=== PATIENT | female | born 1945 | race Caucasian/White ===

== ENCOUNTER 2017-03-02 06:49 | Inpatient (IN) | payer MEDICARE, MEDICAID ==
[2017-03-02 06:49] VITALS: BMI 57.4
[2017-03-02] MEDS ORDERED: Albuterol-Ipratrop 3 mg / 0.5 (3 ml) UD INH STA (07:09)
[2017-03-02 07:26] LABS: BASO # 0.1 K/uL (0.0-0.2); EOS # 1.1 K/uL (0.0-0.7); EOS % 12.2 % (0.0-4.0); HEMATOCRIT 34.6 % (34.0-47.0); LYMPH # 1.3 K/uL (1.0-4.3); LYMPH % 14.2 % (20.0-40.0); MEAN CELL VOLUME 86.7 fl (81.0-99.0); MEAN CORPUSCULAR HEMOGLOBIN 27.7 pg (27.0-31.0); MEAN CORPUSCULAR HGB CONC 31.9 g/dL (33.0-37.0); MEAN PLATELET VOLUME 8.3 fl (7.2-11.7); MONO # 0.6 K/uL (0.0-0.8); MONO % 7.1 % (0.0-10.0); NEUT # 5.9 K/uL (1.8-7.0); NEUT % 65.5 % (50.0-75.0); WHITE BLOOD COUNT 9.1 K/uL (4.8-10.8)
--- NOTE | 2017-03-02 07:36 | ED PDOC ---
HPI: SOB/CHF/COPD Time Seen by Provider: 03/02/17 07:00 Chief Complaint (Nursing): Shortness Of Breath Chief Complaint (Provider): Shortness of breath History Per: Patient History/Exam Limitations: no limitations Onset/Duration Of Symptoms: Days (x1, yesterday) Current Symptoms Are (Timing): Still Present Quality: Tightness Current Respiratory Medications: See Home Med List Pain Scale Rating Of: 0 Associated Symptoms: Ankle/Leg Swelling, Other (cough). denies: Fever Additional History Per: Family (daughter) Additional Complaint(s): Carmela Lr is a 71 year old female, with a past medical history of asthma, COPD, CHF, chronic kidney disease and Hypertension, who was brought to the emergency department accompanied by daughter by EMS for shortness of breath, cough, wheezing and lower extremity swelling onset since yesterday. She reports chest tightness. Patient's daughter states that she has been compliant with medications including diuretics. She denies any fever, vomiting, or diarrhea. Patient has had knee and brain surgery. No further medical complaints. PMD: Jonn Montanez - Risk Factors PE Risk Factors: Pos: CHF Past Medical History Reviewed: Historical Data, Nursing Documentation, Vital Signs Vital Signs: Last Vital Signs Temp 98.1 F 03/07/17 16:28 Pulse 71 03/07/17 16:28 Resp 18 03/07/17 16:28 BP 126/70 03/07/17 16:28 Pulse Ox 94 L 03/07/17 16:28 - Medical History PMH: Anxiety, Asthma, CAD, CHF, COPD, HTN, Hypercholesterolemia, Hyperlipidemia , Hypothyroidism, Chronic Kidney Disease Denies: Emphysema, Kidney Stones - Surgical History Surgical History: Cholecystectomy - Family History Family History: States: Hypertension - Social History Current smoker - smoking cessation education provided: No Alcohol: None Drugs: Denies - Home Medications Home Medications: Ambulatory Orders Medication Instructions Recorded Alprazolam [Xanax] 1 mg PO HS 12/13/13 Ibuprofen [Motrin Tab] 1 tab PO Q8 PRN 10/30/16 traMADol [Ultram] 50 mg PO Q12 PRN 10/30/16 Aspirin [Ecotrin] 81 mg PO DAILY #30 11/01/16 Budesonide/Formoterol Fumarate 2 puff INH BID #1 11/01/16 [Symbicort 160-4.5 Mcg Inhaler] Carvedilol [Coreg] 25 mg PO BID #60 11/01/16 Furosemide [Lasix] 40 mg PO DAILY #60 11/01/16 Levothyroxine [Synthroid] 200 mcg PO DAILY #30 11/01/16 Rosuvastatin Calcium [Crestor] 40 mg PO HS #60 tab 11/01/16 amLODIPine [Norvasc] 1 tab PO DAILY #30 11/01/16 Albuterol/Ipratropium [Duoneb 3 3 ml INH RQ4 neb 03/06/17 mg/0.5 mg (3 ml) UD] Levofloxacin [Levaquin] 500 mg PO DAILY #3 tablet 03/06/17 Methylprednisolone [Medrol Dose 4 mg PO DAILY #21 mg 03/06/17 Pack (21 tabs)] - Allergies Allergies/Adverse Reactions: Allergies Allergy/AdvReac Type Severity Reaction Status Date / Time codeine Allergy Verified 10/30/16 14:40 Review of Systems ROS Statement: Except As Marked, All Systems Reviewed And Found Negative Constitutional: Negative for: Fever Cardiovascular: Positive for: Chest Pain, Edema Respiratory: Positive for: Cough, Shortness of Breath Physical Exam - Reviewed Nursing Documentation Reviewed: Yes Vital Signs Reviewed: Yes - Physical Exam Appears: Positive for: Non-toxic Head Exam: Positive for: ATRAUMATIC, NORMAL INSPECTION, NORMOCEPHALIC Skin: Positive for: Normal Color, Warm, Dry Eye Exam: Positive for: EOMI, Normal appearance, PERRL Neck: Positive for: Normal, Painless ROM, Supple Cardiovascular/Chest: Positive for: Regular Rate, Rhythm. Negative for: Murmur Respiratory: Positive for: Wheezing (bilateral), Respiratory Distress (mild), Other (2+ large pulmonary edema) Gastrointestinal/Abdominal: Positive for: Normal Exam, Bowel Sounds, Soft. Negative for: Tenderness, Guarding, Rebound Back: Positive for: Normal Inspection. Negative for: L CVA Tenderness, R CVA Tenderness Extremity: Positive for: Normal ROM Neurologic/Psych: Positive for: Alert, Oriented. Negative for: Motor/Sensory Deficits - Laboratory Results Result Diagrams: 03/04/17 10:15 03/06/17 05:00 - ECG ECG Rhythm: Positive for: Sinus Rhythm, Nonspecific Changes (ST/T) Rate: 61 O2 Sat by Pulse Oximetry: 98 Medical Decision Making Medical Decision Making: Initial Impression: Asthma exacerbation Initial Plan: --EKG --B-Type natriuretic peptide --Comp Metabolic Panel --Troponin I --CBC w/ differential --PTT --PT --Chest portable [RAD] --Duoneb 3 ml INH --SOLU-medrol --Peak flow pre/post Tx --reevaluation 947 Chest x-ray FINDINGS: LUNGS: There are low lung volumes. There is severe pulmonary venous congestion. There is subsegmental atelectasis in the right lower lobe. PLEURA: Question of left pleural effusion. No large right pleural effusion. CARDIOVASCULAR: The cardiomediastinal silhouette is stable. OSSEOUS STRUCTURES: No significant abnormalities. VISUALIZED UPPER ABDOMEN: Normal. OTHER FINDINGS: None. IMPRESSION: Severe pulmonary venous congestion and suspect small left pleural effusion. Low lung volumes may be related to poor inspiratory effort. Remained w dyspnea, Admit Dr Green Scribe Attestation: Documented by Golden Diaz, acting as a scribe for Howard Alegre MD Provider Scribe Attestation: All medical record entries made by the Scribe were at my direction and personally dictated by me. I have reviewed the chart and agree that the record accurately reflects my personal performance of the history, physical exam, medical decision making, and the department course for this patient. I have also personally directed, reviewed, and agree with the discharge instructions and disposition. Disposition - Clinical Impression Clinical Impression: Dyspnea, COPD (chronic obstructive pulmonary disease), CHF (congestive heart failure) - Patient ED Disposition Is Patient to be Admitted: Yes - Disposition Disposition Time: 09:15 Condition: GUARDED
[2017-03-02 07:38] LABS: ALB/GLOB RATIO 1.2 (1.0-2.1); BILIRUBIN,TOTAL 0.4 mg/dl (0.2-1.3); CALCIUM 9.2 mg/dL (8.4-10.2); TOTAL PROTEIN 7.4 G/DL (6.3-8.2)
[2017-03-02 07:43] LABS: PARTIAL THROMBOPLASTIN TIME 32.4 Seconds (25.6-37.1)
[2017-03-02 07:50] LABS: TROPONIN I 0.016 ng/mL (0.00-0.120)
[2017-03-02 08:05] LABS: VENOUS BLOOD GAS BASE EXCESS 4.8 mmol/L (0.0-2.0); VENOUS BLOOD GAS PCO2 82 mmHg (40-60); VENOUS BLOOD PH 7.24 (7.32-7.43)
--- NOTE | 2017-03-02 09:49 | RAD ---
HISTORY: SOB COMPARISON: No prior. FINDINGS: LUNGS: There are low lung volumes. There is severe pulmonary venous congestion. There is subsegmental atelectasis in the right lower lobe. PLEURA: Question of left pleural effusion. No large right pleural effusion. CARDIOVASCULAR: The cardiomediastinal silhouette is stable. OSSEOUS STRUCTURES: No significant abnormalities. VISUALIZED UPPER ABDOMEN: Normal. OTHER FINDINGS: None. IMPRESSION: Severe pulmonary venous congestion and suspect small left pleural effusion. Low lung volumes may be related to poor inspiratory effort.
[2017-03-02] MEDS ORDERED: levoFLOXacin 500 mg in D5W 500 MG/100 ML BAG IVPB SCH (12:45)
[2017-03-02] MEDS ORDERED: Sodium Chloride 3% for Inhalation 4 ML VIAL.NEB IH PRN (12:45)
[2017-03-02] MEDS ORDERED: methylPREDNISolone 80 MG in Sodium Chloride 0.9% 50 ML IVPB SCH (12:45)
[2017-03-02] MEDS: Albuterol-Ipratrop 3 mg / 0.5 (3 ml) UD INH SCH ×3 (15:21→23:26)
[2017-03-02] MEDS ORDERED: Pneumococcal 23-Valent Vaccine IM ONE (17:00)
[2017-03-02 17:04] LABS: ABG ALLEN TEST YES; ABG MECHANICAL RATE 18; ARTERIAL BLOOD GAS HCO3 25.5 mmol/L (21-28); ARTERIAL BLOOD GAS MODE BiPAP; ARTERIAL BLOOD GAS O2 CAPACITY 15.6 mL/dL (16-24); ARTERIAL BLOOD GAS O2 CONTENT 15.1 ML/dL (15-23); ARTERIAL BLOOD GAS PH 7.32 (7.35-7.45); ARTERIAL BLOOD GAS PO2 67 mm/Hg (80-100); ARTERIAL BLOOD HGB O2 SAT 93.3 % (95.0-98.0); HHB 3.1 % (0.0-5.0); METHEMOGLOBIN 1.6 % (0.0-3.0)
--- NOTE | 2017-03-02 17:40 | CARD ---
APPROVED REPORT EKG Measurement Heart [id number] <Conclusion> Normal sinus rhythm Left ventricular hypertrophy with repolarization abnormality Inferior-posterior infarct, age undetermined Abnormal ECG
[2017-03-02] MEDS ORDERED: Albuterol-Ipratrop 3 mg / 0.5 (3 ml) UD INH SCH (20:00)
--- NOTE | 2017-03-02 23:17 | CP.PCM.HP ---
History of Present Illness - History of Present Illness History of Present Illness: a 71 year old female, with a past medical history of asthma, COPD, CHF, chronic kidney disease and Hypertension, who was brought to the emergency department accompanied by daughter by EMS for shortness of breath, cough, wheezing and lower extremity swelling onset since yesterday. She reports chest tightness. Patient's daughter states that she has been compliant with medications including diuretics. She denies any fever, vomiting, or diarrhea. Patient has had knee and brain surgery. No further medical complaints. PMD: Jonn Montanez Present on Admission - Present on Admission Any Indicators Present on Admission: Yes History of Uncontrolled Diabetes: Yes Urinary Catheter: No Decubitus Ulcer Present: No Review of Systems - Review of Systems All systems: reviewed and no additional remarkable complaints except Past Patient History - Infectious Disease Hx of Infectious Diseases: None - Tetanus Immunizations Tetanus Immunization: Unknown - Past Medical History & Family History Past Medical History?: Yes Past Family History: Reviewed and not pertinent - Past Social History Smoking Status: Never Smoked Alcohol: Social Drugs: Denies - CARDIAC Hx Congestive Heart Failure: Yes Hx Hypercholesterolemia: Yes Hx Hypertension: Yes - PULMONARY Hx Asthma: Yes Hx Chronic Obstructive Pulmonary Disease (COPD): Yes Hx Emphysema: No - NEUROLOGICAL Hx Neurological Disorder: No - HEENT Hx HEENT Problems: No - RENAL Hx Chronic Kidney Disease: Yes Hx Kidney Stones: No - ENDOCRINE/METABOLIC Hx Hypothyroidism: Yes - HEMATOLOGICAL/ONCOLOGICAL Hx Blood Disorders: No - INTEGUMENTARY Hx Dermatological Problems: No - MUSCULOSKELETAL/RHEUMATOLOGICAL Hx Musculoskeletal Disorders: Yes Hx Falls: Yes - GASTROINTESTINAL Hx Gastrointestinal Disorders: No - GENITOURINARY/GYNECOLOGICAL Hx Genitourinary Disorders: No - PSYCHIATRIC Hx Anxiety: Yes Hx Substance Use: No - SURGICAL HISTORY Hx Cholecystectomy: Yes - ANESTHESIA Hx Anesthesia: Yes Hx Anesthesia Reactions: No Meds Home Medications: Home Medication List Medication Instructions Recorded Confirmed Type Albuterol/Ipratropium [Duoneb 3 3 ml INH RQ4 neb 03/06/17 Rx mg/0.5 mg (3 ml) UD] Levofloxacin [Levaquin] 500 mg PO DAILY #3 tablet 03/06/17 Rx Methylprednisolone [Medrol Dose 4 mg PO DAILY #21 mg 03/06/17 Rx Pack (21 tabs)] Allergies/Adverse Reactions: Allergies Allergy/AdvReac Type Severity Reaction Status Date / Time codeine Allergy Verified 10/30/16 14:40 Physical Exam - Constitutional Appears: In Acute Distress - Head Exam Head Exam: ATRAUMATIC, NORMAL INSPECTION, NORMOCEPHALIC - Eye Exam Eye Exam: EOMI, Normal appearance, PERRL Pupil Exam: NORMAL ACCOMODATION, PERRL - ENT Exam ENT Exam: Mucous Membranes Moist, Normal Exam - Neck Exam Neck exam: Positive for: Normal Inspection - Respiratory Exam Respiratory Exam: Accessory Muscle Use, Decreased Breath Sounds, Rales, Wheezes - Cardiovascular Exam Cardiovascular Exam: Tachycardia, +S1, +S2 - GI/Abdominal Exam GI & Abdominal Exam: Normal Bowel Sounds, Soft. absent: Tenderness - Extremities Exam Extremities exam: Positive for: full ROM, normal inspection - Back Exam Back exam: CVA tenderness (L), CVA tenderness (R), NORMAL INSPECTION - Neurological Exam Neurological exam: Alert, CN II-XII Intact, Normal Gait, Oriented x3, Reflexes Normal - Psychiatric Exam Psychiatric exam: Normal Affect, Normal Mood - Skin Skin Exam: Dry, Intact, Normal Color, Warm Results - Vital Signs Recent Vital Signs: Last Vital Signs Temp 98.5 F 03/02/17 20:23 Pulse 80 03/02/17 20:23 Resp 20 03/02/17 20:23 BP 139/69 03/02/17 20:23 Pulse Ox 93 L 03/02/17 20:23 - Labs Result Diagrams: 03/04/17 10:15 03/06/17 05:00 Labs: Laboratory Results - last 24 hr 03/02/17 03/02/17 03/02/17 07:16 07:16 07:16 WBC 9.1 RBC 3.98 Hgb 11.0 L Hct 34.6 MCV 86.7 D MCH 27.7 MCHC 31.9 L RDW 16.0 H Plt Count 314 MPV 8.3 Neut % (Auto) 65.5 Lymph % (Auto) 14.2 L [place] % (Auto) 7.1 Eos % (Auto) 12.2 H Baso % (Auto) 1.0 Neut # 5.9 Lymph # 1.3 Solano # 0.6 Eos # 1.1 H Baso # 0.1 PT 11.4 INR 1.0 APTT 32.4 pCO2 pO2 HCO3 ABG pH ABG Total CO2 ABG O2 Saturation ABG O2 Content ABG Base Excess ABG Hemoglobin ABG Carboxyhemoglobin POC ABG HHb (Measured) ABG Methemoglobin ABG O2 Capacity Alonso Test VBG pH VBG pCO2 VBG HCO3 VBG Total CO2 VBG O2 Sat (Calc) VBG Base Excess VBG Potassium A-a O2 Difference Hgb O2 Saturation Glucose Lactate Vent Mode Mechanical Rate FiO2 Inspiratory BiPAP Expiratory BiPAP Crit Value Called To Crit Value Called By Crit Value Read Back Blood Gas Notified Time Sodium 140 Potassium 5.0 Chloride 101 Carbon Dioxide 30 Anion Gap 14 BUN 33 H Creatinine 1.7 H Est GFR ( Amer) 36 Est GFR (Non-Af Amer) 30 POC Glucose (mg/dL) Random Glucose 109 H Calcium 9.2 Total Bilirubin 0.4 AST 28 ALT 32 Alkaline Phosphatase 108 Troponin I 0.0160 NT-Pro-B Natriuret Pep 1030 H Total Protein 7.4 Albumin 4.0 Globulin 3.4 Albumin/Globulin Ratio 1.2 Venous Blood Potassium Influenza Typ A,B (EIA) 03/02/17 03/02/17 03/02/17 08:01 08:07 09:00 WBC RBC Hgb Hct MCV MCH MCHC RDW Plt Count MPV Neut % (Auto) Lymph % (Auto) Sol[place] % (Auto) Eos % (Auto) Baso % (Auto) Neut # Lymph # Sol[place] # Eos # Baso # PT INR APTT pCO2 pO2 42 HCO3 ABG pH ABG Total CO2 ABG O2 Saturation ABG O2 Content ABG Base Excess ABG Hemoglobin ABG Carboxyhemoglobin POC ABG HHb (Measured) ABG Methemoglobin ABG O2 Capacity Alonso Test VBG pH 7.24 L VBG pCO2 82 H* VBG HCO3 27.9 VBG Total CO2 37.6 H VBG O2 Sat (Calc) 81.4 H VBG Base Excess 4.8 H VBG Potassium 5.1 A-a O2 Difference 5.0 Hgb O2 Saturation Glucose 110 H Lactate 1.1 Vent Mode Mechanical Rate FiO2 21.0 Inspiratory BiPAP Expiratory BiPAP Crit Value Called To Nikki landin rn Crit Value Called By 15 Crit Value Read Back Y Blood Gas Notified Time 805 Sodium 137.0 Potassium Chloride 102.0 Carbon Dioxide Anion Gap BUN Creatinine Est GFR ( Amer) Est GFR (Non-Af Amer) POC Glucose (mg/dL) 127 H Random Glucose Calcium Total Bilirubin AST ALT Alkaline Phosphatase Troponin I NT-Pro-B Natriuret Pep Total Protein Albumin Globulin Albumin/Globulin Ratio Venous Blood Potassium 5.1 Influenza Typ A,B (EIA) Negative for flu a/b 03/02/17 03/02/17 16:00 20:05 WBC RBC Hgb Hct MCV MCH MCHC RDW Plt Count MPV Neut % (Auto) Lymph % (Auto) Sol[place] % (Auto) Eos % (Auto) Baso % (Auto) Neut # Lymph # Sol[place] # Eos # Baso # PT INR APTT pCO2 54 H pO2 67 L HCO3 25.5 ABG pH 7.32 L ABG Total CO2 29.5 H ABG O2 Saturation 96.8 ABG O2 Content 15.1 ABG Base Excess 0.9 ABG Hemoglobin 11.5 L ABG Carboxyhemoglobin 2.0 H POC ABG HHb (Measured) 3.1 ABG Methemoglobin 1.6 ABG O2 Capacity 15.6 L Alonso Test Yes VBG pH VBG pCO2 VBG HCO3 VBG Total CO2 VBG O2 Sat (Calc) VBG Base Excess VBG Potassium A-a O2 Difference 115.0 Hgb O2 Saturation 93.3 L Glucose Lactate Vent Mode Bipap Mechanical Rate 18 FiO2 35.0 Inspiratory BiPAP 12 Expiratory BiPAP 6 Crit Value Called To Crit Value Called By Crit Value Read Back Blood Gas Notified Time Sodium Potassium Chloride Carbon Dioxide Anion Gap BUN Creatinine Est GFR ( Amer) Est GFR (Non-Af Amer) POC Glucose (mg/dL) Random Glucose Calcium Total Bilirubin AST ALT Alkaline Phosphatase Troponin I < 0.0120 NT-Pro-B Natriuret Pep Total Protein Albumin Globulin Albumin/Globulin Ratio Venous Blood Potassium Influenza Typ A,B (EIA)
--- NOTE | 2017-03-02 23:46 | CON ---
DATE: HISTORY OF PRESENT ILLNESS: Ms. Lr is a 71-year-old female referred for pulmonary evaluation by Dr. Green. She was admitted via the Emergency Room, although she was brought in by EMS accompanied by her daughter, indicated that the patient has had shortness of breath, cough, wheezing and swelling of the lower extremity for the past 24 hours. She is easily arousable and is able to answer questions, but then falls back to sleep. She has a past medical history of COPD, congestive heart failure, chronic kidney disease and hypertension and follows up with Dr. Jonn Montanez. No other history is obtained. PHYSICAL EXAMINATION: GENERAL: The patient is easily arousable. VITAL SIGNS: Blood pressure 115/58 with a pulse of 69, respiratory rate is 18 per minute. She is afebrile. O2 sat 95% on nasal cannula oxygen. SKIN: Shows fair turgor. HEENT: Pupils are equal, reactive to light and accommodation. Patient appears obese. Mouth shows fair hygiene. JVP flat. LUNGS: Poor aeration bilaterally with dullness at both bases and bilateral wheezing. HEART: S1 and S2. ABDOMEN: Soft, nontender. No organomegaly. EXTREMITIES: Shows trace pitting pedal edema. CENTRAL NERVOUS SYSTEM EXAM: Patient is easily arousable but then falls back to sleep. LABORATORY DATA: WBC 9.1, hemoglobin 11.0, platelet count 314,000. Sodium 140, potassium 5.0, BUN 33, creatinine 1.7. Venous blood gas: PH 7.24, PCO2 82, PO2 of 42, O2 sat is . EKG: Official report pending, but appears to show normal sinus rhythm. LVH by voltage with repolarization. Inferior-posterior infarct, age undetermined. On chest x-ray, severe pulmonary venous congestion, suspect small left pleural effusion, low lung volumes may be related to poor inspiratory effort. IMPRESSION: Acute respiratory failure, one has to rule out superimposed pulmonary infection. History of chronic obstructive pulmonary disease, history of hypertension, history of kidney disease. PLAN: Place the patient on BiPAP, continue aerosolized bronchodilators, IV steroids, oxygen. Repeat the ABG a few hours after initiation of BiPAP. If patient's condition does not improve, we will request transfer to Intensive Care Unit. Lamonte Webster MD [facility] # [phone]
[2017-03-03] MEDS: Albuterol-Ipratrop 3 mg / 0.5 (3 ml) UD INH SCH ×6 (05:05→23:35)
[2017-03-03 07:21] LABS: TROPONIN I 0.015 ng/mL (0.00-0.120)
[2017-03-03 07:39] LABS: THYROID STIMULATING HORMONE 0.51 mIU/ML (0.46-4.68)
[2017-03-03] MEDS: levoFLOXacin 500 mg in D5W 500 MG/100 ML BAG IVPB SCH (09:30)
--- NOTE | 2017-03-03 10:27 | CP.PCM.PN ---
Subjective - Date & Time of Evaluation Date of Evaluation: 03/03/17 Time of Evaluation: 10:26 - Subjective Subjective: FEELS BETTER MORE ALERT AND ORIENTED TOLERATED BIPAP Objective - Vital Signs/Intake and Output Vital Signs (last 24 hours): Temp Pulse Resp BP Pulse Ox 97.7 F 82 18 123/75 94 L 03/03/17 08:10 03/03/17 08:10 03/03/17 08:10 03/03/17 08:10 03/03/17 08:10 Intake and Output: 03/03/17 03/03/17 06:59 18:59 Intake Total 250 Output Total 400 Balance -150 - Medications Medications: Current Medications Albuterol/Ipratropium (Duoneb 3 Mg/0.5 Mg (3 Ml) Ud) 3 ml INH RQ4 YE Last Admin: 03/03/17 07:27 Dose: 3 ml Heparin Sodium (Porcine) (Heparin) 5,000 units SC Q12 YE PRN Reason: Protocol Last Admin: 03/03/17 09:31 Dose: 5,000 units Levofloxacin/Dextrose (Levaquin 500mg) 500 mg in 100 mls @ 100 mls/hr IVPB DAILY YE Last Admin: 03/03/17 09:30 Dose: 100 mls/hr Methylprednisolone (Solu-Medrol) 80 mg IVP Q8 YE Last Admin: 03/03/17 09:31 Dose: 80 mg - Labs Labs: 03/02/17 07:16 03/02/17 07:16 PT 11.4 Seconds (9.8-13.1) 03/02/17 07:16 INR 1.0 (0.9-1.2) 03/02/17 07:16 APTT 32.4 Seconds (25.6-37.1) 03/02/17 07:16 - Constitutional Appears: No Acute Distress - Head Exam Head Exam: ATRAUMATIC, NORMAL INSPECTION, NORMOCEPHALIC - Eye Exam Eye Exam: EOMI, Normal appearance, PERRL Pupil Exam: NORMAL ACCOMODATION, PERRL - ENT Exam ENT Exam: Mucous Membranes Moist, Normal Exam - Neck Exam Neck Exam: Full ROM, Normal Inspection. absent: Lymphadenopathy - Respiratory Exam Respiratory Exam: Prolonged Expiratory Phase, Wheezes, NORMAL BREATHING PATTERN - Cardiovascular Exam Cardiovascular Exam: REGULAR RHYTHM, +S1, +S2. absent: Murmur - GI/Abdominal Exam GI & Abdominal Exam: Soft, Normal Bowel Sounds. absent: Tenderness - Rectal Exam Rectal Exam: NORMAL INSPECTION - Extremities Exam Extremities Exam: Full ROM, Normal Capillary Refill, Normal Inspection. absent : Joint Swelling, Pedal Edema - Back Exam Back Exam: NORMAL INSPECTION - Neurological Exam Neurological Exam: Alert, Awake, CN II-XII Intact, Normal Gait, Oriented x3 - Psychiatric Exam Psychiatric exam: Normal Affect, Normal Mood - Skin Skin Exam: Dry, Intact, Normal Color, Warm Assessment and Plan - Assessment and Plan (Free Text) Assessment: RESPIRATORY FAILURE IMPROVED Plan: CONTINUE BIPAP AT BEDTIME
--- NOTE | 2017-03-03 18:54 | CP.PCM.CON ---
History of Present Illness - History of Present Illness History of Present Illness: The patient is well known to our service from prior hospitalizations as well as recent office visit. The patient was admitted to the hospital with complaints of shortness of breath likely secondary to asthma exacerbation. In addition, the patient complained of chest discomfort for which cardiac consultation was requested. The patient had recent cardiac work up at [facility] including echo and lexiscan myoview which were within normal limits. Review of Systems - Constitutional Constitutional: Fatigue, Weakness - EENT Eyes: As Per HPI Ears: As Per HPI - Cardiovascular Cardiovascular: Chest Pain, Dyspnea on Exertion, Edema - Respiratory Respiratory: Cough, Wheezing - Gastrointestinal Gastrointestinal: As Per HPI - Genitourinary Genitourinary: As Per HPI - Reproductive: Female Reproductive:Female: As Per HPI - Menstruation Menstruation: As Per HPI - Musculoskeletal Musculoskeletal: Back Pain - Integumentary Integumentary: As Per HPI - Neurological Neurological: As Per HPI - Psychiatric Psychiatric: As Per HPI Past Patient History - Infectious Disease Hx of Infectious Diseases: None - Tetanus Immunizations Tetanus Immunization: Unknown - Past Medical History & Family History Past Medical History?: Yes - Past Social History Smoking Status: Never Smoked - CARDIAC Hx Congestive Heart Failure: Yes Hx Hypercholesterolemia: Yes Hx Hypertension: Yes - PULMONARY Hx Asthma: Yes Hx Chronic Obstructive Pulmonary Disease (COPD): Yes Hx Emphysema: No - NEUROLOGICAL Hx Neurological Disorder: No - HEENT Hx HEENT Problems: No - RENAL Hx Chronic Kidney Disease: Yes Hx Kidney Stones: No - ENDOCRINE/METABOLIC Hx Hypothyroidism: Yes - HEMATOLOGICAL/ONCOLOGICAL Hx Blood Disorders: No - INTEGUMENTARY Hx Dermatological Problems: No - MUSCULOSKELETAL/RHEUMATOLOGICAL Hx Musculoskeletal Disorders: Yes Hx Falls: Yes - GASTROINTESTINAL Hx Gastrointestinal Disorders: No - GENITOURINARY/GYNECOLOGICAL Hx Genitourinary Disorders: No - PSYCHIATRIC Hx Anxiety: Yes Hx Substance Use: No - SURGICAL HISTORY Hx Cholecystectomy: Yes - ANESTHESIA Hx Anesthesia: Yes Hx Anesthesia Reactions: No Meds Allergies/Adverse Reactions: Allergies Allergy/AdvReac Type Severity Reaction Status Date / Time codeine Allergy Verified 10/30/16 14:40 - Medications Medications: Current Medications Albuterol/Ipratropium (Duoneb 3 Mg/0.5 Mg (3 Ml) Ud) 3 ml INH RQ4 YE Last Admin: 03/03/17 15:09 Dose: 3 ml Heparin Sodium (Porcine) (Heparin) 5,000 units SC Q12 [facility] PRN Reason: Protocol Last Admin: 03/03/17 09:31 Dose: 5,000 units Levofloxacin/Dextrose (Levaquin 500mg) 500 mg in 100 mls @ 100 mls/hr IVPB DAILY [facility] Last Admin: 03/03/17 09:30 Dose: 100 mls/hr Methylprednisolone (Solu-Medrol) 80 mg IVP Q8 [facility] Last Admin: 03/03/17 17:14 Dose: 80 mg Physical Exam - Constitutional Appears: No Acute Distress - Head Exam Head Exam: ATRAUMATIC, NORMOCEPHALIC - Eye Exam Eye Exam: EOMI, Normal appearance, PERRL Pupil Exam: PERRL - ENT Exam ENT Exam: Mucous Membranes Moist - Neck Exam Neck exam: Positive for: Normal Inspection - Respiratory Exam Respiratory Exam: Decreased Breath Sounds, Wheezes - Cardiovascular Exam Cardiovascular Exam: REGULAR RHYTHM, +S1, +S2 - GI/Abdominal Exam GI & Abdominal Exam: Normal Bowel Sounds - Rectal Exam Rectal Exam: Deferred - Extremities Exam Extremities exam: Positive for: pedal edema - Neurological Exam Neurological exam: CN II-XII Intact, Oriented x3 - Skin Skin Exam: Normal Color Results - Vital Signs Recent Vital Signs: Last Vital Signs Temp 98.3 F 03/03/17 15:28 Pulse 86 03/03/17 15:28 Resp 20 03/03/17 15:28 BP 115/66 03/03/17 15:28 Pulse Ox 92 L 03/03/17 15:28 - Labs Result Diagrams: 03/02/17 07:16 03/02/17 07:16 Labs: Laboratory Results - last 24 hr 03/02/17 03/03/17 03/03/17 20:05 06:15 10:50 Troponin I < 0.0120 0.0150 < 0.0120 TSH 3rd Generation 0.51 Assessment & Plan - Assessment and Plan (Free Text) Assessment: 1. Asthma exacerbation. 2. Atypical chest pain syndrome. 3. Dyspnea. Plan: 1. Agree with the present treatment plan. 2. Pulmonary toilet. 3. Follow up prn.
--- NOTE | 2017-03-03 23:08 | CP.PCM.PN ---
Subjective - Date & Time of Evaluation Date of Evaluation: 03/03/17 Time of Evaluation: 08:15 Objective - Vital Signs/Intake and Output Vital Signs (last 24 hours): Temp Pulse Resp BP Pulse Ox 98.7 F 91 H 20 121/69 92 L 03/03/17 20:11 03/03/17 20:11 03/03/17 20:11 03/03/17 20:11 03/03/17 20:11 Intake and Output: 03/03/17 03/04/17 18:59 06:59 Output Total 150 Balance -150 - Medications Medications: Current Medications Albuterol/Ipratropium (Duoneb 3 Mg/0.5 Mg (3 Ml) Ud) 3 ml INH RQ4 YE Last Admin: 03/03/17 19:15 Dose: 3 ml Heparin Sodium (Porcine) (Heparin) 5,000 units SC Q12 [facility] PRN Reason: Protocol Last Admin: 03/03/17 21:21 Dose: 5,000 units Levofloxacin/Dextrose (Levaquin 500mg) 500 mg in 100 mls @ 100 mls/hr IVPB DAILY YE Last Admin: 03/03/17 09:30 Dose: 100 mls/hr Methylprednisolone (Solu-Medrol) 80 mg IVP Q8 YE Last Admin: 03/03/17 17:14 Dose: 80 mg - Labs Labs: 03/02/17 07:16 03/02/17 07:16 PT 11.4 Seconds (9.8-13.1) 03/02/17 07:16 INR 1.0 (0.9-1.2) 03/02/17 07:16 APTT 32.4 Seconds (25.6-37.1) 03/02/17 07:16
[2017-03-04] MEDS: Albuterol-Ipratrop 3 mg / 0.5 (3 ml) UD INH SCH ×6 (04:02→23:37)
[2017-03-04] MEDS: levoFLOXacin 500 mg in D5W 500 MG/100 ML BAG IVPB SCH (09:34)
[2017-03-04 10:52] LABS: EOS % 0.1 % (0.0-4.0); HEMATOCRIT 34.7 % (34.0-47.0); LYMPH # 0.7 K/uL (1.0-4.3); LYMPH % 10.5 % (20.0-40.0); MEAN CELL VOLUME 86.7 fl (81.0-99.0); MEAN CORPUSCULAR HEMOGLOBIN 27.5 pg (27.0-31.0); MEAN CORPUSCULAR HGB CONC 31.7 g/dL (33.0-37.0); MEAN PLATELET VOLUME 8.6 fl (7.2-11.7); MONO # 0.1 K/uL (0.0-0.8); MONO % 2.1 % (0.0-10.0); NEUT # 5.5 K/uL (1.8-7.0); NEUT % 87.3 % (50.0-75.0); NRBC % 0.2 % (0.0-0.0); RED CELL DISTRIBUTION WIDTH 16.6 % (11.5-14.5); WHITE BLOOD COUNT 6.3 K/uL (4.8-10.8)
[2017-03-04 10:57] LABS: ALB/GLOB RATIO 1.2 (1.0-2.1); BILIRUBIN,TOTAL 0.3 mg/dl (0.2-1.3); CALCIUM 8.3 mg/dL (8.4-10.2); POTASSIUM 4.3 MMOL/L (3.6-5.0); TOTAL PROTEIN 6.7 G/DL (6.3-8.2)
--- NOTE | 2017-03-04 11:00 | CP.PCM.PN ---
Subjective - Date & Time of Evaluation Date of Evaluation: 03/04/17 Time of Evaluation: 11:00 - Subjective Subjective: CLINICALLY IMPROVING SOB LESS Objective - Vital Signs/Intake and Output Vital Signs (last 24 hours): Temp Pulse Resp BP Pulse Ox 97.5 F L 82 18 112/64 95 03/04/17 08:00 03/04/17 08:26 03/04/17 08:00 03/04/17 08:00 03/04/17 08:00 Intake and Output: 03/04/17 03/04/17 06:59 18:59 Output Total 150 Balance -150 - Medications Medications: Current Medications Albuterol/Ipratropium (Duoneb 3 Mg/0.5 Mg (3 Ml) Ud) 3 ml INH RQ4 [facility] Last Admin: 03/04/17 07:37 Dose: 3 ml Heparin Sodium (Porcine) (Heparin) 5,000 units SC Q12 [facility] PRN Reason: Protocol Last Admin: 03/04/17 09:34 Dose: 5,000 units Levofloxacin/Dextrose (Levaquin 500mg) 500 mg in 100 mls @ 100 mls/hr IVPB DAILY [facility] Last Admin: 03/04/17 09:34 Dose: 100 mls/hr Methylprednisolone (Solu-Medrol) 80 mg IVP Q8 [facility] Last Admin: 03/04/17 09:35 Dose: 80 mg - Labs Labs: 03/02/17 07:16 03/04/17 10:15 PT 11.4 Seconds (9.8-13.1) 03/02/17 07:16 INR 1.0 (0.9-1.2) 03/02/17 07:16 APTT 32.4 Seconds (25.6-37.1) 03/02/17 07:16 - Constitutional Appears: No Acute Distress - Head Exam Head Exam: ATRAUMATIC, NORMAL INSPECTION, NORMOCEPHALIC - Eye Exam Eye Exam: EOMI, Normal appearance, PERRL Pupil Exam: NORMAL ACCOMODATION, PERRL - ENT Exam ENT Exam: Mucous Membranes Moist, Normal Exam - Neck Exam Neck Exam: Full ROM, Normal Inspection. absent: Lymphadenopathy - Respiratory Exam Respiratory Exam: Prolonged Expiratory Phase, NORMAL BREATHING PATTERN - Cardiovascular Exam Cardiovascular Exam: REGULAR RHYTHM, +S1, +S2. absent: Murmur - GI/Abdominal Exam GI & Abdominal Exam: Soft, Normal Bowel Sounds. absent: Tenderness - Rectal Exam Rectal Exam: NORMAL INSPECTION - Extremities Exam Extremities Exam: Full ROM, Normal Capillary Refill, Normal Inspection. absent : Joint Swelling, Pedal Edema - Back Exam Back Exam: NORMAL INSPECTION - Neurological Exam Neurological Exam: Alert, Awake, CN II-XII Intact, Normal Gait, Oriented x3 - Psychiatric Exam Psychiatric exam: Normal Affect, Normal Mood - Skin Skin Exam: Dry, Intact, Normal Color, Warm Assessment and Plan - Assessment and Plan (Free Text) Assessment: RESP FAILURE IMPROVED Plan: CONTINUE PRESENT RX TAPER STEROIDS
--- NOTE | 2017-03-04 23:18 | CP.PCM.PN ---
Subjective - Date & Time of Evaluation Date of Evaluation: 03/04/17 Time of Evaluation: 11:00 Objective - Vital Signs/Intake and Output Vital Signs (last 24 hours): Temp Pulse Resp BP Pulse Ox 97.8 F 82 20 113/72 94 L 03/04/17 19:15 03/04/17 19:15 03/04/17 19:15 03/04/17 19:15 03/04/17 19:15 Intake and Output: 03/04/17 03/05/17 18:59 06:59 Output Total 250 Balance -250 - Medications Medications: Current Medications Acetylcysteine (Mucomyst 10% 4ml) 2 ml IH RQ6 [facility] Albuterol/Ipratropium (Duoneb 3 Mg/0.5 Mg (3 Ml) Ud) 3 ml INH RQ4 [facility] Last Admin: 03/04/17 19:23 Dose: 3 ml Heparin Sodium (Porcine) (Heparin) 5,000 units SC Q12 [facility] PRN Reason: Protocol Last Admin: 03/04/17 21:54 Dose: 5,000 units Levofloxacin/Dextrose (Levaquin 500mg) 500 mg in 100 mls @ 100 mls/hr IVPB DAILY [facility] Last Admin: 03/04/17 09:34 Dose: 100 mls/hr Methylprednisolone (Solu-Medrol) 60 mg IVP Q8 [facility] Last Admin: 03/04/17 17:49 Dose: 60 mg - Labs Labs: 03/04/17 10:15 03/04/17 10:15 PT 11.4 Seconds (9.8-13.1) 03/02/17 07:16 INR 1.0 (0.9-1.2) 03/02/17 07:16 APTT 32.4 Seconds (25.6-37.1) 03/02/17 07:16
[2017-03-05] MEDS: Albuterol-Ipratrop 3 mg / 0.5 (3 ml) UD INH SCH ×6 (05:43→23:48)
[2017-03-05] MEDS: Acetylcysteine 10% 4 ML IH SCH ×4 (05:44→20:00)
--- NOTE | 2017-03-05 08:59 | CP.PCM.PN ---
Subjective - Date & Time of Evaluation Date of Evaluation: 03/05/17 Time of Evaluation: 09:00 - Subjective Subjective: FEELS BETTER EXCEPT FOR COUGH---WANTS TO GO HOME NO CHEST PAINS SOB IMPROVED Objective - Vital Signs/Intake and Output Vital Signs (last 24 hours): Temp Pulse Resp BP Pulse Ox 97.5 F L 78 21 134/77 93 L 03/05/17 08:11 03/05/17 08:11 03/05/17 08:11 03/05/17 08:11 03/05/17 08:11 Intake and Output: 03/05/17 03/05/17 06:59 18:59 Output Total 250 Balance -250 - Medications Medications: Current Medications Acetylcysteine (Mucomyst 10% 4ml) 2 ml IH RQ6 [facility] Last Admin: 03/05/17 08:18 Dose: Not Given Albuterol/Ipratropium (Duoneb 3 Mg/0.5 Mg (3 Ml) Ud) 3 ml INH RQ4 [facility] Last Admin: 03/05/17 07:45 Dose: 3 ml Heparin Sodium (Porcine) (Heparin) 5,000 units SC Q12 [facility] PRN Reason: Protocol Last Admin: 03/04/17 21:54 Dose: 5,000 units Levofloxacin/Dextrose (Levaquin 500mg) 500 mg in 100 mls @ 100 mls/hr IVPB DAILY [facility] Last Admin: 03/04/17 09:34 Dose: 100 mls/hr Methylprednisolone (Solu-Medrol) 60 mg IVP Q8 [facility] Last Admin: 03/05/17 00:22 Dose: 60 mg - Labs Labs: 03/04/17 10:15 03/04/17 10:15 PT 11.4 Seconds (9.8-13.1) 03/02/17 07:16 INR 1.0 (0.9-1.2) 03/02/17 07:16 APTT 32.4 Seconds (25.6-37.1) 03/02/17 07:16 - Constitutional Appears: No Acute Distress - Head Exam Head Exam: ATRAUMATIC, NORMAL INSPECTION, NORMOCEPHALIC - Eye Exam Eye Exam: EOMI, Normal appearance, PERRL Pupil Exam: NORMAL ACCOMODATION, PERRL - ENT Exam ENT Exam: Mucous Membranes Moist, Normal Exam - Neck Exam Neck Exam: Full ROM, Normal Inspection. absent: Lymphadenopathy - Respiratory Exam Respiratory Exam: Prolonged Expiratory Phase, Wheezes, NORMAL BREATHING PATTERN - Cardiovascular Exam Cardiovascular Exam: REGULAR RHYTHM, +S1, +S2. absent: Murmur - GI/Abdominal Exam GI & Abdominal Exam: Soft, Normal Bowel Sounds. absent: Tenderness - Rectal Exam Rectal Exam: NORMAL INSPECTION - Extremities Exam Extremities Exam: Full ROM, Normal Capillary Refill, Normal Inspection. absent : Joint Swelling, Pedal Edema - Back Exam Back Exam: NORMAL INSPECTION - Neurological Exam Neurological Exam: Alert, Awake, CN II-XII Intact, Normal Gait, Oriented x3 - Psychiatric Exam Psychiatric exam: Normal Affect, Normal Mood - Skin Skin Exam: Dry, Intact, Normal Color, Warm Assessment and Plan - Assessment and Plan (Free Text) Assessment: RESPIRATORY FAILURE-RESOLVED COPD-STABLE URI Plan: TAPER STEROIDS INCREASE ACTIVITY
[2017-03-05] MEDS ORDERED: guaiFENesin DM 200 mg-20 mg/10 ml UD PO PRN (09:01)
[2017-03-05] MEDS: levoFLOXacin 500 mg in D5W 500 MG/100 ML BAG IVPB SCH (09:18)
--- NOTE | 2017-03-05 12:13 | CARD ---
APPROVED REPORT EXAM: Two-dimensional and M-mode echocardiogram with Doppler and color Doppler. Other Information Quality : ExcellentRhythm : NSR INDICATION Congestive Heart Failure 2D DIMENSIONS IVSd1.24 (0.7-1.1cm)LVDd4.88 (3.9-5.9cm) LVOT Diameter1.52 (1.8-2.4cm)PWd1.06 (0.7-1.1cm) IVSs1.56 (0.8-1.2cm)LVDs3.10 (2.5-4.0cm) FS (%) 36.5 %PWs1.00 (0.8-1.2cm) M-Mode DIMENSIONS Left Atrium (MM)4.65 (2.5-4.0cm)IVSd1.22 (0.7-1.1cm) Aortic Root3.21 (2.2-3.7cm)LVDd5.48 (4.0-5.6cm) Aortic Cusp Exc.2.06 (1.5-2.0cm)PWd1.15 (0.7-1.1cm) IVSs1.64 cmFS (%) 40 % LVDs3.28 (2.0-3.8cm)PWs1.61 cm Mitral Valve MV E Xaulynmv900.0cm/sMV E Peak Gr.89mmHgMV DECEL [id number] MV A Alzofixy697.0cm/sMV SVG07siW/A ratio0.9 MVA (PHT)3.13cm2 TDI Medial E' Peak V13.93cm/sE/Lateral E'0.0E/Medial E'7.8 Pulmonary Valve PV Peak Pcwemsci018.1cm/s Tricuspid Valve TR Peak Bjvapihs980ks/sRAP [id number] Peak Gr.26mmHg [id number] LEFT VENTRICLE The left ventricle is normal size. There is normal left ventricular wall thickness. The left ventricular function is normal. The left ventricular ejection fraction is 60% There is normal LV segmental wall motion. The left ventricular diastolic function is normal. No left ventricle thrombus noted on this study. There is no ventricular septal defect visualized. There is no left ventricular aneurysm. There is no mass noted in the left ventricle. RIGHT VENTRICLE The right ventricle is normal size. There is normal right ventricular wall thickness. The right ventricular systolic function is normal. ATRIA The left atrium size is normal. The right atrium size is normal. The interatrial septum is intact with no evidence for an atrial septal defect. AORTIC VALVE The aortic valve is normal in structure. No aortic regurgitation is present. There is no aortic valvular stenosis. There is no aortic valvular vegetation. MITRAL VALVE The mitral valve leaflets are calcified. There is no evidence of mitral valve prolapse. There is no mitral valve stenosis. Mitral regurgitation is trace. TRICUSPID VALVE The tricuspid valve is normal in structure. There is no tricuspid valve regurgitation noted. There is no tricuspid valve prolapse or vegetation. There is no tricuspid valve stenosis. PULMONIC VALVE The pulmonary valve is normal in structure. There is no pulmonic valvular regurgitation. There is no pulmonic valvular stenosis. GREAT VESSELS The aortic root is normal in size. The ascending aorta is normal in size. The IVC is normal in size and collapses >50% with inspiration. PERICARDIAL EFFUSION The pericardium appears normal. There is no pleural effusion. <Conclusion> Normal LV Systolic function Trace Mitral Regurgitation
--- NOTE | 2017-03-05 23:54 | CP.PCM.PN ---
Subjective - Date & Time of Evaluation Date of Evaluation: 03/05/17 Time of Evaluation: 08:50 Objective - Vital Signs/Intake and Output Vital Signs (last 24 hours): Temp Pulse Resp BP Pulse Ox 98.0 F 80 20 128/77 94 L 03/05/17 20:13 03/05/17 20:13 03/05/17 20:13 03/05/17 20:13 03/05/17 20:13 - Medications Medications: Current Medications Acetylcysteine (Mucomyst 10% 4ml) 2 ml IH RQ6 [facility] Last Admin: 03/05/17 11:08 Dose: 2 ml Albuterol/Ipratropium (Duoneb 3 Mg/0.5 Mg (3 Ml) Ud) 3 ml INH RQ4 [facility] Last Admin: 03/05/17 23:48 Dose: 3 ml Guaifenesin/Dextromethorphan (Robitussin Dm) 10 ml PO Q6 PRN PRN Reason: Cough Last Admin: 03/05/17 09:29 Dose: 10 ml Heparin Sodium (Porcine) (Heparin) 5,000 units SC Q12 [facility] PRN Reason: Protocol Last Admin: 03/05/17 21:10 Dose: 5,000 units Levofloxacin/Dextrose (Levaquin 500mg) 500 mg in 100 mls @ 100 mls/hr IVPB DAILY [facility] Last Admin: 03/05/17 09:18 Dose: 100 mls/hr Methylprednisolone (Solu-Medrol) 60 mg IVP Q12 [facility] Last Admin: 03/05/17 21:10 Dose: 60 mg - Labs Labs: 03/04/17 10:15 03/04/17 10:15 PT 11.4 Seconds (9.8-13.1) 03/02/17 07:16 INR 1.0 (0.9-1.2) 03/02/17 07:16 APTT 32.4 Seconds (25.6-37.1) 03/02/17 07:16
[2017-03-06] MEDS: Acetylcysteine 10% 4 ML IH SCH ×4 (02:00→19:02)
[2017-03-06] MEDS: Albuterol-Ipratrop 3 mg / 0.5 (3 ml) UD INH SCH ×6 (04:55→23:40)
[2017-03-06 06:37] LABS: CALCIUM 8.7 mg/dL (8.4-10.2); POTASSIUM 4.9 MMOL/L (3.6-5.0)
[2017-03-06] MEDS: levoFLOXacin 500 mg in D5W 500 MG/100 ML BAG IVPB SCH (09:29)
[2017-03-06] MEDS ORDERED: MethylPREDNISolone 40 mg Vial IVP SCH (21:00)
[2017-03-07] MEDS: Acetylcysteine 10% 4 ML IH SCH ×3 (02:00→13:26)
[2017-03-07] MEDS: Albuterol-Ipratrop 3 mg / 0.5 (3 ml) UD INH SCH ×4 (04:14→16:08)
[2017-03-07 08:16] VITALS: RESP 18
[2017-03-07] MEDS ORDERED: Pantoprazole 40 mg EC Tab PO SCH (09:00)
--- NOTE | 2017-03-07 09:08 | CP.PCM.PN ---
Subjective - Date & Time of Evaluation Date of Evaluation: 03/07/17 Time of Evaluation: 09:08 - Subjective Subjective: FEELS BETTER NO CHEST PAINS/SOB COUGH LESS LYING FLAT IN BED Objective - Vital Signs/Intake and Output Vital Signs (last 24 hours): Temp Pulse Resp BP Pulse Ox 98.3 F 72 18 147/82 95 03/07/17 08:00 03/07/17 08:00 03/07/17 08:00 03/07/17 08:00 03/07/17 08:00 Intake and Output: 03/07/17 03/07/17 06:59 18:59 Intake Total 180 Balance 180 - Medications Medications: Current Medications Acetylcysteine (Mucomyst 10% 4ml) 2 ml IH RQ6 [facility] Last Admin: 03/07/17 07:16 Dose: Not Given Albuterol/Ipratropium (Duoneb 3 Mg/0.5 Mg (3 Ml) Ud) 3 ml INH RQ4 [facility] Last Admin: 03/07/17 07:16 Dose: 3 ml Guaifenesin/Dextromethorphan (Robitussin Dm) 10 ml PO Q6 PRN PRN Reason: Cough Last Admin: 03/05/17 09:29 Dose: 10 ml Heparin Sodium (Porcine) (Heparin) 5,000 units SC Q12 [facility] PRN Reason: Protocol Last Admin: 03/06/17 21:55 Dose: 5,000 units Levofloxacin/Dextrose (Levaquin 500mg) 500 mg in 100 mls @ 100 mls/hr IVPB DAILY [facility] Last Admin: 03/06/17 09:29 Dose: 100 mls/hr Pantoprazole Sodium (Protonix Ec Tab) 40 mg PO DAILY [facility] Prednisone (Prednisone Tab) 40 mg PO DAILY [facility] Last Admin: 03/06/17 21:55 Dose: 40 mg - Labs Labs: 03/04/17 10:15 03/06/17 05:00 PT 11.4 Seconds (9.8-13.1) 03/02/17 07:16 INR 1.0 (0.9-1.2) 03/02/17 07:16 APTT 32.4 Seconds (25.6-37.1) 03/02/17 07:16 - Constitutional Appears: No Acute Distress - Head Exam Head Exam: ATRAUMATIC, NORMAL INSPECTION, NORMOCEPHALIC - Eye Exam Eye Exam: EOMI, Normal appearance, PERRL Pupil Exam: NORMAL ACCOMODATION, PERRL - ENT Exam ENT Exam: Mucous Membranes Moist, Normal Exam - Neck Exam Neck Exam: Full ROM, Normal Inspection. absent: Lymphadenopathy - Respiratory Exam Respiratory Exam: Clear to Ausculation Bilateral, NORMAL BREATHING PATTERN - Cardiovascular Exam Cardiovascular Exam: REGULAR RHYTHM, +S1, +S2. absent: Murmur - GI/Abdominal Exam GI & Abdominal Exam: Soft, Normal Bowel Sounds. absent: Tenderness - Rectal Exam Rectal Exam: NORMAL INSPECTION - Extremities Exam Extremities Exam: Full ROM, Normal Capillary Refill, Normal Inspection. absent : Joint Swelling, Pedal Edema - Back Exam Back Exam: NORMAL INSPECTION - Neurological Exam Neurological Exam: Alert, Awake, CN II-XII Intact, Normal Gait, Oriented x3 - Psychiatric Exam Psychiatric exam: Normal Affect, Normal Mood - Skin Skin Exam: Dry, Intact, Normal Color, Warm Assessment and Plan - Assessment and Plan (Free Text) Assessment: RESPIRATORY FAILURE-IMPROVED Plan: D/C BIPAP NO FURTHER PULMONARY INTERVENTION FOR NOW MAY DISCHARGE FROM THE PULMONARY VIEW POINT WILL SIGN OFF CASE AND SEE AGAIN AT YOUR REQUEST
[2017-03-07] MEDS: levoFLOXacin 500 mg in D5W 500 MG/100 ML BAG IVPB SCH (09:31)
[2017-03-07 15:58] VITALS: BP 126/70; TEMP 98.1
--- NOTE | 2017-03-07 22:02 | CP.PCM.DIS ---
Provider - Provider Date of Admission: 03/02/17 09:28 Attending physician: Renée Green MD Time Spent in preparation of Discharge (in minutes): 25 Hospital Course - Lab Results Lab Results: Micro Results 03/02/17 08:00 Blood-Venous Blood Culture - Final NO GROWTH AFTER 5 DAYS 03/02/17 08:00 Blood-Venous Gram Stain - Final TEST NOT PERFORMED Most Recent Lab Values WBC 6.3 K/uL (4.8-10.8) 03/04/17 10:15 RBC 4.00 Mil/uL (3.80-5.20) 03/04/17 10:15 Hgb 11.0 g/dL (12.0-16.0) L 03/04/17 10:15 Hct 34.7 % (34.0-47.0) 03/04/17 10:15 MCV 86.7 fl (81.0-99.0) 03/04/17 10:15 MCH 27.5 pg (27.0-31.0) 03/04/17 10:15 MCHC 31.7 g/dL (33.0-37.0) L 03/04/17 10:15 RDW 16.6 % (11.5-14.5) H 03/04/17 10:15 Plt Count 336 K/uL (130-400) 03/04/17 10:15 MPV 8.6 fl (7.2-11.7) 03/04/17 10:15 Neut % (Auto) 87.3 % (50.0-75.0) H 03/04/17 10:15 Lymph % (Auto) 10.5 % (20.0-40.0) L 03/04/17 10:15 Harrison % (Auto) 2.1 % (0.0-10.0) 03/04/17 10:15 Eos % (Auto) 0.1 % (0.0-4.0) 03/04/17 10:15 Baso % (Auto) 0.0 % (0.0-2.0) 03/04/17 10:15 Neut # 5.5 K/uL (1.8-7.0) 03/04/17 10:15 Lymph # 0.7 K/uL (1.0-4.3) L 03/04/17 10:15 Harrison # 0.1 K/uL (0.0-0.8) 03/04/17 10:15 Eos # 0.0 K/uL (0.0-0.7) 03/04/17 10:15 Baso # 0.0 K/uL (0.0-0.2) 03/04/17 10:15 PT 11.4 Seconds (9.8-13.1) 03/02/17 07:16 INR 1.0 (0.9-1.2) 03/02/17 07:16 APTT 32.4 Seconds (25.6-37.1) 03/02/17 07:16 pCO2 54 mm/Hg (35-45) H 03/02/17 16:00 pO2 67 mm/Hg (80-100) L 03/02/17 16:00 HCO3 25.5 mmol/L (21-28) 03/02/17 16:00 ABG pH 7.32 (7.35-7.45) L 03/02/17 16:00 ABG Total CO2 29.5 mmol/L (22-28) H 03/02/17 16:00 ABG O2 Saturation 96.8 % (95-98) 03/02/17 16:00 ABG O2 Content 15.1 ML/dL (15-23) 03/02/17 16:00 ABG Base Excess 0.9 mmol/L (-2.0-3.0) 03/02/17 16:00 ABG Hemoglobin 11.5 g/dL (11.7-17.4) L 03/02/17 16:00 ABG Carboxyhemoglobin 2.0 % (0.5-1.5) H 03/02/17 16:00 POC ABG HHb (Measured) 3.1 % (0.0-5.0) 03/02/17 16:00 ABG Methemoglobin 1.6 % (0.0-3.0) 03/02/17 16:00 ABG O2 Capacity 15.6 mL/dL (16-24) L 03/02/17 16:00 Alonso Test Yes 03/02/17 16:00 VBG pH 7.24 (7.32-7.43) L 03/02/17 08:01 VBG pCO2 82 mmHg (40-60) H* 03/02/17 08:01 VBG HCO3 27.9 mmol/L 03/02/17 08:01 VBG Total CO2 37.6 mmol/L (22-28) H 03/02/17 08:01 VBG O2 Sat (Calc) 81.4 % (40-65) H 03/02/17 08:01 VBG Base Excess 4.8 mmol/L (0.0-2.0) H 03/02/17 08:01 VBG Potassium 5.1 mmol/L (3.6-5.2) 03/02/17 08:01 A-a O2 Difference 115.0 mm/Hg 03/02/17 16:00 Hgb O2 Saturation 93.3 % (95.0-98.0) L 03/02/17 16:00 Sodium 137.0 mmol/L (132-148) 03/02/17 08:01 Chloride 102.0 mmol/L (98-107) 03/02/17 08:01 Glucose 110 mg/dL (65-105) H 03/02/17 08:01 Lactate 1.1 mmol/L (0.7-2.1) 03/02/17 08:01 Vent Mode Bipap 03/02/17 16:00 Mechanical Rate 18 03/02/17 16:00 FiO2 35.0 % 03/02/17 16:00 Inspiratory BiPAP 12 03/02/17 16:00 Expiratory BiPAP 6 03/02/17 16:00 Crit Value Called To Nikki landin rn 03/02/17 08:01 Crit Value Called By Jannette 03/02/17 08:01 Crit Value Read Back Y 03/02/17 08:01 Blood Gas Notified Time 805 03/02/17 08:01 Sodium 140 mmol/l (132-148) 03/06/17 05:00 Potassium 4.9 MMOL/L (3.6-5.0) 03/06/17 05:00 Chloride 104 mmol/L (98-107) 03/06/17 05:00 Carbon Dioxide 25 mmol/L (22-30) 03/06/17 05:00 Anion Gap 16 (10-20) 03/06/17 05:00 BUN 64 mg/dl (7-17) H 03/06/17 05:00 Creatinine 1.8 mg/dl (0.7-1.2) H 03/06/17 05:00 Est GFR ( Amer) 34 03/06/17 05:00 Est GFR (Non-Af Amer) 28 03/06/17 05:00 POC Glucose (mg/dL) 127 mg/dL (65-110) H 03/02/17 09:00 Random Glucose 186 mg/dL (65-105) H 03/06/17 05:00 Calcium 8.7 mg/dL (8.4-10.2) 03/06/17 05:00 Total Bilirubin 0.3 mg/dl (0.2-1.3) 03/04/17 10:15 AST 42 U/L (14-36) H D 03/04/17 10:15 ALT 34 U/L (9-52) 03/04/17 10:15 Alkaline Phosphatase 91 U/L (38-126) 03/04/17 10:15 Troponin I < 0.0120 ng/mL (0.00-0.120) 03/03/17 10:50 NT-Pro-B Natriuret Pep 1030 pg/ml (0-900) H 03/02/17 07:16 Total Protein 6.7 G/DL (6.3-8.2) 03/04/17 10:15 Albumin 3.6 g/dL (3.5-5.0) 03/04/17 10:15 Globulin 3.1 gm/dL (2.2-3.9) 03/04/17 10:15 Albumin/Globulin Ratio 1.2 (1.0-2.1) 03/04/17 10:15 TSH 3rd Generation 0.51 mIU/ML (0.46-4.68) 03/03/17 06:15 Venous Blood Potassium 5.1 mmol/L (3.6-5.2) 03/02/17 08:01 Influenza Typ A,B (EIA) Negative for flu a/b (NEGATIVE) 03/02/17 08:07 Discharge Exam - Head Exam Head Exam: ATRAUMATIC, NORMAL INSPECTION, NORMOCEPHALIC Discharge Plan - Discharge Medications Prescriptions: Levofloxacin [Levaquin] 500 mg PO DAILY #3 tablet Methylprednisolone [Medrol Dose Pack (21 tabs)] 4 mg PO DAILY #21 mg - Follow Up Plan Condition: GUARDED Disposition: HOME/ ROUTINE Instructions: Heart Failure (DC), Heart Failure (GEN), Pacemaker (DC), Pacemaker (GEN), Pulmonary Edema (DC), Pulmonary Edema (GEN), Ascites (DC), Ascites (GEN), Bronchospasm (DC) Additional Instructions: Activity as tolerated, no strenous activity. Fall Precaution, Heart healthy, low fat, low cholesterol diet. Fliud restriction 1.2 liter per day. Follow-up w / [facility] Doctor and Dr Montanez and to call for appointment Referrals: Jonn Montanez MD [Staff Provider] - Lamonte Webster MD [Staff Provider] -
--- NOTE | 2017-03-07 22:02 | CP.PCM.PN ---
Subjective - Date & Time of Evaluation Date of Evaluation: 03/06/17 Time of Evaluation: 18:05 Objective - Vital Signs/Intake and Output Vital Signs (last 24 hours): Temp Pulse Resp BP Pulse Ox 98.1 F 71 18 126/70 94 L 03/07/17 16:28 03/07/17 16:28 03/07/17 16:28 03/07/17 16:28 03/07/17 16:28 - Labs Labs: 03/04/17 10:15 03/06/17 05:00 PT 11.4 Seconds (9.8-13.1) 03/02/17 07:16 INR 1.0 (0.9-1.2) 03/02/17 07:16 APTT 32.4 Seconds (25.6-37.1) 03/02/17 07:16
[2017-03-08 18:03] VITALS: PULSE 61; O2SAT 98
--- NOTE | 2017-03-09 09:27 | PQF GENQUE ---
This form is a permanent part of the medical record DR. ZENG SEMAN: COULD YOU PLEASE CONFIRM PRINCIPAL DIAGNOSIS. ALL NOTES, AND H&P/D/C SUMMARY ARE IN DRAFT. COULD YOU ALSO CONFIRM THE TYPE OF CHF. Clarification of your documentation is requested to better reflect the severity of illness and intensity of treatment of your patient. Indicators present [] Specify: [] [] Specify: [] [] Specify: [] [] Specify: [] Location in the medical record that reflects the above clinical findings: [] Treatment Provided: [] PHYSICIAN'S RESPONSE Based on your medical judgment of the clinical indicators outlined above please clarify the following: [X] Practitioner response: Acute Respiratory Failure Type II, COPD Exacerbation , PAULA, Acute Respiratory Acidosis [] If unable to determine, please check the box, sign and date. Present On Admission (POA) Indicator: [X] Present at the time of admission [] Not present at the time of admission [] Clinically Undetermined In responding to this query, please exercise your independent professional judgment. The fact that a question is asked does not imply that any particular answer is desired or expected. Thank you for your clarification on this documentation. If you have any questions please call:[ ] * Thank you, * NANETTE VEGA [ [phone] special projects coordinator LOR
--- NOTE | 2017-03-12 08:41 | PQF CHF ---
This form is a permanent part of the medical record DR. ZENG SEMAN: COULD YOU PLEASE CLARIFY THE TYPE OF CHF. Clarification of your documentation is requested to better reflect the severity of illness and intensity of treatment of your patient. Indicators present [] Diagnosis of CHF and/or history of CHF [] BNP > 200 [] Imaging Finding of Pulmonary Edema /Pleural Effusions [] Fluid/Volume Overload [] Pitting edema [] Ejection Fraction < 40% (Indicative of Systolic Heart Failure) [] Ejection Fraction > 40% (Indicative of Diastolic Heart Failure) [] Dyspnea / Orthopenea / Paroxysmal Nocturnal Dyspnea [] Other: Location in the medical record that reflects the above clinical findings: [] Treatment Provided: [] PHYSICIAN'S RESPONSE Based on your medical judgment of the clinical indicators outlined above, are you treating this patient for a known or suspected: [] Acute CHF [] Systolic [] Diastolic [] Combined [] Chronic CHF [] Systolic [] Diastolic [] Combined [] Acute on Chronic CHF []Systolic [] Diastolic [] Combined [] CHF due hypertension [] Acute systolic []Chronic systolic [] Acute/ chronic systolic [] Other, please indicate: [] [] If Unable to Determine, please check the box, sign and date. Present On Admission (POA) Indicator: [] Present at the time of admission [] Not present at the time of admission [] Clinically Undetermined In responding to this query, please exercise your independent professional judgment. The fact that a question is asked does not imply that any particular answer is desired or expected. Thank you for your clarification on this documentation. If you have any questions please call:[ ] * Thank you, * NANETTE VEGA [phone] county engineer L[place]
== END 2017-03-07 17:09 | disposition home health service (06) | DRG 189 ==
LOC: H.ER 06:49 → H.ERHOLD 09:28 → H.TEL 11:02
PROVIDERS: ADMIT Internal Medicine; ATTEND Internal Medicine
PROC: 3E0234Z Introduction of Serum, Toxoid and Vaccine into Muscle, Percutaneous Approach (ICD-10-PCS; principal; 2017-03-02)
DX: J96.00 Acute respiratory failure, unspecified whether with hypoxia or hypercapnia (principal); I50.33 Acute on chronic diastolic (congestive) heart failure; E87.2 Acidosis; J44.1 Chronic obstructive pulmonary disease with (acute) exacerbation; J45.901 Unspecified asthma with (acute) exacerbation; I13.0 Hypertensive heart and chronic kidney disease with heart failure and stage 1 through stage 4 chronic kidney disease, or unspecified chronic kidney disease; I50.9 Heart failure, unspecified; E03.9 Hypothyroidism, unspecified; E78.00 Pure hypercholesterolemia, unspecified; E78.5 Hyperlipidemia, unspecified; I25.10 Atherosclerotic heart disease of native coronary artery without angina pectoris; J06.9 Acute upper respiratory infection, unspecified; N18.9 Chronic kidney disease, unspecified; Z79.51 Long term (current) use of inhaled steroids; Z79.82 Long term (current) use of aspirin; Z79.899 Other long term (current) drug therapy; Z90.49 Acquired absence of other specified parts of digestive tract; F41.9 Anxiety disorder, unspecified; Z23 Encounter for immunization

== ENCOUNTER 2018-01-14 13:11 | Inpatient (IN) | payer MEDICARE, MEDICAID ==
[2018-01-14 13:16] VITALS: BMI 47.6
--- NOTE | 2018-01-14 15:14 | CT ---
Date of service: 01/14/2018 PROCEDURE: CT HEAD WITHOUT CONTRAST. HISTORY: LEFT LOWER LEG NUMBNESS COMPARISON: Head CT without contrast 11/12/2013. TECHNIQUE: Axial computed tomography images were obtained through the head/brain without intravenous contrast. Radiation dose: Total exam DLP = 810.44 mGy-cm. This CT exam was performed using one or more of the following dose reduction techniques: Automated exposure control, adjustment of the mA and/or kV according to patient size, and/or use of iterative reconstruction technique. FINDINGS: HEMORRHAGE: No intracranial hemorrhage. BRAIN: Diffuse cerebral atrophy chronic microangiopathy appears stable with no definite suspicious interval findings appreciable. A small area of medial left frontal cystic encephalomalacia is appreciated, stable in the interval. No mass effect. Posterior fossa contents remain unremarkable. VENTRICLES: Unremarkable. No hydrocephalus. CALVARIUM: Prior left frontotemporal craniotomy reiterated with calvarium and skull base otherwise unremarkable once again. PARANASAL SINUSES: Hyperdensity at the posteromedial left ethmoid air cells may represent a subtle left favored over osteoma related to the left side of the vomer. MASTOID AIR CELLS: Unremarkable as visualized. No inflammatory changes. OTHER FINDINGS: None. IMPRESSION: Questionable lucency in the subcortical right frontal region may reflect interval acute or subacute infarction although there is no mass effect or hemorrhage. Follow-up MRI or CT recommended. Stable age-related neuro degenerative changes as well as prior left frontotemporal craniotomy and limited encephalomalacia at the medial left frontal lobe. Findings discussed with GERARDO Ayon with written down read back verification 01/14/2018 3:10 p.m..
[2018-01-14 15:37] LABS: BASO # 0.1 K/uL (0.0-0.2); BASO % 0.9 % (0.0-2.0); EOS # 0.3 K/uL (0.0-0.7); HEMOGLOBIN 12.3 g/dL (12.0-16.0); LYMPH # 1.5 K/uL (1.0-4.3); LYMPH % 16.8 % (20.0-40.0); MEAN CELL VOLUME 87.3 fl (81.0-99.0); MEAN CORPUSCULAR HEMOGLOBIN 28.7 pg (27.0-31.0); MEAN CORPUSCULAR HGB CONC 32.9 g/dL (33.0-37.0); MEAN PLATELET VOLUME 8.8 fl (7.2-11.7); MONO # 0.7 K/uL (0.0-0.8); MONO % 7.4 % (0.0-10.0); NEUT # 6.4 K/uL (1.8-7.0); NEUT % 71.9 % (50.0-75.0); NRBC % 0.2 % (0.0-0.0); RBC 4.29 Mil/uL (3.80-5.20); RED CELL DISTRIBUTION WIDTH 15.8 % (11.5-14.5); WHITE BLOOD COUNT 8.9 K/uL (4.8-10.8)
--- NOTE | 2018-01-14 15:40 | ED PDOC ---
Addendum entered and electronically signed by Balaji Ayon PA 01/19/18 12:27: Addendum Addendum: 01/19/18 12:23 Patient noted to have complaint of numbness in left leg unclear unsure >24 hours. Patient re-examined after CT of head and states that numbness in left leg resolved but notes right hip pain extremely painful. Xry of hip ordered at this time. With discussion with neurology, as symptoms present unclear onset/ >24hours and symptoms noted resolved upon re-examination, no TPA given. MRI of brain was ordered as recommended by neurology. Creatinine noted elevated; CT head and neck with iv contrast deferred at this time. Original Note: HPI: General Adult Time Seen by Provider: 01/14/18 13:56 Chief Complaint (Nursing): Upper Extremity Problem/Injury Chief Complaint (Provider): left leg numbness/ bilateral hand pain History Per: Patient (72 y/o female here with daughter for evaluation of increased hand pain since yesterday. Patient also notes left leg numbness. Uses walker daily as she has had sx of left lower extremity but denies any weakness. Has ongoing back/neck pain and is being seen by pain management Dr. Wheeler Harrietta. Has recently had MRI but is pending results.) NIHSS Stroke Scale - Date/Time Evaluation Performed Date Performed: 01/14/18 Time Performed: 13:57 When Was NIHSS Performed: Baseline - How Severe is the Stroke Level of Consciousness: 0=Alert LOC to Questions: 0=Both comments correct LOC to commands: 0=Obeys both correctly Best Gaze: 0=Normal Visual: 0=No visual loss Facial: 0=Normal Motor Arm - Left: 0=No drift Motor Arm - Right: 0=No drift Motor Leg - Left: 2=Falls before 5 sec Motor Leg - Right: 3=No effort against gravity (falls immediately) Limb Ataxia: 0=Absent Sensory: 1=Mild to moderate loss Best Language: 0=No aphasia Dysarthia: 0=Normal articulation Extinction & Inattention (Neglect): 0=Normal, no object Score: 6 Past Medical History Reviewed: Historical Data, Nursing Documentation, Vital Signs Vital Signs: Last Vital Signs Temp 97 F L 01/14/18 13:15 Pulse 64 01/14/18 13:15 Resp BP 112/53 L 01/14/18 13:15 Pulse Ox 97 01/14/18 13:15 - Medical History PMH: Anxiety, Asthma, CAD, CHF, COPD, HTN, Hypercholesterolemia, Hyperlipidemia, Hypothyroidism, Chronic Kidney Disease Denies: Emphysema, Kidney Stones - Surgical History Surgical History: Cholecystectomy - Family History Family History: States: Hypertension - Home Medications Home Medications: Ambulatory Orders Medication Instructions Recorded Alprazolam [Xanax] 1 mg PO Q12 12/13/13 Levothyroxine [Synthroid] 200 mcg PO DAILY #30 11/01/16 Albuterol Sulfate [Ventolin Hfa] 2 puff IH Q4 PRN 01/14/18 Albuterol/Ipratropium [Duoneb 3 3 ml IH Q6 PRN 01/14/18 mg/0.5 mg (3 ml) UD] Atorvastatin [Lipitor] 40 mg PO DAILY 01/14/18 Carvedilol [Coreg] 12.5 mg PO Q12 01/14/18 Cetirizine HCl [All Day Allergy 10 mg PO HS PRN 01/14/18 Relief] Dexlansoprazole [Dexilant] 30 mg PO DAILY 01/14/18 Ezetimibe [Zetia] 10 mg PO DAILY 01/14/18 FLUoxetine [Prozac] 10 mg PO DAILY 01/14/18 Fluticasone/Vilanterol [Breo 1 puff IH DAILY 01/14/18 Ellipta 200-25 Mcg INH] Furosemide [Lasix] 40 mg PO BID 01/14/18 Hydrocodone/Acetaminophen 1 tab PO Q12 PRN 01/14/18 [Hydrocodone-Acetamin 10-325 mg] Losartan [Cozaar] 50 mg PO DAILY 01/14/18 amLODIPine [Norvasc] 10 mg PO DAILY 01/14/18 - Allergies Allergies/Adverse Reactions: Allergies Allergy/AdvReac Type Severity Reaction Status Date / Time codeine Allergy RASH Verified 01/14/18 13:20 Review of Systems ROS Statement: Except As Marked, All Systems Reviewed And Found Negative Physical Exam - Reviewed Nursing Documentation Reviewed: Yes Vital Signs Reviewed: Yes - Physical Exam Appears: Positive for: Well, Non-toxic, No Acute Distress Head Exam: Positive for: ATRAUMATIC, NORMAL INSPECTION, NORMOCEPHALIC Skin: Positive for: Normal Color, Warm, DRY Eye Exam: Positive for: EOMI, Normal appearance, PERRL ENT: Positive for: Normal ENT Inspection Neck: Positive for: Normal, Painless ROM Cardiovascular/Chest: Positive for: Regular Rate, Rhythm Respiratory: Positive for: CNT, Normal Breath Sounds Gastrointestinal/Abdominal: Positive for: Normal Exam, Soft Back: Positive for: Normal Inspection Extremity: Positive for: Normal ROM Neurologic/Psych: Positive for: Alert, Oriented, Other (Unable to lift left lower leg off bed but resistance noted against gravity. No resistance noted in right leg. Decreased sensation in left leg.) - Laboratory Results Result Diagrams: 01/14/18 15:31 01/14/18 15:31 - ECG ECG Rhythm: Positive for: Sinus Bradycardia (57 bpm no ectopy no acute changes) O2 Sat by Pulse Oximetry: 97 - Progress ED Course And Treament: morphine 2 mg iv x 1 dose for pain head CT IMPRESSION: Questionable lucency in the subcortical right frontal region may reflect interval acute or subacute infarction although there is no mass effect or hemorrhage. Follow-up MRI or CT recommended. Stable age-related neuro degenerative changes as well as prior left frontotemporal craniotomy and limited encephalomalacia at the medial left frontal lobe. Findings discussed with GERARDO Ayon with written down read back verification 01/14/2018 3:10 p.m.. WRIST XRY BILATERAL: Left Wrist: Normal. No degenerative changes. SOFT TISSUES: Right Wrist: Upper extremity edema appears to be generalized/diffuse. Left Wrist: Symmetrical edema. OTHER FINDINGS: None. IMPRESSION: No acute osseous findings. Osteopenia noted. HAND BILATERAL: IMPRESSION: Diffuse osteopenia. Osteoarthritic changes moderate-severe and symmetrical. No acute findings. Patient re-evaluated. New pain noted right hip after CT of head. Morphine 4 mg iv x 1 dose xry of hip ordered. d/w Dr. Angeles. Will consult neuro for stroke evaluation. duplex bilateral: wnl Disposition - Clinical Impression Clinical Impression: CVA (cerebral vascular accident), Chronic pain - Patient ED Disposition Is Patient to be Admitted: No - Disposition Disposition Time: 16:12 Condition: FAIR - Pt Status Changed To: Hospital Disposition Of: Inpatient - Admit Certification Admit to Inpatient:: After my assessment, the patient will require ho spitalization for at least two midnights. This is because of the severity of symptoms shown, intensity of services needed, and/or the medical risk in this patient being treated as an outpatient.
[2018-01-14 15:42] LABS: INR 1.1; PROTHROMBIN TIME 11.8 Seconds (9.8-13.1)
[2018-01-14 15:44] LABS: CALCIUM 9.6 mg/dL (8.4-10.2)
[2018-01-14 15:45] LABS: PARTIAL THROMBOPLASTIN TIME 32.6 Seconds (25.6-37.1)
--- NOTE | 2018-01-14 15:51 | RAD ---
Date of service: 01/14/2018 PROCEDURE: Bilateral Wrists Radiographs. HISTORY: WRIST PAIN R> L R/O FX COMPARISON: None. FINDINGS: BONES: Right Carpal Bones: Bony demineralization. No fracture identified. Left Carpal Bones: Bony demineralization in particular distal radius and ulna similar findings identified on the contralateral wrist. Right Distal Radius and Ulna: No fracture or degenerative changes. Left Distal Radius and Ulna: No fracture or degenerative changes. JOINT SPACES: Right Wrist: Normal. No degenerative changes. Left Wrist: Normal. No degenerative changes. SOFT TISSUES: Right Wrist: Upper extremity edema appears to be generalized/diffuse. Left Wrist: Symmetrical edema. OTHER FINDINGS: None. IMPRESSION: No acute osseous findings. Osteopenia noted.
--- NOTE | 2018-01-14 15:52 | RAD ---
PROCEDURE: Bilateral hand radiographs. HISTORY: HAND PAIN L >R COMPARISON: None. FINDINGS: BONES: Right Hand: Osteoarthritic change involving proximal and distal interphalangeal joints. Left Hand: Osteoarthritic change involving proximal and distal interphalangeal joints. JOINTS: Right Hand: Carpal 1st metacarpal degenerative changes in addition to interphalangeal degenerative change. Left Hand: Symmetrical findings noted. SOFT TISSUES: Right Hand: Juxta-articular soft tissue swelling. Left Hand: Symmetrical juxta-articular soft tissue swelling OTHER FINDINGS: None. IMPRESSION: Diffuse osteopenia. Osteoarthritic changes moderate-severe and symmetrical. No acute findings.
[2018-01-14 15:56] LABS: TROPONIN I 0.016 ng/mL (0.00-0.120)
[2018-01-14] MEDS ORDERED: Morphine 4 MG/ML VIAL ONE ×2 (16:15→18:32)
--- NOTE | 2018-01-14 17:35 | CARD ---
APPROVED REPORT Date of service: 01/14/2018 EKG Measurement Heart [id number] <Conclusion> Sinus bradycardia Inferior infarct, age undetermined Abnormal ECG
--- NOTE | 2018-01-14 17:57 | US ---
Date of service: 01/14/2018 PROCEDURE: Bilateral lower extremity venous duplex Doppler. HISTORY: bilateral leg pain COMPARISON: None available. TECHNIQUE: Bilateral common femoral, superficial femoral, popliteal and posterior tibial veins were evaluated. Flow was assessed with color Doppler, compressibility, assessment of phasic flow and augmentation response. FINDINGS: COMMON FEMORAL VEIN: Right CFV: Unremarkable. Left CFV: Unremarkable. SUPERFICIAL FEMORAL VEIN: Right SFV: Unremarkable. Left SFV: Unremarkable. POPLITEAL VEIN: Right Popliteal: Unremarkable. Left Popliteal: Unremarkable. POSTERIOR TIBIAL VEIN: Right PTV: Unremarkable. Left PTV: Unremarkable. OTHER FINDINGS: None. IMPRESSION: No evidence of deep venous thrombosis.
--- NOTE | 2018-01-14 18:38 | RAD ---
Date of service: 01/14/2018 PROCEDURE: Pelvis and right hip HISTORY: Generalized Pain. No history of recent/ related trauma provided COMPARISON: None TECHNIQUE: Standard protocol for this study/examination. FINDINGS: There are no osseous abnormalities to suggest fracture. The pelvic ring is intact. Preserved femoral-acetabular relationship. Negative study for protrusio, subluxation or dislocation. Degenerative changes: Moderate-severe and symmetrical. IMPRESSION: No acute findings related to/accounting for the clinical presentation.
[2018-01-14] MEDS ORDERED: Oxycodone/Acetaminophen 5/325 mg Tab PO PRN (21:27)
[2018-01-14] MEDS ORDERED: Albuterol HFA 90 mcg/actuation (8 g) IH PRN (21:29)
[2018-01-14] MEDS ORDERED: Albuterol-Ipratrop 3 mg / 0.5 (3 ml) UD IH PRN (21:29)
[2018-01-15] MEDS: Levothyroxine 200 MCG TAB PO SCH (06:21)
[2018-01-15] MEDS: Albuterol-Ipratrop 3 mg / 0.5 (3 ml) UD INH SCH ×4 (07:23→19:14)
--- NOTE | 2018-01-15 07:24 | CP.PCM.HP ---
<Sultan Ni - Last Filed: 01/16/18 13:16> History of Present Illness - History of Present Illness History of Present Illness: 72 year old female, with a past medical history of CHF, asthma, COPD, chronic kidney disease and Hypertension, hypothyroidism, who was brought [facility] ER accompanied by daughter with concerns for pain and swelling of B/L hands. Reports generalized body pain and pain in right hip. Reports numbness of the left leg and generalized weakness. Denies chest pain, dyspnea, blurry vision, fever or chills. In the ED, patient had NIHSS score of 6. Head CT showed questionable lucency in the subcortical right frontal region may reflect interval acute or subacute infarction although there is no mass effect or hemorrhage. Patient is admitted to telemetry for evaluation of possible CVA. PMHX: CHF, asthma, COPD, CKD, HTN surghx: bilateral tkr, brain surgery for fluid removal (?) in 1998 Allergies: codeine, acetaminophen, oxycodone Medications: reviewed Present on Admission - Present on Admission Any Indicators Present on Admission: No Review of Systems - Review of Systems All systems: reviewed and no additional remarkable complaints except Past Patient History - Infectious Disease Hx of Infectious Diseases: None - Tetanus Immunizations Tetanus Immunization: Unknown - Past Medical History & Family History Past Medical History?: Yes - Past Social History Smoking Status: Never Smoked - CARDIAC Hx Cardiac Disorders: Yes Hx Hypercholesterolemia: Yes Hx Hypertension: Yes - PULMONARY Hx Respiratory Disorders: Yes Hx Chronic Obstructive Pulmonary Disease (COPD): Yes - NEUROLOGICAL Hx Neurological Disorder: No - HEENT Hx HEENT Problems: No - RENAL Hx Chronic Kidney Disease: Yes - ENDOCRINE/METABOLIC Hx Endocrine Disorders: Yes Hx Hypothyroidism: Yes - HEMATOLOGICAL/ONCOLOGICAL Hx Blood Disorders: No - INTEGUMENTARY Hx Dermatological Problems: No - MUSCULOSKELETAL/RHEUMATOLOGICAL Hx Musculoskeletal Disorders: Yes Hx Back Pain: Yes Hx Falls: Yes (2014) - GASTROINTESTINAL Hx Gastrointestinal Disorders: No - GENITOURINARY/GYNECOLOGICAL Hx Genitourinary Disorders: No - PSYCHIATRIC Hx Psychophysiologic Disorder: Yes Hx Anxiety: Yes Hx Substance Use: No - SURGICAL HISTORY Hx Surgeries: Yes Hx Cholecystectomy: Yes Other/Comment: bilateral knee replacement,head surgery - ANESTHESIA Hx Anesthesia: Yes Hx Anesthesia Reactions: No Hx Malignant Hyperthermia: No Has any member of the family had a problem w/ anesthesia?: No Meds Allergies/Adverse Reactions: Allergies Allergy/AdvReac Type Severity Reaction Status Date / Time acetaminophen [From Percocet] Allergy RASH Verified 01/15/18 01:49 codeine Allergy RASH Verified 01/14/18 13:20 oxycodone [From Percocet] Allergy RASH Verified 01/15/18 01:49 Physical Exam - Constitutional Appears: Non-toxic, No Acute Distress - Head Exam Head Exam: ATRAUMATIC, NORMAL INSPECTION - Eye Exam Eye Exam: EOMI, Normal appearance, PERRL - ENT Exam ENT Exam: Mucous Membranes Moist - Respiratory Exam Respiratory Exam: Clear to Auscultation Bilateral, Rhonchi, Wheezes, NORMAL BREATHING PATTERN - Cardiovascular Exam Cardiovascular Exam: REGULAR RHYTHM, +S1, +S2 - GI/Abdominal Exam GI & Abdominal Exam: Normal Bowel Sounds, Soft. absent: Tenderness - Extremities Exam Additional comments: Mild swelling of B/L hands (non-pitting). Decreased motor strength in B/L upper extremities, unable to lift b/l lower leg off bed. - Neurological Exam Neurological exam: Alert, Oriented x3 - Skin Skin Exam: Normal Color, Warm Results - Vital Signs Recent Vital Signs: Last Vital Signs Temp 97.5 F L 01/15/18 04:57 Pulse 59 L 01/15/18 04:57 Resp 22 01/15/18 04:57 BP 101/63 01/15/18 04:57 Pulse Ox 93 L 01/15/18 04:57 - Labs Result Diagrams: 01/16/18 04:30 01/16/18 04:30 Labs: Laboratory Results - last 24 hr 01/14/18 01/14/18 01/14/18 14:01 15:31 15:31 WBC 8.9 RBC 4.29 Hgb 12.3 Hct 37.4 MCV 87.3 MCH 28.7 MCHC 32.9 L RDW 15.8 H Plt Count 329 MPV 8.8 Neut % (Auto) 71.9 Lymph % (Auto) 16.8 L Weld % (Auto) 7.4 Eos % (Auto) 3.0 Baso % (Auto) 0.9 Neut # (Auto) 6.4 Lymph # (Auto) 1.5 Weld # (Auto) 0.7 Eos # (Auto) 0.3 Baso # (Auto) 0.1 PT INR APTT Sodium 140 Potassium 4.4 Chloride 105 Carbon Dioxide 26 Anion Gap 13 BUN 34 H Creatinine 2.1 H Est GFR ( Amer) 28 Est GFR (Non-Af Amer) 23 POC Glucose (mg/dL) 130 H Random Glucose 91 Calcium 9.6 Magnesium 2.3 Troponin I 0.0160 01/14/18 15:31 WBC RBC Hgb Hct MCV MCH MCHC RDW Plt Count MPV Neut % (Auto) Lymph % (Auto) Weld % (Auto) Eos % (Auto) Baso % (Auto) Neut # (Auto) Lymph # (Auto) Weld # (Auto) Eos # (Auto) Baso # (Auto) PT 11.8 INR 1.1 APTT 32.6 Sodium Potassium Chloride Carbon Dioxide Anion Gap BUN Creatinine Est GFR ( Amer) Est GFR (Non-Af Amer) POC Glucose (mg/dL) Random Glucose Calcium Magnesium Troponin I Assessment & Plan - Assessment and Plan (Free Text) Assessment: Assessment: 72 year old female, with a past medical history of CHF, asthma, COPD, chronic kidney disease, Hypertension and hypothyroidism admitted for evaluation of possible CVA Plan: Admit to tele Neuro consult Brain MRI Monitor vitals and neuro check AM labs Resume home medications. Patient seen, examined and plan discussed with Dr. Bridegtte Dan, [id number] <Ronald Angeles - Last Filed: 01/16/18 20:32> Results - Vital Signs Recent Vital Signs: Last Vital Signs Temp 98.4 F 01/16/18 20:11 Pulse 71 01/16/18 20:11 Resp 20 01/16/18 20:11 BP 118/73 01/16/18 15:40 Pulse Ox 95 01/16/18 20:11 - Labs Result Diagrams: 01/16/18 04:30 01/16/18 04:30 Labs: Laboratory Results - last 24 hr 01/16/18 01/16/18 04:30 04:30 WBC 9.0 RBC 4.05 Hgb 11.6 L Hct 35.5 MCV 87.8 MCH 28.7 MCHC 32.7 L RDW 15.5 H Plt Count 324 Sodium 137 Potassium 4.5 Chloride 101 Carbon Dioxide 26 Anion Gap 15 BUN 42 H Creatinine 3.1 H Est GFR ( Amer) 18 Est GFR (Non-Af Amer) 15 Random Glucose 102 Calcium 9.1 Total Bilirubin 0.8 AST 26 ALT 17 Alkaline Phosphatase 78 Total Protein 6.5 Albumin 3.2 L Globulin 3.3 Albumin/Globulin Ratio 1.0 Triglycerides 122 D Cholesterol 190 LDL Cholesterol Direct 121 HDL Cholesterol 35 Assessment & Plan - Assessment and Plan (Free Text) Assessment: Patient was personally seen and examined by me in rounds with residents. Available labs and diagnostic data reviewed. Case, Patient's condition and management plan discussed with residents in rounds. Agree with resident's progress note. Plan: As ordered.
[2018-01-15] MEDS: Fluticasone-Salmeterol 250-50mcg Diskus IH SCH ×2 (09:05→22:24)
[2018-01-15] MEDS: Pantoprazole 40 mg EC Tab PO SCH (09:06)
[2018-01-15] MEDS: Enoxaparin 30 mg Syringe SC SCH (09:07)
--- NOTE | 2018-01-15 15:43 | CP.PCM.CON ---
History of Present Illness - History of Present Illness History of Present Illness: Patient seen and examined and consult dictated. in brief, she has no focal neurological signs or symptoms. Plan: 1. MRI brain needed but cant be done due to patients pain 2. repeat ct head. 3. continue aspirin 4. echo dr. escalona Past Patient History - Infectious Disease Hx of Infectious Diseases: None - Tetanus Immunizations Tetanus Immunization: Unknown - Past Medical History & Family History Past Medical History?: Yes - Past Social History Smoking Status: Never Smoked - CARDIAC Hx Cardiac Disorders: Yes Hx Hypercholesterolemia: Yes Hx Hypertension: Yes - PULMONARY Hx Respiratory Disorders: Yes Hx Chronic Obstructive Pulmonary Disease (COPD): Yes - NEUROLOGICAL Hx Neurological Disorder: No - HEENT Hx HEENT Problems: No - RENAL Hx Chronic Kidney Disease: Yes - ENDOCRINE/METABOLIC Hx Endocrine Disorders: Yes Hx Hypothyroidism: Yes - HEMATOLOGICAL/ONCOLOGICAL Hx Blood Disorders: No - INTEGUMENTARY Hx Dermatological Problems: No - MUSCULOSKELETAL/RHEUMATOLOGICAL Hx Musculoskeletal Disorders: Yes Hx Back Pain: Yes Hx Falls: Yes (2014) - GASTROINTESTINAL Hx Gastrointestinal Disorders: No - GENITOURINARY/GYNECOLOGICAL Hx Genitourinary Disorders: No - PSYCHIATRIC Hx Psychophysiologic Disorder: Yes Hx Anxiety: Yes Hx Substance Use: No - SURGICAL HISTORY Hx Surgeries: Yes Hx Cholecystectomy: Yes Other/Comment: bilateral knee replacement,head surgery - ANESTHESIA Hx Anesthesia: Yes Hx Anesthesia Reactions: No Hx Malignant Hyperthermia: No Has any member of the family had a problem w/ anesthesia?: No Meds Allergies/Adverse Reactions: Allergies Allergy/AdvReac Type Severity Reaction Status Date / Time acetaminophen [From Percocet] Allergy RASH Verified 01/15/18 01:49 codeine Allergy RASH Verified 01/14/18 13:20 oxycodone [From Percocet] Allergy RASH Verified 01/15/18 01:49 - Medications Medications: Current Medications Albuterol (Ventolin Hfa 90 Mcg/Actuation (8 G)) 2 puff IH Q4 PRN PRN Reason: Shortness of Breath Albuterol/Ipratropium (Duoneb 3 Mg/0.5 Mg (3 Ml) Ud) 3 ml IH Q6 PRN PRN Reason: Shortness of Breath Albuterol/Ipratropium (Duoneb 3 Mg/0.5 Mg (3 Ml) Ud) 3 ml INH RQID YE Last Admin: 01/15/18 13:38 Dose: Not Given Alprazolam (Xanax) 1 mg PO Q12 [facility] Last Admin: 01/15/18 09:06 Dose: 1 mg Amlodipine Besylate (Norvasc) 10 mg PO DAILY [facility] Last Admin: 01/15/18 09:03 Dose: Not Given Aspirin (Aspirin Chewable) 81 mg PO DAILY [facility] Atorvastatin Calcium (Lipitor) 40 mg PO DAILY [facility] Last Admin: 01/15/18 09:06 Dose: 40 mg Carvedilol (Coreg) 12.5 mg PO Q12 [facility] Last Admin: 01/15/18 09:02 Dose: Not Given Ezetimibe (Zetia) 10 mg PO DAILY [facility] Last Admin: 01/15/18 09:06 Dose: 10 mg Enoxaparin Sodium (Lovenox) 30 mg SC DAILY [facility]; Protocol Last Admin: 01/15/18 09:07 Dose: 30 mg Fluoxetine HCl (Prozac) 10 mg PO DAILY [facility] Last Admin: 01/15/18 09:06 Dose: 10 mg Levothyroxine Sodium (Synthroid) 200 mcg PO DAILY@0630 [facility] Last Admin: 01/15/18 06:21 Dose: 200 mcg Losartan Potassium (Cozaar) 50 mg PO DAILY [facility] Last Admin: 01/15/18 09:02 Dose: Not Given Morphine Sulfate (Morphine) 2 mg IVP Q4 PRN PRN Reason: Pain, severe (8-10) Last Admin: 01/15/18 09:06 Dose: 2 mg Pantoprazole Sodium (Protonix Ec Tab) 40 mg PO DAILY [facility] Last Admin: 01/15/18 09:06 Dose: 40 mg Fluticasone/Salmeterol (Advair Diskus 250/50) 1 puff IH Q12 [facility] Last Admin: 01/15/18 09:05 Dose: 1 puff Results - Vital Signs Recent Vital Signs: Last Vital Signs Temp 97.9 F 01/15/18 12:02 Pulse 70 01/15/18 12:02 Resp 18 01/15/18 12:02 BP 102/72 01/15/18 12:02 Pulse Ox 96 01/15/18 12:02 - Labs Result Diagrams: 01/14/18 15:31 01/14/18 15:31 Labs: Laboratory Results - last 24 hr 01/14/18 01/14/18 01/15/18 15:31 15:31 08:10 PT 11.8 INR 1.1 APTT 32.6 Sodium 140 Potassium 4.4 Chloride 105 Carbon Dioxide 26 Anion Gap 13 BUN 34 H Creatinine 2.1 H Est GFR ( Amer) 28 Est GFR (Non-Af Amer) 23 Random Glucose 91 Hemoglobin A1c 5.3 Calcium 9.6 Magnesium 2.3 Troponin I 0.0160 Vitamin B12 TSH 3rd Generation 01/15/18 08:10 PT INR APTT Sodium Potassium Chloride Carbon Dioxide Anion Gap BUN Creatinine Est GFR ( Amer) Est GFR (Non-Af Amer) Random Glucose Hemoglobin A1c Calcium Magnesium Troponin I Vitamin B12 221 L TSH 3rd Generation 0.76
--- NOTE | 2018-01-16 02:15 | CON ---
DATE: 01/15/2018 HISTORY OF PRESENT ILLNESS: This is a 72-year-old female with a past medical history of CHF, COPD, asthma, chronic kidney disease, hypertension, as well as hypothyroidism, was brought into [facility] ER because she had severe pain and swelling of bilateral hands and shoulders and knees. The patient has a history of chronic arthritis and CAT scan showed a questionable subcortical right white matter lesion, stroke that was possibly evolving subacute infarct. She was admitted to telemetry for possible stroke, neurology consult was called. PAST MEDICAL HISTORY: As above. PAST SURGICAL HISTORY: Bilateral TKR, brain surgery for removal in 1998. ALLERGIES: CODEINE, ACETAMINOPHEN AND OXYCODONE. PHYSICAL EXAMINATION: NEUROLOGIC: On exam today, the patient is alert and oriented x3. She gives no signs of weakness in her arms or legs. There are no focal neurological deficits. PERRL. Cranial nerves II through XII intact. CSF motor tone is normal. Strength is normal bilaterally; however, it is limited by severe pain in her distal musculature. Her legs cannot be moved due to severe pain. Sensory is intact to and light touch, pin. There is no trouble with speech. Speech is fluent. Mini mental status is 30/30. Gait is not tested. bilaterally. LABORATORY DATA: CAT scan was read as a subacute infarct in the right frontal region; however, according to my reading, I am not able to see this finding. There is no hemorrhage. There is no evidence of a stroke. IMPRESSION: This is a 72-year-old woman with; 1. Possible subacute stroke but who is now clinically normal. Most of her exam is severely limited by arthritic pain, it will be adventitious to reexamine her after her pain has resolved. 2. MRI of the brain cannot be done because of the patient's severe pain and she is refusing, start aspirin 81 mg. 3. CTA of the head and neck with and without contrast if tolerated. 4. Physical therapy, speech therapy and occupational therapy. NIH stroke scale is 0. Thank you for this neurologic consult. Helder Camilo MD [facility] # [id number]
[2018-01-16 05:53] LABS: HEMOGLOBIN 11.6 g/dL (12.0-16.0); MEAN CELL VOLUME 87.8 fl (81.0-99.0); MEAN CORPUSCULAR HEMOGLOBIN 28.7 pg (27.0-31.0); MEAN CORPUSCULAR HGB CONC 32.7 g/dL (33.0-37.0); RBC 4.05 Mil/uL (3.80-5.20); RED CELL DISTRIBUTION WIDTH 15.5 % (11.5-14.5)
[2018-01-16] MEDS: Levothyroxine 200 MCG TAB PO SCH (06:15)
[2018-01-16 06:34] LABS: ALBUMIN 3.2 g/dL (3.5-5.0); CALCIUM 9.1 mg/dL (8.4-10.2)
[2018-01-16] MEDS: Albuterol-Ipratrop 3 mg / 0.5 (3 ml) UD INH SCH ×4 (07:55→19:50)
--- NOTE | 2018-01-16 09:01 | CP.PCM.PN ---
Subjective - Date & Time of Evaluation Date of Evaluation: 01/16/18 Time of Evaluation: 08:45 - Subjective Subjective: 72 yo woman, being worked up for CVA, is referred for pain management. History was obtained via the daughter over the phone. Patient has had pain in the lower back and both hands for a couple of months and had been referred to Dr. Wheeler, who had ordered MRI's of the cervical and lumbar spines, and prescribed Vicodin. The MRI's were done but the results were pending. She didn't receive relief from the Vicodin but didn't have side effects to it. On the other hand, she developed rashes to both Codeine and Percocet. She has been tolerating Morphine since admission. Objective - Vital Signs/Intake and Output Vital Signs (last 24 hours): Temp Pulse Resp BP Pulse Ox 98.1 F 88 20 95/60 L 97 01/16/18 08:40 01/16/18 08:40 01/16/18 08:40 01/16/18 08:40 01/16/18 08:40 - Medications Medications: Current Medications Albuterol (Ventolin Hfa 90 Mcg/Actuation (8 G)) 2 puff IH Q4 PRN PRN Reason: Shortness of Breath Albuterol/Ipratropium (Duoneb 3 Mg/0.5 Mg (3 Ml) Ud) 3 ml IH Q6 PRN PRN Reason: Shortness of Breath Albuterol/Ipratropium (Duoneb 3 Mg/0.5 Mg (3 Ml) Ud) 3 ml INH RQID [facility] Last Admin: 01/16/18 07:55 Dose: 3 ml Alprazolam (Xanax) 1 mg PO Q12 [facility] Last Admin: 01/15/18 22:24 Dose: 1 mg Amlodipine Besylate (Norvasc) 10 mg PO DAILY [facility] Last Admin: 01/15/18 09:03 Dose: Not Given Aspirin (Aspirin Chewable) 81 mg PO DAILY [facility] Last Admin: 01/15/18 16:25 Dose: 81 mg Atorvastatin Calcium (Lipitor) 40 mg PO DAILY [facility] Last Admin: 01/15/18 09:06 Dose: 40 mg Carvedilol (Coreg) 12.5 mg PO Q12 [facility] Last Admin: 01/15/18 22:26 Dose: 12.5 mg Cyanocobalamin (Vitamin B12 1000 Mcg/Ml Inj) 1,000 mcg IM DAILY [facility] Ezetimibe (Zetia) 10 mg PO DAILY [facility] Last Admin: 01/15/18 09:06 Dose: 10 mg Enoxaparin Sodium (Lovenox) 30 mg SC DAILY [facility]; Protocol Last Admin: 01/15/18 09:07 Dose: 30 mg Fluoxetine HCl (Prozac) 10 mg PO DAILY [facility] Last Admin: 01/15/18 09:06 Dose: 10 mg Levothyroxine Sodium (Synthroid) 200 mcg PO DAILY@0630 [facility] Last Admin: 01/16/18 06:15 Dose: 200 mcg Losartan Potassium (Cozaar) 50 mg PO DAILY [facility] Last Admin: 01/15/18 09:02 Dose: Not Given Morphine Sulfate (Morphine) 2 mg IVP Q4 PRN PRN Reason: Pain, severe (8-10) Last Admin: 01/15/18 20:59 Dose: 2 mg Pantoprazole Sodium (Protonix Ec Tab) 40 mg PO DAILY [facility] Last Admin: 01/15/18 09:06 Dose: 40 mg Fluticasone/Salmeterol (Advair Diskus 250/50) 1 puff IH Q12 [facility] Last Admin: 01/15/18 22:24 Dose: 1 puff - Labs Labs: 01/16/18 04:30 01/16/18 04:30 PT 11.8 Seconds (9.8-13.1) 01/14/18 15:31 INR 1.1 01/14/18 15:31 APTT 32.6 Seconds (25.6-37.1) 01/14/18 15:31 - Constitutional Appears: No Acute Distress - Neck Exam Neck Exam: Tenderness Assessment and Plan (1) Chronic pain Assessment & Plan: 72 yo woman w/ history of OA, undergoing pain management work-up as an outpatient, now is undergoing full neurological work-up. - please constact Dr. Wheeler to retrieve recent MRI results of cervical and lumbar spine - continue Morphine IV for pain control, can titrate as tolerated; if 2mg is not sufficient for MRI, can increase to 4mg - would hold other medications for pain until etiology is clear - f/u neuro recommendation - PT evaluation when appropriate Status: Acute
[2018-01-16] MEDS: Pantoprazole 40 mg EC Tab PO SCH (09:10)
[2018-01-16] MEDS: Fluticasone-Salmeterol 250-50mcg Diskus IH SCH ×2 (09:10→21:36)
[2018-01-16] MEDS: Enoxaparin 30 mg Syringe SC SCH (09:12)
--- NOTE | 2018-01-16 13:20 | CP.PCM.PN ---
<Sultan Ni - Last Filed: 01/16/18 13:18> Subjective - Date & Time of Evaluation Date of Evaluation: 01/16/18 Time of Evaluation: 06:50 - Subjective Subjective: Patient seen and examined with Dr. Angeles this AM. Reports generalized pain and weakness. No focal weakness. No acute overnight events. No other complaints. Objective - Vital Signs/Intake and Output Vital Signs (last 24 hours): Temp Pulse Resp BP Pulse Ox 97.8 F 64 20 115/74 97 01/16/18 12:50 01/16/18 12:50 01/16/18 12:50 01/16/18 12:50 01/16/18 08:40 - Medications Medications: Current Medications Albuterol (Ventolin Hfa 90 Mcg/Actuation (8 G)) 2 puff IH Q4 PRN PRN Reason: Shortness of Breath Albuterol/Ipratropium (Duoneb 3 Mg/0.5 Mg (3 Ml) Ud) 3 ml IH Q6 PRN PRN Reason: Shortness of Breath Albuterol/Ipratropium (Duoneb 3 Mg/0.5 Mg (3 Ml) Ud) 3 ml INH RQID [facility] Last Admin: 01/16/18 11:21 Dose: 3 ml Alprazolam (Xanax) 1 mg PO Q12 [facility] Last Admin: 01/16/18 09:17 Dose: 1 mg Amlodipine Besylate (Norvasc) 10 mg PO DAILY [facility] Last Admin: 01/16/18 09:10 Dose: Not Given Aspirin (Aspirin Chewable) 81 mg PO DAILY [facility] Last Admin: 01/16/18 09:11 Dose: 81 mg Atorvastatin Calcium (Lipitor) 40 mg PO DAILY [facility] Last Admin: 01/16/18 09:10 Dose: 40 mg Carvedilol (Coreg) 12.5 mg PO Q12 [facility] Last Admin: 01/16/18 09:11 Dose: Not Given Cyanocobalamin (Vitamin B12 1000 Mcg/Ml Inj) 1,000 mcg IM DAILY [facility] Last Admin: 01/16/18 09:13 Dose: 1,000 mcg Ezetimibe (Zetia) 10 mg PO DAILY [facility] Last Admin: 01/16/18 09:13 Dose: 10 mg Enoxaparin Sodium (Lovenox) 30 mg SC DAILY [facility]; Protocol Last Admin: 01/16/18 09:12 Dose: 30 mg Fluoxetine HCl (Prozac) 10 mg PO DAILY [facility] Last Admin: 01/16/18 09:12 Dose: 10 mg Levothyroxine Sodium (Synthroid) 200 mcg PO DAILY@0630 [facility] Last Admin: 01/16/18 06:15 Dose: 200 mcg Losartan Potassium (Cozaar) 50 mg PO DAILY [facility] Last Admin: 01/16/18 09:12 Dose: Not Given Morphine Sulfate (Morphine) 2 mg IVP Q4 PRN PRN Reason: Pain, severe (8-10) Last Admin: 01/15/18 20:59 Dose: 2 mg Pantoprazole Sodium (Protonix Ec Tab) 40 mg PO DAILY [facility] Last Admin: 01/16/18 09:10 Dose: 40 mg Fluticasone/Salmeterol (Advair Diskus 250/50) 1 puff IH Q12 [facility] Last Admin: 01/16/18 09:10 Dose: 1 puff - Labs Labs: 01/16/18 04:30 01/16/18 04:30 PT 11.8 Seconds (9.8-13.1) 01/14/18 15:31 INR 1.1 01/14/18 15:31 APTT 32.6 Seconds (25.6-37.1) 01/14/18 15:31 - Constitutional Appears: Non-toxic, No Acute Distress - Head Exam Head Exam: ATRAUMATIC, NORMOCEPHALIC - Eye Exam Eye Exam: Normal appearance - ENT Exam ENT Exam: Mucous Membranes Moist - Respiratory Exam Respiratory Exam: Clear to Ausculation Bilateral, NORMAL BREATHING PATTERN. absent: Rhonchi, Wheezes - Cardiovascular Exam Cardiovascular Exam: REGULAR RHYTHM, +S1, +S2 - GI/Abdominal Exam GI & Abdominal Exam: Soft, Normal Bowel Sounds. absent: Tenderness - Extremities Exam Additional comments: Mild swelling of B/L upper extremities. - Neurological Exam Neurological Exam: Alert, Awake, Oriented x3 - Psychiatric Exam Psychiatric exam: Normal Affect, Normal Mood Assessment and Plan - Assessment and Plan (Free Text) Assessment: Assessment: 72 year old female, with a past medical history of CHF, asthma, COPD, chronic kidney disease, Hypertension and hypothyroidism admitted for evaluation of possible CVA. Plan: Neuro consult appreciated Dr. Camilo Brain MRI not done due to patients pain f/u echo and MRA neck Pain management consult appreciated AM labs c/w home medications. Patient seen, examined and plan discussed with Dr. Bridgette Dan, pgy-2 <Ronald Angeles - Last Filed: 01/16/18 20:29> Objective - Vital Signs/Intake and Output Vital Signs (last 24 hours): Temp Pulse Resp BP Pulse Ox 98.4 F 71 20 118/73 95 01/16/18 20:11 01/16/18 20:11 01/16/18 20:11 01/16/18 15:40 01/16/18 20:11 - Medications Medications: Current Medications Albuterol (Ventolin Hfa 90 Mcg/Actuation (8 G)) 2 puff IH Q4 PRN PRN Reason: Shortness of Breath Albuterol/Ipratropium (Duoneb 3 Mg/0.5 Mg (3 Ml) Ud) 3 ml IH Q6 PRN PRN Reason: Shortness of Breath Albuterol/Ipratropium (Duoneb 3 Mg/0.5 Mg (3 Ml) Ud) 3 ml INH RQID [facility] Last Admin: 01/16/18 19:50 Dose: 3 ml Alprazolam (Xanax) 1 mg PO Q12 [facility] Last Admin: 01/16/18 09:17 Dose: 1 mg Amlodipine Besylate (Norvasc) 10 mg PO DAILY [facility] Last Admin: 01/16/18 09:10 Dose: Not Given Aspirin (Aspirin Chewable) 81 mg PO DAILY [facility] Last Admin: 01/16/18 09:11 Dose: 81 mg Atorvastatin Calcium (Lipitor) 40 mg PO DAILY [facility] Last Admin: 01/16/18 09:10 Dose: 40 mg Carvedilol (Coreg) 12.5 mg PO Q12 [facility] Last Admin: 01/16/18 09:11 Dose: Not Given Cyanocobalamin (Vitamin B12 1000 Mcg/Ml Inj) 1,000 mcg IM DAILY [facility] Last Admin: 01/16/18 09:13 Dose: 1,000 mcg Ezetimibe (Zetia) 10 mg PO DAILY [facility] Last Admin: 01/16/18 09:13 Dose: 10 mg Enoxaparin Sodium (Lovenox) 30 mg SC DAILY [facility]; Protocol Last Admin: 01/16/18 09:12 Dose: 30 mg Fluoxetine HCl (Prozac) 10 mg PO DAILY [facility] Last Admin: 01/16/18 09:12 Dose: 10 mg Levothyroxine Sodium (Synthroid) 200 mcg PO DAILY@0630 [facility] Last Admin: 01/16/18 06:15 Dose: 200 mcg Losartan Potassium (Cozaar) 50 mg PO DAILY [facility] Last Admin: 01/16/18 09:12 Dose: Not Given Morphine Sulfate (Morphine) 2 mg IVP Q4 PRN PRN Reason: Pain, severe (8-10) Last Admin: 01/16/18 17:34 Dose: 2 mg Pantoprazole Sodium (Protonix Ec Tab) 40 mg PO DAILY [facility] Last Admin: 01/16/18 09:10 Dose: 40 mg Fluticasone/Salmeterol (Advair Diskus 250/50) 1 puff IH Q12 [facility] Last Admin: 01/16/18 09:10 Dose: 1 puff - Labs Labs: 01/16/18 04:30 01/16/18 04:30 PT 11.8 Seconds (9.8-13.1) 01/14/18 15:31 INR 1.1 01/14/18 15:31 APTT 32.6 Seconds (25.6-37.1) 01/14/18 15:31 Assessment and Plan - Assessment and Plan (Free Text) Assessment: Patient was personally seen and examined by me in rounds with residents. Available labs and diagnostic data reviewed. Case, Patient's condition and management plan discussed with residents in rounds. Agree with resident's progress note. Plan: As ordered.
--- NOTE | 2018-01-16 16:38 | CT ---
Date of service: 01/16/2018 PROCEDURE: CT HEAD WITHOUT CONTRAST. HISTORY: abnormal head ct follow up COMPARISON: Noncontrast head CT 01/14/2018. TECHNIQUE: Axial computed tomography images were obtained through the head/brain without intravenous contrast. Radiation dose: Total exam DLP = 841.89 mGy-cm. This CT exam was performed using one or more of the following dose reduction techniques: Automated exposure control, adjustment of the mA and/or kV according to patient size, and/or use of iterative reconstruction technique. FINDINGS: HEMORRHAGE: No intracranial hemorrhage. BRAIN: Stable diffuse cerebral atrophy chronic microangiopathy are identified. There is an interval lucency at the right internal capsule anterior limb in the interval suggestive of a probable subacute lacune. Brain MRI can confirm. No additional encephalomalacia in the interval. No mass effect or suspicious extra-axial collection. Good corticomedullary differentiation is preserved throughout. Posterior fossa contents are stable and unremarkable. VENTRICLES: Unremarkable. No hydrocephalus. CALVARIUM: Left frontoparietal craniotomy reiterated. No interval change in calvarium or skullbase apparently. PARANASAL SINUSES: Unremarkable as visualized. No significant inflammatory changes. MASTOID AIR CELLS: Unremarkable as visualized. No inflammatory changes. OTHER FINDINGS: None. IMPRESSION: Likely subacute or acute lacune right internal capsule which can be confirmed on MRI without contrast. Stable age-related degenerative change are identified as well as left-sided craniotomy once again.
[2018-01-17] MEDS: Levothyroxine 200 MCG TAB PO SCH (05:48)
[2018-01-17] MEDS: Albuterol-Ipratrop 3 mg / 0.5 (3 ml) UD INH SCH ×4 (07:15→19:26)
--- NOTE | 2018-01-17 07:46 | CP.PCM.PN ---
<Sultan Ni - Last Filed: 01/17/18 11:48> Subjective - Date & Time of Evaluation Date of Evaluation: 01/17/18 Time of Evaluation: 07:20 - Subjective Subjective: Patient seen and examined with Dr. Angeles this AM. Continues to have generalized pain and weakness. No acute overnight events. No other complaints. Objective - Vital Signs/Intake and Output Vital Signs (last 24 hours): Temp Pulse Resp BP Pulse Ox 98.6 F 77 18 102/67 92 L 01/17/18 04:57 01/17/18 04:57 01/17/18 04:57 01/17/18 04:57 01/17/18 04:57 - Medications Medications: Current Medications Albuterol (Ventolin Hfa 90 Mcg/Actuation (8 G)) 2 puff IH Q4 PRN PRN Reason: Shortness of Breath Albuterol/Ipratropium (Duoneb 3 Mg/0.5 Mg (3 Ml) Ud) 3 ml IH Q6 PRN PRN Reason: Shortness of Breath Albuterol/Ipratropium (Duoneb 3 Mg/0.5 Mg (3 Ml) Ud) 3 ml INH RQID [facility] Last Admin: 01/17/18 07:15 Dose: 3 ml Alprazolam (Xanax) 1 mg PO Q12 [facility] Last Admin: 01/17/18 00:04 Dose: 1 mg Amlodipine Besylate (Norvasc) 10 mg PO DAILY [facility] Last Admin: 01/16/18 09:10 Dose: Not Given Aspirin (Aspirin Chewable) 81 mg PO DAILY [facility] Last Admin: 01/16/18 09:11 Dose: 81 mg Atorvastatin Calcium (Lipitor) 40 mg PO DAILY [facility] Last Admin: 01/16/18 09:10 Dose: 40 mg Carvedilol (Coreg) 12.5 mg PO Q12 [facility] Last Admin: 01/16/18 21:37 Dose: Not Given Cyanocobalamin (Vitamin B12 1000 Mcg/Ml Inj) 1,000 mcg IM DAILY [facility] Last Admin: 01/16/18 09:13 Dose: 1,000 mcg Ezetimibe (Zetia) 10 mg PO DAILY [facility] Last Admin: 01/16/18 09:13 Dose: 10 mg Enoxaparin Sodium (Lovenox) 30 mg SC DAILY [facility]; Protocol Last Admin: 01/16/18 09:12 Dose: 30 mg Fluoxetine HCl (Prozac) 10 mg PO DAILY [facility] Last Admin: 01/16/18 09:12 Dose: 10 mg Levothyroxine Sodium (Synthroid) 200 mcg PO DAILY@0630 [facility] Last Admin: 01/17/18 05:48 Dose: 200 mcg Losartan Potassium (Cozaar) 50 mg PO DAILY [facility] Last Admin: 01/16/18 09:12 Dose: Not Given Morphine Sulfate (Morphine) 2 mg IVP Q4 PRN PRN Reason: Pain, severe (8-10) Last Admin: 01/17/18 05:45 Dose: 2 mg Pantoprazole Sodium (Protonix Ec Tab) 40 mg PO DAILY [facility] Last Admin: 01/16/18 09:10 Dose: 40 mg Fluticasone/Salmeterol (Advair Diskus 250/50) 1 puff IH Q12 [facility] Last Admin: 01/16/18 21:36 Dose: 1 puff - Labs Labs: 01/16/18 04:30 01/16/18 04:30 PT 11.8 Seconds (9.8-13.1) 01/14/18 15:31 INR 1.1 01/14/18 15:31 APTT 32.6 Seconds (25.6-37.1) 01/14/18 15:31 - Additional Findings Additional findings: - Constitutional Appears: Non-toxic, No Acute Distress - Head Exam Head Exam: ATRAUMATIC, NORMOCEPHALIC - Eye Exam Eye Exam: Normal appearance - ENT Exam ENT Exam: Mucous Membranes Moist - Respiratory Exam Respiratory Exam: Clear to Ausculation Bilateral, NORMAL BREATHING PATTERN. absent: Rhonchi, Wheezes - Cardiovascular Exam Cardiovascular Exam: REGULAR RHYTHM, +S1, +S2 - GI/Abdominal Exam GI & Abdominal Exam: Soft, Normal Bowel Sounds. absent: Tenderness - Extremities Exam Additional comments: Mild swelling of B/L upper extremities. - Neurological Exam Neurological Exam: Alert, Awake, Oriented x3 - Psychiatric Exam Psychiatric exam: Normal Affect, Normal Mood Assessment and Plan - Assessment and Plan (Free Text) Assessment: Assessment: 72 year old female, with a past medical history of CHF, asthma, COPD, chronic kidney disease, Hypertension and hypothyroidism admitted for evaluation of possible CVA, repeat head CT shows likely subacute or acute lacune right internal capsule which can be confirmed on MRI w/o contrast. Plan: Neuro consult appreciated Dr. Camilo Brain MRI not done due to patients pain/refusal f/u echo Pain management consult appreciated c/w home medications c/w aspirin and statin PT/OT AM labs Patient seen, examined and plan discussed with Dr. Bridgette Dan, pgy-2 <Ronald Angeles - Last Filed: 01/18/18 10:20> Objective - Vital Signs/Intake and Output Vital Signs (last 24 hours): Temp Pulse Resp BP Pulse Ox 97.8 F 69 18 111/68 97 01/18/18 08:35 01/18/18 08:35 01/18/18 08:35 01/18/18 08:35 01/18/18 08:35 - Medications Medications: Current Medications Albuterol (Ventolin Hfa 90 Mcg/Actuation (8 G)) 2 puff IH Q4 PRN PRN Reason: Shortness of Breath Albuterol/Ipratropium (Duoneb 3 Mg/0.5 Mg (3 Ml) Ud) 3 ml IH Q6 PRN PRN Reason: Shortness of Breath Albuterol/Ipratropium (Duoneb 3 Mg/0.5 Mg (3 Ml) Ud) 3 ml INH RQID [facility] Last Admin: 01/18/18 07:40 Dose: 3 ml Alprazolam (Xanax) 1 mg PO Q12 [facility] Last Admin: 01/18/18 09:05 Dose: 1 mg Amlodipine Besylate (Norvasc) 10 mg PO DAILY [facility] Aspirin (Aspirin Chewable) 81 mg PO DAILY [facility] Last Admin: 01/18/18 09:07 Dose: 81 mg Atorvastatin Calcium (Lipitor) 40 mg PO DAILY [facility] Last Admin: 01/18/18 09:06 Dose: 40 mg Carvedilol (Coreg) 12.5 mg PO Q12 [facility] Last Admin: 01/17/18 10:26 Dose: 12.5 mg Cyanocobalamin (Vitamin B12 1000 Mcg/Ml Inj) 1,000 mcg IM DAILY [facility] Last Admin: 01/18/18 09:07 Dose: 1,000 mcg Ezetimibe (Zetia) 10 mg PO DAILY [facility] Last Admin: 01/18/18 09:06 Dose: 10 mg Enoxaparin Sodium (Lovenox) 30 mg SC DAILY [facility]; Protocol Last Admin: 01/18/18 09:05 Dose: 30 mg Fluoxetine HCl (Prozac) 10 mg PO DAILY [facility] Last Admin: 01/18/18 09:07 Dose: 10 mg Sodium Chloride (Sodium Chloride 0.9%) 1,000 mls @ 80 mls/hr IV .[id number] [facility] Stop: 01/19/18 07:37 Levothyroxine Sodium (Synthroid) 200 mcg PO DAILY@0630 [facility] Last Admin: 01/18/18 09:06 Dose: 200 mcg Losartan Potassium (Cozaar) 50 mg PO DAILY [facility] Last Admin: 01/17/18 10:26 Dose: 50 mg Morphine Sulfate (Morphine) 2 mg IVP Q4 PRN PRN Reason: Pain, severe (8-10) Last Admin: 01/18/18 07:00 Dose: 2 mg Pantoprazole Sodium (Protonix Ec Tab) 40 mg PO DAILY [facility] Last Admin: 01/18/18 09:07 Dose: 40 mg Fluticasone/Salmeterol (Advair Diskus 250/50) 1 puff IH Q12 [facility] Last Admin: 01/18/18 09:07 Dose: 1 puff - Labs Labs: 01/16/18 04:30 01/18/18 08:42 PT 11.8 Seconds (9.8-13.1) 01/14/18 15:31 INR 1.1 01/14/18 15:31 APTT 32.6 Seconds (25.6-37.1) 01/14/18 15:31 Assessment and Plan - Assessment and Plan (Free Text) Assessment: Patient was personally seen and examined by me in rounds with residents. Available labs and diagnostic data reviewed. Case, Patient's condition and management plan discussed with residents in rounds. Agree with resident's progress note. Plan: As ordered.
[2018-01-17] MEDS ORDERED: Perflutren Lipid Microsphere 1.5 ML SUS IV ONE (09:12)
[2018-01-17] MEDS: Fluticasone-Salmeterol 250-50mcg Diskus IH SCH ×2 (10:25→21:40)
[2018-01-17] MEDS: Enoxaparin 30 mg Syringe SC SCH (10:25)
[2018-01-17] MEDS: Pantoprazole 40 mg EC Tab PO SCH (10:26)
[2018-01-17] MEDS ORDERED: Sodium Chloride 0.9% 500 ML IV ONE (16:01)
--- NOTE | 2018-01-17 16:15 | PCM.RRT ---
Addendum entered and electronically signed by Tor Collazo MD 01/18/18 22:13: Patient was seen and evaluated during [employer]ERK with residents. Late entry on [employer] due to system not working yesterday patient evaluated for chest pain EKG showed no acute ST-T wave cahnges Labs drown IVF fluids started due to BP being on the low side Held all BP meds for permissive hypertension ( recent stroke) did not give Nitro and Morphine due to low BP ordered Toradol IV Will contine monitoring in Tele Ordered cycling of Trop and EKG , cardio eval Agree with resident assessment and plan Original Note: [employer]ERK Nurse Assessment - Situation Location: [facility] [employer]ERK Reason for Call: Chest Pain - IV IV Inserted during [employer] CLERK?: No - Respiratory Oxygen Delivery Method: Nasal Cannula - Diagnostic Test Ordered EKG: Yes - Stat Labs Ordered [employer] CLERK Stat Labs Ordered: BMP, TROPONIN CPR started during [employer]ANCH LIBRARY CLERK?: No I.Reason for [employer] CLERK - A) Acute Change in Patient: Subjective: [employer]CH LIBRARY CLERK was called for acute onset of chest pain on 72 year old female, with a PMH of CHF, asthma, COPD, CKD, Hypertension and hypothyroidism admitted for CVA. Upon arrival, patient is alert, awake and oriented with VS of 89/69, 65, Spo2 92% on 4 L, Tm 97.6. Patient is c/o chest pain w/o any palpitations, dizziness, SOB or dizziness. CMP, Troponin, EKG, CXR and 500ml NS bolus were ordered. EKG reviewed: NSR, cannot r/o Anterior infarct, no significant change from previous EKG. Patient was started on IVF, Cardiac consult was ordered and All the BP medications were held until further evaluation by primary team or specialists on case. VS on end of the [employer] CLERK: 95/62, HR 67. Will follow up as needed. Case discussed with Dr. Collazo --- Liset Ayon, PGY-II - Constitutional Appears: No Acute Distress - Eyes Eye Exam: Normal appearance - Respiratory Exam Respiratory Exam: Clear to Ausculation Bilateral, NORMAL BREATHING PATTERN (on NC) - Cardiovascular Exam Cardiovascular Exam: REGULAR RHYTHM - GI/Abdominal Exam GI & Abdominal Exam: Soft - Neurological Exam Neurological Exam: Alert, Awake, Oriented x3 Plan - Assessment of Findings&Treatment Plan 72 year old female, with a PMH of CHF, asthma, COPD, CKD, Hypertension and hypothyroidism evaluated during [employer] Chest pain, r/o ACS - EKG reviewed - Follow up serial Troponin , CXR and CMP - Hold BP meds until further evaluation by primary team - IVF 500ml (Couldnt get IV, Consider Central line, Surgical consult) - Cardio consult - Toradol for pain Case discussed with Dr. Collazo
[2018-01-17 17:09] LABS: ALB/GLOB RATIO 1.2 (1.0-2.1); ALBUMIN 3.5 g/dL (3.5-5.0); CALCIUM 8.7 mg/dL (8.4-10.2)
[2018-01-17 17:24] LABS: TROPONIN I 0.02 ng/mL (0.00-0.120)
--- NOTE | 2018-01-17 17:57 | CARD ---
APPROVED REPORT Date of service: 01/17/2018 EXAM: Two-dimensional and M-mode echocardiogram with Doppler and color Doppler. Other Information Quality : GoodRhythm : NSR Technically limited study due to body habitus. INDICATION CVA/TIA 2D DIMENSIONS IVSd1.32 (0.7-1.1cm)LVDd3.97 (3.9-5.9cm) LVOT Diameter1.52 (1.8-2.4cm)PWd1.25 (0.7-1.1cm) IVSs1.38 (0.8-1.2cm)LVDs2.93 (2.5-4.0cm) FS (%) 26.2 %PWs1.37 (0.8-1.2cm) M-Mode DIMENSIONS Left Atrium (MM)5.47 (2.5-4.0cm)Aortic Root3.25 (2.2-3.7cm) Aortic Cusp Exc.1.41 (1.5-2.0cm) Aortic Valve AoV Peak Njxgysfh212.1cm/sAoV VTI41.3cmAO Peak GR.23mmHg LVOT Peak Flfxgpxg886.7cm/sLVOT VTI29.85cmAO Mean GR.13mmHg GEORGE (VMAX)0.72ge7AAX (VTI)0.29lj5YR P 1/2 Hyjs170ne Mitral Valve MV E Szloltyo39.9cm/sMV E Peak Gr.62mmHgMV DECEL LMHQ806cn MV A Ypgysrnw881.0cm/sMV OWH61wkB/A ratio0.8 MVA (PHT)2.49cm2 TDI Lateral E' Peak V7.09cm/sMedial E' Peak V4.16cm/sE/Lateral E'13.2 E/Medial E'22.6 Pulmonary Valve RVOT VTI25.6cm Tricuspid Valve TR Peak Anvwxnny658yv/sTR Peak Gr.21kpPyHYXD00smXk LEFT VENTRICLE The left ventricle is normal size. There is normal left ventricular wall thickness. The left ventricular systolic function is normal. The estimated ejection fraction is 55-60% No regional wall motion abnormalities noted.. Transmitral Doppler flow pattern is Grade I-abnormal relaxation pattern. No left ventricle thrombus noted on this study. There is no ventricular septal defect visualized. There is no left ventricular aneurysm. There is no mass noted in the left ventricle. RIGHT VENTRICLE The right ventricle is normal size. There is normal right ventricular wall thickness. The right ventricular systolic function is normal. ATRIA The left atrium is moderately dilated. The right atrium size is normal. The interatrial septum is intact with no evidence for an atrial septal defect. AORTIC VALVE The aortic valve is normal in structure. There is mild to moderate aortic regurgitation. There is no aortic valvular stenosis. There is no aortic valvular vegetation. MITRAL VALVE The mitral valve is normal in structure. There is no evidence of mitral valve prolapse. There is no mitral valve stenosis. Mitral regurgitation is trace to mild. TRICUSPID VALVE The tricuspid valve is normal in structure. There is mild tricuspid regurgitation. RVSP is calculated at 38 mm Hg There is no tricuspid valve prolapse or vegetation. There is no tricuspid valve stenosis. PULMONIC VALVE The pulmonary valve is normal in structure. There is no pulmonic valvular regurgitation. There is no pulmonic valvular stenosis. GREAT VESSELS The aortic root is normal in size. The ascending aorta is normal in size. The pulmonary artery is normal. The IVC is normal in size and collapses >50% with inspiration. PERICARDIAL EFFUSION There is no pericardial effusion. There is no pleural effusion. <Conclusion> Technically diffult study due to patients body habitus The estimated ejection fraction is 55-60% Transmitral Doppler flow pattern is Grade I-abnormal relaxation pattern. No left ventricle thrombus noted on this study. There is mild to moderate aortic regurgitation. The left atrium is moderately dilated. There is mild tricuspid regurgitation. RVSP is calculated at 38 mm Hg
[2018-01-18] MEDS: Albuterol-Ipratrop 3 mg / 0.5 (3 ml) UD INH SCH ×5 (07:40→19:14)
[2018-01-18] MEDS ORDERED: Sodium Chloride 0.9% 1,000 ML IV SCH (07:45)
--- NOTE | 2018-01-18 07:48 | CP.PCM.PN ---
<MadisonSultan - Last Filed: 01/18/18 08:20> Subjective - Date & Time of Evaluation Date of Evaluation: 01/18/18 Time of Evaluation: 07:10 - Subjective Subjective: Patient seen and examined with Dr. Angeles this AM. Events noted: had [employer] yesterday due to chest pain. Denies any chest pain this morning but continues to have generalized pain and weakness. No other complaints. Objective - Vital Signs/Intake and Output Vital Signs (last 24 hours): Temp Pulse Resp BP Pulse Ox 98.4 F 70 20 106/64 93 L 01/18/18 04:27 01/18/18 04:27 01/18/18 04:27 01/18/18 04:27 01/18/18 04:27 - Medications Medications: Current Medications Albuterol (Ventolin Hfa 90 Mcg/Actuation (8 G)) 2 puff IH Q4 PRN PRN Reason: Shortness of Breath Albuterol/Ipratropium (Duoneb 3 Mg/0.5 Mg (3 Ml) Ud) 3 ml IH Q6 PRN PRN Reason: Shortness of Breath Albuterol/Ipratropium (Duoneb 3 Mg/0.5 Mg (3 Ml) Ud) 3 ml INH RQID [facility] Last Admin: 01/17/18 19:26 Dose: 3 ml Alprazolam (Xanax) 1 mg PO Q12 [facility] Last Admin: 01/17/18 21:41 Dose: 1 mg Amlodipine Besylate (Norvasc) 10 mg PO DAILY [facility] Aspirin (Aspirin Chewable) 81 mg PO DAILY [facility] Last Admin: 01/17/18 10:26 Dose: 81 mg Atorvastatin Calcium (Lipitor) 40 mg PO DAILY [facility] Last Admin: 01/17/18 10:26 Dose: 40 mg Carvedilol (Coreg) 12.5 mg PO Q12 [facility] Last Admin: 01/17/18 10:26 Dose: 12.5 mg Cyanocobalamin (Vitamin B12 1000 Mcg/Ml Inj) 1,000 mcg IM DAILY [facility] Last Admin: 01/17/18 10:26 Dose: 1,000 mcg Ezetimibe (Zetia) 10 mg PO DAILY [facility] Last Admin: 01/17/18 10:26 Dose: 10 mg Enoxaparin Sodium (Lovenox) 30 mg SC DAILY [facility]; Protocol Last Admin: 01/17/18 10:25 Dose: 30 mg Fluoxetine HCl (Prozac) 10 mg PO DAILY [facility] Last Admin: 01/17/18 10:26 Dose: 10 mg Sodium Chloride (Sodium Chloride 0.9%) 1,000 mls @ 80 mls/hr IV .[id number] [facility] Stop: 01/19/18 07:37 Levothyroxine Sodium (Synthroid) 200 mcg PO DAILY@0630 [facility] Last Admin: 01/17/18 05:48 Dose: 200 mcg Losartan Potassium (Cozaar) 50 mg PO DAILY [facility] Last Admin: 01/17/18 10:26 Dose: 50 mg Morphine Sulfate (Morphine) 2 mg IVP Q4 PRN PRN Reason: Pain, severe (8-10) Last Admin: 01/18/18 07:00 Dose: 2 mg Pantoprazole Sodium (Protonix Ec Tab) 40 mg PO DAILY [facility] Last Admin: 01/17/18 10:26 Dose: 40 mg Fluticasone/Salmeterol (Advair Diskus 250/50) 1 puff IH Q12 [facility] Last Admin: 01/17/18 21:40 Dose: 1 puff - Labs Labs: 01/16/18 04:30 01/17/18 16:47 PT 11.8 Seconds (9.8-13.1) 01/14/18 15:31 INR 1.1 01/14/18 15:31 APTT 32.6 Seconds (25.6-37.1) 01/14/18 15:31 - Additional Findings Additional findings: - Constitutional Appears: Non-toxic, No Acute Distress - Head Exam Head Exam: ATRAUMATIC, NORMOCEPHALIC - Eye Exam Eye Exam: Normal appearance - ENT Exam ENT Exam: Mucous Membranes Moist - Respiratory Exam Respiratory Exam: Clear to Ausculation Bilateral, NORMAL BREATHING PATTERN. absent: Rhonchi, Wheezes - Cardiovascular Exam Cardiovascular Exam: REGULAR RHYTHM, +S1, +S2 - GI/Abdominal Exam GI & Abdominal Exam: Soft, Normal Bowel Sounds. absent: Tenderness - Extremities Exam Additional comments: Mild swelling of B/L upper extremities. - Neurological Exam Neurological Exam: Alert, Awake, Oriented x3 - Psychiatric Exam Psychiatric exam: Normal Affect, Normal Mood Assessment and Plan - Assessment and Plan (Free Text) Assessment: 72 year old female, with a past medical history of CHF, asthma, COPD, chronic kidney disease, Hypertension and hypothyroidism admitted for evaluation of possible CVA, repeat head CT shows likely subacute or acute lacune right internal capsule which can be confirmed on MRI w/o contrast. Plan: Neuro consult appreciated Dr. Camilo Brain MRI not done due to patients pain/refusal Echo on 01/16/18: LVEF 55-60%, mild to moderate aortic regurgitation. Left atrium is moderately dilated. Mild tricuspid regurgitation. RVSP is calculated at 38 mm HG. Nephrology consult for worsening CKD Cardiology consult start gentle hydration with NS IV fluids 80 cc/hr Pain management consult appreciated c/w home medications, except for BP meds c/w aspirin and statin PT/OT AM labs Patient seen, examined and plan discussed with Dr. Bridgette Dan, pgy-2 <Ronald Angeles - Last Filed: 01/18/18 10:17> Objective - Vital Signs/Intake and Output Vital Signs (last 24 hours): Temp Pulse Resp BP Pulse Ox 97.8 F 69 18 111/68 97 01/18/18 08:35 01/18/18 08:35 01/18/18 08:35 01/18/18 08:35 01/18/18 08:35 - Medications Medications: Current Medications Albuterol (Ventolin Hfa 90 Mcg/Actuation (8 G)) 2 puff IH Q4 PRN PRN Reason: Shortness of Breath Albuterol/Ipratropium (Duoneb 3 Mg/0.5 Mg (3 Ml) Ud) 3 ml IH Q6 PRN PRN Reason: Shortness of Breath Albuterol/Ipratropium (Duoneb 3 Mg/0.5 Mg (3 Ml) Ud) 3 ml INH RQID [facility] Last Admin: 01/18/18 07:40 Dose: 3 ml Alprazolam (Xanax) 1 mg PO Q12 [facility] Last Admin: 01/18/18 09:05 Dose: 1 mg Amlodipine Besylate (Norvasc) 10 mg PO DAILY [facility] Aspirin (Aspirin Chewable) 81 mg PO DAILY [facility] Last Admin: 01/18/18 09:07 Dose: 81 mg Atorvastatin Calcium (Lipitor) 40 mg PO DAILY [facility] Last Admin: 01/18/18 09:06 Dose: 40 mg Carvedilol (Coreg) 12.5 mg PO Q12 [facility] Last Admin: 01/17/18 10:26 Dose: 12.5 mg Cyanocobalamin (Vitamin B12 1000 Mcg/Ml Inj) 1,000 mcg IM DAILY [facility] Last Admin: 01/18/18 09:07 Dose: 1,000 mcg Ezetimibe (Zetia) 10 mg PO DAILY [facility] Last Admin: 01/18/18 09:06 Dose: 10 mg Enoxaparin Sodium (Lovenox) 30 mg SC DAILY [facility]; Protocol Last Admin: 01/18/18 09:05 Dose: 30 mg Fluoxetine HCl (Prozac) 10 mg PO DAILY [facility] Last Admin: 01/18/18 09:07 Dose: 10 mg Sodium Chloride (Sodium Chloride 0.9%) 1,000 mls @ 80 mls/hr IV .[id number] [facility] Stop: 01/19/18 07:37 Levothyroxine Sodium (Synthroid) 200 mcg PO DAILY@0630 [facility] Last Admin: 01/18/18 09:06 Dose: 200 mcg Losartan Potassium (Cozaar) 50 mg PO DAILY [facility] Last Admin: 01/17/18 10:26 Dose: 50 mg Morphine Sulfate (Morphine) 2 mg IVP Q4 PRN PRN Reason: Pain, severe (8-10) Last Admin: 01/18/18 07:00 Dose: 2 mg Pantoprazole Sodium (Protonix Ec Tab) 40 mg PO DAILY [facility] Last Admin: 01/18/18 09:07 Dose: 40 mg Fluticasone/Salmeterol (Advair Diskus 250/50) 1 puff IH Q12 [facility] Last Admin: 01/18/18 09:07 Dose: 1 puff - Labs Labs: 01/16/18 04:30 01/18/18 08:42 PT 11.8 Seconds (9.8-13.1) 01/14/18 15:31 INR 1.1 01/14/18 15:31 APTT 32.6 Seconds (25.6-37.1) 01/14/18 15:31 Assessment and Plan - Assessment and Plan (Free Text) Assessment: Patient was personally seen and examined by me in rounds with residents. Available labs and diagnostic data reviewed. Case, Patient's condition and management plan discussed with residents in rounds. Agree with resident's progress note. Plan: As ordered.
[2018-01-18] MEDS: Enoxaparin 30 mg Syringe SC SCH (09:05)
[2018-01-18] MEDS: Levothyroxine 200 MCG TAB PO SCH (09:06)
[2018-01-18] MEDS: Fluticasone-Salmeterol 250-50mcg Diskus IH SCH ×2 (09:07→21:30)
[2018-01-18] MEDS: Pantoprazole 40 mg EC Tab PO SCH (09:07)
[2018-01-18 09:16] LABS: TROPONIN I 0.018 ng/mL (0.00-0.120)
[2018-01-18 09:18] LABS: CALCIUM 8.1 mg/dL (8.4-10.2)
--- NOTE | 2018-01-18 09:58 | RAD ---
Date of service: 01/17/2018 PROCEDURE: CHEST RADIOGRAPH, 1 VIEW HISTORY: [employer]ION[employer] E[employer]OMIST/Chest pain COMPARISON: None available. FINDINGS: LUNGS: Severely limited examination due to steep oblique positioning. Linear scar/atelectasis at left base. No abi infiltrate. PLEURA: No pneumothorax or pleural fluid seen. CARDIOVASCULAR: Normal. OSSEOUS STRUCTURES: No significant abnormalities. VISUALIZED UPPER ABDOMEN: Normal. OTHER FINDINGS: None. IMPRESSION: Limited examination. Linear scar/atelectasis at left base. Otherwise unremarkable.
[2018-01-18] MEDS ORDERED: Sod Polystyrene Sulf 15 gm/60 ml Susp PO ONE (13:01)
--- NOTE | 2018-01-18 14:23 | CARD ---
APPROVED REPORT Date of service: 01/17/2018 EKG Measurement Heart [id number] ND 176P-2 [id number] <Conclusion> Normal sinus rhythm Cannot rule out Anterior infarct, age undetermined Abnormal ECG
--- NOTE | 2018-01-18 17:55 | CP.PCM.CON ---
History of Present Illness - History of Present Illness History of Present Illness: 72 yo Obese HF with pmh/o chf, ckd, htn, hypothyroidism, who admitted thru ER with cc/o pain and swelling of both hands, weakness of left side of body, decreased po intake. In the ED pt had a NIHSS score of 6,head CT showed ? lucency in the sub cortical right frontal region may reflect interval acute or subacute infarction,no mass effect or hemorrhage. pt was admitted to [facility] for possible cva. renal consult is requested for evaluation of CKD. no cp, no palpitation, no nausea, no vomitings, no abd. pain, no edema of legs, no urinary sx her base line s.cr 1.7 on 03/06/2017, her s.cr on admission was2.1--->3.7 on 01/16,--->4.0 on 01/17/2018---->3.8 on 01/18/2018 Review of Systems - Constitutional Constitutional: As Per HPI - EENT Eyes: As Per HPI Ears: As Per HPI Nose/Mouth/Throat: As Per HPI - Breasts Breasts: As Per HPI - Cardiovascular Cardiovascular: As Per HPI - Respiratory Respiratory: As Per HPI - Gastrointestinal Gastrointestinal: As Per HPI - Reproductive: Female Reproductive:Female: As Per HPI - Menstruation Menstruation: As Per HPI - Musculoskeletal Musculoskeletal: As Per HPI - Integumentary Integumentary: As Per HPI - Neurological Neurological: As Per HPI - Endocrine Endocrine: As Per HPI - Hematologic/Lymphatic Hematologic: As Per HPI Past Patient History - Infectious Disease Hx of Infectious Diseases: None - Tetanus Immunizations Tetanus Immunization: Unknown - Past Medical History & Family History Past Medical History?: Yes - Past Social History Smoking Status: Never Smoked Chewing Tobacco Use: No Cigar Use: No Alcohol: None Drugs: Denies - CARDIAC Hx Cardiac Disorders: Yes Hx Hypercholesterolemia: Yes Hx Hypertension: Yes - PULMONARY Hx Respiratory Disorders: Yes Hx Chronic Obstructive Pulmonary Disease (COPD): Yes - NEUROLOGICAL Hx Neurological Disorder: No - HEENT Hx HEENT Problems: No - RENAL Hx Chronic Kidney Disease: Yes - ENDOCRINE/METABOLIC Hx Endocrine Disorders: Yes Hx Hypothyroidism: Yes - HEMATOLOGICAL/ONCOLOGICAL Hx Blood Disorders: No - INTEGUMENTARY Hx Dermatological Problems: No - MUSCULOSKELETAL/RHEUMATOLOGICAL Hx Musculoskeletal Disorders: Yes Hx Back Pain: Yes Hx Falls: Yes (2014) - GASTROINTESTINAL Hx Gastrointestinal Disorders: No - GENITOURINARY/GYNECOLOGICAL Hx Genitourinary Disorders: No - PSYCHIATRIC Hx Psychophysiologic Disorder: Yes Hx Anxiety: Yes Hx Substance Use: No - SURGICAL HISTORY Hx Surgeries: Yes Hx Cholecystectomy: Yes Other/Comment: bilateral knee replacement,head surgery - ANESTHESIA Hx Anesthesia: Yes Hx Anesthesia Reactions: No Hx Malignant Hyperthermia: No Has any member of the family had a problem w/ anesthesia?: No Meds Allergies/Adverse Reactions: Allergies Allergy/AdvReac Type Severity Reaction Status Date / Time acetaminophen [From Percocet] Allergy RASH Verified 01/15/18 01:49 codeine Allergy RASH Verified 01/14/18 13:20 oxycodone [From Percocet] Allergy RASH Verified 01/15/18 01:49 - Medications Medications: Current Medications Albuterol (Ventolin Hfa 90 Mcg/Actuation (8 G)) 2 puff IH Q4 PRN PRN Reason: Shortness of Breath Albuterol/Ipratropium (Duoneb 3 Mg/0.5 Mg (3 Ml) Ud) 3 ml IH Q6 PRN PRN Reason: Shortness of Breath Albuterol/Ipratropium (Duoneb 3 Mg/0.5 Mg (3 Ml) Ud) 3 ml INH RQID [facility] Last Admin: 01/18/18 15:17 Dose: Not Given Alprazolam (Xanax) 1 mg PO Q12 [facility] Last Admin: 01/18/18 09:05 Dose: 1 mg Amlodipine Besylate (Norvasc) 10 mg PO DAILY [facility] Aspirin (Aspirin Chewable) 81 mg PO DAILY [facility] Last Admin: 01/18/18 09:07 Dose: 81 mg Atorvastatin Calcium (Lipitor) 40 mg PO DAILY [facility] Last Admin: 01/18/18 09:06 Dose: 40 mg Carvedilol (Coreg) 12.5 mg PO Q12 [facility] Last Admin: 01/17/18 10:26 Dose: 12.5 mg Cyanocobalamin (Vitamin B12 1000 Mcg/Ml Inj) 1,000 mcg IM DAILY [facility] Last Admin: 01/18/18 09:07 Dose: 1,000 mcg Ezetimibe (Zetia) 10 mg PO DAILY [facility] Last Admin: 01/18/18 09:06 Dose: 10 mg Enoxaparin Sodium (Lovenox) 30 mg SC DAILY [facility]; Protocol Last Admin: 01/18/18 09:05 Dose: 30 mg Fluoxetine HCl (Prozac) 10 mg PO DAILY [facility] Last Admin: 01/18/18 09:07 Dose: 10 mg Sodium Chloride (Sodium Chloride 0.9%) 1,000 mls @ 80 mls/hr IV .[id number] [facility] Stop: 01/19/18 07:37 Levothyroxine Sodium (Synthroid) 200 mcg PO DAILY@0630 [facility] Last Admin: 01/18/18 09:06 Dose: 200 mcg Losartan Potassium (Cozaar) 50 mg PO DAILY [facility] Last Admin: 01/17/18 10:26 Dose: 50 mg Morphine Sulfate (Morphine) 2 mg IVP Q4 PRN PRN Reason: Pain, severe (8-10) Last Admin: 01/18/18 07:00 Dose: 2 mg Pantoprazole Sodium (Protonix Ec Tab) 40 mg PO DAILY [facility] Last Admin: 01/18/18 09:07 Dose: 40 mg Fluticasone/Salmeterol (Advair Diskus 250/50) 1 puff IH Q12 [facility] Last Admin: 01/18/18 09:07 Dose: 1 puff Physical Exam - Head Exam Head Exam: ATRAUMATIC, NORMAL INSPECTION, NORMOCEPHALIC - Eye Exam Eye Exam: EOMI, Normal appearance, PERRL Pupil Exam: NORMAL ACCOMODATION, PERRL - ENT Exam ENT Exam: Mucous Membranes Dry - Neck Exam Neck exam: Positive for: Normal Inspection - Respiratory Exam Respiratory Exam: Clear to Auscultation Bilateral, NORMAL BREATHING PATTERN - Cardiovascular Exam Cardiovascular Exam: REGULAR RHYTHM, +S1, +S2 - GI/Abdominal Exam GI & Abdominal Exam: Normal Bowel Sounds, Soft Additional comments: non tender, no hepatospllenomegaly - Extremities Exam Extremities exam: Positive for: normal inspection Additional comments: weakness of both left ue/le - Back Exam Back exam: NORMAL INSPECTION - Neurological Exam Neurological exam: Alert, CN II-XII Intact, Oriented x3 Additional comments: weakness of left UE/lE power 3-4/5 - Psychiatric Exam Psychiatric exam: Normal Affect, Normal Mood - Skin Skin Exam: Intact, Normal Color, Warm Results - Vital Signs Recent Vital Signs: Last Vital Signs Temp 97.8 F 01/18/18 16:11 Pulse 70 01/18/18 16:11 Resp 18 01/18/18 16:11 BP 102/62 01/18/18 16:11 Pulse Ox 92 L 01/18/18 16:11 - Labs Result Diagrams: 01/16/18 04:30 01/18/18 08:42 Labs: Laboratory Results - last 24 hr 01/18/18 08:42 Sodium 132 Potassium 5.4 H Chloride 99 Carbon Dioxide 26 Anion Gap 12 BUN 58 H Creatinine 3.8 H Est GFR ( Amer) 14 Est GFR (Non-Af Amer) 12 Random Glucose 89 Calcium 8.1 L Troponin I 0.0180 Assessment & Plan - Assessment and Plan (Free Text) Assessment: 72 YO Obese HF with pmh/o htn, hypothyroidism, copd, asthma, ckd, chf with left sided weakness 1. ARNAV on ckd 2. Dehydration 3. HTN 4. R/o CVA start ivf 1/2 ns at 70-80 ml/hr check urine lytes, osm, cr daily BMP, avoid nephrotoxic agents will follow up with you
--- NOTE | 2018-01-19 06:01 | PQF ---
PROVIDER RESPONSE TEXT: MOrbid obesity with BMI 47 REVIEWER QUERY TEXT: Clarification of Clinical Diagnostic Findings 2 (two) queries as follows: 1. If in agreement with the BMI: 47.7: please add the BMI to your progress note 2. Please clarify if there is a corresponding dx to go along with the BMI: if in agreement: i.e Morbi d Obesity OR: Disagree OR: Other explanation of clinical finding EMR: lists: the pt. as 5ft 244 lb. The patient's Clinical Indicators include: xx Query created by: Tamar Garrett on 01/18/2018 2:28 PM Electronically signed by: Ronald Angeles 01/19/2018 5:58 AM
--- NOTE | 2018-01-19 06:01 | PQF ---
PROVIDER RESPONSE TEXT: Chr sytolic Heart Failure REVIEWER QUERY TEXT: CHF Acuity and Type Hx. of Congestive Heart Failure is documented in the Medical Record. Please document the type and acu ity (includes probable or suspected) if this is a current dx: ----versus -----No current CHF: hx. o nly not a chronic condition Such as: Type: -- Systolic -- Diastolic -- Combined --Unable to determine -- Other, please specify Acuity: -- Acute -- Chronic -- Acute on chronic -- Other, please specify H and P: dxs, include a hx. of CHF ---coreg ordered The patient's Clinical Indicators include: xx Query created by: Tamar Garrett on 01/18/2018 2:31 PM Electronically signed by: Ronald Angeles 01/19/2018 5:58 AM
--- NOTE | 2018-01-19 06:01 | PQF ---
PROVIDER RESPONSE TEXT: Ac on chr CRI, stage 3 REVIEWER QUERY TEXT: Kidney Disease, Chronic CKD Stage Chronic Kidney Disease (CKD) is documented in the Medical Record. Please specify the disease stage ( includes probable or suspected) Such as: -- Chronic kidney disease Stage 1 -- Chronic kidney disease Stage 2 -- Chronic kidney disease Stage 3 -- Chronic kidney disease Stage 4 -- Chronic kidney disease Stage 5 -- Chronic kidney disease Stage 5, requiring dialysis -- End Stage Renal Disease -- Other, please specify BUN:34->42 Creatinine:2.1->3.1 Est GFR ( Amer/Non Af-Amer): ->18/15 H and P: dIagnoses include: hx. CKD Stages are defined by the [employer] as follows: CKD Stage I GFR >= 90 ml / min per 1.73 m2 and persistent albuminuria CKD Stage 2 GFR between 60 and 89 with persistent albuminuria CKD Stage 3 GFR between 30 and 59 CKD Stage 4 GFR between 15 and 29 CKD Stage 5 GFR between <15 or End Stage Renal Disease The patient's Clinical Indicators include: xx Query created by: Tamar Garrett on 01/18/2018 2:30 PM Electronically signed by: Ronald Angeles 01/19/2018 5:58 AM
--- NOTE | 2018-01-19 06:01 | PQF ---
PROVIDER RESPONSE TEXT: COPD REVIEWER QUERY TEXT: COPD Specificity Hx of COPD - Chronic Obstructive Pulmonary Disease is documented in the Medical Record. Please specif y if the codition is: --Stable -- OR in Exacerbation - acute -- Other, please specify Draft:H and P: hx includes: COPD -Respiratory Exam Respiratory Exam: Clear to Auscultation Bilateral, Rhonchi, Wheezes, NORMAL BREATH ING PATTERN --Duonebs IH Q Q6 PRN, Ventolin: 2 puffs IH q 4 PRN, Advair Diskus Q12 The patient's Clinical Indicators include: xx Query created by: Tamar Garrett on 01/18/2018 2:32 PM Electronically signed by: Ronald Angeles 01/19/2018 5:58 AM
[2018-01-19] MEDS: Levothyroxine 200 MCG TAB PO SCH (06:11)
[2018-01-19] MEDS: Albuterol-Ipratrop 3 mg / 0.5 (3 ml) UD INH SCH ×4 (07:00→19:09)
[2018-01-19] MEDS: Fluticasone-Salmeterol 250-50mcg Diskus IH SCH ×2 (08:34→21:02)
[2018-01-19] MEDS: Pantoprazole 40 mg EC Tab PO SCH (08:37)
[2018-01-19] MEDS: Enoxaparin 30 mg Syringe SC SCH (08:37)
--- NOTE | 2018-01-19 15:14 | CP.PCM.PN ---
Subjective - Date & Time of Evaluation Date of Evaluation: 01/19/18 Time of Evaluation: 15:14 - Subjective Subjective: 72 year old female, with a past medical history of CHF, asthma, COPD, chronic kidney disease and Hypertension, hypothyroidism, who was brought [facility] ER accompanied by daughter with concerns for pain and swelling of B/L hands pt is feeling better, no sob, no cp, no nausea, no vomitings Objective - Vital Signs/Intake and Output Vital Signs (last 24 hours): Temp Pulse Resp BP Pulse Ox 97.9 F 79 20 103/63 92 L 01/19/18 12:33 01/19/18 12:33 01/19/18 12:33 01/19/18 12:33 01/19/18 12:33 - Medications Medications: Current Medications Albuterol (Ventolin Hfa 90 Mcg/Actuation (8 G)) 2 puff IH Q4 PRN PRN Reason: Shortness of Breath Albuterol/Ipratropium (Duoneb 3 Mg/0.5 Mg (3 Ml) Ud) 3 ml IH Q6 PRN PRN Reason: Shortness of Breath Albuterol/Ipratropium (Duoneb 3 Mg/0.5 Mg (3 Ml) Ud) 3 ml INH RQID [facility] Last Admin: 01/19/18 11:30 Dose: 3 ml Alprazolam (Xanax) 1 mg PO Q12 [facility] Last Admin: 01/19/18 08:59 Dose: 1 mg Amlodipine Besylate (Norvasc) 10 mg PO DAILY [facility] Aspirin (Aspirin Chewable) 81 mg PO DAILY [facility] Last Admin: 01/19/18 08:35 Dose: 81 mg Atorvastatin Calcium (Lipitor) 40 mg PO DAILY [facility] Last Admin: 01/19/18 08:36 Dose: 40 mg Carvedilol (Coreg) 12.5 mg PO Q12 [facility] Last Admin: 01/17/18 10:26 Dose: 12.5 mg Cyanocobalamin (Vitamin B12 1000 Mcg/Ml Inj) 1,000 mcg IM DAILY [facility] Last Admin: 01/19/18 08:38 Dose: 1,000 mcg Ezetimibe (Zetia) 10 mg PO DAILY [facility] Last Admin: 01/19/18 08:39 Dose: 10 mg Enoxaparin Sodium (Lovenox) 30 mg SC DAILY [facility]; Protocol Last Admin: 01/19/18 08:37 Dose: 30 mg Fluoxetine HCl (Prozac) 10 mg PO DAILY [facility] Last Admin: 01/19/18 08:38 Dose: 10 mg Levothyroxine Sodium (Synthroid) 200 mcg PO DAILY@0630 [facility] Last Admin: 01/19/18 06:11 Dose: 200 mcg Losartan Potassium (Cozaar) 50 mg PO DAILY [facility] Last Admin: 01/17/18 10:26 Dose: 50 mg Morphine Sulfate (Morphine) 2 mg IVP Q4 PRN PRN Reason: Pain, severe (8-10) Last Admin: 01/19/18 08:55 Dose: 2 mg Pantoprazole Sodium (Protonix Ec Tab) 40 mg PO DAILY [facility] Last Admin: 01/19/18 08:37 Dose: 40 mg Fluticasone/Salmeterol (Advair Diskus 250/50) 1 puff IH Q12 [facility] Last Admin: 01/19/18 08:34 Dose: 1 puff - Labs Labs: 01/16/18 04:30 01/18/18 08:42 PT 11.8 Seconds (9.8-13.1) 01/14/18 15:31 INR 1.1 01/14/18 15:31 APTT 32.6 Seconds (25.6-37.1) 01/14/18 15:31 - Constitutional Appears: Well, Non-toxic - Head Exam Head Exam: ATRAUMATIC, NORMAL INSPECTION, NORMOCEPHALIC - Eye Exam Eye Exam: EOMI, Normal appearance, PERRL Pupil Exam: NORMAL ACCOMODATION, PERRL - ENT Exam ENT Exam: Mucous Membranes Moist - Neck Exam Neck Exam: Full ROM, Normal Inspection - Respiratory Exam Respiratory Exam: Clear to Ausculation Bilateral, NORMAL BREATHING PATTERN - Cardiovascular Exam Cardiovascular Exam: +S1, +S2 - Extremities Exam Extremities Exam: Full ROM, Normal Inspection - Neurological Exam Neurological Exam: Alert, Awake, CN II-XII Intact, Oriented x3 Additional comments: mild left side weakness+ - Psychiatric Exam Psychiatric exam: Normal Affect, Normal Mood - Skin Skin Exam: Intact, Normal Color Assessment and Plan - Assessment and Plan (Free Text) Assessment: 72 yo obese femalehtn, hypothyroidism, copd, chf, ckd was admitted with weakness, decreased po intake, increased bun/cr 1. ARNAV on ckd 2. r/o CVA 3. HTN renal function is slowly improving c/w gentle iv hydration c/w current meds
[2018-01-20] MEDS: Levothyroxine 200 MCG TAB PO SCH (06:56)
[2018-01-20] MEDS: Albuterol-Ipratrop 3 mg / 0.5 (3 ml) UD INH SCH ×4 (07:32→19:02)
[2018-01-20] MEDS: Enoxaparin 30 mg Syringe SC SCH (08:22)
[2018-01-20] MEDS: Fluticasone-Salmeterol 250-50mcg Diskus IH SCH (08:22)
[2018-01-20] MEDS: Pantoprazole 40 mg EC Tab PO SCH (08:24)
[2018-01-20 08:42] LABS: HEMOGLOBIN 10.7 g/dL (12.0-16.0); MEAN CELL VOLUME 87.7 fl (81.0-99.0); MEAN CORPUSCULAR HEMOGLOBIN 28.8 pg (27.0-31.0); MEAN CORPUSCULAR HGB CONC 32.9 g/dL (33.0-37.0); RBC 3.7 Mil/uL (3.80-5.20); RED CELL DISTRIBUTION WIDTH 15.8 % (11.5-14.5); WHITE BLOOD COUNT 8.7 K/uL (4.8-10.8)
[2018-01-20 09:00] LABS: ALBUMIN 3.2 g/dL (3.5-5.0); CALCIUM 8.8 mg/dL (8.4-10.2)
--- NOTE | 2018-01-20 11:57 | PN ---
DATE: 01/20/2018 SUBJECTIVE: The patient seen and examined. Interim events noted. The patient remains in progressive care unit with telemetry monitoring, still complains of generalized body ache. No new complaint of chest pain, shortness of breath or any new weakness. PHYSICAL EXAMINATION: GENERAL: The patient is in no acute distress. VITAL SIGNS: Stable. HEART: S1 and S2, normal and regular. LUNGS: Good bilateral air exchange. ABDOMEN: Soft, nontender. EXTREMITIES: No edema. No calf swelling. No tenderness. No acute ischemia. 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 DIAGNOSTIC DATA: Available diagnostic data reviewed. Telemetry monitoring does not reveal significant arrhythmias. ASSESSMENT AND PLAN: Overall, the patient's general medical condition is stable. Plan as ordered. The patient has not been participating in physical therapy. Ronald Angeles MD
--- NOTE | 2018-01-20 17:06 | US ---
Date of service: 01/20/2018 PROCEDURE: Ultrasound of the Kidneys HISTORY: dmitri r/o hydronephrosis COMPARISON: None available. TECHNIQUE: Sonogram of the kidneys. FINDINGS: RIGHT KIDNEY: Measures: 8.6 x 5.5 x 5 cm. Right kidney is mildly isoechoic in echotexture. 1.7 x 1.5 centimeter lower pole right renal cyst is noted. There is additionally a 9 millimeter cyst and lower pole the right kidney. No solid masses in the right kidney. LEFT KIDNEY: Measures: 10.4 x 5.3 x 4.8 cm. Mild isoechoic renal echotexture without solid mass. A number of are left renal cysts are noted. There is a large upper pole exophytic cyst measuring 7 x 5.6 x 5.8 centimeters. There is additionally a 4.2 x 3 x 4 centimeter lower pole left renal cyst and a few other smaller adjacent hypoechoic cyst. No appreciable renal calculus is noted. OTHER FINDINGS: No perinephric changes. No ascites is seen. Exam was limited by body habitus. IMPRESSION: No hydronephrosis. Isoechoic kidneys which may reflect medical renal disease. Bilateral renal cysts.
[2018-01-20 17:30] LABS: OSMOLALITY,URINE 351 mosm/kg (300-1000)
--- NOTE | 2018-01-20 19:29 | CP.PCM.PN ---
Subjective - Date & Time of Evaluation Date of Evaluation: 01/20/18 Time of Evaluation: 19:29 - Subjective Subjective: 72 yo obese femalehtn, hypothyroidism, copd, chf, ckd was admitted with weakness, decreased po intake, increased bun/cr no chest pain, no sob, no palpitation, no nausea, vomitings Objective - Vital Signs/Intake and Output Vital Signs (last 24 hours): Temp Pulse Resp BP Pulse Ox 97.6 F 77 18 106/64 93 L 01/20/18 16:12 01/20/18 16:12 01/20/18 16:12 01/20/18 16:12 01/20/18 16:12 Intake and Output: 01/20/18 01/21/18 18:59 06:59 Output Total 200 Balance -200 - Medications Medications: Current Medications Albuterol (Ventolin Hfa 90 Mcg/Actuation (8 G)) 2 puff IH Q4 PRN PRN Reason: Shortness of Breath Albuterol/Ipratropium (Duoneb 3 Mg/0.5 Mg (3 Ml) Ud) 3 ml IH Q6 PRN PRN Reason: Shortness of Breath Albuterol/Ipratropium (Duoneb 3 Mg/0.5 Mg (3 Ml) Ud) 3 ml INH RQID [facility] Last Admin: 01/20/18 19:02 Dose: 3 ml Alprazolam (Xanax) 1 mg PO Q12 [facility] Last Admin: 01/20/18 11:49 Dose: 1 mg Amlodipine Besylate (Norvasc) 10 mg PO DAILY [facility] Aspirin (Aspirin Chewable) 81 mg PO DAILY [facility] Last Admin: 01/20/18 08:22 Dose: 81 mg Atorvastatin Calcium (Lipitor) 40 mg PO DAILY [facility] Last Admin: 01/20/18 08:22 Dose: 40 mg Carvedilol (Coreg) 12.5 mg PO Q12 [facility] Last Admin: 01/17/18 10:26 Dose: 12.5 mg Cyanocobalamin (Vitamin B12 1000 Mcg/Ml Inj) 1,000 mcg IM DAILY [facility] Last Admin: 01/20/18 08:25 Dose: 1,000 mcg Ezetimibe (Zetia) 10 mg PO DAILY [facility] Last Admin: 01/20/18 08:25 Dose: 10 mg Enoxaparin Sodium (Lovenox) 30 mg SC DAILY [facility]; Protocol Last Admin: 01/20/18 08:22 Dose: 30 mg Fluoxetine HCl (Prozac) 10 mg PO DAILY [facility] Last Admin: 01/20/18 08:24 Dose: 10 mg Levothyroxine Sodium (Synthroid) 200 mcg PO DAILY@0630 [facility] Last Admin: 01/20/18 06:56 Dose: 200 mcg Losartan Potassium (Cozaar) 50 mg PO DAILY [facility] Last Admin: 01/17/18 10:26 Dose: 50 mg Morphine Sulfate (Morphine) 2 mg IVP Q4 PRN PRN Reason: Pain, severe (8-10) Last Admin: 01/20/18 17:37 Dose: 2 mg Pantoprazole Sodium (Protonix Ec Tab) 40 mg PO DAILY [facility] Last Admin: 01/20/18 08:24 Dose: 40 mg - Labs Labs: 01/20/18 08:00 01/20/18 08:00 PT 11.8 Seconds (9.8-13.1) 01/14/18 15:31 INR 1.1 01/14/18 15:31 APTT 32.6 Seconds (25.6-37.1) 01/14/18 15:31 - Constitutional Appears: Well, Non-toxic - Head Exam Head Exam: ATRAUMATIC, NORMAL INSPECTION, NORMOCEPHALIC - Eye Exam Eye Exam: EOMI, Normal appearance, PERRL Pupil Exam: NORMAL ACCOMODATION - ENT Exam ENT Exam: Mucous Membranes Dry - Neck Exam Neck Exam: Full ROM, Normal Inspection - Respiratory Exam Respiratory Exam: Clear to Ausculation Bilateral, NORMAL BREATHING PATTERN - Cardiovascular Exam Cardiovascular Exam: REGULAR RHYTHM, +S1, +S2 - GI/Abdominal Exam GI & Abdominal Exam: Soft, Normal Bowel Sounds - Rectal Exam Rectal Exam: Deferred - Extremities Exam Extremities Exam: Full ROM, Normal Inspection - Neurological Exam Neurological Exam: Alert, Awake, CN II-XII Intact, Oriented x3 - Skin Skin Exam: Intact, Normal Color Assessment and Plan - Assessment and Plan (Free Text) Assessment: 72 yo obese femalehtn, hypothyroidism, copd, chf, ckd was admitted with weakness, decreased po intake, increased bun/cr 1. ARNAV on ckd 2. r/o CVA 3. HTN renal function is deteriorating c/w gentle iv hydration c/w current meds check u/s kidneys, bladder scan check urine lytes, osm, cr consider gentle iv hydration, 1/2 ns at 70 ml/hr
[2018-01-21 05:56] LABS: HEMOGLOBIN 10.2 g/dL (12.0-16.0); MEAN CELL VOLUME 88.2 fl (81.0-99.0); MEAN CORPUSCULAR HEMOGLOBIN 28.6 pg (27.0-31.0); MEAN CORPUSCULAR HGB CONC 32.4 g/dL (33.0-37.0); RBC 3.58 Mil/uL (3.80-5.20); RED CELL DISTRIBUTION WIDTH 16.2 % (11.5-14.5); WHITE BLOOD COUNT 7.2 K/uL (4.8-10.8)
[2018-01-21 06:14] LABS: ALBUMIN 3.1 g/dL (3.5-5.0); CALCIUM 8.8 mg/dL (8.4-10.2)
[2018-01-21] MEDS: Levothyroxine 200 MCG TAB PO SCH (06:21)
[2018-01-21] MEDS: Albuterol-Ipratrop 3 mg / 0.5 (3 ml) UD INH SCH ×4 (07:26→19:05)
--- NOTE | 2018-01-21 08:17 | PN ---
DATE: 01/19/2018 SUBJECTIVE: The patient is seen and examined. Interim events noted. Consults noted and appreciated. The patient remains in progressive care unit with telemetry monitoring. Complains of pain, controlled by current medication. No new complaint. no new pain. PHYSICAL EXAMINATION: GENERAL: The patient is in no acute distress. VITAL SIGNS: Stable. HEART: S1, S2, normal and regular. LUNGS: Good bilateral air exchange. ABDOMEN: Soft and nontender. EXTREMITIES: No calf swelling. No tenderness. No acute ischemia. CENTRAL NERVOUS SYSTEM: Essentially unchanged. DIAGNOSTIC DATA: Available diagnostic data reviewed. ASSESSMENT AND PLAN: medical condition is stable. Plan as ordered. Ronald Angeles MD
[2018-01-21] MEDS: Pantoprazole 40 mg EC Tab PO SCH (09:08)
--- NOTE | 2018-01-21 11:04 | PN ---
DATE: 01/21/2018 SUBJECTIVE: The patient seen and examined. Interim events noted. Consults noted and appreciated. The patient remains in progressive care unit, on telemetry monitoring, still complains of pain . No acute complaint of chest pain, shortness of breath, or any new weakness. PHYSICAL EXAMINATION: GENERAL: The patient is in no acute distress. VITAL SIGNS: Stable. HEART: S1 and S2, normal and regular. LUNGS: Good bilateral air exchange. ABDOMEN: Soft, nontender. EXTREMITIES: No calf swelling. No tenderness. No acute ischemia. 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 DIAGNOSTIC DATA: Available diagnostic data reviewed. Telemetry monitoring does not reveal significant arrhythmias. ASSESSMENT AND PLAN: Overall, the patient's general medical condition is stable. Plan as ordered. Ronald Angeles MD
[2018-01-21] MEDS ORDERED: Sodium Chloride 0.45% 1,000 ML IV SCH (12:45)
--- NOTE | 2018-01-21 14:18 | CP.PCM.PN ---
Subjective - Date & Time of Evaluation Date of Evaluation: 01/21/18 Time of Evaluation: 14:18 - Subjective Subjective: 72 yo obese female with pmh/o htn, hypothyroidism, copd, chf, ckd was admitted with weakness, decreased po intake, increased bun/cr no chest pain, no sob, no palpitation, no nausea, vomitings, started on ivf last night, uop is slowly improving, bladder scan -ve for urinary retention u/s of kidneys: b/l renal cysts+, largest about 7 cm on left side Objective - Vital Signs/Intake and Output Vital Signs (last 24 hours): Temp Pulse Resp BP Pulse Ox 97.6 F 80 18 114/66 93 L 01/21/18 09:16 01/21/18 11:01 01/21/18 09:16 01/21/18 09:16 01/21/18 11:01 - Medications Medications: Current Medications Albuterol (Ventolin Hfa 90 Mcg/Actuation (8 G)) 2 puff IH Q4 PRN PRN Reason: Shortness of Breath Albuterol/Ipratropium (Duoneb 3 Mg/0.5 Mg (3 Ml) Ud) 3 ml IH Q6 PRN PRN Reason: Shortness of Breath Albuterol/Ipratropium (Duoneb 3 Mg/0.5 Mg (3 Ml) Ud) 3 ml INH RQID [facility] Last Admin: 01/21/18 11:16 Dose: Not Given Amlodipine Besylate (Norvasc) 10 mg PO DAILY [facility] Aspirin (Aspirin Chewable) 81 mg PO DAILY [facility] Last Admin: 01/21/18 09:08 Dose: 81 mg Atorvastatin Calcium (Lipitor) 40 mg PO DAILY [facility] Last Admin: 01/21/18 09:08 Dose: 40 mg Carvedilol (Coreg) 12.5 mg PO Q12 [facility] Last Admin: 01/17/18 10:26 Dose: 12.5 mg Cyanocobalamin (Vitamin B12 1000 Mcg/Ml Inj) 1,000 mcg IM DAILY [facility] Last Admin: 01/21/18 09:08 Dose: 1,000 mcg Ezetimibe (Zetia) 10 mg PO DAILY [facility] Last Admin: 01/21/18 09:09 Dose: 10 mg Fluoxetine HCl (Prozac) 10 mg PO DAILY [facility] Last Admin: 01/21/18 09:08 Dose: 10 mg Sodium Chloride (Sodium Chloride 0.45%) 1,000 mls @ 70 mls/hr IV .[id number] [facility] Stop: 01/22/18 12:45 Levothyroxine Sodium (Synthroid) 200 mcg PO DAILY@0630 [facility] Last Admin: 01/21/18 06:21 Dose: 200 mcg Losartan Potassium (Cozaar) 50 mg PO DAILY [facility] Last Admin: 01/17/18 10:26 Dose: 50 mg Pantoprazole Sodium (Protonix Ec Tab) 40 mg PO DAILY [facility] Last Admin: 01/21/18 09:08 Dose: 40 mg - Labs Labs: 01/21/18 04:20 01/21/18 04:20 PT 11.8 Seconds (9.8-13.1) 01/14/18 15:31 INR 1.1 01/14/18 15:31 APTT 32.6 Seconds (25.6-37.1) 01/14/18 15:31 - Constitutional Appears: Well, Non-toxic, No Acute Distress - Head Exam Head Exam: ATRAUMATIC, NORMAL INSPECTION, NORMOCEPHALIC - Eye Exam Eye Exam: EOMI, Normal appearance Pupil Exam: NORMAL ACCOMODATION, PERRL - ENT Exam ENT Exam: Mucous Membranes Dry - Respiratory Exam Respiratory Exam: Clear to Ausculation Bilateral, NORMAL BREATHING PATTERN - Cardiovascular Exam Cardiovascular Exam: REGULAR RHYTHM, +S1, +S2 - GI/Abdominal Exam GI & Abdominal Exam: Soft, Normal Bowel Sounds Additional comments: non tender, no hepatosplenomegaly, no abd. bruit - Rectal Exam Rectal Exam: Deferred - Extremities Exam Extremities Exam: Full ROM, Normal Inspection - Neurological Exam Neurological Exam: Alert, Awake, CN II-XII Intact, Oriented x3 - Skin Skin Exam: Normal Color, Warm Assessment and Plan - Assessment and Plan (Free Text) Assessment: 72 yo obese femalehtn, hypothyroidism, copd, chf, ckd was admitted with weakness, decreased po intake, increased bun/cr 1. ARNAV on ckd 2. r/o CVA 3. HTN renal function is deteriorating f/u with bmp daily, check urine lytes, osm, cr, urine c/s c/w current meds c/w iv fluids 1/2 ns at 70 ml/hr
[2018-01-22 05:29] LABS: HEMOGLOBIN 10.4 g/dL (12.0-16.0); MEAN CELL VOLUME 88.6 fl (81.0-99.0); MEAN CORPUSCULAR HEMOGLOBIN 28.9 pg (27.0-31.0); MEAN CORPUSCULAR HGB CONC 32.6 g/dL (33.0-37.0); RBC 3.61 Mil/uL (3.80-5.20)
[2018-01-22] MEDS: Levothyroxine 200 MCG TAB PO SCH (06:11)
[2018-01-22 06:12] LABS: ALBUMIN 3.2 g/dL (3.5-5.0); CALCIUM 8.7 mg/dL (8.4-10.2)
[2018-01-22] MEDS: Albuterol-Ipratrop 3 mg / 0.5 (3 ml) UD INH SCH (07:10)
--- NOTE | 2018-01-22 07:36 | CP.PCM.PN ---
<Sultan Ni - Last Filed: 01/22/18 07:36> Subjective - Date & Time of Evaluation Date of Evaluation: 01/22/18 Time of Evaluation: 07:10 - Subjective Subjective: Patient seen and examined with Dr. Angeles this AM. No acute overnight events. Patient continues to reports generalized pain and some pain in the neck. Denies chest pain, dyspnea, fever or chills. Objective - Vital Signs/Intake and Output Vital Signs (last 24 hours): Temp Pulse Resp BP Pulse Ox 98.2 F 81 18 112/64 92 L 01/22/18 04:52 01/22/18 04:52 01/22/18 04:52 01/22/18 04:52 01/22/18 04:52 - Medications Medications: Current Medications Albuterol (Ventolin Hfa 90 Mcg/Actuation (8 G)) 2 puff IH Q4 PRN PRN Reason: Shortness of Breath Albuterol/Ipratropium (Duoneb 3 Mg/0.5 Mg (3 Ml) Ud) 3 ml INH RQID [facility] Last Admin: 01/21/18 19:05 Dose: 3 ml Amlodipine Besylate (Norvasc) 10 mg PO DAILY [facility] Aspirin (Aspirin Chewable) 81 mg PO DAILY [facility] Last Admin: 01/21/18 09:08 Dose: 81 mg Atorvastatin Calcium (Lipitor) 40 mg PO DAILY [facility] Last Admin: 01/21/18 09:08 Dose: 40 mg Carvedilol (Coreg) 12.5 mg PO Q12 [facility] Last Admin: 01/17/18 10:26 Dose: 12.5 mg Cyanocobalamin (Vitamin B12 1000 Mcg/Ml Inj) 1,000 mcg IM DAILY [facility] Last Admin: 01/21/18 09:08 Dose: 1,000 mcg Ezetimibe (Zetia) 10 mg PO DAILY [facility] Last Admin: 01/21/18 09:09 Dose: 10 mg Fluoxetine HCl (Prozac) 10 mg PO DAILY [facility] Last Admin: 01/21/18 09:08 Dose: 10 mg Sodium Chloride (Sodium Chloride 0.45%) 1,000 mls @ 60 mls/hr IV .[id number] [facility] Stop: 01/23/18 23:45 Ibuprofen (Motrin Oral Susp) 200 mg PO Q6 PRN PRN Reason: pain Last Admin: 01/22/18 00:28 Dose: 200 mg Levothyroxine Sodium (Synthroid) 200 mcg PO DAILY@0630 [facility] Last Admin: 01/22/18 06:11 Dose: 200 mcg Losartan Potassium (Cozaar) 50 mg PO DAILY [facility] Last Admin: 01/17/18 10:26 Dose: 50 mg Pantoprazole Sodium (Protonix Ec Tab) 40 mg PO DAILY [facility] Last Admin: 01/21/18 09:08 Dose: 40 mg - Labs Labs: 01/22/18 04:15 01/22/18 04:15 PT 11.8 Seconds (9.8-13.1) 01/14/18 15:31 INR 1.1 01/14/18 15:31 APTT 32.6 Seconds (25.6-37.1) 01/14/18 15:31 - Constitutional Appears: Non-toxic, No Acute Distress - Head Exam Head Exam: NORMAL INSPECTION - Eye Exam Eye Exam: EOMI, Normal appearance - ENT Exam ENT Exam: Mucous Membranes Moist - Neck Exam Neck Exam: Full ROM, Normal Inspection - Respiratory Exam Respiratory Exam: Clear to Ausculation Bilateral, NORMAL BREATHING PATTERN. absent: Rhonchi, Wheezes - Cardiovascular Exam Cardiovascular Exam: REGULAR RHYTHM, +S1, +S2 - GI/Abdominal Exam GI & Abdominal Exam: Soft, Normal Bowel Sounds. absent: Tenderness - Neurological Exam Neurological Exam: Alert, Awake, Oriented x3 - Psychiatric Exam Psychiatric exam: Normal Affect, Normal Mood - Skin Skin Exam: Normal Color, Warm Assessment and Plan - Assessment and Plan (Free Text) Assessment: 72 year old female, with a past medical history of CHF, asthma, COPD, chronic kidney disease, hypertension and hypothyroidism admitted for evaluation of possible CVA, repeat head CT shows likely subacute or acute lacune right internal capsule which can be confirmed on MRI w/o contrast. Patient also developed ARNAV on CKD. Plan: Neuro consult appreciated Dr. Camilo Brain MRI not done due to patients pain/refusal Echo on 01/16/18: LVEF 55-60%, mild to moderate aortic regurgitation. Left atrium is moderately dilated. Mild tricuspid regurgitation. RVSP is calculated at 38 mm HG. Nephrology consult appreciated: Dr. Rowan Continue hydration with 1/ NS IV fluids 60 cc/hr Pain management consult appreciated c/w home medications, except for BP meds c/w aspirin and statin PT/OT AM labs Patient seen, examined and plan discussed with Dr. Bridgette Dan, pgy-2 <Ronald Angeles - Last Filed: 01/22/18 10:48> Objective - Vital Signs/Intake and Output Vital Signs (last 24 hours): Temp Pulse Resp BP Pulse Ox 98.1 F 78 20 108/64 95 01/22/18 08:25 01/22/18 08:25 01/22/18 08:25 01/22/18 08:25 01/22/18 08:25 - Medications Medications: Current Medications Albuterol (Ventolin Hfa 90 Mcg/Actuation (8 G)) 2 puff IH Q4 PRN PRN Reason: Shortness of Breath Amlodipine Besylate (Norvasc) 10 mg PO DAILY [facility] Aspirin (Aspirin Chewable) 81 mg PO DAILY [facility] Last Admin: 01/22/18 08:42 Dose: 81 mg Atorvastatin Calcium (Lipitor) 40 mg PO DAILY [facility] Last Admin: 01/22/18 08:43 Dose: 40 mg Carvedilol (Coreg) 12.5 mg PO Q12 [facility] Last Admin: 01/17/18 10:26 Dose: 12.5 mg Cyanocobalamin (Vitamin B12 1000 Mcg/Ml Inj) 1,000 mcg IM DAILY [facility] Last Admin: 01/22/18 08:42 Dose: 1,000 mcg Ezetimibe (Zetia) 10 mg PO DAILY [facility] Last Admin: 01/22/18 08:41 Dose: 10 mg Fluoxetine HCl (Prozac) 10 mg PO DAILY [facility] Last Admin: 01/22/18 08:42 Dose: 10 mg Sodium Chloride (Sodium Chloride 0.45%) 1,000 mls @ 60 mls/hr IV .[id number] [facility] Stop: 01/23/18 23:45 Last Admin: 01/22/18 08:41 Dose: 60 mls/hr Ibuprofen (Motrin Oral Susp) 200 mg PO Q6 PRN PRN Reason: pain Last Admin: 01/22/18 00:28 Dose: 200 mg Levothyroxine Sodium (Synthroid) 200 mcg PO DAILY@0630 [facility] Last Admin: 01/22/18 06:11 Dose: 200 mcg Losartan Potassium (Cozaar) 50 mg PO DAILY [facility] Last Admin: 01/17/18 10:26 Dose: 50 mg Pantoprazole Sodium (Protonix Ec Tab) 40 mg PO DAILY [facility] Last Admin: 01/22/18 08:41 Dose: 40 mg - Labs Labs: 01/22/18 04:15 01/22/18 04:15 PT 11.8 Seconds (9.8-13.1) 01/14/18 15:31 INR 1.1 01/14/18 15:31 APTT 32.6 Seconds (25.6-37.1) 01/14/18 15:31 Assessment and Plan - Assessment and Plan (Free Text) Assessment: Patient was personally seen and examined by me in rounds with residents. Available labs and diagnostic data reviewed. Case, Patient's condition and management plan discussed with residents in rounds. Agree with resident's progress note. Plan: As ordered.
[2018-01-22] MEDS: Sodium Chloride 0.45% 1,000 ML IV SCH (08:41)
[2018-01-22] MEDS: Pantoprazole 40 mg EC Tab PO SCH (08:41)
[2018-01-22 11:29] LABS: SQUAMOUS EPITHIAL 1 /hpf (0-5); URINE BACTERIA FEW (<OCC); URINE BILIRUBIN NEGATIVE (NEGATIVE); URINE BLOOD NEGATIVE (NEGATIVE); URINE CLARITY SLIGHTY-CLOUDY (Clear); URINE COLOR YELLOW (YELLOW); URINE GLUCOSE (UA) NEG (Normal); URINE LEUKOCYTE ESTERASE MOD Leu/uL (Negative); URINE PROTEIN NEGATIVE (NEGATIVE); URINE UROBILINOGEN 0.2-1.0 mg/dL (0.2-1.0)
[2018-01-22 11:48] LABS: OSMOLALITY,URINE 343 mosm/kg (300-1000)
--- NOTE | 2018-01-22 18:31 | CP.PCM.PN ---
Subjective - Date & Time of Evaluation Date of Evaluation: 01/22/18 Time of Evaluation: 18:30 - Subjective Subjective: 72 yo obese female with pmh/o htn, hypothyroidism, copd, chf, ckd was admitted with weakness, decreased po intake, increased bun/cr no chest pain, no sob, no palpitation, no nausea, vomitings, started on ivf , uop is slowly improving, bladder scan -ve for urinary retention c/o occ cough Objective - Vital Signs/Intake and Output Vital Signs (last 24 hours): Temp Pulse Resp BP Pulse Ox 98.2 F 77 20 105/63 94 L 01/22/18 16:17 01/22/18 16:17 01/22/18 16:17 01/22/18 16:17 01/22/18 16:17 Intake and Output: 01/22/18 01/22/18 06:59 18:59 Intake Total 940 Output Total 900 Balance 40 - Medications Medications: Current Medications Albuterol (Ventolin Hfa 90 Mcg/Actuation (8 G)) 2 puff IH Q4 PRN PRN Reason: Shortness of Breath Amlodipine Besylate (Norvasc) 10 mg PO DAILY [facility] Aspirin (Aspirin Chewable) 81 mg PO DAILY [facility] Last Admin: 01/22/18 08:42 Dose: 81 mg Atorvastatin Calcium (Lipitor) 40 mg PO DAILY [facility] Last Admin: 01/22/18 08:43 Dose: 40 mg Carvedilol (Coreg) 12.5 mg PO Q12 [facility] Last Admin: 01/17/18 10:26 Dose: 12.5 mg Cyanocobalamin (Vitamin B12 1000 Mcg/Ml Inj) 1,000 mcg IM DAILY [facility] Last Admin: 01/22/18 08:42 Dose: 1,000 mcg Ezetimibe (Zetia) 10 mg PO DAILY [facility] Last Admin: 01/22/18 08:41 Dose: 10 mg Fluoxetine HCl (Prozac) 10 mg PO DAILY [facility] Last Admin: 01/22/18 08:42 Dose: 10 mg Sodium Chloride (Sodium Chloride 0.45%) 1,000 mls @ 60 mls/hr IV .[id number] [facility] Stop: 01/23/18 23:45 Last Admin: 01/22/18 08:41 Dose: 60 mls/hr Ibuprofen (Motrin Oral Susp) 400 mg PO Q6 PRN PRN Reason: pain (4-6 pain level) Last Admin: 01/22/18 18:00 Dose: 400 mg Levothyroxine Sodium (Synthroid) 200 mcg PO DAILY@0630 [facility] Last Admin: 01/22/18 06:11 Dose: 200 mcg Losartan Potassium (Cozaar) 50 mg PO DAILY [facility] Last Admin: 01/17/18 10:26 Dose: 50 mg Pantoprazole Sodium (Protonix Ec Tab) 40 mg PO DAILY [facility] Last Admin: 01/22/18 08:41 Dose: 40 mg - Labs Labs: 01/22/18 04:15 01/22/18 04:15 PT 11.8 Seconds (9.8-13.1) 01/14/18 15:31 INR 1.1 01/14/18 15:31 APTT 32.6 Seconds (25.6-37.1) 01/14/18 15:31 - Head Exam Head Exam: ATRAUMATIC, NORMAL INSPECTION, NORMOCEPHALIC - Eye Exam Eye Exam: EOMI, Normal appearance Pupil Exam: NORMAL ACCOMODATION, PERRL - ENT Exam ENT Exam: Mucous Membranes Dry - Neck Exam Neck Exam: Full ROM, Normal Inspection - Respiratory Exam Respiratory Exam: Clear to Ausculation Bilateral, NORMAL BREATHING PATTERN - Cardiovascular Exam Cardiovascular Exam: REGULAR RHYTHM, +S1, +S2 - GI/Abdominal Exam GI & Abdominal Exam: Soft, Normal Bowel Sounds Additional comments: non tenderness, no HSM, no abdominal bruit - Rectal Exam Rectal Exam: Deferred - Neurological Exam Neurological Exam: Alert, Awake, CN II-XII Intact, Oriented x3 - Psychiatric Exam Psychiatric exam: Normal Affect - Skin Skin Exam: Normal Color Assessment and Plan - Assessment and Plan (Free Text) Assessment: 72 yo obese female with h/o htn, hypothyroidism, copd, chf, ckd was admitted with weakness, decreased po intake, increased bun/cr 1. ARNAV on ckd-3 2. r/o CVA 3. HTN renal function is deteriorating f/u with bmp daily, cuna <20 c/w current meds c/w iv fluids 1/2 ns at 70 ml/hr d/w pt's daughter at bed side
[2018-01-23] MEDS: Sodium Chloride 0.45% 1,000 ML IV SCH ×3 (01:13→16:06)
[2018-01-23 05:27] LABS: MEAN CELL VOLUME 88.5 fl (81.0-99.0); MEAN CORPUSCULAR HEMOGLOBIN 28.8 pg (27.0-31.0); MEAN CORPUSCULAR HGB CONC 32.6 g/dL (33.0-37.0); RBC 3.46 Mil/uL (3.80-5.20); WHITE BLOOD COUNT 8.5 K/uL (4.8-10.8)
[2018-01-23] MEDS: Levothyroxine 200 MCG TAB PO SCH (06:02)
[2018-01-23] MEDS: Pantoprazole 40 mg EC Tab PO SCH (08:29)
--- NOTE | 2018-01-23 09:53 | CP.PCM.PN ---
Subjective - Date & Time of Evaluation Date of Evaluation: 01/23/18 Time of Evaluation: 09:00 - Subjective Subjective: Patient seen and examined this AM. No acute overnight events. Reports feeling better but still has neck pain. Denies chest pain, dyspnea, fever or chills. Objective - Vital Signs/Intake and Output Vital Signs (last 24 hours): Temp Pulse Resp BP Pulse Ox 97.5 F L 71 20 109/71 94 L 01/23/18 09:25 01/23/18 09:25 01/23/18 09:25 01/23/18 09:25 01/23/18 09:25 - Medications Medications: Current Medications Acetaminophen (Tylenol 325mg Tab) 650 mg PO Q6 PRN PRN Reason: Pain, moderate (4-7) Albuterol (Ventolin Hfa 90 Mcg/Actuation (8 G)) 2 puff IH Q4 PRN PRN Reason: Shortness of Breath Amlodipine Besylate (Norvasc) 10 mg PO DAILY [facility] Aspirin (Aspirin Chewable) 81 mg PO DAILY [facility] Last Admin: 01/23/18 08:29 Dose: 81 mg Atorvastatin Calcium (Lipitor) 40 mg PO DAILY [facility] Last Admin: 01/23/18 08:29 Dose: 40 mg Carvedilol (Coreg) 12.5 mg PO Q12 [facility] Last Admin: 01/17/18 10:26 Dose: 12.5 mg Cyanocobalamin (Vitamin B12 1000 Mcg/Ml Inj) 1,000 mcg IM DAILY [facility] Last Admin: 01/23/18 08:29 Dose: 1,000 mcg Ezetimibe (Zetia) 10 mg PO DAILY [facility] Last Admin: 01/23/18 08:29 Dose: 10 mg Fluoxetine HCl (Prozac) 10 mg PO DAILY [facility] Last Admin: 01/23/18 08:29 Dose: 10 mg Sodium Chloride (Sodium Chloride 0.45%) 1,000 mls @ 60 mls/hr IV .[id number] [facility] Stop: 01/23/18 23:45 Last Admin: 01/23/18 01:14 Dose: 60 mls/hr Levothyroxine Sodium (Synthroid) 200 mcg PO DAILY@0630 [facility] Last Admin: 01/23/18 06:02 Dose: 200 mcg Losartan Potassium (Cozaar) 50 mg PO DAILY [facility] Last Admin: 01/17/18 10:26 Dose: 50 mg Pantoprazole Sodium (Protonix Ec Tab) 40 mg PO DAILY [facility] Last Admin: 01/23/18 08:29 Dose: 40 mg - Labs Labs: 01/23/18 05:16 01/23/18 05:16 PT 11.8 Seconds (9.8-13.1) 01/14/18 15:31 INR 1.1 01/14/18 15:31 APTT 32.6 Seconds (25.6-37.1) 01/14/18 15:31 - Additional Findings Additional findings: - Constitutional Appears: Non-toxic, No Acute Distress - Head Exam Head Exam: NORMAL INSPECTION - Eye Exam Eye Exam: EOMI, Normal appearance - ENT Exam ENT Exam: Mucous Membranes Moist - Neck Exam Neck Exam: Full ROM, Normal Inspection - Respiratory Exam Respiratory Exam: Clear to Ausculation Bilateral, NORMAL BREATHING PATTERN. absent: Rhonchi, Wheezes - Cardiovascular Exam Cardiovascular Exam: REGULAR RHYTHM, +S1, +S2 - GI/Abdominal Exam GI & Abdominal Exam: Soft, Normal Bowel Sounds. absent: Tenderness - Neurological Exam Neurological Exam: Alert, Awake, Oriented x3 - Psychiatric Exam Psychiatric exam: Normal Affect, Normal Mood - Skin Skin Exam: Normal Color, Warm Assessment and Plan - Assessment and Plan (Free Text) Assessment: 72 year old female, with a past medical history of CHF, asthma, COPD, chronic kidney disease, hypertension and hypothyroidism admitted for evaluation of possible CVA, repeat head CT shows likely subacute or acute lacune right internal capsule which can be confirmed on MRI w/o contrast. Patient also developed ARNAV on CKD. Plan: Neuro consult appreciated Dr. Camilo Brain MRI not done due to patients pain/refusal Echo on 01/16/18: LVEF 55-60%, mild to moderate aortic regurgitation. Left atrium is moderately dilated. Mild tricuspid regurgitation. RVSP is calculated at 38 mm HG. Nephrology consult appreciated: Dr. Rowan Continue hydration with 1/ NS IV fluids 60 cc/hr Pain management c/w home medications, except for BP meds c/w aspirin and statin PT/OT AM labs rest of the plan as ordered. Patient seen, examined and plan discussed with Dr. Bridgette Dan, pgy-2
--- NOTE | 2018-01-23 11:25 | CP.PCM.PN ---
Subjective - Date & Time of Evaluation Date of Evaluation: 01/23/18 Time of Evaluation: 11:24 - Subjective Subjective: 72 yo obese female with pmh/o htn, hypothyroidism, copd, chf, ckd was admitted with weakness, decreased po intake, increased bun/cr no chest pain, no sob, no palpitation, no nausea, vomitings, started on ivf , uop is slowly improving, s.cr remains stable Objective - Vital Signs/Intake and Output Vital Signs (last 24 hours): Temp Pulse Resp BP Pulse Ox 97.5 F L 71 20 109/71 94 L 01/23/18 09:25 01/23/18 09:25 01/23/18 09:25 01/23/18 09:25 01/23/18 09:25 - Medications Medications: Current Medications Acetaminophen (Tylenol 325mg Tab) 650 mg PO Q6 PRN PRN Reason: Pain, moderate (4-7) Albuterol (Ventolin Hfa 90 Mcg/Actuation (8 G)) 2 puff IH Q4 PRN PRN Reason: Shortness of Breath Amlodipine Besylate (Norvasc) 10 mg PO DAILY [facility] Aspirin (Aspirin Chewable) 81 mg PO DAILY [facility] Last Admin: 01/23/18 08:29 Dose: 81 mg Atorvastatin Calcium (Lipitor) 40 mg PO DAILY [facility] Last Admin: 01/23/18 08:29 Dose: 40 mg Carvedilol (Coreg) 12.5 mg PO Q12 [facility] Last Admin: 01/17/18 10:26 Dose: 12.5 mg Cyanocobalamin (Vitamin B12 1000 Mcg/Ml Inj) 1,000 mcg IM DAILY [facility] Last Admin: 01/23/18 08:29 Dose: 1,000 mcg Ezetimibe (Zetia) 10 mg PO DAILY [facility] Last Admin: 01/23/18 08:29 Dose: 10 mg Fluoxetine HCl (Prozac) 10 mg PO DAILY [facility] Last Admin: 01/23/18 08:29 Dose: 10 mg Sodium Chloride (Sodium Chloride 0.45%) 1,000 mls @ 60 mls/hr IV .[id number] [facility] Stop: 01/23/18 23:45 Last Admin: 01/23/18 01:14 Dose: 60 mls/hr Levothyroxine Sodium (Synthroid) 200 mcg PO DAILY@0630 [facility] Last Admin: 01/23/18 06:02 Dose: 200 mcg Losartan Potassium (Cozaar) 50 mg PO DAILY [facility] Last Admin: 01/17/18 10:26 Dose: 50 mg Pantoprazole Sodium (Protonix Ec Tab) 40 mg PO DAILY [facility] Last Admin: 01/23/18 08:29 Dose: 40 mg - Labs Labs: 01/23/18 05:16 01/23/18 05:16 PT 11.8 Seconds (9.8-13.1) 01/14/18 15:31 INR 1.1 01/14/18 15:31 APTT 32.6 Seconds (25.6-37.1) 01/14/18 15:31 - Head Exam Head Exam: ATRAUMATIC, NORMAL INSPECTION, NORMOCEPHALIC - Eye Exam Eye Exam: EOMI, Normal appearance, PERRL Pupil Exam: NORMAL ACCOMODATION - ENT Exam ENT Exam: Mucous Membranes Dry - Neck Exam Neck Exam: Full ROM, Normal Inspection - Respiratory Exam Respiratory Exam: Clear to Ausculation Bilateral, NORMAL BREATHING PATTERN - Cardiovascular Exam Cardiovascular Exam: REGULAR RHYTHM, +S1, +S2 - Rectal Exam Rectal Exam: Deferred - Extremities Exam Extremities Exam: Full ROM, Normal Inspection - Neurological Exam Neurological Exam: Alert, Awake, CN II-XII Intact, Oriented x3 - Psychiatric Exam Psychiatric exam: Normal Affect - Skin Skin Exam: Normal Color, Warm Assessment and Plan - Assessment and Plan (Free Text) Plan: 72 yo obese female with h/o htn, hypothyroidism, copd, chf, ckd was admitted with weakness, decreased po intake, increased bun/cr 1. ARNAV on ckd-3 2. r/o CVA 3. HTN renal function is same f/u with bmp daily, (u na <20) c/w current meds c/w iv fluids 1/2 ns at 70 ml/hr
[2018-01-24 05:53] LABS: CALCIUM 9.1 mg/dL (8.4-10.2)
[2018-01-24] MEDS: Levothyroxine 200 MCG TAB PO SCH (05:57)
--- NOTE | 2018-01-24 07:55 | CP.PCM.PN ---
Subjective - Date & Time of Evaluation Date of Evaluation: 01/24/18 Time of Evaluation: 07:35 - Subjective Subjective: Patient seen and examined with Dr. Angeles this morning. No acute overnight events. Continues to reports generalized pain. Denies chest pain, dyspnea, fever or chills. Participates in PT/OT. Objective - Vital Signs/Intake and Output Vital Signs (last 24 hours): Temp Pulse Resp BP Pulse Ox 98.3 F 83 18 126/71 94 L 01/24/18 05:00 01/24/18 05:00 01/24/18 05:00 01/24/18 05:00 01/24/18 05:00 Intake and Output: 01/24/18 01/24/18 06:59 18:59 Intake Total 720 Balance 720 - Medications Medications: Current Medications Acetaminophen (Tylenol 325mg Tab) 650 mg PO Q6 PRN PRN Reason: Pain, moderate (4-7) Last Admin: 01/24/18 06:09 Dose: 650 mg Albuterol (Ventolin Hfa 90 Mcg/Actuation (8 G)) 2 puff IH Q4 PRN PRN Reason: Shortness of Breath Amlodipine Besylate (Norvasc) 10 mg PO DAILY [facility] Aspirin (Aspirin Chewable) 81 mg PO DAILY [facility] Last Admin: 01/23/18 08:29 Dose: 81 mg Atorvastatin Calcium (Lipitor) 40 mg PO DAILY [facility] Last Admin: 01/23/18 08:29 Dose: 40 mg Carvedilol (Coreg) 12.5 mg PO Q12 [facility] Last Admin: 01/17/18 10:26 Dose: 12.5 mg Cyanocobalamin (Vitamin B12 1000 Mcg/Ml Inj) 1,000 mcg IM DAILY [facility] Last Admin: 01/23/18 08:29 Dose: 1,000 mcg Ezetimibe (Zetia) 10 mg PO DAILY [facility] Last Admin: 01/23/18 08:29 Dose: 10 mg Fluoxetine HCl (Prozac) 10 mg PO DAILY [facility] Last Admin: 01/23/18 08:29 Dose: 10 mg Levothyroxine Sodium (Synthroid) 200 mcg PO DAILY@0630 [facility] Last Admin: 01/24/18 05:57 Dose: 200 mcg Losartan Potassium (Cozaar) 50 mg PO DAILY [facility] Last Admin: 01/17/18 10:26 Dose: 50 mg Pantoprazole Sodium (Protonix Ec Tab) 40 mg PO DAILY [facility] Last Admin: 01/23/18 08:29 Dose: 40 mg - Labs Labs: 01/23/18 05:16 01/24/18 05:10 PT 11.8 Seconds (9.8-13.1) 01/14/18 15:31 INR 1.1 01/14/18 15:31 APTT 32.6 Seconds (25.6-37.1) 01/14/18 15:31 - Additional Findings Additional findings: - Constitutional Appears: Non-toxic, No Acute Distress, Morbidly obese - Head Exam Head Exam: NORMAL INSPECTION - Eye Exam Eye Exam: EOMI, Normal appearance - ENT Exam ENT Exam: Mucous Membranes Moist - Neck Exam Neck Exam: Full ROM, Normal Inspection - Respiratory Exam Respiratory Exam: Clear to Ausculation Bilateral, NORMAL BREATHING PATTERN. absent: Rhonchi, Wheezes - Cardiovascular Exam Cardiovascular Exam: REGULAR RHYTHM, +S1, +S2 - GI/Abdominal Exam GI & Abdominal Exam: Soft, Normal Bowel Sounds. absent: Tenderness - Neurological Exam Neurological Exam: Alert, Awake, Oriented x3 - Psychiatric Exam Psychiatric exam: Normal Affect, Normal Mood - Skin Skin Exam: Normal Color, Warm Assessment and Plan - Assessment and Plan (Free Text) Assessment: 72 year old female, with a past medical history of CHF, asthma, COPD, chronic kidney disease, hypertension and hypothyroidism admitted for evaluation of possible CVA, repeat head CT shows likely subacute or acute lacune right internal capsule which can be confirmed on MRI w/o contrast. Patient also d eveloped ARNAV on CKD. Plan: Neuro consult appreciated Dr. Camilo Brain MRI not done due to patients pain/refusal Echo on 01/16/18: LVEF 55-60%, mild to moderate aortic regurgitation. Left atrium is moderately dilated. Mild tricuspid regurgitation. RVSP is calculated at 38 mm HG. Nephrology consult appreciated: Dr. Rowan Continue hydration with 1/ NS IV fluids 60 cc/hr Renal function improved from yesterday. Pain management: avoid NSAIDS c/w home medications, except for BP meds c/w aspirin and statin PT/OT AM labs rest of the plan as ordered. Patient seen, examined and plan discussed with Dr. Bridgette Dan, pgy-2
[2018-01-24] MEDS: Pantoprazole 40 mg EC Tab PO SCH (09:58)
[2018-01-24] MEDS ORDERED: Sodium Chloride 0.45% 1,000 ML IV SCH (11:30)
--- NOTE | 2018-01-24 13:03 | CP.PCM.PN ---
Subjective - Date & Time of Evaluation Date of Evaluation: 01/24/18 Time of Evaluation: 13:03 - Subjective Subjective: 72 yo obese female with pmh/o htn, hypothyroidism, copd, chf, ckd was admitted with weakness, decreased po intake, increased bun/cr no chest pain, no sob, no palpitation, no nausea, vomitings, started on ivf , uop is slowly improving, s.cr is improving, denies any complaints today Objective - Vital Signs/Intake and Output Vital Signs (last 24 hours): Temp Pulse Resp BP Pulse Ox 97.8 F 75 18 104/62 93 L 01/24/18 12:10 01/24/18 12:10 01/24/18 12:10 01/24/18 12:10 01/24/18 12:10 Intake and Output: 01/24/18 01/24/18 06:59 18:59 Intake Total 720 Balance 720 - Medications Medications: Current Medications Acetaminophen (Tylenol 325mg Tab) 650 mg PO Q6 PRN PRN Reason: Pain, moderate (4-7) Last Admin: 01/24/18 06:09 Dose: 650 mg Albuterol (Ventolin Hfa 90 Mcg/Actuation (8 G)) 2 puff IH Q4 PRN PRN Reason: Shortness of Breath Amlodipine Besylate (Norvasc) 10 mg PO DAILY [facility] Aspirin (Aspirin Chewable) 81 mg PO DAILY [facility] Last Admin: 01/24/18 09:57 Dose: 81 mg Atorvastatin Calcium (Lipitor) 40 mg PO DAILY [facility] Last Admin: 01/24/18 09:58 Dose: 40 mg Carvedilol (Coreg) 12.5 mg PO Q12 [facility] Last Admin: 01/17/18 10:26 Dose: 12.5 mg Cyanocobalamin (Vitamin B12 1000 Mcg/Ml Inj) 1,000 mcg IM DAILY [facility] Last Admin: 01/24/18 09:58 Dose: 1,000 mcg Ezetimibe (Zetia) 10 mg PO DAILY [facility] Last Admin: 01/24/18 09:59 Dose: 10 mg Fluoxetine HCl (Prozac) 10 mg PO DAILY [facility] Last Admin: 01/24/18 09:58 Dose: 10 mg Sodium Chloride (Sodium Chloride 0.45%) 1,000 mls @ 70 mls/hr IV .[id number] [facility] Stop: 01/25/18 11:25 Levothyroxine Sodium (Synthroid) 200 mcg PO DAILY@0630 [facility] Last Admin: 01/24/18 05:57 Dose: 200 mcg Losartan Potassium (Cozaar) 50 mg PO DAILY [facility] Last Admin: 01/17/18 10:26 Dose: 50 mg Pantoprazole Sodium (Protonix Ec Tab) 40 mg PO DAILY [facility] Last Admin: 01/24/18 09:58 Dose: 40 mg - Labs Labs: 01/23/18 05:16 01/24/18 05:10 PT 11.8 Seconds (9.8-13.1) 01/14/18 15:31 INR 1.1 01/14/18 15:31 APTT 32.6 Seconds (25.6-37.1) 01/14/18 15:31 - Constitutional Appears: No Acute Distress - Head Exam Head Exam: ATRAUMATIC, NORMAL INSPECTION, NORMOCEPHALIC - Eye Exam Eye Exam: EOMI, Normal appearance, PERRL Pupil Exam: NORMAL ACCOMODATION - ENT Exam ENT Exam: Mucous Membranes Moist - Respiratory Exam Respiratory Exam: Clear to Ausculation Bilateral, NORMAL BREATHING PATTERN - Cardiovascular Exam Cardiovascular Exam: REGULAR RHYTHM, +S1 - Rectal Exam Rectal Exam: Deferred - Extremities Exam Additional comments: no edema - Back Exam Back Exam: NORMAL INSPECTION - Neurological Exam Neurological Exam: Alert, Awake, CN II-XII Intact, Oriented x3 - Psychiatric Exam Psychiatric exam: Normal Affect, Normal Mood Assessment and Plan - Assessment and Plan (Free Text) Assessment: 72 yo obese female with h/o htn, hypothyroidism, copd, chf, ckd was admitted with weakness, decreased po intake, increased bun/cr 1. ARNAV on ckd-3 2. r/o CVA 3. HTN renal function is same f/u with bmp daily, (u na <20) c/w current meds c/w iv fluids 1/2 ns at 70 ml/hr s.cr is improving, c/w ivf for another 2-3 days
[2018-01-24 16:17] VITALS: BP 110/69; RESP 20; TEMP 98.1
[2018-01-24 16:36] VITALS: PULSE 96; O2SAT 98
--- NOTE | 2018-01-25 07:37 | CP.PCM.DIS ---
Provider - Provider Date of Admission: 01/14/18 16:12 Attending physician: Ronald Angeles MD Time Spent in preparation of Discharge (in minutes): 30 Diagnosis - Discharge Diagnosis (1) CVA (cerebral vascular accident) Status: Acute (2) Chronic pain Status: Chronic (3) Neck pain on left side Status: Chronic (4) CHF (congestive heart failure) Status: Chronic Priority: Medium (5) CRF (chronic renal failure) Status: Chronic Priority: Medium (6) Hypertension Status: Chronic Priority: Medium (7) Hypothyroidism Status: Chronic Priority: Low Hospital Course - Lab Results Lab Results: Most Recent Lab Values WBC 8.5 K/uL (4.8-10.8) 01/23/18 05:16 RBC 3.46 Mil/uL (3.80-5.20) L 01/23/18 05:16 Hgb 10.0 g/dL (12.0-16.0) L 01/23/18 05:16 Hct 30.6 % (34.0-47.0) L 01/23/18 05:16 MCV 88.5 fl (81.0-99.0) 01/23/18 05:16 MCH 28.8 pg (27.0-31.0) 01/23/18 05:16 MCHC 32.6 g/dL (33.0-37.0) L 01/23/18 05:16 RDW 16.0 % (11.5-14.5) H 01/23/18 05:16 Plt Count 317 K/uL (130-400) 01/23/18 05:16 MPV 8.8 fl (7.2-11.7) 01/14/18 15:31 Neut % (Auto) 71.9 % (50.0-75.0) 01/14/18 15:31 Lymph % (Auto) 16.8 % (20.0-40.0) L 01/14/18 15:31 [place] % (Auto) 7.4 % (0.0-10.0) 01/14/18 15:31 Eos % (Auto) 3.0 % (0.0-4.0) 01/14/18 15:31 Baso % (Auto) 0.9 % (0.0-2.0) 01/14/18 15:31 Neut # (Auto) 6.4 K/uL (1.8-7.0) 01/14/18 15:31 Lymph # (Auto) 1.5 K/uL (1.0-4.3) 01/14/18 15:31 [place] # (Auto) 0.7 K/uL (0.0-0.8) 01/14/18 15:31 Eos # (Auto) 0.3 K/uL (0.0-0.7) 01/14/18 15:31 Baso # (Auto) 0.1 K/uL (0.0-0.2) 01/14/18 15:31 PT 11.8 Seconds (9.8-13.1) 01/14/18 15:31 INR 1.1 01/14/18 15:31 APTT 32.6 Seconds (25.6-37.1) 01/14/18 15:31 Sodium 137 mmol/l (132-148) 01/24/18 05:10 Potassium 4.1 MMOL/L (3.6-5.0) 01/24/18 05:10 Chloride 105 mmol/L (98-107) 01/24/18 05:10 Carbon Dioxide 24 mmol/L (22-30) 01/24/18 05:10 Anion Gap 12 (10-20) 01/24/18 05:10 BUN 60 mg/dl (7-17) H 01/24/18 05:10 Creatinine 3.5 mg/dl (0.7-1.2) H 01/24/18 05:10 Est GFR ( Amer) 16 01/24/18 05:10 Est GFR (Non-Af Amer) 13 01/24/18 05:10 POC Glucose (mg/dL) 114 mg/dL (65-110) H 01/24/18 16:10 Random Glucose 94 mg/dL (65-105) 01/24/18 05:10 Hemoglobin A1c 5.3 % (4.2-6.5) 01/15/18 08:10 Calcium 9.1 mg/dL (8.4-10.2) 01/24/18 05:10 Magnesium 2.3 MG/DL (1.6-2.3) 01/14/18 15:31 Total Bilirubin 0.3 mg/dl (0.2-1.3) 01/22/18 04:15 AST 20 U/L (14-36) 01/22/18 04:15 ALT 20 U/L (9-52) 01/22/18 04:15 Alkaline Phosphatase 98 U/L (38-126) 01/22/18 04:15 Total Creatine Kinase 109 U/L (30-135) 01/20/18 16:58 Troponin I 0.0180 ng/mL (0.00-0.120) 01/18/18 08:42 Total Protein 6.3 G/DL (6.3-8.2) 01/22/18 04:15 Albumin 3.2 g/dL (3.5-5.0) L 01/22/18 04:15 Globulin 3.1 gm/dL (2.2-3.9) 01/22/18 04:15 Albumin/Globulin Ratio 1.0 (1.0-2.1) 01/22/18 04:15 Triglycerides 122 mg/DL (0-149) D 01/16/18 04:30 Cholesterol 190 mg/dL (0-199) 01/16/18 04:30 LDL Cholesterol Direct 121 mg/dL (0-129) 01/16/18 04:30 HDL Cholesterol 35 MG/DL (30-70) 01/16/18 04:30 Vitamin B12 221 pg/mL (239-931) L 01/15/18 08:10 TSH 3rd Generation 0.76 mIU/ML (0.46-4.68) 01/15/18 08:10 PTH Intact Whole Molec 353 pg/mL (14-64) H 01/18/18 18:45 Urine Color Yellow (YELLOW) 01/21/18 11:00 Urine Clarity Slighty-cloudy (Clear) 01/21/18 11:00 Urine pH 5.0 (5.0-8.0) 01/21/18 11:00 Ur Specific Mission 1.012 (1.003-1.030) 01/21/18 11:00 Urine Protein Negative mg/dL (NEGATIVE) 01/21/18 11:00 Urine Glucose (UA) Neg mg/dL (Normal) 01/21/18 11:00 Urine Ketones Negative mg/dL (NEGATIVE) 01/21/18 11:00 Urine Blood Negative (NEGATIVE) 01/21/18 11:00 Urine Nitrate Negative (NEGATIVE) 01/21/18 11:00 Urine Bilirubin Negative (NEGATIVE) 01/21/18 11:00 Urine Urobilinogen 0.2-1.0 mg/dL (0.2-1.0) 01/21/18 11:00 Ur Leukocyte Esterase Mod John/uL (Negative) 01/21/18 11:00 Urine RBC (Auto) 3 /hpf (0-3) 01/21/18 11:00 Urine Microscopic WBC 44 /hpf (0-5) H 01/21/18 11:00 Ur Squamous Epith Cells 1 /hpf (0-5) 01/21/18 11:00 Ur Transition Epith Cell 2 /hpf (0-3) 01/21/18 11:00 Urine Bacteria Few (<OCC) H 01/21/18 11:00 Urine Osmolality 343 mosm/kg (300-1000) 01/21/18 11:00 Ur Random Creatinine 136.8 mg/dL 01/21/18 17:55 Ur Random Sodium < 5 meq/L 01/21/18 11:00 Ur Random Potassium 48.3 mmol/L 01/21/18 11:00 - Hospital Course Hospital Course: 72 year old female, with a past medical history of CHF, asthma, COPD, chronic kidney disease and Hypertension, hypothyroidism, who was brought [facility] on 01/14/18 accompanied by daughter with concerns for pain and swelling of B/L hands. Reports generalized body pain and pain in right hip. Reports numbness of the left leg and generalized weakness. Denies chest pain, dyspnea, blurry vision, fever or chills. In the ED, patient had NIHSS score of 6. Head CT showed questionable lucency in the subcortical right frontal region may reflect interval acute or subacute infarction although there is no mass effect or hemorrhage. Patient was admitted to telemetry for evaluation of possible CVA. Neurologist Dr. Camilo were consulted, patient was placed on aspirin. MRI of the brain was recommended but patient refused to do it due to pain/anxiety, so repeat head CT was ordered which showed shows likely subacute or acute lacune right internal capsule. Patient continues to have generalized pain and weakness sometimes. Pain management was consulted. Patient renal function was declining and intensivist was consulted as well. Patient is hemodynamically stable to discharge to subacute rehab for PT/OT. Discharge Exam - Head Exam Head Exam: ATRAUMATIC, NORMAL INSPECTION, NORMOCEPHALIC - Eye Exam Eye Exam: EOMI, Normal appearance - Respiratory Exam Respiratory Exam: Clear to PA & Lateral, NORMAL BREATHING PATTERN. absent: Wheezes, Respiratory Distress - Cardiovascular Exam Cardiovascular Exam: REGULAR RHYTHM, +S1, +S2 - GI/Abdominal Exam GI & Abdominal Exam: Normal Bowel Sounds, Soft. absent: Tenderness - Neurological Exam Neurological exam: Alert, Oriented x3 - Psychiatric Exam Psychiatric exam: Normal Affect, Normal Mood - Skin Skin Exam: Normal Color, Warm Discharge Plan - Discharge Medications Prescriptions: Sodium Chloride 0.45% 500ml [Sodium Chloride 0.45%] 70 ml IV Q1 #30 eugenie - Follow Up Plan Condition: FAIR Disposition: REHAB FACILITY/REHAB UNIT Additional Instructions: Needs assistance w/ all daily activities. Fall Precaution. Heart healthy , low fat , low cholesterol diet. Referrals: Yohan Rowan MD [Staff Provider] - Kuldeep Zapata-Reuben Hargrove MD [Staff Provider] - Helder Camilo MD [Medical Doctor] - Jonn Montanez MD [Staff Provider] -
== END 2018-01-24 17:15 | DRG 65 ==
LOC: H.ER 13:11 → H.ERHOLD 16:12 → H.TEL 20:44
PROVIDERS: ADMIT Internal Medicine; ATTEND Internal Medicine
DX: I63.9 Cerebral infarction, unspecified (principal); Z68.42 Body mass index [BMI] 45.0-49.9, adult; I13.0 Hypertensive heart and chronic kidney disease with heart failure and stage 1 through stage 4 chronic kidney disease, or unspecified chronic kidney disease; N17.9 Acute kidney failure, unspecified; I50.22 Chronic systolic (congestive) heart failure; E66.01 Morbid (severe) obesity due to excess calories; E78.00 Pure hypercholesterolemia, unspecified; J44.9 Chronic obstructive pulmonary disease, unspecified; E03.9 Hypothyroidism, unspecified; R29.706 NIHSS score 6; Z96.653 Presence of artificial knee joint, bilateral; E66.9 Obesity, unspecified; E86.0 Dehydration; N18.3 Chronic kidney disease, stage 3 (moderate); Z88.6 Allergy status to analgesic agent; Z88.5 Allergy status to narcotic agent; G89.29 Other chronic pain; E78.5 Hyperlipidemia, unspecified; I25.10 Atherosclerotic heart disease of native coronary artery without angina pectoris; M19.90 Unspecified osteoarthritis, unspecified site; N28.1 Cyst of kidney, acquired; I08.2 Rheumatic disorders of both aortic and tricuspid valves

== ENCOUNTER 2018-01-24 15:24 | Inpatient (IN) | payer MEDICARE, MEDICAID ==
[2018-01-24] MEDS ORDERED: Albuterol-Ipratrop 3 mg / 0.5 (3 ml) UD IH PRN (18:14)
[2018-01-24] MEDS ORDERED: Albuterol HFA 90 mcg/actuation (8 g) IH PRN (18:14)
[2018-01-24] MEDS ORDERED: Sodium Chloride 0.45% 500ml 500 ML SOL IV SCH (19:00)
[2018-01-24] MEDS: Sodium Chloride 0.45% 1,000 ML IV SCH (20:07)
[2018-01-25 06:21] LABS: HEMOGLOBIN 10.1 g/dL (12.0-16.0); MEAN CELL VOLUME 88.4 fl (81.0-99.0); MEAN CORPUSCULAR HGB CONC 32.8 g/dL (33.0-37.0); RBC 3.5 Mil/uL (3.80-5.20); RED CELL DISTRIBUTION WIDTH 15.8 % (11.5-14.5)
[2018-01-25] MEDS: Levothyroxine 200 MCG TAB PO SCH (06:41)
[2018-01-25 06:46] LABS: ALBUMIN 2.9 g/dL (3.5-5.0); CALCIUM 9.1 mg/dL (8.4-10.2)
--- NOTE | 2018-01-25 07:39 | CP.PCM.HP ---
<Sultan Ni - Last Filed: 01/25/18 13:43> History of Present Illness - History of Present Illness History of Present Illness: 72 year old female, with a past medical history of CHF, asthma, COPD, chronic kidney disease and Hypertension, hypothyroidism admitted to inpatient rehab for generalized pain and weakness. Patient was admitted to inpatient on 01/14/18 for stroke like symptoms and repeat head CT on 01/16/18 showed likely subacute or acute lacune right internal capsule. Dr. Camilo was consulted. Patient was recommended to have MRI of the brain but she refused. Patient was placed on aspirin. Admitted to acute rehab for PT/OT. Today, patient seen and examined with Dr. Angeles this morning. Patient continues to report generalized pain. Denies any chest pain, dyspnea, nausea, vomiting, symptoms. Present on Admission - Present on Admission Any Indicators Present on Admission: No Review of Systems - Review of Systems All systems: reviewed and no additional remarkable complaints except Past Patient History - Infectious Disease Hx of Infectious Diseases: None - Tetanus Immunizations Tetanus Immunization: Unknown - Past Medical History & Family History Past Medical History?: Yes - Past Social History Smoking Status: Never Smoked - CARDIAC Hx Cardiac Disorders: Yes Hx Hypercholesterolemia: Yes Hx Hypertension: Yes - PULMONARY Hx Respiratory Disorders: Yes Hx Chronic Obstructive Pulmonary Disease (COPD): Yes - NEUROLOGICAL Hx Neurological Disorder: No - HEENT Hx HEENT Problems: No - RENAL Hx Chronic Kidney Disease: Yes - ENDOCRINE/METABOLIC Hx Endocrine Disorders: Yes Hx Hypothyroidism: Yes - HEMATOLOGICAL/ONCOLOGICAL Hx AIDS: No Hx Human Immunodeficiency Virus (HIV): No - INTEGUMENTARY Hx Dermatological Problems: No - MUSCULOSKELETAL/RHEUMATOLOGICAL Hx Falls: No - GASTROINTESTINAL Hx Gastrointestinal Disorders: No - GENITOURINARY/GYNECOLOGICAL Hx Genitourinary Disorders: No - PSYCHIATRIC Hx Substance Use: No - SURGICAL HISTORY Hx Surgeries: Yes Hx Cholecystectomy: Yes Other/Comment: bilateral knee replacement,head surgery - ANESTHESIA Hx Anesthesia: Yes Hx Anesthesia Reactions: No Hx Malignant Hyperthermia: No Meds Allergies/Adverse Reactions: Allergies Allergy/AdvReac Type Severity Reaction Status Date / Time codeine Allergy RASH Verified 01/14/18 13:20 oxycodone [From Percocet] Allergy RASH Verified 01/15/18 01:49 Physical Exam - Constitutional Appears: Non-toxic, No Acute Distress Additional comments: mobidly obese - Head Exam Head Exam: NORMAL INSPECTION - Eye Exam Eye Exam: Normal appearance - ENT Exam ENT Exam: Mucous Membranes Moist - Respiratory Exam Respiratory Exam: Clear to Auscultation Bilateral, NORMAL BREATHING PATTERN. absent: Rhonchi, Wheezes - Cardiovascular Exam Cardiovascular Exam: REGULAR RHYTHM, +S1, +S2 - GI/Abdominal Exam GI & Abdominal Exam: Normal Bowel Sounds, Soft. absent: Tenderness - Extremities Exam Extremities exam: Positive for: pedal edema. Negative for: calf tenderness - Neurological Exam Neurological exam: Alert, Oriented x3 - Psychiatric Exam Psychiatric exam: Normal Affect, Normal Mood - Skin Skin Exam: Normal Color, Warm Results - Vital Signs Recent Vital Signs: Last Vital Signs Temp 97.9 F 01/24/18 21:58 Pulse 82 01/24/18 21:58 Resp 20 01/24/18 21:58 BP 144/84 01/24/18 21:58 Pulse Ox 96 01/24/18 21:58 - Labs Result Diagrams: 01/25/18 05:15 01/25/18 05:15 Labs: Laboratory Results - last 24 hr 01/25/18 01/25/18 05:15 05:15 WBC 10.0 RBC 3.50 L Hgb 10.1 L Hct 31.0 L MCV 88.4 MCH 29.0 MCHC 32.8 L RDW 15.8 H Plt Count 290 Sodium 138 Potassium 4.1 Chloride 106 Carbon Dioxide 27 Anion Gap 9 L BUN 51 H Creatinine 3.1 H Est GFR ( Amer) 18 Est GFR (Non-Af Amer) 15 Random Glucose 93 Calcium 9.1 Total Bilirubin 0.3 AST 19 ALT 21 Alkaline Phosphatase 68 Total Protein 6.0 L Albumin 2.9 L Globulin 3.1 Albumin/Globulin Ratio 1.0 Assessment & Plan - Assessment and Plan (Free Text) Assessment: 72 year old female, with a past medical history of CHF, asthma, COPD, chronic kidney disease and Hypertension, hypothyroidism admitted to inpatient rehab for generalized pain and weakness due to recent CVA. Plan: PT/OT for physical rehabilitation and gait strength Consult neurology and nephrology c/w IV 1/2 NS @ 70 cc/hr c/w aspirin, statin c/w rest of the medications Pain management Rest of the plan as ordered Patient seen, examined and plan d/w Dr. Bridgette Dan, pgy-2 <Ronald Angeles - Last Filed: 01/26/18 11:35> Results - Vital Signs Recent Vital Signs: Last Vital Signs Temp 96.8 F L 01/26/18 07:24 Pulse 75 01/26/18 08:50 Resp 20 01/26/18 07:24 BP 125/59 L 01/26/18 08:50 Pulse Ox 95 01/26/18 07:24 - Labs Result Diagrams: 01/25/18 05:15 01/25/18 05:15 Assessment & Plan - Assessment and Plan (Free Text) Assessment: Patient was personally seen and examined by me in rounds with residents. Available labs and diagnostic data reviewed. Case, Patient's condition and management plan discussed with residents in rounds. Agree with resident's progress note. Plan: As ordered.
[2018-01-25] MEDS ORDERED: Fluticasone-Salmeterol 250-50mcg Diskus IH SCH (09:00)
[2018-01-25] MEDS ORDERED: Pantoprazole 40 mg EC Tab PO SCH ×2 (09:00→11:15)
[2018-01-25] MEDS: Sodium Chloride 0.45% 1,000 ML IV SCH ×2 (09:33→13:19)
--- NOTE | 2018-01-25 14:42 | CP.PCM.PN ---
Subjective - Date & Time of Evaluation Date of Evaluation: 01/25/18 Time of Evaluation: 14:42 - Subjective Subjective: 72 yo obese female with pmh/o htn, hypothyroidism, copd, chf, ckd was admitted with weakness, decreased po intake, increased bun/cr no chest pain, no sob, no palpitation, no nausea, vomitings, started on ivf , uop is slowly improving, s.cr is improving, denies any complaints today, oob to chair Objective - Vital Signs/Intake and Output Vital Signs (last 24 hours): Temp Pulse Resp BP Pulse Ox 97.7 F 78 22 129/67 94 L 01/25/18 07:39 01/25/18 09:32 01/25/18 07:39 01/25/18 09:32 01/25/18 07:39 Intake and Output: 01/25/18 01/25/18 06:59 18:59 Intake Total 960 Output Total 800 Balance 160 - Medications Medications: Current Medications Acetaminophen (Tylenol 325mg Tab) 650 mg PO Q4 PRN PRN Reason: pain 4-10. Albuterol (Ventolin Hfa 90 Mcg/Actuation (8 G)) 2 puff IH Q4 PRN PRN Reason: Shortness of Breath Albuterol/Ipratropium (Duoneb 3 Mg/0.5 Mg (3 Ml) Ud) 3 ml IH Q6 PRN PRN Reason: Shortness of Breath Alprazolam (Xanax) 1 mg PO Q12 PRN PRN Reason: Anxiety Amlodipine Besylate (Norvasc) 10 mg PO DAILY [facility] Last Admin: 01/25/18 09:32 Dose: 10 mg Aspirin (Aspirin Chewable) 81 mg PO DAILY [facility] Last Admin: 01/25/18 09:31 Dose: 81 mg Atorvastatin Calcium (Lipitor) 40 mg PO DAILY [facility] Last Admin: 01/25/18 09:32 Dose: 40 mg Carvedilol (Coreg) 12.5 mg PO Q12 [facility] Last Admin: 01/25/18 09:31 Dose: 12.5 mg Docusate Sodium (Colace) 100 mg PO TID [facility] Last Admin: 01/25/18 13:18 Dose: 100 mg Ezetimibe (Zetia) 10 mg PO DAILY [facility] Last Admin: 01/25/18 09:33 Dose: 10 mg Fluoxetine HCl (Prozac) 10 mg PO DAILY [facility] Last Admin: 01/25/18 09:33 Dose: 10 mg Sodium Chloride (Sodium Chloride 0.45%) 1,000 mls @ 70 mls/hr IV .[id number] [facility] Stop: 01/26/18 11:04 Last Admin: 01/25/18 13:19 Dose: Not Given Levothyroxine Sodium (Synthroid) 200 mcg PO DAILY@0630 [facility] Last Admin: 01/25/18 06:41 Dose: 200 mcg Losartan Potassium (Cozaar) 50 mg PO DAILY [facility] Last Admin: 01/25/18 09:32 Dose: 50 mg Pantoprazole Sodium (Protonix Ec Tab) 40 mg PO DAILY [facility] Pantoprazole Sodium (Protonix Ec Tab) 40 mg PO DAILY [facility] Last Admin: 01/25/18 13:18 Dose: 40 mg Fluticasone/Salmeterol (Advair Diskus 250/50) 1 puff IH Q12 [facility] Tramadol HCl (Ultram) 50 mg PO Q12 [facility] Last Admin: 01/25/18 09:44 Dose: 50 mg - Labs Labs: 01/25/18 05:15 01/25/18 05:15 - Constitutional Appears: Non-toxic, No Acute Distress - Head Exam Head Exam: ATRAUMATIC, NORMAL INSPECTION, NORMOCEPHALIC - Eye Exam Eye Exam: EOMI, Normal appearance, PERRL Pupil Exam: NORMAL ACCOMODATION - ENT Exam ENT Exam: Mucous Membranes Moist - Neck Exam Neck Exam: Full ROM, Normal Inspection - Respiratory Exam Respiratory Exam: Clear to Ausculation Bilateral, NORMAL BREATHING PATTERN - Cardiovascular Exam Cardiovascular Exam: REGULAR RHYTHM, +S1, +S2 - GI/Abdominal Exam GI & Abdominal Exam: Soft, Normal Bowel Sounds - Rectal Exam Rectal Exam: Deferred - Neurological Exam Neurological Exam: Alert, Awake, CN II-XII Intact, Oriented x3 - Psychiatric Exam Psychiatric exam: Normal Affect, Normal Mood - Skin Skin Exam: Normal Color Assessment and Plan - Assessment and Plan (Free Text) Assessment: 72 yo obese female with h/o htn, hypothyroidism, copd, chf, ckd was admitted with weakness, decreased po intake, increased bun/cr 1. ARNAV on ckd-3 2. r/o CVA 3. HTN f/u with bmp daily, (u na <20) c/w current meds c/w iv fluids 1/2 ns at 70 ml/hr s.cr is improving, s.cr 3.1
--- NOTE | 2018-01-25 18:36 | CP.PCM.CON ---
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 She has a complicated history with morbid obesity affecting the knees (s/p bilateral TKR) and shoulders with what appears to be bilateral rotator cuff injuries as well. She also has chronic lumbar pain. Review of Systems - Constitutional Constitutional: absent: Anorexia, Chills, Excessive Sweating - EENT Eyes: absent: Change in Vision Ears: absent: Ear Discharge, Ear Pain Nose/Mouth/Throat: absent: Nasal Congestion - Cardiovascular Cardiovascular: absent: Chest Pain - Respiratory Respiratory: Dyspnea on Exertion (baseline though. Very poor physical condition) - Gastrointestinal Gastrointestinal: Nausea. absent: Abdominal Pain - Musculoskeletal Musculoskeletal: Limited Range of Motion - Integumentary Integumentary: absent: Bleeding Lesions - Neurological Neurological: Vertigo. absent: Abnormal Movements - Psychiatric Psychiatric: absent: Anxiety Past Patient History - Infectious Disease Hx of Infectious Diseases: None - Tetanus Immunizations Tetanus Immunization: Unknown - Past Medical History & Family History Past Medical History?: Yes - Past Social History Smoking Status: Never Smoked Alcohol: None Drugs: Denies Home Situation {Lives}: Alone (but has friends that help out) - CARDIAC Hx Cardiac Disorders: Yes Hx Hypercholesterolemia: Yes Hx Hypertension: Yes - PULMONARY Hx Respiratory Disorders: Yes Hx Chronic Obstructive Pulmonary Disease (COPD): Yes - NEUROLOGICAL Hx Neurological Disorder: No - HEENT Hx HEENT Problems: No - RENAL Hx Chronic Kidney Disease: Yes - ENDOCRINE/METABOLIC Hx Endocrine Disorders: Yes Hx Hypothyroidism: Yes - HEMATOLOGICAL/ONCOLOGICAL Hx AIDS: No Hx Human Immunodeficiency Virus (HIV): No - INTEGUMENTARY Hx Dermatological Problems: No - MUSCULOSKELETAL/RHEUMATOLOGICAL Hx Falls: No - GASTROINTESTINAL Hx Gastrointestinal Disorders: No - GENITOURINARY/GYNECOLOGICAL Hx Genitourinary Disorders: No - PSYCHIATRIC Hx Substance Use: No - SURGICAL HISTORY Hx Surgeries: Yes Hx Cholecystectomy: Yes Other/Comment: bilateral knee replacement,head surgery - ANESTHESIA Hx Anesthesia: Yes Hx Anesthesia Reactions: No Hx Malignant Hyperthermia: No Meds Allergies/Adverse Reactions: Allergies Allergy/AdvReac Type Severity Reaction Status Date / Time codeine Allergy RASH Verified 01/14/18 13:20 oxycodone [From Percocet] Allergy RASH Verified 01/15/18 01:49 - Medications Medications: Current Medications Acetaminophen (Tylenol 325mg Tab) 650 mg PO Q4 PRN PRN Reason: pain 4-10. Last Admin: 01/25/18 15:59 Dose: 650 mg Albuterol (Ventolin Hfa 90 Mcg/Actuation (8 G)) 2 puff IH Q4 PRN PRN Reason: Shortness of Breath Albuterol/Ipratropium (Duoneb 3 Mg/0.5 Mg (3 Ml) Ud) 3 ml IH Q6 PRN PRN Reason: Shortness of Breath Alprazolam (Xanax) 1 mg PO Q12 PRN PRN Reason: Anxiety Amlodipine Besylate (Norvasc) 10 mg PO DAILY [facility] Last Admin: 01/25/18 09:32 Dose: 10 mg Aspirin (Aspirin Chewable) 81 mg PO DAILY [facility] Last Admin: 01/25/18 09:31 Dose: 81 mg Atorvastatin Calcium (Lipitor) 40 mg PO DAILY [facility] Last Admin: 01/25/18 09:32 Dose: 40 mg Carvedilol (Coreg) 12.5 mg PO Q12 [facility] Last Admin: 01/25/18 09:31 Dose: 12.5 mg Docusate Sodium (Colace) 100 mg PO TID [facility] Last Admin: 01/25/18 16:00 Dose: Not Given Ezetimibe (Zetia) 10 mg PO DAILY [facility] Last Admin: 01/25/18 09:33 Dose: 10 mg Fluoxetine HCl (Prozac) 10 mg PO DAILY [facility] Last Admin: 01/25/18 09:33 Dose: 10 mg Home Med (Patient's Own Medication) 1 unit INH DAILY [facility] Home Med (Patient's Own Medication) 1 unit PO DAILY [facility] Sodium Chloride (Sodium Chloride 0.45%) 1,000 mls @ 70 mls/hr IV .[id number] [facility] Stop: 01/26/18 11:04 Last Admin: 01/25/18 13:19 Dose: Not Given Levothyroxine Sodium (Synthroid) 200 mcg PO DAILY@0630 [facility] Last Admin: 01/25/18 06:41 Dose: 200 mcg Losartan Potassium (Cozaar) 50 mg PO DAILY [facility] Last Admin: 01/25/18 09:32 Dose: 50 mg Tramadol HCl (Ultram) 50 mg PO Q12 [facility] Last Admin: 01/25/18 09:44 Dose: 50 mg Physical Exam - Constitutional Appears: Non-toxic, No Acute Distress, Other (morbidly obese) - Head Exam Head Exam: ATRAUMATIC, NORMAL INSPECTION, NORMOCEPHALIC - Eye Exam Eye Exam: EOMI, Normal appearance - ENT Exam ENT Exam: Mucous Membranes Moist - Respiratory Exam Respiratory Exam: NORMAL BREATHING PATTERN - Cardiovascular Exam Cardiovascular Exam: REGULAR RHYTHM - GI/Abdominal Exam GI & Abdominal Exam: Distended. absent: Firm - Extremities Exam Extremities exam: Negative for: calf tenderness (has old, healed TKR scars. No AROM at the shoulders) Results - Vital Signs Recent Vital Signs: Last Vital Signs Temp 97.7 F 01/25/18 07:39 Pulse 78 01/25/18 13:30 Resp 22 01/25/18 07:39 BP 129/67 01/25/18 13:30 Pulse Ox 94 L 01/25/18 07:39 - Labs Result Diagrams: 01/25/18 05:15 01/25/18 05:15 Labs: Laboratory Results - last 24 hr 01/25/18 01/25/18 05:15 05:15 WBC 10.0 RBC 3.50 L Hgb 10.1 L Hct 31.0 L MCV 88.4 MCH 29.0 MCHC 32.8 L RDW 15.8 H Plt Count 290 Sodium 138 Potassium 4.1 Chloride 106 Carbon Dioxide 27 Anion Gap 9 L BUN 51 H Creatinine 3.1 H Est GFR ( Amer) 18 Est GFR (Non-Af Amer) 15 Random Glucose 93 Calcium 9.1 Total Bilirubin 0.3 AST 19 ALT 21 Alkaline Phosphatase 68 Total Protein 6.0 L Albumin 2.9 L Globulin 3.1 Albumin/Globulin Ratio 1.0 Assessment & Plan - Assessment and Plan (Free Text) Assessment: 72 year old female with right CVA and left MCA distribution weakness with multiple medical comorbidities PT/OT to continue to help increase functional independence Team conference for d/c planning Pain: controlled Vascular: no evidence of DVT GI: No evidence of constipation or diarrhea Patient is an excellent acute rehabilitation candidate and will have focused pain management, PT, OT and recreational therapy to help facilitate a safe and appropriate d/c plan Impairment code: 01.1
--- NOTE | 2018-01-25 18:37 | PCM.OPOC ---
Physiatry Overall Plan of Care - Overall Plan of Care Estimated Length of Stay in Weeks: 3 Rehab Impairment: Mobility, Gait, Balance, Coordination Etiologic Diagnosis: Cerebrovascular Accident Rehab/Medical Prognosis: Guarded - Anticipated Interventions Physical Therapy:: Yes Occupational Therapy:: Yes Speech Therapy:: No Recreational Therapy:: Yes - Therapy Goals Bed Mobility: Contact Guard Ambulation: Contact Guard Functional Positional Changes:: Contact Guard - Discharge Plan Identification of Barriers to Discharge: Home Situation Discharge Destination: Home
[2018-01-26] MEDS: Levothyroxine 200 MCG TAB PO SCH (06:30)
[2018-01-26] MEDS: Sodium Chloride 0.45% 1,000 ML IV SCH ×2 (07:03→18:40)
[2018-01-26] MEDS ORDERED: Sodium Chloride 0.45% 1,000 ML IV SCH (08:04)
[2018-01-26] MEDS: DEXILANT 30 MG PO SCH (08:38)
[2018-01-26] MEDS: BREO ELLIPTA INH SCH (08:49)
--- NOTE | 2018-01-26 13:52 | CP.PCM.PN ---
Subjective - Date & Time of Evaluation Date of Evaluation: 01/26/18 Time of Evaluation: 13:52 - Subjective Subjective: 72 yo obese female with pmh/o htn, hypothyroidism, copd, chf, ckd was admitted with weakness, decreased po intake, increased bun/cr no chest pain, no sob, no palpitation, no nausea, vomitings, started on ivf , uop is slowly improving, s.cr is improving, pt is c/o severe pain in rt LQ, c/o nausea, decreased po intake Objective - Vital Signs/Intake and Output Vital Signs (last 24 hours): Temp Pulse Resp BP Pulse Ox 96.8 F L 75 20 125/59 L 95 01/26/18 07:24 01/26/18 08:50 01/26/18 07:24 01/26/18 08:50 01/26/18 07:24 Intake and Output: 01/26/18 01/26/18 06:59 18:59 Intake Total 990 Output Total 700 Balance 290 - Medications Medications: Current Medications Acetaminophen (Tylenol 325mg Tab) 650 mg PO Q4 PRN PRN Reason: pain 4-10. Last Admin: 01/26/18 12:13 Dose: 650 mg Albuterol (Ventolin Hfa 90 Mcg/Actuation (8 G)) 2 puff IH Q4 PRN PRN Reason: Shortness of Breath Albuterol/Ipratropium (Duoneb 3 Mg/0.5 Mg (3 Ml) Ud) 3 ml IH Q6 PRN PRN Reason: Shortness of Breath Alprazolam (Xanax) 1 mg PO Q12 PRN PRN Reason: Anxiety Amlodipine Besylate (Norvasc) 10 mg PO DAILY [facility] Last Admin: 01/26/18 08:39 Dose: Not Given Aspirin (Aspirin Chewable) 81 mg PO DAILY [facility] Last Admin: 01/26/18 08:39 Dose: 81 mg Atorvastatin Calcium (Lipitor) 40 mg PO DAILY [facility] Last Admin: 01/26/18 08:39 Dose: 40 mg Carvedilol (Coreg) 12.5 mg PO Q12 [facility] Last Admin: 01/26/18 08:38 Dose: Not Given Docusate Sodium (Colace) 100 mg PO TID [facility] Last Admin: 01/26/18 08:37 Dose: 100 mg Ezetimibe (Zetia) 10 mg PO DAILY [facility] Last Admin: 01/26/18 08:38 Dose: 10 mg Fluoxetine HCl (Prozac) 10 mg PO DAILY [facility] Last Admin: 01/26/18 08:39 Dose: 10 mg Home Med (Patient's Own Medication) 1 unit INH DAILY [facility] Last Admin: 01/26/18 08:49 Dose: 1 unit Home Med (Patient's Own Medication) 1 unit PO DAILY [facility] Last Admin: 01/26/18 08:38 Dose: 1 unit Levothyroxine Sodium (Synthroid) 200 mcg PO DAILY@0630 [facility] Last Admin: 01/26/18 06:30 Dose: 200 mcg Losartan Potassium (Cozaar) 50 mg PO DAILY [facility] Last Admin: 01/26/18 08:50 Dose: Not Given Tramadol HCl (Ultram) 50 mg PO Q12 [facility] Last Admin: 01/26/18 08:43 Dose: 50 mg - Labs Labs: 01/25/18 05:15 01/25/18 05:15 - Constitutional Appears: Well, No Acute Distress - Head Exam Head Exam: ATRAUMATIC, NORMAL INSPECTION, NORMOCEPHALIC - Eye Exam Eye Exam: EOMI, Normal appearance, PERRL Pupil Exam: NORMAL ACCOMODATION - ENT Exam ENT Exam: Mucous Membranes Moist - Neck Exam Neck Exam: Full ROM, Normal Inspection - Respiratory Exam Respiratory Exam: Clear to Ausculation Bilateral, NORMAL BREATHING PATTERN - Cardiovascular Exam Cardiovascular Exam: REGULAR RHYTHM, +S1, +S2 - GI/Abdominal Exam GI & Abdominal Exam: Soft, Tenderness, Normal Bowel Sounds Additional comments: RLQ moderate to severe tenderness+, no guarding ,no rigidity - Neurological Exam Neurological Exam: Alert, Awake, CN II-XII Intact, Oriented x3 - Skin Skin Exam: Intact, Normal Color, Warm Assessment and Plan - Assessment and Plan (Free Text) Assessment: 72 yo obese female with h/o htn, hypothyroidism, copd, chf, ckd was admitted with weakness, decreased po intake, increased bun/cr 1. ARNAV on ckd-3 2. r/o CVA 3. HTN 4. RLQ pian / tenderness with nausea, decreased po r/o Acute abdomen, r/o Acute appendicitis f/u with bmp daily, (u na <20) c/w current meds c/w iv fluids 1/2 ns at 70 ml/hr s.cr is improving, s.cr 3.1--->2.[address] abdomen and pelvis consider surgical evaluation
[2018-01-26] MEDS ORDERED: Iohexol 240 (50 ml) PO ONE (14:53)
[2018-01-26 15:31] LABS: CALCIUM 9.3 mg/dL (8.4-10.2)
--- NOTE | 2018-01-26 16:32 | PN ---
DATE: 01/26/2018 SUBJECTIVE: The patient seen and examined. Interim events noted. The patient remains in acute rehab unit. Awake, responsive. Feels okay. Pain is controlled. No new complaint of chest pain. No shortness of breath. Nursing staff reported of blood pressure, but currently blood pressure is 120/70. PHYSICAL EXAMINATION: GENERAL: The patient is in no acute distress. VITAL SIGNS: Stable. Blood pressure 120/70. HEART: S1, S2, normal, regular. LUNGS: Good bilateral air exchange. ABDOMEN: Soft, nontender. EXTREMITIES: No edema. No calf swelling. No tenderness. No acute ischemia. HEARTH FEEDER: Exam is essentially unchanged. DIAGNOSTIC DATA: Available diagnostic data reviewed. ASSESSMENT AND PLAN: Overall, the patient's general medical condition is stable. Plan as ordered. Ronald Angeles MD
--- NOTE | 2018-01-26 17:27 | CP.PCM.CON ---
<Aide Jenkins - Last Filed: 01/26/18 17:21> History of Present Illness - History of Present Illness History of Present Illness: Surgery Consult: Dr. Bailey Pt is a 72F with PMHx significant for CHF, HTN, COPD, asthma, CKD, hypothryroidism and recent R sided stroke who is admitted to inpatient rehab for generalized pain & weakness. Pt has been complaining of R sided groin pain and surgery consulted to evaluate. Currently, pt is resting comfortably in the bed and states that she has had this pain on and off for the past month. As per pt's daughter at bedside, she has been complaining of groin pain on the R for some time now. Pt denies any associated nausea/vomiting, fevers. Pt does have a hx of b/l knee replacements and chronic back pain. PMHx: as listed above PSHx: cholecystectomy, b/l knee replacements SocialHx: denies smoking/EtOH All: codeine, oxycodone Review of Systems - Review of Systems All systems: reviewed and no additional remarkable complaints except (as per HPI) Past Patient History - Infectious Disease Hx of Infectious Diseases: None - Tetanus Immunizations Tetanus Immunization: Unknown - Past Medical History & Family History Past Medical History?: Yes - Past Social History Smoking Status: Never Smoked Alcohol: None Drugs: Denies Home Situation {Lives}: Alone (but has friends that help out) - CARDIAC Hx Cardiac Disorders: Yes Hx Hypercholesterolemia: Yes Hx Hypertension: Yes - PULMONARY Hx Respiratory Disorders: Yes Hx Chronic Obstructive Pulmonary Disease (COPD): Yes - NEUROLOGICAL Hx Neurological Disorder: No - HEENT Hx HEENT Problems: No - RENAL Hx Chronic Kidney Disease: Yes - ENDOCRINE/METABOLIC Hx Endocrine Disorders: Yes Hx Hypothyroidism: Yes - HEMATOLOGICAL/ONCOLOGICAL Hx AIDS: No Hx Human Immunodeficiency Virus (HIV): No - INTEGUMENTARY Hx Dermatological Problems: No - MUSCULOSKELETAL/RHEUMATOLOGICAL Hx Falls: No - GASTROINTESTINAL Hx Gastrointestinal Disorders: No - GENITOURINARY/GYNECOLOGICAL Hx Genitourinary Disorders: No - PSYCHIATRIC Hx Substance Use: No - SURGICAL HISTORY Hx Surgeries: Yes Hx Cholecystectomy: Yes Other/Comment: bilateral knee replacement,head surgery - ANESTHESIA Hx Anesthesia: Yes Hx Anesthesia Reactions: No Hx Malignant Hyperthermia: No Meds Allergies/Adverse Reactions: Allergies Allergy/AdvReac Type Severity Reaction Status Date / Time codeine Allergy RASH Verified 01/14/18 13:20 oxycodone [From Percocet] Allergy RASH Verified 01/15/18 01:49 - Medications Medications: Current Medications Acetaminophen (Tylenol 325mg Tab) 650 mg PO Q4 PRN PRN Reason: pain 4-10. Last Admin: 01/26/18 12:13 Dose: 650 mg Albuterol (Ventolin Hfa 90 Mcg/Actuation (8 G)) 2 puff IH Q4 PRN PRN Reason: Shortness of Breath Albuterol/Ipratropium (Duoneb 3 Mg/0.5 Mg (3 Ml) Ud) 3 ml IH Q6 PRN PRN Reason: Shortness of Breath Alprazolam (Xanax) 1 mg PO Q12 PRN PRN Reason: Anxiety Amlodipine Besylate (Norvasc) 10 mg PO DAILY [facility] Last Admin: 01/26/18 08:39 Dose: Not Given Aspirin (Aspirin Chewable) 81 mg PO DAILY [facility] Last Admin: 01/26/18 08:39 Dose: 81 mg Atorvastatin Calcium (Lipitor) 40 mg PO DAILY [facility] Last Admin: 01/26/18 08:39 Dose: 40 mg Carvedilol (Coreg) 12.5 mg PO Q12 [facility] Last Admin: 01/26/18 08:38 Dose: Not Given Docusate Sodium (Colace) 100 mg PO TID [facility] Last Admin: 01/26/18 13:00 Dose: 100 mg Ezetimibe (Zetia) 10 mg PO DAILY [facility] Last Admin: 01/26/18 08:38 Dose: 10 mg Fluoxetine HCl (Prozac) 10 mg PO DAILY [facility] Last Admin: 01/26/18 08:39 Dose: 10 mg Home Med (Patient's Own Medication) 1 unit INH DAILY [facility] Last Admin: 01/26/18 08:49 Dose: 1 unit Home Med (Patient's Own Medication) 1 unit PO DAILY [facility] Last Admin: 01/26/18 08:38 Dose: 1 unit Levothyroxine Sodium (Synthroid) 200 mcg PO DAILY@0630 [facility] Last Admin: 01/26/18 06:30 Dose: 200 mcg Losartan Potassium (Cozaar) 50 mg PO DAILY [facility] Last Admin: 01/26/18 08:50 Dose: Not Given Tramadol HCl (Ultram) 50 mg PO Q12 [facility] Last Admin: 01/26/18 08:43 Dose: 50 mg Physical Exam - Constitutional Appears: No Acute Distress - Head Exam Head Exam: ATRAUMATIC, NORMOCEPHALIC - ENT Exam ENT Exam: Mucous Membranes Moist - Respiratory Exam Respiratory Exam: NORMAL BREATHING PATTERN - Cardiovascular Exam Cardiovascular Exam: RRR - GI/Abdominal Exam GI & Abdominal Exam: Soft. absent: Distended, Guarding, Rebound, Tenderness - Extremities Exam Additional comments: tenderness to palpation in R groin, no hernia defect appreciated, no lymphadenopathy - Neurological Exam Neurological exam: Alert, Oriented x3 Additional comments: R sided weakness in upper and lower extremities - Skin Skin Exam: Dry, Warm Results - Vital Signs Recent Vital Signs: Last Vital Signs Temp 96.8 F L 01/26/18 07:24 Pulse 75 01/26/18 08:50 Resp 20 01/26/18 07:24 BP 125/59 L 01/26/18 08:50 Pulse Ox 95 01/26/18 07:24 - Labs Result Diagrams: 01/25/18 05:15 01/26/18 15:00 Labs: Laboratory Results - last 24 hr 01/26/18 15:00 Sodium 138 Potassium 4.3 Chloride 108 H Carbon Dioxide 27 Anion Gap 7 L BUN 46 H Creatinine 2.5 H Est GFR ( Amer) 23 Est GFR (Non-Af Amer) 19 Random Glucose 93 Calcium 9.3 Assessment & Plan - Assessment and Plan (Free Text) Assessment: 72F with R groin pain; surgery consulted to r/o appendicitis Plan: - f/u CT abdomen/pelvis - unlikley pt has appendicitis; afebrile, no white count and no RLQ tenderness - cont current medical management - d/w Dr. Lynn Jenkins <Dmitry Bailey B - Last Filed: 02/04/18 18:59> Meds - Medications Medications: Current Medications Acetaminophen (Tylenol 325mg Tab) 650 mg PO Q4 PRN PRN Reason: pain 4-10. Last Admin: 01/31/18 14:00 Dose: 650 mg Albuterol (Ventolin Hfa 90 Mcg/Actuation (8 G)) 2 puff IH Q4 PRN PRN Reason: Shortness of Breath Albuterol/Ipratropium (Duoneb 3 Mg/0.5 Mg (3 Ml) Ud) 3 ml IH Q6 PRN PRN Reason: Shortness of Breath Alprazolam (Xanax) 1 mg PO Q12 PRN PRN Reason: Anxiety Last Admin: 02/03/18 21:39 Dose: 1 mg Amlodipine Besylate (Norvasc) 10 mg PO DAILY [facility] Last Admin: 02/04/18 08:33 Dose: 10 mg Aspirin (Aspirin Chewable) 81 mg PO DAILY [facility] Last Admin: 02/04/18 08:34 Dose: 81 mg Atorvastatin Calcium (Lipitor) 40 mg PO DAILY [facility] Last Admin: 02/04/18 08:34 Dose: 40 mg Carvedilol (Coreg) 12.5 mg PO Q12 [facility] Last Admin: 02/04/18 08:34 Dose: 12.5 mg Docusate Sodium (Colace) 100 mg PO TID [facility] Last Admin: 02/04/18 17:25 Dose: Not Given Ezetimibe (Zetia) 10 mg PO DAILY [facility] Last Admin: 02/04/18 08:34 Dose: 10 mg Fluoxetine HCl (Prozac) 10 mg PO DAILY [facility] Last Admin: 02/04/18 08:33 Dose: 10 mg Home Med (Patient's Own Medication) 1 unit INH DAILY [facility] Last Admin: 02/04/18 08:32 Dose: 1 unit Home Med (Patient's Own Medication) 1 unit PO DAILY [facility] Last Admin: 02/04/18 08:33 Dose: 1 unit Levothyroxine Sodium (Synthroid) 200 mcg PO DAILY@0630 [facility] Last Admin: 02/04/18 06:50 Dose: 200 mcg Losartan Potassium (Cozaar) 50 mg PO DAILY [facility] Last Admin: 02/04/18 08:33 Dose: 50 mg Tramadol HCl (Ultram) 50 mg PO Q12 [facility] Last Admin: 02/04/18 08:31 Dose: 50 mg Results - Vital Signs Recent Vital Signs: Last Vital Signs Temp 98.2 F 02/04/18 08:01 Pulse 81 02/04/18 08:34 Resp 20 02/04/18 08:01 BP 145/59 L 02/04/18 08:34 Pulse Ox 98 02/04/18 08:01 - Labs Result Diagrams: 01/29/18 05:15 01/30/18 05:20 Attending/Attestation - Attestation I have personally seen and examined this patient.: Yes I have fully participated in the care of the patient.: Yes I have reviewed all pertinent clinical information: Yes Notes (Text): Pt was seen and examined at bedside Agree with above note and assessment Pt is morbidly obese with c/o right groin pain Exam: Soft, ND, Mild Right groin tenderness Labs and Radiology reviewed Ass: No clinical evidence of Appendicitis Possible Spleen lesion Plan: US of spleen and liver No operative intervention required at present C/w current mx Plan d.w pt in detail Risk and benefit explained in detail.
[2018-01-27] MEDS: Levothyroxine 200 MCG TAB PO SCH (05:35)
[2018-01-27] MEDS: Sodium Chloride 0.45% 1,000 ML IV SCH ×3 (06:29→23:25)
[2018-01-27 07:03] LABS: HEMOGLOBIN 10.6 g/dL (12.0-16.0); MEAN CELL VOLUME 88.3 fl (81.0-99.0); MEAN CORPUSCULAR HEMOGLOBIN 28.8 pg (27.0-31.0); MEAN CORPUSCULAR HGB CONC 32.6 g/dL (33.0-37.0); RBC 3.68 Mil/uL (3.80-5.20); RED CELL DISTRIBUTION WIDTH 15.9 % (11.5-14.5); WHITE BLOOD COUNT 7.4 K/uL (4.8-10.8)
[2018-01-27 07:17] LABS: ALBUMIN 3.2 g/dL (3.5-5.0); CALCIUM 9.2 mg/dL (8.4-10.2)
--- NOTE | 2018-01-27 08:18 | CP.PCM.PN ---
<Yordy Parmar - Last Filed: 01/27/18 13:32> Subjective - Date & Time of Evaluation Date of Evaluation: 01/27/18 Time of Evaluation: 08:16 - Subjective Subjective: Surgery: Dr. Bailey Pt seen and examined. No acute events overnight. Continues to have pain in R groin, unchanged. Objective - Vital Signs/Intake and Output Vital Signs (last 24 hours): Temp Pulse Resp BP Pulse Ox 97.5 F L 67 22 126/65 96 01/26/18 20:34 01/26/18 20:35 01/26/18 20:34 01/26/18 20:35 01/26/18 20:34 Intake and Output: 01/27/18 01/27/18 06:59 18:59 Intake Total 840 1000 Balance 840 1000 - Medications Medications: Current Medications Acetaminophen (Tylenol 325mg Tab) 650 mg PO Q4 PRN PRN Reason: pain 4-10. Last Admin: 01/27/18 05:33 Dose: 650 mg Albuterol (Ventolin Hfa 90 Mcg/Actuation (8 G)) 2 puff IH Q4 PRN PRN Reason: Shortness of Breath Albuterol/Ipratropium (Duoneb 3 Mg/0.5 Mg (3 Ml) Ud) 3 ml IH Q6 PRN PRN Reason: Shortness of Breath Alprazolam (Xanax) 1 mg PO Q12 PRN PRN Reason: Anxiety Last Admin: 01/26/18 18:39 Dose: 1 mg Amlodipine Besylate (Norvasc) 10 mg PO DAILY [facility] Last Admin: 01/26/18 08:39 Dose: Not Given Aspirin (Aspirin Chewable) 81 mg PO DAILY [facility] Last Admin: 01/26/18 08:39 Dose: 81 mg Atorvastatin Calcium (Lipitor) 40 mg PO DAILY [facility] Last Admin: 01/26/18 08:39 Dose: 40 mg Carvedilol (Coreg) 12.5 mg PO Q12 [facility] Last Admin: 01/26/18 20:35 Dose: 12.5 mg Docusate Sodium (Colace) 100 mg PO TID [facility] Last Admin: 01/26/18 18:39 Dose: 100 mg Ezetimibe (Zetia) 10 mg PO DAILY [facility] Last Admin: 01/26/18 08:38 Dose: 10 mg Fluoxetine HCl (Prozac) 10 mg PO DAILY [facility] Last Admin: 01/26/18 08:39 Dose: 10 mg Home Med (Patient's Own Medication) 1 unit INH DAILY [facility] Last Admin: 01/26/18 08:49 Dose: 1 unit Home Med (Patient's Own Medication) 1 unit PO DAILY [facility] Last Admin: 01/26/18 08:38 Dose: 1 unit Sodium Chloride (Sodium Chloride 0.45%) 1,000 mls @ 75 mls/hr IV .[id number] [facility] Stop: 01/27/18 17:46 Last Admin: 01/27/18 06:29 Dose: 75 mls/hr Levothyroxine Sodium (Synthroid) 200 mcg PO DAILY@0630 [facility] Last Admin: 01/27/18 05:35 Dose: 200 mcg Losartan Potassium (Cozaar) 50 mg PO DAILY [facility] Last Admin: 01/26/18 08:50 Dose: Not Given Tramadol HCl (Ultram) 50 mg PO Q12 [facility] Last Admin: 01/26/18 20:35 Dose: 50 mg - Labs Labs: 01/27/18 05:45 01/27/18 05:45 - Constitutional Appears: Non-toxic, No Acute Distress - Head Exam Head Exam: ATRAUMATIC, NORMOCEPHALIC - Eye Exam Eye Exam: EOMI - ENT Exam ENT Exam: Mucous Membranes Moist - Neck Exam Neck Exam: Full ROM - Respiratory Exam Respiratory Exam: NORMAL BREATHING PATTERN. absent: Accessory Muscle Use, Re spiratory Distress - GI/Abdominal Exam GI & Abdominal Exam: Soft, Tenderness (R groin). absent: Distended, Firm, Guarding, Rigid, Rebound - Extremities Exam Extremities Exam: absent: Calf Tenderness - Neurological Exam Neurological Exam: Alert, Awake - Skin Skin Exam: Dry, Warm Assessment and Plan - Assessment and Plan (Free Text) Assessment: 72F w. R groin pain, likely related to joint -CT reviewed, no obvious appendicitis -Incidental findings seen with spleen, will order U/S -R Hip Xray -No plans for surgical intervention at this time -will s/o, please reconsult if needed -d/w attending Ghulam PGY4 <Dmitry Bailey - Last Filed: 02/04/18 19:00> Objective - Vital Signs/Intake and Output Vital Signs (last 24 hours): Temp Pulse Resp BP Pulse Ox 98.2 F 81 20 145/59 L 98 02/04/18 08:01 02/04/18 08:34 02/04/18 08:01 02/04/18 08:34 02/04/18 08:01 - Medications Medications: Current Medications Acetaminophen (Tylenol 325mg Tab) 650 mg PO Q4 PRN PRN Reason: pain 4-10. Last Admin: 01/31/18 14:00 Dose: 650 mg Albuterol (Ventolin Hfa 90 Mcg/Actuation (8 G)) 2 puff IH Q4 PRN PRN Reason: Shortness of Breath Albuterol/Ipratropium (Duoneb 3 Mg/0.5 Mg (3 Ml) Ud) 3 ml IH Q6 PRN PRN Reason: Shortness of Breath Alprazolam (Xanax) 1 mg PO Q12 PRN PRN Reason: Anxiety Last Admin: 02/03/18 21:39 Dose: 1 mg Amlodipine Besylate (Norvasc) 10 mg PO DAILY [facility] Last Admin: 02/04/18 08:33 Dose: 10 mg Aspirin (Aspirin Chewable) 81 mg PO DAILY [facility] Last Admin: 02/04/18 08:34 Dose: 81 mg Atorvastatin Calcium (Lipitor) 40 mg PO DAILY [facility] Last Admin: 02/04/18 08:34 Dose: 40 mg Carvedilol (Coreg) 12.5 mg PO Q12 [facility] Last Admin: 02/04/18 08:34 Dose: 12.5 mg Docusate Sodium (Colace) 100 mg PO TID [facility] Last Admin: 02/04/18 17:25 Dose: Not Given Ezetimibe (Zetia) 10 mg PO DAILY [facility] Last Admin: 02/04/18 08:34 Dose: 10 mg Fluoxetine HCl (Prozac) 10 mg PO DAILY [facility] Last Admin: 02/04/18 08:33 Dose: 10 mg Home Med (Patient's Own Medication) 1 unit INH DAILY [facility] Last Admin: 02/04/18 08:32 Dose: 1 unit Home Med (Patient's Own Medication) 1 unit PO DAILY [facility] Last Admin: 02/04/18 08:33 Dose: 1 unit Levothyroxine Sodium (Synthroid) 200 mcg PO DAILY@0630 [facility] Last Admin: 02/04/18 06:50 Dose: 200 mcg Losartan Potassium (Cozaar) 50 mg PO DAILY [facility] Last Admin: 02/04/18 08:33 Dose: 50 mg Tramadol HCl (Ultram) 50 mg PO Q12 [facility] Last Admin: 02/04/18 08:31 Dose: 50 mg - Labs Labs: 01/29/18 05:15 01/30/18 05:20 Attending/Attestation - Attestation I have personally seen and examined this patient.: Yes I have fully participated in the care of the patient.: Yes I have reviewed all pertinent clinical information, including history, physical exam and plan: Yes Notes (Text): Pt was seen and examined at bedside Agree with above note and assessment Pt with right groin pain f/u US of spleen and Liver Xray of right hip joint c.w current mx Plan d.w pt in detail
[2018-01-27] MEDS: BREO ELLIPTA INH SCH (09:03)
[2018-01-27] MEDS: DEXILANT 30 MG PO SCH ×2 (09:03→10:40)
--- NOTE | 2018-01-27 12:19 | PN ---
DATE: 01/27/2018 SUBJECTIVE: The patient seen and examined. Interim events noted. Consults noted and appreciated. Surgery followup and intervention noted and appreciated. The patient had an episode of right lower quadrant pain. CAT scan was done, which is pending. Currently, the patient still complains of some right lower quadrant abdominal pain, but it is much improved since yesterday. No nausea, vomiting, diarrhea, constipation or any blood in the stool. PHYSICAL EXAMINATION: GENERAL: The patient is in no acute distress. VITAL SIGNS: Stable. HEART: S1 and S2, normal and regular. LUNGS: Good bilateral air exchange. ABDOMEN: Soft, nontender. EXTREMITIES: No edema. No calf swelling. No tenderness. No acute ischemia. 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 DIAGNOSTIC DATA: Available diagnostic data reviewed. CAT scan of abdomen is done and it is pending. unremarkable. ASSESSMENT AND PLAN: Overall, the patient is clinically stable, but still has right lower quadrant pain. We are awaiting for CAT scan report. Plan as ordered. Case and plan discussed with the patient. Ronald Angeles MD
--- NOTE | 2018-01-27 13:22 | CT ---
Date of service: 01/26/2018 PROCEDURE: CT Abdomen and Pelvis with Oral contrast. HISTORY: r/o appendectomy COMPARISON: Comparison is made with the previous ultrasound examination of the kidneys dated 01/20/2018 TECHNIQUE: Contiguous axial images of the abdomen and pelvis. Oral contrast was administered. No IV contrast given. Coronal and Sagittal reformats generated. Radiation dose: Total exam DLP = 899.2 mGy-cm. This CT exam was performed using one or more of the following dose reduction techniques: Automated exposure control, adjustment of the mA and/or kV according to patient size, and/or use of iterative reconstruction technique. FINDINGS: LOWER THORAX: There are opacities seen at the lower lobes larger on the right may represent atelectasis or less likely aspiration. LIVER: No evidence of acute pathology or suspicious mass. GALLBLADDER AND BILE DUCTS: Status post cholecystectomy. PANCREAS: Fatty replacement and atrophy changes of the pancreas are noted. No mass. No ductal dilatation. SPLEEN: There is low-attenuation lesion at the spleen measures 3.9 centimeter in the AP diameter and 3.2 centimeter in the transverse diameter of uncertain etiology. The spleen otherwise is normal in size. ADRENALS: Unremarkable. KIDNEYS AND URETERS: There are multiple low-attenuation cystic lesions in the kidneys. The largest low-attenuation lesion is exophytic from the upper pole of the left kidney measures 6.3 centimeter in the transverse diameter. No evidence of obstructing renal calculi. BLADDER: Mild urinary bladder wall thickening is noted. REPRODUCTIVE: Unremarkable. APPENDIX: Unremarkable. BOWEL: Unremarkable. No obstruction. No gross mural thickening. PERITONEUM: Unremarkable. No fluid collection. No free air. LYMPH NODES: Unremarkable. No enlarged lymph nodes. VASCULATURE: Unremarkable. No aortic aneurysm. BONES: Diffuse osteopenic changes noted in the osseous structures. Mild compression deformity of L4 and L5 is noted. OTHER FINDINGS: Diffuse fatty replacement of the paranasal muscles noted. IMPRESSION: No evidence of pancreatitis or appendicitis. Heterogeneous slightly low attenuation lesion in the spleen. Further assessment by ultrasound is suggested. Multiple low-attenuation lesions in the kidneys. No evidence of nephrolithiasis or hydronephrosis. Diffuse osteopenia. Mild compression deformity of L4 and L5 vertebral bodies.
--- NOTE | 2018-01-27 15:07 | CP.PCM.PN ---
Subjective - Date & Time of Evaluation Date of Evaluation: 01/27/18 Time of Evaluation: 15:06 - Subjective Subjective: 72 yo obese female with pmh/o htn, hypothyroidism, copd, chf, ckd was admitted with weakness, decreased po intake, increased bun/cr no chest pain, no sob, no palpitation, no nausea, vomitings, started on ivf , uop is slowly improving, s.cr is improving, pt claims her piain is slightly better this afyernoon s/p CT scan pf abd/pelivs, no acute abdomen, no acute appendicitis, L4- L5 disc disease Objective - Vital Signs/Intake and Output Vital Signs (last 24 hours): Temp Pulse Resp BP Pulse Ox 97.7 F 63 20 113/55 L 96 01/27/18 10:00 01/27/18 10:00 01/27/18 10:00 01/27/18 10:00 01/27/18 10:00 Intake and Output: 01/27/18 01/27/18 06:59 18:59 Intake Total 840 1000 Balance 840 1000 - Medications Medications: Current Medications Acetaminophen (Tylenol 325mg Tab) 650 mg PO Q4 PRN PRN Reason: pain 4-10. Last Admin: 01/27/18 05:33 Dose: 650 mg Albuterol (Ventolin Hfa 90 Mcg/Actuation (8 G)) 2 puff IH Q4 PRN PRN Reason: Shortness of Breath Albuterol/Ipratropium (Duoneb 3 Mg/0.5 Mg (3 Ml) Ud) 3 ml IH Q6 PRN PRN Reason: Shortness of Breath Alprazolam (Xanax) 1 mg PO Q12 PRN PRN Reason: Anxiety Last Admin: 01/26/18 18:39 Dose: 1 mg Amlodipine Besylate (Norvasc) 10 mg PO DAILY [facility] Aspirin (Aspirin Chewable) 81 mg PO DAILY [facility] Last Admin: 01/27/18 08:46 Dose: 81 mg Atorvastatin Calcium (Lipitor) 40 mg PO DAILY [facility] Last Admin: 01/27/18 08:47 Dose: 40 mg Carvedilol (Coreg) 12.5 mg PO Q12 [facility] Docusate Sodium (Colace) 100 mg PO TID [facility] Last Admin: 01/27/18 08:47 Dose: 100 mg Ezetimibe (Zetia) 10 mg PO DAILY [facility] Last Admin: 01/27/18 08:47 Dose: 10 mg Fluoxetine HCl (Prozac) 10 mg PO DAILY [facility] Last Admin: 01/27/18 08:47 Dose: 10 mg Home Med (Patient's Own Medication) 1 unit INH DAILY [facility] Last Admin: 01/27/18 09:03 Dose: 1 unit Home Med (Patient's Own Medication) 1 unit PO DAILY [facility] Last Admin: 01/27/18 10:40 Dose: 1 unit Sodium Chloride (Sodium Chloride 0.45%) 1,000 mls @ 75 mls/hr IV .[id number] [facility] Stop: 01/28/18 17:46 Levothyroxine Sodium (Synthroid) 200 mcg PO DAILY@0630 [facility] Last Admin: 01/27/18 05:35 Dose: 200 mcg Losartan Potassium (Cozaar) 50 mg PO DAILY [facility] Tramadol HCl (Ultram) 50 mg PO Q12 [facility] Last Admin: 01/27/18 08:46 Dose: 50 mg - Labs Labs: 01/27/18 05:45 01/27/18 05:45 - Constitutional Appears: Well, No Acute Distress - Head Exam Head Exam: ATRAUMATIC, NORMAL INSPECTION, NORMOCEPHALIC - Eye Exam Eye Exam: EOMI, Normal appearance, PERRL Pupil Exam: NORMAL ACCOMODATION - ENT Exam ENT Exam: Mucous Membranes Moist - Respiratory Exam Respiratory Exam: Clear to Ausculation Bilateral, NORMAL BREATHING PATTERN - Cardiovascular Exam Cardiovascular Exam: REGULAR RHYTHM, +S1, +S2 - GI/Abdominal Exam GI & Abdominal Exam: Soft, Normal Bowel Sounds - Rectal Exam Rectal Exam: Deferred - Extremities Exam Extremities Exam: Normal Inspection - Neurological Exam Neurological Exam: Alert, Awake, CN II-XII Intact, Oriented x3 - Psychiatric Exam Psychiatric exam: Normal Affect - Skin Skin Exam: Intact, Normal Color Assessment and Plan - Assessment and Plan (Free Text) Assessment: 72 yo obese female with h/o htn, hypothyroidism, copd, chf, ckd was admitted with weakness, decreased po intake, increased bun/cr 1. ARNAV on ckd-3 2. r/o CVA 3. HTN 4. RLQ pian / tenderness with nausea, decreased po r/o Acute abdomen, r/o Acute appendicitis c/w current meds c/w iv fluids 1/2 ns at 70 ml/hr s.cr is improving, s.cr 3.1--->2.5---->2.[address] abd/pelvis is negative for acute appendicitis mild compression deformity of L4-L5 vertebrae encourage po fluids, can d/c fluids in am will follow up as needed
--- NOTE | 2018-01-27 15:48 | US ---
Date of service: 01/27/2018 HISTORY: splenic lesion COMPARISON: Comparison is made with the previous CT of the abdomen and pelvis without contrast dated 01/26/2018 TECHNIQUE: Sonographic evaluation of the abdomen. FINDINGS: LIVER: Measures 12.8 cm. Normal echogenicity of the liver parenchyma. No mass. No intrahepatic bile duct dilatation. GALLBLADDER: Status post cholecystectomy COMMON BILE DUCT: Measures 4 mm. No stones. No dilatation. PANCREAS: Unremarkable as visualized. No mass. No ductal dilatation. RIGHT KIDNEY: Measures 9.8 x 4.4 x 5.1cm. Normal echogenicity. No calculus, mass, or hydronephrosis. Multiple cysts seen in the right kidney with the largest cyst measures 2.1 x 1.4 x 1.8 centimeter in the lower pole. LEFT KIDNEY: Measures 9.6 x 4.4 x 4.1cm. Normal echogenicity. No calculus, mass, or hydronephrosis. Multiple hypoechoic cyst seen in the left kidney with the largest in the upper pole measures 6.7 x 5.4 x 4.8 SPLEEN: The spleen measures 10.1 centimeter. There is complex cyst in the spleen measures 3.2 x 2.2 x 2.2 centimeter. AORTA: No aneurysmal dilatation. IVC: Unremarkable. OTHER FINDINGS: None. IMPRESSION: Complex hypoechoic cystic lesion in the spleen contains septation measures 3.2 centimeter. Multiple bilateral hypoechoic cystic lesions in the kidneys larger on the left.
--- NOTE | 2018-01-27 16:53 | CP.PCM.CON ---
History of Present Illness - History of Present Illness History of Present Illness: Neurology Consultation Note: Mrs. Lr is a 72-year-old woman with a past medical history of morbid obesity, CHF, asthma, COPD, chronic kidney disease and Hypertension, hypothyroidism admitted to inpatient rehab for generalized pain, weakness, and deconditioning. The patient was seen about two weeks ago, when she was admitted for possible ischemic stroke. At that time, she was evaluated by Dr. Camilo for right internal capsule infarct and an MRI of the brain was ordered, but the patient refused. Currently, the patient complains of generalized pain and weakness and does not have any focal complaints. Review of Systems - Constitutional Constitutional: As Per HPI - EENT Eyes: absent: As Per HPI, Blind Spots, Blurred Vision, Change in Vision, Decreased Night Vision, Diplopia, Discharge, Dry Eye, Exophthalmos, Floaters, Irritation, Itchy Eyes, Loss of Peripheral Vision, Pain, Photophobia, Requires Corrective Lenses, Sees Flashes, Spots in Vision, Tunnel Vision, Other Visual Disturbances, Loss of Vision, Other Ears: absent: As Per HPI, Decreased Hearing, Ear Discharge, Ear Pain, Tinnitus, Abnormal Hearing, Disequilibrium, Dizziness, Other Nose/Mouth/Throat: absent: As Per HPI, Epistaxis, Nasal Congestion, Nasal Discharge, Nasal Obstruction, Nasal Trauma, Nose Pain, Post Nasal Drip, Sinus Pain, Sinus Pressure, Bleeding Gums, Change in Voice, Dental Pain, Dry Mouth, Dysphagia, Halitosis, Hoarsness, Lip Swelling, Mouth Lesions, Mouth Pain, Odynophagia, Sore Throat, Throat Swelling, Tongue Swelling, Facial Pain, Neck Pain, Neck Mass, Other - Breasts Breasts: absent: As Per HPI, Change in Shape, Mass, Pain, Nipple Discharge, Nipple Inversion, Skin Changes, Swelling, Other - Cardiovascular Cardiovascular: absent: As Per HPI, Acrocyanosis, Chest Pain, Chest Pain at Rest, Chest Pain with Activity, Claudication, Diaphoresis, Dyspnea, Dyspnea on Exertion, Edema, Irregular Heart Rhythm, Pain Radiating to Arm/Neck/Jaw, Leg Edema, Leg Ulcers, Lightheadedness, Orthopnea, Palpitations, Paroxysmal Nocturnal Dyspnea, Pedal Edema, Radiating Pain, Rapid Heart Rate, Slow Heart Rate, Syncope, Other - Respiratory Respiratory: absent: As Per HPI, Cough, Dyspnea, Hemoptysis, Dyspnea on Exertion, Wheezing, Snoring, Stridor, Pain on Inspiration, Chest Congestion, Excessive Mucous Production, Change in Mucous Color, Pain with Coughing, Other - Gastrointestinal Gastrointestinal: absent: As Per HPI, Abdominal Pain, Belching, Bloating, Change in Bowel Habits, Change in Stool Character, Coffee Ground Emesis, Constipation, Cramping, Diarrhea, Dyspepsia, Dysphagia, Early Satiety, Excessive Flatus, Fecal Incontinence, Heartburn, Hematemesis, Hematochezia, Loose Stools, Melena, Nausea, Odynophagia, Temesmus, Vomiting, Other - Genitourinary Genitourinary: absent: As Per HPI, Change in Urinary Stream, Difficulty Urinating, Dysuria, Flank Pain, Hematuria, Pyuria, Nocturia, Urinary Incontinence, Urinary Frequency, Urinary Hesitance, Urinary Urgency, Voiding Freq/Small Amts, Freq UTI, Hx Renal/Bladder Calculi, Hx /Renal Surgery, Bladder Distension, Other - Musculoskeletal Musculoskeletal: Back Pain, Joint Swelling, Muscle Cramps, Muscle Weakness, Myalgias, Numbness - Integumentary Integumentary: absent: As Per HPI, Acne, Alopecia, Bleeding Lesions, Change in Hair, Change in Nails, Change in Pigmentation, Changing Lesions, Dry Skin, Erythema, Furuncle, Hirsutism, Lesions, New Lesions, Non-Healing Lesions, Photosensitivity, Pruritus, Rash, Skin Pain, Skin Ulcer, Sores, Striae, Swelling , Unusual Bruising, Wounds, Jaundice, Other - Neurological Neurological: As Per HPI - Psychiatric Psychiatric: absent: As Per HPI, Abnormal Sleep Pattern, Anhedonia, Anxiety, Auditory Hallucinations, Behavioral Changes, Change in Appetite, Change in Libido, Confusion, Depression, Difficulty Concentrating, Hallucinations, Homicidal Ideation, Hopelessness, Irritability, Memory Loss, Mood Swings, Panic Attacks, Paranoia, Suicidal Ideation, Visual Hallucinations, Tactile Hallucinations, Other - Endocrine Endocrine: absent: As Per HPI, Change in Body Appearance, Change in Libido, Cold Intolorance, Deepening of Voice, Excessive Sweating, Fatigue, Flushing, Heat Intolorance, Increase in Ring/Shoe/Hat Size, Palpitations, Polydipsia, Polyphagia, Polyuria, Other - Hematologic/Lymphatic Hematologic: absent: As Per HPI, Easy Bleeding, Easy Bruising, Lymphadenopathy, Other Past Patient History - Infectious Disease Hx of Infectious Diseases: None - Tetanus Immunizations Tetanus Immunization: Unknown - Past Medical History & Family History Past Medical History?: Yes - Past Social History Smoking Status: Never Smoked Alcohol: None Drugs: Denies Home Situation {Lives}: Alone (but has friends that help out) - CARDIAC Hx Cardiac Disorders: Yes Hx Hypercholesterolemia: Yes Hx Hypertension: Yes - PULMONARY Hx Respiratory Disorders: Yes Hx Chronic Obstructive Pulmonary Disease (COPD): Yes - NEUROLOGICAL Hx Neurological Disorder: No - HEENT Hx HEENT Problems: No - RENAL Hx Chronic Kidney Disease: Yes - ENDOCRINE/METABOLIC Hx Endocrine Disorders: Yes Hx Hypothyroidism: Yes - HEMATOLOGICAL/ONCOLOGICAL Hx AIDS: No Hx Human Immunodeficiency Virus (HIV): No - INTEGUMENTARY Hx Dermatological Problems: No - MUSCULOSKELETAL/RHEUMATOLOGICAL Hx Falls: No - GASTROINTESTINAL Hx Gastrointestinal Disorders: No - GENITOURINARY/GYNECOLOGICAL Hx Genitourinary Disorders: No - PSYCHIATRIC Hx Substance Use: No - SURGICAL HISTORY Hx Surgeries: Yes Hx Cholecystectomy: Yes Other/Comment: bilateral knee replacement,head surgery - ANESTHESIA Hx Anesthesia: Yes Hx Anesthesia Reactions: No Hx Malignant Hyperthermia: No Meds Allergies/Adverse Reactions: Allergies Allergy/AdvReac Type Severity Reaction Status Date / Time codeine Allergy RASH Verified 01/14/18 13:20 oxycodone [From Percocet] Allergy RASH Verified 01/15/18 01:49 - Medications Medications: Current Medications Acetaminophen (Tylenol 325mg Tab) 650 mg PO Q4 PRN PRN Reason: pain 4-10. Last Admin: 01/27/18 05:33 Dose: 650 mg Albuterol (Ventolin Hfa 90 Mcg/Actuation (8 G)) 2 puff IH Q4 PRN PRN Reason: Shortness of Breath Albuterol/Ipratropium (Duoneb 3 Mg/0.5 Mg (3 Ml) Ud) 3 ml IH Q6 PRN PRN Reason: Shortness of Breath Alprazolam (Xanax) 1 mg PO Q12 PRN PRN Reason: Anxiety Last Admin: 01/26/18 18:39 Dose: 1 mg Amlodipine Besylate (Norvasc) 10 mg PO DAILY [facility] Aspirin (Aspirin Chewable) 81 mg PO DAILY [facility] Last Admin: 01/27/18 08:46 Dose: 81 mg Atorvastatin Calcium (Lipitor) 40 mg PO DAILY [facility] Last Admin: 01/27/18 08:47 Dose: 40 mg Carvedilol (Coreg) 12.5 mg PO Q12 [facility] Docusate Sodium (Colace) 100 mg PO TID [facility] Last Admin: 01/27/18 08:47 Dose: 100 mg Ezetimibe (Zetia) 10 mg PO DAILY [facility] Last Admin: 01/27/18 08:47 Dose: 10 mg Fluoxetine HCl (Prozac) 10 mg PO DAILY [facility] Last Admin: 01/27/18 08:47 Dose: 10 mg Home Med (Patient's Own Medication) 1 unit INH DAILY [facility] Last Admin: 01/27/18 09:03 Dose: 1 unit Home Med (Patient's Own Medication) 1 unit PO DAILY [facility] Last Admin: 01/27/18 10:40 Dose: 1 unit Sodium Chloride (Sodium Chloride 0.45%) 1,000 mls @ 75 mls/hr IV .[id number] [facility] Stop: 01/28/18 17:46 Levothyroxine Sodium (Synthroid) 200 mcg PO DAILY@0630 [facility] Last Admin: 01/27/18 05:35 Dose: 200 mcg Losartan Potassium (Cozaar) 50 mg PO DAILY [facility] Tramadol HCl (Ultram) 50 mg PO Q12 [facility] Last Admin: 01/27/18 08:46 Dose: 50 mg Physical Exam - Constitutional Appears: Well - Head Exam Head Exam: ATRAUMATIC, NORMAL INSPECTION, NORMOCEPHALIC - Eye Exam Eye Exam: EOMI, Normal appearance, PERRL - ENT Exam ENT Exam: Mucous Membranes Moist, Normal Exam - Neck Exam Neck exam: Positive for: Normal Inspection - Respiratory Exam Respiratory Exam: Clear to Auscultation Bilateral, NORMAL BREATHING PATTERN - Cardiovascular Exam Cardiovascular Exam: REGULAR RHYTHM, +S1, +S2 - GI/Abdominal Exam GI & Abdominal Exam: Normal Bowel Sounds, Soft. absent: Tenderness - Rectal Exam Rectal Exam: Deferred - Back Exam Back exam: CVA tenderness (L), muscle spasm, tenderness, vertebral tenderness - Neurological Exam Neurological exam: Alert, CN II-XII Intact, Oriented x3, Reflexes Normal Additional comments: Generalized weakness. Sensation is intact to LT/P. Plantar responses are downgoing. Results - Vital Signs Recent Vital Signs: Last Vital Signs Temp 97.7 F 01/27/18 10:00 Pulse 63 01/27/18 10:00 Resp 20 01/27/18 10:00 BP 113/55 L 01/27/18 10:00 Pulse Ox 96 01/27/18 10:00 - Labs Result Diagrams: 01/27/18 05:45 01/27/18 05:45 Labs: Laboratory Results - last 24 hr 01/27/18 01/27/18 05:45 05:45 WBC 7.4 RBC 3.68 L Hgb 10.6 L Hct 32.5 L MCV 88.3 MCH 28.8 MCHC 32.6 L RDW 15.9 H Plt Count 264 Sodium 139 Potassium 4.0 Chloride 110 H Carbon Dioxide 26 Anion Gap 7 L BUN 39 H Creatinine 2.2 H Est GFR ( Amer) 27 Est GFR (Non-Af Amer) 22 Random Glucose 79 Calcium 9.2 Total Bilirubin 0.4 AST 22 ALT 22 Alkaline Phosphatase 66 Total Protein 6.3 Albumin 3.2 L Globulin 3.2 Albumin/Globulin Ratio 1.0 Assessment & Plan (1) CVA (cerebral vascular accident) Assessment and Plan: The patient will require rehab considering her deficits. With regard to secondary stroke prevention, she should be on aspirin, lipitor and continue BP control for normal pressure. Neurology will follow. Please do not hesitate to call back with any new developments, data updates or questions. Thank you for the opportunity to participate in the care of this patient. Status: Chronic
--- NOTE | 2018-01-27 18:33 | RAD ---
Date of service: 01/27/2018 PROCEDURE: X-rays of both hips and pelvis HISTORY: R groin pain COMPARISON: Comparison is made with the previous CT of the pelvis dated 01/26/2018 and x-ray of the right hip dated 01/14/2018 TECHNIQUE: AP views of the pelvis and both hips were obtained. FINDINGS: There is no evidence of acute fracture or dislocation. Again seen is soft tissue calcification adjacent to the left hip. Diffuse osteoporosis changes are again noted P IMPRESSION: No evidence of acute fracture or dislocation.
[2018-01-28] MEDS: Levothyroxine 200 MCG TAB PO SCH (06:22)
[2018-01-28 07:02] LABS: MEAN CELL VOLUME 87.7 fl (81.0-99.0); MEAN CORPUSCULAR HEMOGLOBIN 28.4 pg (27.0-31.0); MEAN CORPUSCULAR HGB CONC 32.4 g/dL (33.0-37.0); RBC 3.52 Mil/uL (3.80-5.20); WHITE BLOOD COUNT 6.6 K/uL (4.8-10.8)
[2018-01-28 07:20] LABS: CALCIUM 8.8 mg/dL (8.4-10.2)
--- NOTE | 2018-01-28 07:55 | CP.PCM.PN ---
<Aide Jenkins - Last Filed: 01/28/18 07:53> Subjective - Date & Time of Evaluation Date of Evaluation: 01/28/18 Time of Evaluation: 07:53 - Subjective Subjective: Surgery: Dr. Bailey Pt seen and examined. No acute overnight events. Pt states she feels ok and still has some pain in her R groin but denies abdominal pain. Denies nausea/vomiting, fevers/chills. Objective - Vital Signs/Intake and Output Vital Signs (last 24 hours): Temp Pulse Resp BP Pulse Ox 97.7 F 65 20 128/62 95 01/27/18 20:40 01/27/18 20:45 01/27/18 20:40 01/27/18 20:45 01/27/18 20:45 Intake and Output: 01/28/18 01/28/18 06:59 18:59 Intake Total 1000 Balance 1000 - Medications Medications: Current Medications Acetaminophen (Tylenol 325mg Tab) 650 mg PO Q4 PRN PRN Reason: pain 4-10. Last Admin: 01/27/18 16:40 Dose: 650 mg Albuterol (Ventolin Hfa 90 Mcg/Actuation (8 G)) 2 puff IH Q4 PRN PRN Reason: Shortness of Breath Albuterol/Ipratropium (Duoneb 3 Mg/0.5 Mg (3 Ml) Ud) 3 ml IH Q6 PRN PRN Reason: Shortness of Breath Alprazolam (Xanax) 1 mg PO Q12 PRN PRN Reason: Anxiety Last Admin: 01/27/18 20:36 Dose: 1 mg Amlodipine Besylate (Norvasc) 10 mg PO DAILY [facility] Aspirin (Aspirin Chewable) 81 mg PO DAILY [facility] Last Admin: 01/27/18 08:46 Dose: 81 mg Atorvastatin Calcium (Lipitor) 40 mg PO DAILY [facility] Last Admin: 01/27/18 08:47 Dose: 40 mg Carvedilol (Coreg) 12.5 mg PO Q12 [facility] Last Admin: 01/27/18 20:45 Dose: 12.5 mg Docusate Sodium (Colace) 100 mg PO TID [facility] Last Admin: 01/27/18 16:50 Dose: 100 mg Ezetimibe (Zetia) 10 mg PO DAILY [facility] Last Admin: 10/14/18 08:47 Dose: 10 mg Fluoxetine HCl (Prozac) 10 mg PO DAILY [facility] Last Admin: 01/27/18 08:47 Dose: 10 mg Home Med (Patient's Own Medication) 1 unit INH DAILY [facility] Last Admin: 01/27/18 09:03 Dose: 1 unit Home Med (Patient's Own Medication) 1 unit PO DAILY [facility] Last Admin: 01/27/18 10:40 Dose: 1 unit Sodium Chloride (Sodium Chloride 0.45%) 1,000 mls @ 75 mls/hr IV .[id number] [facility] Stop: 01/28/18 17:46 Last Admin: 01/27/18 23:25 Dose: 75 mls/hr Levothyroxine Sodium (Synthroid) 200 mcg PO DAILY@0630 [facility] Last Admin: 01/28/18 06:22 Dose: 200 mcg Losartan Potassium (Cozaar) 50 mg PO DAILY [facility] Tramadol HCl (Ultram) 50 mg PO Q12 [facility] Last Admin: 01/27/18 20:36 Dose: 50 mg - Labs Labs: 01/28/18 06:12 01/28/18 06:12 - Constitutional Appears: Well, No Acute Distress - Head Exam Head Exam: ATRAUMATIC, NORMOCEPHALIC - ENT Exam ENT Exam: Mucous Membranes Moist - Respiratory Exam Respiratory Exam: NORMAL BREATHING PATTERN - Cardiovascular Exam Cardiovascular Exam: RRR - GI/Abdominal Exam GI & Abdominal Exam: Soft. absent: Distended, Tenderness - Extremities Exam Extremities Exam: absent: Calf Tenderness Additional comments: tenderness to palpation in the R groin, no mass or hernia defect palpable - Neurological Exam Neurological Exam: Alert, Awake, Oriented x3 - Skin Skin Exam: Dry, Warm Assessment and Plan - Assessment and Plan (Free Text) Assessment: 72F with R groin pain Plan: - X-ray of R hip negative - CT scan abdomen negative for hernias or other pathology in the R groin - no further surgical intervention at this time - d/w Dr. Lynn Jenkins <Dmitry Bailey - Last Filed: 02/04/18 19:06> Objective - Vital Signs/Intake and Output Vital Signs (last 24 hours): Temp Pulse Resp BP Pulse Ox 98.2 F 81 20 145/59 L 98 02/04/18 08:01 02/04/18 08:34 02/04/18 08:01 02/04/18 08:34 02/04/18 08:01 - Medications Medications: Current Medications Acetaminophen (Tylenol 325mg Tab) 650 mg PO Q4 PRN PRN Reason: pain 4-10. Last Admin: 01/31/18 14:00 Dose: 650 mg Albuterol (Ventolin Hfa 90 Mcg/Actuation (8 G)) 2 puff IH Q4 PRN PRN Reason: Shortness of Breath Albuterol/Ipratropium (Duoneb 3 Mg/0.5 Mg (3 Ml) Ud) 3 ml IH Q6 PRN PRN Reason: Shortness of Breath Alprazolam (Xanax) 1 mg PO Q12 PRN PRN Reason: Anxiety Last Admin: 02/03/18 21:39 Dose: 1 mg Amlodipine Besylate (Norvasc) 10 mg PO DAILY [facility] Last Admin: 02/04/18 08:33 Dose: 10 mg Aspirin (Aspirin Chewable) 81 mg PO DAILY [facility] Last Admin: 02/04/18 08:34 Dose: 81 mg Atorvastatin Calcium (Lipitor) 40 mg PO DAILY [facility] Last Admin: 02/04/18 08:34 Dose: 40 mg Carvedilol (Coreg) 12.5 mg PO Q12 [facility] Last Admin: 02/04/18 08:34 Dose: 12.5 mg Docusate Sodium (Colace) 100 mg PO TID [facility] Last Admin: 02/04/18 17:25 Dose: Not Given Ezetimibe (Zetia) 10 mg PO DAILY [facility] Last Admin: 02/04/18 08:34 Dose: 10 mg Fluoxetine HCl (Prozac) 10 mg PO DAILY [facility] Last Admin: 02/04/18 08:33 Dose: 10 mg Home Med (Patient's Own Medication) 1 unit INH DAILY [facility] Last Admin: 02/04/18 08:32 Dose: 1 unit Home Med (Patient's Own Medication) 1 unit PO DAILY [facility] Last Admin: 02/04/18 08:33 Dose: 1 unit Levothyroxine Sodium (Synthroid) 200 mcg PO DAILY@0630 [facility] Last Admin: 02/04/18 06:50 Dose: 200 mcg Losartan Potassium (Cozaar) 50 mg PO DAILY [facility] Last Admin: 02/04/18 08:33 Dose: 50 mg Tramadol HCl (Ultram) 50 mg PO Q12 [facility] Last Admin: 10/22/18 08:31 Dose: 50 mg - Labs Labs: 01/29/18 05:15 01/30/18 05:20 Attending/Attestation - Attestation I have personally seen and examined this patient.: Yes I have fully participated in the care of the patient.: Yes I have reviewed all pertinent clinical information, including history, physical exam and plan: Yes Notes (Text): Pt was seen and examined at bedside Agree with above note and assessment US of spleen s/o 3.2 cm complex splenic cyst Xray of hip joint negative Right Groin pain could be related to musculoskeletal origin Po analgesics f/u as out pt Plan d.w pt in detail Risk and benefit explained in detail.
--- NOTE | 2018-01-28 08:18 | PN ---
DATE: 01/28/2018 SUBJECTIVE: The patient is seen and examined. Interim events noted. Consults noted and appreciated. Neurology followup and intervention noted and appreciated. The patient remains in acute rehab unit. Neurology followup and intervention noted and appreciated. The patient is sleeping, arousable, feels okay. Her abdominal pain dissolved. No chest pain or shortness of breath. PHYSICAL EXAMINATION: GENERAL: The patient is in no acute distress. VITAL SIGNS: Stable. HEART: S1 and S2, normal and regular. LUNGS: Good bilateral air exchange. ABDOMEN: Soft and nontender. EXTREMITIES: No edema. No calf swelling. No tenderness. No acute ischemia. CENTRAL NERVOUS SYSTEM: Essentially unchanged. DIAGNOSTIC DATA: Available diagnostic data reviewed. Creatinine is down to the patient's baseline of . ASSESSMENT AND PLAN: Overall, the patient is clinically stable. Plan as ordered. Ronald Angeles MD
[2018-01-28] MEDS: BREO ELLIPTA INH SCH (08:37)
[2018-01-28] MEDS: DEXILANT 30 MG PO SCH (08:38)
[2018-01-28] MEDS: Sodium Chloride 0.45% 1,000 ML IV SCH (14:52)
--- NOTE | 2018-01-28 18:14 | CP.PCM.PN ---
Subjective - Date & Time of Evaluation Date of Evaluation: 01/28/18 Time of Evaluation: 18:13 - Subjective Subjective: Patient seen in the room. NAD limited bilateral shoulder ROM left hand grain broker is stronger than the left shoulder supporting the notion of there being compounded issue with rotator cuff/djd of the shoulder refused to ambulate team conference tomorrow for d/c planning Objective - Vital Signs/Intake and Output Vital Signs (last 24 hours): Temp Pulse Resp BP Pulse Ox 98.1 F 71 22 97/53 L 95 01/28/18 08:34 01/28/18 17:17 01/28/18 17:17 01/28/18 17:17 01/28/18 17:17 Intake and Output: 01/28/18 01/28/18 06:59 18:59 Intake Total 2100 Balance 2100 - Medications Medications: Current Medications Acetaminophen (Tylenol 325mg Tab) 650 mg PO Q4 PRN PRN Reason: pain 4-10. Last Admin: 01/28/18 13:30 Dose: 650 mg Albuterol (Ventolin Hfa 90 Mcg/Actuation (8 G)) 2 puff IH Q4 PRN PRN Reason: Shortness of Breath Albuterol/Ipratropium (Duoneb 3 Mg/0.5 Mg (3 Ml) Ud) 3 ml IH Q6 PRN PRN Reason: Shortness of Breath Alprazolam (Xanax) 1 mg PO Q12 PRN PRN Reason: Anxiety Last Admin: 01/27/18 20:36 Dose: 1 mg Amlodipine Besylate (Norvasc) 10 mg PO DAILY [facility] Last Admin: 01/28/18 08:36 Dose: 10 mg Aspirin (Aspirin Chewable) 81 mg PO DAILY [facility] Last Admin: 01/28/18 08:35 Dose: 81 mg Atorvastatin Calcium (Lipitor) 40 mg PO DAILY [facility] Last Admin: 01/28/18 08:46 Dose: 40 mg Carvedilol (Coreg) 12.5 mg PO Q12 [facility] Last Admin: 01/28/18 08:36 Dose: 12.5 mg Docusate Sodium (Colace) 100 mg PO TID [facility] Last Admin: 01/28/18 17:15 Dose: Not Given Ezetimibe (Zetia) 10 mg PO DAILY [facility] Last Admin: 01/28/18 08:38 Dose: 10 mg Fluoxetine HCl (Prozac) 10 mg PO DAILY [facility] Last Admin: 01/28/18 08:38 Dose: 10 mg Home Med (Patient's Own Medication) 1 unit INH DAILY [facility] Last Admin: 01/28/18 08:37 Dose: 1 unit Home Med (Patient's Own Medication) 1 unit PO DAILY [facility] Last Admin: 01/28/18 08:38 Dose: 1 unit Sodium Chloride (Sodium Chloride 0.45%) 1,000 mls @ 75 mls/hr IV .[id number] [facility] Stop: 01/29/18 12:00 Last Admin: 01/28/18 14:52 Dose: 75 mls/hr Levothyroxine Sodium (Synthroid) 200 mcg PO DAILY@0630 [facility] Last Admin: 01/28/18 06:22 Dose: 200 mcg Losartan Potassium (Cozaar) 50 mg PO DAILY [facility] Last Admin: 01/28/18 08:36 Dose: 50 mg Tramadol HCl (Ultram) 50 mg PO Q12 [facility] Last Admin: 01/28/18 08:41 Dose: 50 mg - Labs Labs: 01/28/18 06:12 01/28/18 06:12
[2018-01-29] MEDS: Sodium Chloride 0.45% 1,000 ML IV SCH (00:53)
[2018-01-29 06:05] LABS: BASO # 0.1 K/uL (0.0-0.2); BASO % 0.8 % (0.0-2.0); EOS # 0.4 K/uL (0.0-0.7); EOS % 5.8 % (0.0-4.0); HEMOGLOBIN 9.8 g/dL (12.0-16.0); LYMPH # 1.4 K/uL (1.0-4.3); LYMPH % 18.5 % (20.0-40.0); MEAN CELL VOLUME 88.1 fl (81.0-99.0); MEAN CORPUSCULAR HEMOGLOBIN 28.9 pg (27.0-31.0); MEAN CORPUSCULAR HGB CONC 32.8 g/dL (33.0-37.0); MEAN PLATELET VOLUME 8.2 fl (7.2-11.7); MONO # 0.5 K/uL (0.0-0.8); MONO % 7.1 % (0.0-10.0); NEUT # 5.1 K/uL (1.8-7.0); NEUT % 67.8 % (50.0-75.0); NRBC % 0.1 % (0.0-0.0); RBC 3.39 Mil/uL (3.80-5.20); RED CELL DISTRIBUTION WIDTH 16.2 % (11.5-14.5); WHITE BLOOD COUNT 7.5 K/uL (4.8-10.8)
[2018-01-29 06:39] LABS: CALCIUM 8.6 mg/dL (8.4-10.2)
[2018-01-29] MEDS: Levothyroxine 200 MCG TAB PO SCH (06:46)
[2018-01-29] MEDS: BREO ELLIPTA INH SCH (08:47)
[2018-01-29] MEDS: DEXILANT 30 MG PO SCH (08:48)
--- NOTE | 2018-01-29 13:09 | PSY.TMCNF ---
Nursing - Vital Signs Vital Signs (Last 8 hours): Vital Signs 01/29/18 01/29/18 01/29/18 07:49 08:44 08:45 Temperature 97.7 F Pulse Rate 69 74 74 Respiratory 20 Rate Blood Pressure 147/74 147/74 147/74 O2 Sat by Pulse 95 Oximetry Pain: 0 - Bladder Management Bladder Pattern: Normal Voiding Method: Bedpan - Bowel Management Bowel Pattern: Normal - Goals/Time Frame Comments: Pt was seen awake and alert laying in bed. Pt's sister present at bedside. Pt was agreeable to visit and stated that she prefers telugu sparks slation than danish. Trover audio translation utilized, Richar #[id number]. Pt was able to identify minimal leisure interests such as watching television, playing games on tablet, and sometimes listening to music. Pt reported that she has a homemaker and daughter assists with ADL's when homemaker is not present. Pt reported that her daughter lives in [place] although is staying with pt to assist with pt at home. Pt unable to recall name of hospital as pt verbalized "[facility]" and looked at the board in her room when asked about the date. Pt c/o 01/23 pain in R hip area, RN notified. Pt reported that the pain started a few months ago and comes and goes. Pt remain in room at end of visit, call islas within reach. Physical Therapy - Transfers Sit to Stand: Minimal Assistance - Ambulation Level of Assistance: Verbal Cues, Minimal Assistance Assistive Devices: Rollator - Stair Negotiation Stairs: Level of Assistance: Not Tested - Standing Balance Static Stand: Contact Guard Assist Dynamic Stand: Unable to assess/perform - Pain Management Techniques: Medication, Inactivity - Assessment/Plan Assessment: Pt admitted to Acute Rehab unit on 01/24/18, orders received for PT IE, chart reviewed. Pt agreeable to participate in PT IE. Ms. Lr presents with impaired BLE strength, sitting/standing balance, and endurance as well as pain in BUEs, BLEs, and low back resulting in decreased (I) with functional mobility skills. Pt currently requires max A for bed mobility, fluctuates from min to max A for transfers. Pt limited due to reported pain in B hands and low back as well as noted fear. Pt previously S for ambulating short distance with Rollator. Pt will benefit from skilled PT interventions 5-6xs/week to address deficits, reduce fall risk, and maximize functional independence. Due to pts limited PLOF, recommend likely d/c home with home PT and continued assist from METAL MOLDER and daughter following complete rehab stay. - Provider Therapist: Deisy Miguel PT, DPT License Number: [id number] Occupational Therapy - Arousal/Attention/Orientation Patient Orientation: Person, Place, Time - ADL/IADL Self Feeding: Verbal Cues, Set-up Help, Minimal Assistance Grooming: Verbal Cues, Set-up Help, Moderate Assistance Dressing-Upper Extremity: Dependent Dressing-Lower Extremity: Dependent Comment: Bathing: not tested on evaluation - Sitting Balance Static Sitting: Independent without upper extremity support Dynamic Sitting: Minimal Assistance Comment: unsupported @ edge of bed - Transfers Wheelchair to Bed Transfers: Verbal Cues, Set-up Help, Maximum Assistance, Dependent Comment: 2 -3 person assist for transfers - Upper Extremity Status Right Upper Extremity Comment: PROM IN RUE IS WFLS with PAIN, however R shoulder AROm severe limited, AROM IN R elbow/wrsit & digits WFLS Left Upper Extremity Comment: PROM IN LUE IS WFLS with PAIN @ end range, however R shoulder AROm severe limited, AROM IN R elbow/wrist & digits WFLS - Pain Alleviating Techniques: Medication, Inactivity - Assessment/Plan Assessment: Pt admitted to Acute Rehab unit on 01/24/18, orders received for PT IE, chart reviewed. Pt agreeable to participate in PT IE. Ms. Lr presents with impaired BLE strength, sitting/standing balance, and endurance as well as pain in BUEs, BLEs, and low back resulting in decreased (I) with functional mobility skills. Pt currently requires max A for bed mobility, fluctuates from min to max A for transfers. Pt limited due to reported pain in B hands and low back as well as noted fear. Pt previously S for ambulating short distance with Rollator. Pt will benefit from skilled PT interventions 5-6xs/week to address deficits, reduce fall risk, and maximize functional independence. Due to pts limited PLOF, recommend likely d/c home with home PT and continued assist from METAL MOLDER and daughter following complete rehab stay. - Provider Therapist: Isadora Isbell, OTR/L Speech Therapy - Plan Assessment: Pt admitted to Acute Rehab unit on 01/24/18, orders received for PT IE, chart reviewed. Pt agreeable to participate in PT IE. Ms. Lr presents with impaired BLE strength, sitting/standing balance, and endurance as well as pain in BUEs, BLEs, and low back resulting in decreased (I) with functional mobility skills. Pt currently requires max A for bed mobility, fluctuates from min to max A for transfers. Pt limited due to reported pain in B hands and low back as well as noted fear. Pt previously S for ambulating short distance with Rollator. Pt will benefit from skilled PT interventions 5-6xs/week to address deficits, reduce fall risk, and maximize functional independence. Due to pts limited PLOF, recommend likely d/c home with home PT and continued assist from METAL MOLDER and daughter following complete rehab stay. Recreational Therapy - Socialization Level of Socialization: Initiates/interacts freely with care givers and peer - Assessment Assessment/Plan: Pt admitted to Acute Rehab unit on 01/24/18, orders received for PT IE, chart reviewed. Pt agreeable to participate in PT IE. Ms. Lr presents with impaired BLE strength, sitting/standing balance, and endurance as well as pain in BUEs, BLEs, and low back resulting in decreased (I) with functional mobility skills. Pt currently requires max A for bed mobility, fluctuates from min to max A for transfers. Pt limited due to reported pain in B hands and low back as well as noted fear. Pt previously S for ambulating short distance with Rollator. Pt will benefit from skilled PT interventions 5-6xs/week to address deficits, reduce fall risk, and maximize functional independence. Due to pts limited PLOF, recommend likely d/c home with home PT and continued assist from METAL MOLDER and daughter following complete rehab stay. Problems Currently Limiting Participation: anxiety, decrease activity tolerance level, decrease leisure awareness level, pain, R side weakness, decrease arousal level - Provider Therapist: Xin Ortiz, TEAM MANAGER #[id number] Rehabilitation Plan - Treatment Plan Treatment Plan: Physical Therapy, Occupational Therapy, Dietary, Pain Management, Patient/Family Education - Discharge Plan Estimated Date of Discharge: 02/16/18 Discharge to: Home
--- NOTE | 2018-01-29 13:28 | CP.PCM.PN ---
Subjective - Date & Time of Evaluation Date of Evaluation: 01/29/18 Time of Evaluation: 13:26 - Subjective Subjective: Patient seen in room multiple complaints of varied degree right ear pain is happening today long standing LBP, knee pain and shoulder pain Will have nursing make PMD aware of ear complaints continue current care not able to walk ELOS 02/16/18 Objective - Vital Signs/Intake and Output Vital Signs (last 24 hours): Temp Pulse Resp BP Pulse Ox 97.7 F 74 20 147/74 95 01/29/18 07:49 01/29/18 08:45 01/29/18 07:49 01/29/18 08:45 01/29/18 07:49 Intake and Output: 01/29/18 01/29/18 06:59 18:59 Intake Total 950 Output Total 650 Balance 300 - Medications Medications: Current Medications Acetaminophen (Tylenol 325mg Tab) 650 mg PO Q4 PRN PRN Reason: pain 4-10. Last Admin: 01/28/18 13:30 Dose: 650 mg Albuterol (Ventolin Hfa 90 Mcg/Actuation (8 G)) 2 puff IH Q4 PRN PRN Reason: Shortness of Breath Albuterol/Ipratropium (Duoneb 3 Mg/0.5 Mg (3 Ml) Ud) 3 ml IH Q6 PRN PRN Reason: Shortness of Breath Alprazolam (Xanax) 1 mg PO Q12 PRN PRN Reason: Anxiety Last Admin: 01/29/18 11:56 Dose: 1 mg Amlodipine Besylate (Norvasc) 10 mg PO DAILY [facility] Last Admin: 01/29/18 08:44 Dose: 10 mg Aspirin (Aspirin Chewable) 81 mg PO DAILY [facility] Last Admin: 01/29/18 08:45 Dose: 81 mg Atorvastatin Calcium (Lipitor) 40 mg PO DAILY [facility] Last Admin: 01/29/18 08:46 Dose: 40 mg Carvedilol (Coreg) 12.5 mg PO Q12 [facility] Last Admin: 01/29/18 08:45 Dose: 12.5 mg Docusate Sodium (Colace) 100 mg PO TID [facility] Last Admin: 01/29/18 08:45 Dose: 100 mg Ezetimibe (Zetia) 10 mg PO DAILY [facility] Last Admin: 01/29/18 08:43 Dose: 10 mg Fluoxetine HCl (Prozac) 10 mg PO DAILY [facility] Last Admin: 01/29/18 08:44 Dose: 10 mg Home Med (Patient's Own Medication) 1 unit INH DAILY [facility] Last Admin: 01/29/18 08:47 Dose: 1 unit Home Med (Patient's Own Medication) 1 unit PO DAILY [facility] Last Admin: 01/29/18 08:48 Dose: 1 unit Levothyroxine Sodium (Synthroid) 200 mcg PO DAILY@0630 [facility] Last Admin: 01/29/18 06:46 Dose: 200 mcg Losartan Potassium (Cozaar) 50 mg PO DAILY [facility] Last Admin: 01/29/18 08:44 Dose: 50 mg Tramadol HCl (Ultram) 50 mg PO Q12 [facility] Last Admin: 01/29/18 08:49 Dose: 50 mg - Labs Labs: 01/29/18 05:15 01/29/18 05:15
[2018-01-30] MEDS: Levothyroxine 200 MCG TAB PO SCH (06:31)
[2018-01-30 06:49] LABS: CALCIUM 8.9 mg/dL (8.4-10.2)
[2018-01-30] MEDS: DEXILANT 30 MG PO SCH (08:27)
[2018-01-30] MEDS: BREO ELLIPTA INH SCH (08:39)
--- NOTE | 2018-01-30 08:59 | PN ---
DATE: 01/29/2018 SUBJECTIVE: The patient seen and examined. Interim events noted. Consults noted and appreciated. Surgery, followup and intervention noted and appreciated. The patient remains in regular medical floor in the acute rehab unit. The patient feels okay. No chest pain or shortness of breath. Complains of joint pain. PHYSICAL EXAMINATION: GENERAL: The patient is in no acute distress. VITAL SIGNS: Stable. HEART EXAM: S1, S2, normal and regular. LUNGS: Good bilateral air exchange. ABDOMEN: Soft, nontender. EXTREMITY EXAM: No edema. No calf swelling. No tenderness. No acute ischemia. RECRUITING CONSULTANT EXAM: Essentially unchanged. DIAGNOSTIC DATA: Available diagnostic data reviewed. Creatinine is 2.2. ASSESSMENT AND PLAN: Overall, the patient is clinically stable. Creatinine is at baseline. Plan as ordered. Ronald Angeles MD
--- NOTE | 2018-01-30 11:45 | PN ---
DATE: 01/30/2018 SUBJECTIVE: The patient seen and examined. Interim events noted. Consults noted and appreciated. Physiatry intervention noted and appreciated. The patient remains in acute rehab unit. The patient complained of ear pain yesterday. No upper respiratory infection . The patient also has generalized body ache. PHYSICAL EXAMINATION: GENERAL: The patient is in no acute distress. VITAL SIGNS: Stable. HEART EXAM: S1 and S2. Normal and regular. LUNGS: Good bilateral air exchange. ABDOMEN: Soft and nontender. EXTREMITY EXAM: No edema. No calf swelling. No tenderness. No acute ischemia. CREDIT ADMINISTRATION OFFICER EXAM: Essentially unchanged. EAR: External ear exam does not reveal any abnormality. Internal ear exam is pending, awaiting the otoscope. DIAGNOSTIC DATA: Available diagnostic data reviewed. ASSESSMENT AND PLAN: Overall, the patient's general medical condition is stable. Plan as ordered. Ronald Angeles MD
--- NOTE | 2018-01-30 18:54 | CP.PCM.PN ---
Subjective - Date & Time of Evaluation Date of Evaluation: 01/30/18 Time of Evaluation: 18:52 - Subjective Subjective: Patient seen in the room, doing ok denies sob did not participate in walking in therapy with family present saying her hands hurt to hold the walker I told her that this is not a good enough response to not ambulate and if she is not showing effort we will not be able to justify her stay here until 02/16/18. The daughter understood and hopefully will be able to communicate this with the patient She did not tolerate TENS which was a good idea by PT nonetheless. Objective - Vital Signs/Intake and Output Vital Signs (last 24 hours): Temp Pulse Resp BP Pulse Ox 97.6 F 77 22 139/64 96 01/30/18 08:17 01/30/18 08:30 01/30/18 08:17 01/30/18 08:30 01/30/18 08:17 - Medications Medications: Current Medications Acetaminophen (Tylenol 325mg Tab) 650 mg PO Q4 PRN PRN Reason: pain 4-10. Last Admin: 01/30/18 13:30 Dose: 650 mg Albuterol (Ventolin Hfa 90 Mcg/Actuation (8 G)) 2 puff IH Q4 PRN PRN Reason: Shortness of Breath Albuterol/Ipratropium (Duoneb 3 Mg/0.5 Mg (3 Ml) Ud) 3 ml IH Q6 PRN PRN Reason: Shortness of Breath Alprazolam (Xanax) 1 mg PO Q12 PRN PRN Reason: Anxiety Last Admin: 01/29/18 11:56 Dose: 1 mg Amlodipine Besylate (Norvasc) 10 mg PO DAILY [facility] Last Admin: 01/30/18 08:30 Dose: 10 mg Aspirin (Aspirin Chewable) 81 mg PO DAILY [facility] Last Admin: 01/30/18 08:27 Dose: 81 mg Atorvastatin Calcium (Lipitor) 40 mg PO DAILY [facility] Last Admin: 01/30/18 08:29 Dose: 40 mg Carvedilol (Coreg) 12.5 mg PO Q12 [facility] Last Admin: 01/30/18 08:29 Dose: 12.5 mg Docusate Sodium (Colace) 100 mg PO TID [facility] Last Admin: 01/30/18 17:38 Dose: Not Given Ezetimibe (Zetia) 10 mg PO DAILY [facility] Last Admin: 01/30/18 08:27 Dose: 10 mg Fluoxetine HCl (Prozac) 10 mg PO DAILY [facility] Last Admin: 01/30/18 08:27 Dose: 10 mg Home Med (Patient's Own Medication) 1 unit INH DAILY [facility] Last Admin: 01/30/18 08:39 Dose: Not Given Home Med (Patient's Own Medication) 1 unit PO DAILY [facility] Last Admin: 01/30/18 08:27 Dose: 1 unit Levothyroxine Sodium (Synthroid) 200 mcg PO DAILY@0630 [facility] Last Admin: 01/30/18 06:31 Dose: 200 mcg Losartan Potassium (Cozaar) 50 mg PO DAILY [facility] Last Admin: 01/30/18 08:28 Dose: 50 mg Tramadol HCl (Ultram) 50 mg PO Q12 [facility] Last Admin: 01/30/18 08:36 Dose: 50 mg - Labs Labs: 01/29/18 05:15 01/30/18 05:20
[2018-01-31] MEDS: Levothyroxine 200 MCG TAB PO SCH (06:41)
[2018-01-31] MEDS: DEXILANT 30 MG PO SCH (09:09)
[2018-01-31] MEDS: BREO ELLIPTA INH SCH (09:10)
--- NOTE | 2018-01-31 16:03 | PN ---
DATE: 01/31/2018 SUBJECTIVE: The patient seen and examined. Interim events noted. Physiatry followup and intervention noted and appreciated. The patient remains in acute rehab unit. The patient complained of pain controlled with medications, but the patient is not participating much with physical therapy as reported by nursing staff. PHYSICAL EXAMINATION: GENERAL: The patient is in no acute distress. VITAL SIGNS: Stable. HEART: S1 and S2. Normal and regular. LUNGS: Good bilateral air exchange. ABDOMEN: Soft and nontender. EXTREMITIES: No edema. No calf swelling. No tenderness. No acute ischemia. SPLICING SUPERVISOR: Exam is essentially unchanged. DIAGNOSTIC DATA: Available diagnostic data reviewed. ASSESSMENT AND PLAN: Overall, the patient's general medical condition is stable. Plan as ordered. Ronald Angeles MD
--- NOTE | 2018-01-31 17:20 | CP.PCM.PN ---
Subjective - Date & Time of Evaluation Date of Evaluation: 01/31/18 Time of Evaluation: 17:18 - Subjective Subjective: Patient seen in the room limited function hands hurt and I spoke with OT and will trial fluidotherapy and paraffin prior to PT to see if this helps with her ability to grasp the walker right knee pain is chronic and reportedly fell on TKR and has a loose aspect. injections will not help Objective - Vital Signs/Intake and Output Vital Signs (last 24 hours): Temp Pulse Resp BP Pulse Ox 97.1 F L 74 22 138/70 95 01/31/18 08:20 01/31/18 09:10 01/31/18 08:20 01/31/18 09:10 01/31/18 08:20 - Medications Medications: Current Medications Acetaminophen (Tylenol 325mg Tab) 650 mg PO Q4 PRN PRN Reason: pain 4-10. Last Admin: 01/31/18 14:00 Dose: 650 mg Albuterol (Ventolin Hfa 90 Mcg/Actuation (8 G)) 2 puff IH Q4 PRN PRN Reason: Shortness of Breath Albuterol/Ipratropium (Duoneb 3 Mg/0.5 Mg (3 Ml) Ud) 3 ml IH Q6 PRN PRN Reason: Shortness of Breath Alprazolam (Xanax) 1 mg PO Q12 PRN PRN Reason: Anxiety Last Admin: 01/30/18 21:40 Dose: 1 mg Amlodipine Besylate (Norvasc) 10 mg PO DAILY [facility] Last Admin: 01/31/18 09:10 Dose: 10 mg Aspirin (Aspirin Chewable) 81 mg PO DAILY [facility] Last Admin: 01/31/18 09:09 Dose: 81 mg Atorvastatin Calcium (Lipitor) 40 mg PO DAILY [facility] Last Admin: 01/31/18 09:10 Dose: 40 mg Carvedilol (Coreg) 12.5 mg PO Q12 [facility] Last Admin: 01/31/18 09:09 Dose: 12.5 mg Docusate Sodium (Colace) 100 mg PO TID [facility] Last Admin: 01/31/18 16:57 Dose: Not Given Ezetimibe (Zetia) 10 mg PO DAILY [facility] Last Admin: 01/31/18 09:10 Dose: 10 mg Fluoxetine HCl (Prozac) 10 mg PO DAILY [facility] Last Admin: 01/31/18 09:10 Dose: 10 mg Home Med (Patient's Own Medication) 1 unit INH DAILY [facility] Last Admin: 01/31/18 09:10 Dose: Not Given Home Med (Patient's Own Medication) 1 unit PO DAILY [facility] Last Admin: 01/31/18 09:09 Dose: 1 unit Levothyroxine Sodium (Synthroid) 200 mcg PO DAILY@0630 [facility] Last Admin: 01/31/18 06:41 Dose: 200 mcg Losartan Potassium (Cozaar) 50 mg PO DAILY [facility] Last Admin: 01/31/18 09:10 Dose: 50 mg Tramadol HCl (Ultram) 50 mg PO Q12 [facility] Last Admin: 01/31/18 09:12 Dose: 50 mg - Labs Labs: 01/29/18 05:15 01/30/18 05:20
[2018-02-01] MEDS: Levothyroxine 200 MCG TAB PO SCH (06:47)
[2018-02-01] MEDS: DEXILANT 30 MG PO SCH (08:43)
[2018-02-01] MEDS: BREO ELLIPTA INH SCH (08:46)
--- NOTE | 2018-02-01 09:14 | CP.PCM.PN ---
<Manuel Montes - Last Filed: 02/01/18 09:39> Subjective - Date & Time of Evaluation Date of Evaluation: 02/01/18 Time of Evaluation: 09:13 - Subjective Subjective: Patient seen and examined today with Dr Angeles, doing well neurologically, reports feeling tired, did not want to participate in walking in therapy yesterday Afebrile, VSS, denies CP, sob, N/V, no urinary symptoms Objective - Vital Signs/Intake and Output Vital Signs (last 24 hours): Temp Pulse Resp BP Pulse Ox 98.4 F 67 20 131/64 97 01/31/18 21:00 02/01/18 08:44 01/31/18 21:00 02/01/18 08:44 01/31/18 21:00 - Medications Medications: Current Medications Acetaminophen (Tylenol 325mg Tab) 650 mg PO Q4 PRN PRN Reason: pain 4-10. Last Admin: 01/31/18 14:00 Dose: 650 mg Albuterol (Ventolin Hfa 90 Mcg/Actuation (8 G)) 2 puff IH Q4 PRN PRN Reason: Shortness of Breath Albuterol/Ipratropium (Duoneb 3 Mg/0.5 Mg (3 Ml) Ud) 3 ml IH Q6 PRN PRN Reason: Shortness of Breath Alprazolam (Xanax) 1 mg PO Q12 PRN PRN Reason: Anxiety Last Admin: 01/31/18 21:27 Dose: 1 mg Amlodipine Besylate (Norvasc) 10 mg PO DAILY [facility] Last Admin: 02/01/18 08:43 Dose: 10 mg Aspirin (Aspirin Chewable) 81 mg PO DAILY [facility] Last Admin: 02/01/18 08:44 Dose: 81 mg Atorvastatin Calcium (Lipitor) 40 mg PO DAILY [facility] Last Admin: 02/01/18 08:44 Dose: 40 mg Carvedilol (Coreg) 12.5 mg PO Q12 [facility] Last Admin: 02/01/18 08:44 Dose: 12.5 mg Docusate Sodium (Colace) 100 mg PO TID [facility] Last Admin: 02/01/18 08:42 Dose: 100 mg Ezetimibe (Zetia) 10 mg PO DAILY [facility] Last Admin: 02/01/18 08:42 Dose: 10 mg Fluoxetine HCl (Prozac) 10 mg PO DAILY [facility] Last Admin: 02/01/18 08:42 Dose: 10 mg Home Med (Patient's Own Medication) 1 unit INH DAILY [facility] Last Admin: 02/01/18 08:46 Dose: 1 unit Home Med (Patient's Own Medication) 1 unit PO DAILY [facility] Last Admin: 02/01/18 08:43 Dose: 1 unit Levothyroxine Sodium (Synthroid) 200 mcg PO DAILY@0630 [facility] Last Admin: 02/01/18 06:47 Dose: 200 mcg Losartan Potassium (Cozaar) 50 mg PO DAILY [facility] Last Admin: 02/01/18 08:42 Dose: 50 mg Tramadol HCl (Ultram) 50 mg PO Q12 [facility] Last Admin: 02/01/18 08:41 Dose: 50 mg - Labs Labs: 01/29/18 05:15 01/30/18 05:20 - Constitutional Appears: No Acute Distress - Head Exam Head Exam: NORMAL INSPECTION - Eye Exam Eye Exam: EOMI, PERRL - Respiratory Exam Respiratory Exam: Clear to Ausculation Bilateral, NORMAL BREATHING PATTERN - Cardiovascular Exam Cardiovascular Exam: REGULAR RHYTHM, +S1, +S2 - GI/Abdominal Exam GI & Abdominal Exam: Soft. absent: Distended, Tenderness - Extremities Exam Extremities Exam: absent: Calf Tenderness, Pedal Edema - Neurological Exam Neurological Exam: Alert, Awake, Oriented x3 - Skin Skin Exam: Dry, Warm Assessment and Plan - Assessment and Plan (Free Text) Assessment: 72 year old female, with a past medical history of CHF, asthma, COPD, chronic kidney disease and Hypertension, hypothyroidism admitted to inpatient rehab for generalized pain and weakness due to recent CVA. Plan: - PT/OT for physical rehabilitation and gait strength - Consulted neurology and nephrology - c/w IV 04/17 NS @ 70 cc/hr - c/w aspirin, statin - c/w rest of the medications - Pain management - Rest of the plan as ordered - Plan for possible home d/c next week <Ronald Angeles - Last Filed: 02/05/18 14:39> Objective - Vital Signs/Intake and Output Vital Signs (last 24 hours): Temp Pulse Resp BP Pulse Ox 97.2 F L 74 20 144/75 95 02/05/18 09:12 02/05/18 09:12 02/05/18 09:12 02/05/18 09:12 02/05/18 09:12 - Medications Medications: Current Medications Acetaminophen (Tylenol 325mg Tab) 650 mg PO Q4 PRN PRN Reason: pain 4-10. Last Admin: 01/31/18 14:00 Dose: 650 mg Albuterol (Ventolin Hfa 90 Mcg/Actuation (8 G)) 2 puff IH Q4 PRN PRN Reason: Shortness of Breath Albuterol/Ipratropium (Duoneb 3 Mg/0.5 Mg (3 Ml) Ud) 3 ml IH Q6 PRN PRN Reason: Shortness of Breath Alprazolam (Xanax) 1 mg PO Q12 PRN PRN Reason: Anxiety Last Admin: 02/04/18 21:55 Dose: 1 mg Amlodipine Besylate (Norvasc) 10 mg PO DAILY [facility] Last Admin: 02/05/18 08:26 Dose: 10 mg Aspirin (Aspirin Chewable) 81 mg PO DAILY [facility] Last Admin: 02/05/18 08:25 Dose: 81 mg Atorvastatin Calcium (Lipitor) 40 mg PO DAILY [facility] Last Admin: 02/05/18 08:26 Dose: 40 mg Carvedilol (Coreg) 12.5 mg PO Q12 [facility] Last Admin: 02/05/18 08:25 Dose: 12.5 mg Docusate Sodium (Colace) 100 mg PO TID [facility] Last Admin: 02/05/18 13:16 Dose: Not Given Ezetimibe (Zetia) 10 mg PO DAILY [facility] Last Admin: 02/05/18 08:25 Dose: 10 mg Fluoxetine HCl (Prozac) 10 mg PO DAILY [facility] Last Admin: 02/05/18 08:28 Dose: 10 mg Home Med (Patient's Own Medication) 1 unit INH DAILY [facility] Last Admin: 02/05/18 08:26 Dose: 1 unit Home Med (Patient's Own Medication) 1 unit PO DAILY [facility] Last Admin: 02/05/18 08:27 Dose: 1 unit Levothyroxine Sodium (Synthroid) 200 mcg PO DAILY@0630 [facility] Last Admin: 02/05/18 06:32 Dose: 200 mcg Losartan Potassium (Cozaar) 50 mg PO DAILY [facility] Last Admin: 02/05/18 08:27 Dose: 50 mg Tramadol HCl (Ultram) 50 mg PO Q12 [facility] Last Admin: 02/05/18 08:36 Dose: 50 mg - Labs Labs: 01/29/18 05:15 01/30/18 05:20 Assessment and Plan - Assessment and Plan (Free Text) Assessment: Patient was personally seen and examined by me in rounds with residents. Available labs and diagnostic data reviewed. Case, Patient's condition and management plan discussed with residents in rounds. Agree with resident's progress note. Plan: As ordered.
--- NOTE | 2018-02-01 09:47 | CP.PCM.CON ---
History of Present Illness - History of Present Illness History of Present Illness: Pt is a 72 year old female admitted to [facility] and referred to the card writer hand for evaluation. Med history positive for recent CVA, HTN, thyroid, obesity. See medical record for complete medical history and medication list. Social Hi story: pt lives alone, she has one daughter in [place], 2 grandchildren in [place] and two siblings in [place]. Pt reported positive famiily relationships and reliance on her homemaker. Pt reported few activities in the home. 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 Pt denied a history of alc/sub abuse. Pt spoke of past psych treatment with Dr. Sargent- treatment for anxiety and depression. Pt reported her primary prescribing her medication at present. MSE: Pt alert, oriented to year, month, day/date, affect constricted, mood dysphoric over status, no si no hi ideation. Pt discussed desire for increased gains and strength so to return home. Dx: Depression/Anxiety Plan: Continued Sup therapy Past Patient History - Infectious Disease Hx of Infectious Diseases: None - Tetanus Immunizations Tetanus Immunization: Unknown - Past Medical History & Family History Past Medical History?: Yes - Past Social History Smoking Status: Never Smoked Alcohol: None Drugs: Denies Home Situation {Lives}: Alone (but has friends that help out) - CARDIAC Hx Cardiac Disorders: Yes Hx Hypercholesterolemia: Yes Hx Hypertension: Yes - PULMONARY Hx Respiratory Disorders: Yes Hx Chronic Obstructive Pulmonary Disease (COPD): Yes - NEUROLOGICAL Hx Neurological Disorder: No - HEENT Hx HEENT Problems: No - RENAL Hx Chronic Kidney Disease: Yes - ENDOCRINE/METABOLIC Hx Endocrine Disorders: Yes Hx Hypothyroidism: Yes - HEMATOLOGICAL/ONCOLOGICAL Hx AIDS: No Hx Human Immunodeficiency Virus (HIV): No - INTEGUMENTARY Hx Dermatological Problems: No - MUSCULOSKELETAL/RHEUMATOLOGICAL Hx Falls: No - GASTROINTESTINAL Hx Gastrointestinal Disorders: No - GENITOURINARY/GYNECOLOGICAL Hx Genitourinary Disorders: No - PSYCHIATRIC Hx Substance Use: No - SURGICAL HISTORY Hx Surgeries: Yes Hx Cholecystectomy: Yes Other/Comment: bilateral knee replacement,head surgery - ANESTHESIA Hx Anesthesia: Yes Hx Anesthesia Reactions: No Hx Malignant Hyperthermia: No Meds Allergies/Adverse Reactions: Allergies Allergy/AdvReac Type Severity Reaction Status Date / Time codeine Allergy RASH Verified 01/14/18 13:20 oxycodone [From Percocet] Allergy RASH Verified 01/15/18 01:49 - Medications Medications: Current Medications Acetaminophen (Tylenol 325mg Tab) 650 mg PO Q4 PRN PRN Reason: pain 4-10. Last Admin: 01/31/18 14:00 Dose: 650 mg Albuterol (Ventolin Hfa 90 Mcg/Actuation (8 G)) 2 puff IH Q4 PRN PRN Reason: Shortness of Breath Albuterol/Ipratropium (Duoneb 3 Mg/0.5 Mg (3 Ml) Ud) 3 ml IH Q6 PRN PRN Reason: Shortness of Breath Alprazolam (Xanax) 1 mg PO Q12 PRN PRN Reason: Anxiety Last Admin: 01/31/18 21:27 Dose: 1 mg Amlodipine Besylate (Norvasc) 10 mg PO DAILY [facility] Last Admin: 02/01/18 08:43 Dose: 10 mg Aspirin (Aspirin Chewable) 81 mg PO DAILY [facility] Last Admin: 02/01/18 08:44 Dose: 81 mg Atorvastatin Calcium (Lipitor) 40 mg PO DAILY [facility] Last Admin: 02/01/18 08:44 Dose: 40 mg Carvedilol (Coreg) 12.5 mg PO Q12 [facility] Last Admin: 02/01/18 08:44 Dose: 12.5 mg Docusate Sodium (Colace) 100 mg PO TID [facility] Last Admin: 02/01/18 08:42 Dose: 100 mg Ezetimibe (Zetia) 10 mg PO DAILY [facility] Last Admin: 02/01/18 08:42 Dose: 10 mg Fluoxetine HCl (Prozac) 10 mg PO DAILY [facility] Last Admin: 02/01/18 08:42 Dose: 10 mg Home Med (Patient's Own Medication) 1 unit INH DAILY [facility] Last Admin: 02/01/18 08:46 Dose: 1 unit Home Med (Patient's Own Medication) 1 unit PO DAILY [facility] Last Admin: 02/01/18 08:43 Dose: 1 unit Levothyroxine Sodium (Synthroid) 200 mcg PO DAILY@0630 [facility] Last Admin: 02/01/18 06:47 Dose: 200 mcg Losartan Potassium (Cozaar) 50 mg PO DAILY [facility] Last Admin: 02/01/18 08:42 Dose: 50 mg Tramadol HCl (Ultram) 50 mg PO Q12 [facility] Last Admin: 02/01/18 08:41 Dose: 50 mg Results - Vital Signs Recent Vital Signs: Last Vital Signs Temp 97.7 F 02/01/18 09:34 Pulse 67 02/01/18 09:34 Resp 20 02/01/18 09:34 BP 131/64 02/01/18 09:34 Pulse Ox 96 02/01/18 09:34 - Labs Result Diagrams: 01/29/18 05:15 01/30/18 05:20
--- NOTE | 2018-02-01 18:47 | CP.PCM.PN ---
Subjective - Date & Time of Evaluation Date of Evaluation: 02/01/18 Time of Evaluation: 18:46 - Subjective Subjective: Patient again required max effort to get to participate in therapies I had already spoken with CM and will be looking for an earlier discharge. Acute rehab is not for her at this point and will need to be discharged earlier than had been planned Objective - Vital Signs/Intake and Output Vital Signs (last 24 hours): Temp Pulse Resp BP Pulse Ox 97.7 F 67 20 131/64 96 02/01/18 09:34 02/01/18 09:34 02/01/18 09:34 02/01/18 09:34 02/01/18 09:34 - Medications Medications: Current Medications Acetaminophen (Tylenol 325mg Tab) 650 mg PO Q4 PRN PRN Reason: pain 4-10. Last Admin: 01/31/18 14:00 Dose: 650 mg Albuterol (Ventolin Hfa 90 Mcg/Actuation (8 G)) 2 puff IH Q4 PRN PRN Reason: Shortness of Breath Albuterol/Ipratropium (Duoneb 3 Mg/0.5 Mg (3 Ml) Ud) 3 ml IH Q6 PRN PRN Reason: Shortness of Breath Alprazolam (Xanax) 1 mg PO Q12 PRN PRN Reason: Anxiety Last Admin: 01/31/18 21:27 Dose: 1 mg Amlodipine Besylate (Norvasc) 10 mg PO DAILY [facility] Last Admin: 02/01/18 08:43 Dose: 10 mg Aspirin (Aspirin Chewable) 81 mg PO DAILY [facility] Last Admin: 02/01/18 08:44 Dose: 81 mg Atorvastatin Calcium (Lipitor) 40 mg PO DAILY [facility] Last Admin: 02/01/18 08:44 Dose: 40 mg Carvedilol (Coreg) 12.5 mg PO Q12 [facility] Last Admin: 02/01/18 08:44 Dose: 12.5 mg Docusate Sodium (Colace) 100 mg PO TID [facility] Last Admin: 02/01/18 17:06 Dose: Not Given Ezetimibe (Zetia) 10 mg PO DAILY [facility] Last Admin: 02/01/18 08:42 Dose: 10 mg Fluoxetine HCl (Prozac) 10 mg PO DAILY [facility] Last Admin: 02/01/18 08:42 Dose: 10 mg Home Med (Patient's Own Medication) 1 unit INH DAILY [facility] Last Admin: 02/01/18 08:46 Dose: 1 unit Home Med (Patient's Own Medication) 1 unit PO DAILY [facility] Last Admin: 02/01/18 08:43 Dose: 1 unit Levothyroxine Sodium (Synthroid) 200 mcg PO DAILY@0630 [facility] Last Admin: 02/01/18 06:47 Dose: 200 mcg Losartan Potassium (Cozaar) 50 mg PO DAILY [facility] Last Admin: 02/01/18 08:42 Dose: 50 mg Tramadol HCl (Ultram) 50 mg PO Q12 [facility] Last Admin: 02/01/18 08:41 Dose: 50 mg - Labs Labs: 01/29/18 05:15 01/30/18 05:20
[2018-02-02] MEDS: Levothyroxine 200 MCG TAB PO SCH (06:40)
[2018-02-02] MEDS: BREO ELLIPTA INH SCH (08:38)
[2018-02-02] MEDS: DEXILANT 30 MG PO SCH (08:39)
--- NOTE | 2018-02-02 12:57 | PN ---
DATE: 02/02/2018 SUBJECTIVE: The patient seen and examined. Interim events noted. Consults noted and appreciated. Psychiatry intervention noted and appreciated. The patient remains in acute rehab unit. The patient is sleepy and arousable. Feels okay. Complains of chronic pain, controlled with medication. The patient required extra dose of Tramadol yesterday for increased pain after therapy. PHYSICAL EXAMINATION: GENERAL: Currently, the patient is in no acute distress. VITAL SIGNS: Stable. HEART: S1 and S2, normal and regular. LUNGS: Good bilateral air exchange. ABDOMEN: Soft and nontender. EXTREMITIES: No edema. No calf swelling. No tenderness. No acute ischemia. The patient has chronic arthritis. CENTRAL NERVOUS SYSTEM: Exam is essentially unchanged. DIAGNOSTIC DATA: Available diagnostic data reviewed. ASSESSMENT AND PLAN: Overall, the patient's general medical condition is stable. Plan as ordered. Ronald Angeles MD
[2018-02-03] MEDS: Levothyroxine 200 MCG TAB PO SCH (06:24)
[2018-02-03] MEDS: DEXILANT 30 MG PO SCH (08:34)
[2018-02-03] MEDS: BREO ELLIPTA INH SCH (08:47)
--- NOTE | 2018-02-03 12:14 | PN ---
DATE: 02/03/2018 SUBJECTIVE: The patient is seen and examined. Interim events noted. Consults noted and appreciated. The patient remains in acute rehab unit. The patient feels okay, complains of . No new complaint of chest pain or shortness of breath. PHYSICAL EXAMINATION GENERAL: The patient is in no acute distress. VITAL SIGNS: Stable. Physical exam is essentially unchanged. DIAGNOSTIC DATA: Available diagnostic data reviewed. ASSESSMENT AND PLAN: Overall, the patient's general medical condition is stable. Plan as ordered. Ronald Angeles MD
[2018-02-04] MEDS: Levothyroxine 200 MCG TAB PO SCH (06:50)
[2018-02-04] MEDS: BREO ELLIPTA INH SCH (08:32)
[2018-02-04] MEDS: DEXILANT 30 MG PO SCH (08:33)
[2018-02-04] MEDS ORDERED: Albuterol-Ipratrop 3 mg / 0.5 (3 ml) UD IH PRN (10:41)
--- NOTE | 2018-02-04 12:55 | PN ---
DATE: 02/04/2018 SUBJECTIVE: The patient seen and examined. Interim events noted. The patient remains in acute rehab unit. No specific new complaints. PHYSICAL EXAMINATION: GENERAL: The patient is in no acute distress. VITAL SIGNS: Stable. Physical exam is essentially unchanged. No specific issue reported by nursing staff. ASSESSMENT AND PLAN: Overall, the patient is stable, not much participating with physical therapy. Plan as ordered. Ronald Angeles MD
--- NOTE | 2018-02-04 18:35 | CP.PCM.PN ---
Subjective - Date & Time of Evaluation Date of Evaluation: 02/04/18 Time of Evaluation: 18:32 - Subjective Subjective: Patient seen in the room no change in function symptoms persist. will have team conf. tomorrow Objective - Vital Signs/Intake and Output Vital Signs (last 24 hours): Temp Pulse Resp BP Pulse Ox 98.2 F 81 20 145/59 L 98 02/04/18 08:01 02/04/18 08:34 02/04/18 08:01 02/04/18 08:34 02/04/18 08:01 - Medications Medications: Current Medications Acetaminophen (Tylenol 325mg Tab) 650 mg PO Q4 PRN PRN Reason: pain 4-10. Last Admin: 01/31/18 14:00 Dose: 650 mg Albuterol (Ventolin Hfa 90 Mcg/Actuation (8 G)) 2 puff IH Q4 PRN PRN Reason: Shortness of Breath Albuterol/Ipratropium (Duoneb 3 Mg/0.5 Mg (3 Ml) Ud) 3 ml IH Q6 PRN PRN Reason: Shortness of Breath Alprazolam (Xanax) 1 mg PO Q12 PRN PRN Reason: Anxiety Last Admin: 02/03/18 21:39 Dose: 1 mg Amlodipine Besylate (Norvasc) 10 mg PO DAILY [facility] Last Admin: 02/04/18 08:33 Dose: 10 mg Aspirin (Aspirin Chewable) 81 mg PO DAILY [facility] Last Admin: 02/04/18 08:34 Dose: 81 mg Atorvastatin Calcium (Lipitor) 40 mg PO DAILY [facility] Last Admin: 02/04/18 08:34 Dose: 40 mg Carvedilol (Coreg) 12.5 mg PO Q12 [facility] Last Admin: 02/04/18 08:34 Dose: 12.5 mg Docusate Sodium (Colace) 100 mg PO TID [facility] Last Admin: 02/04/18 17:25 Dose: Not Given Ezetimibe (Zetia) 10 mg PO DAILY [facility] Last Admin: 02/04/18 08:34 Dose: 10 mg Fluoxetine HCl (Prozac) 10 mg PO DAILY [facility] Last Admin: 02/04/18 08:33 Dose: 10 mg Home Med (Patient's Own Medication) 1 unit INH DAILY [facility] Last Admin: 02/04/18 08:32 Dose: 1 unit Home Med (Patient's Own Medication) 1 unit PO DAILY [facility] Last Admin: 02/04/18 08:33 Dose: 1 unit Levothyroxine Sodium (Synthroid) 200 mcg PO DAILY@0630 [facility] Last Admin: 02/04/18 06:50 Dose: 200 mcg Losartan Potassium (Cozaar) 50 mg PO DAILY [facility] Last Admin: 02/04/18 08:33 Dose: 50 mg Tramadol HCl (Ultram) 50 mg PO Q12 [facility] Last Admin: 02/04/18 08:31 Dose: 50 mg - Labs Labs: 01/29/18 05:15 01/30/18 05:20
[2018-02-05] MEDS: Levothyroxine 200 MCG TAB PO SCH (06:32)
[2018-02-05] MEDS: BREO ELLIPTA INH SCH (08:26)
[2018-02-05] MEDS: DEXILANT 30 MG PO SCH (08:27)
--- NOTE | 2018-02-05 13:02 | PSY.TMCNF ---
Nursing - Vital Signs Vital Signs (Last 8 hours): Vital Signs 02/05/18 02/05/18 02/05/18 08:25 08:26 08:27 Temperature Pulse Rate 78 78 78 Respiratory Rate Blood Pressure 144/89 144/78 144/78 O2 Sat by Pulse Oximetry 02/05/18 09:12 Temperature 97.2 F L Pulse Rate 74 Respiratory 20 Rate Blood Pressure 144/75 O2 Sat by Pulse 95 Oximetry Pain: 0 - Bladder Management Bladder Pattern: Normal Voiding Method: Toilet - Bowel Management Bowel Pattern: Normal - Goals/Time Frame Comments: Pt was seen awake and alert laying in bed. Pt's sister present at bedside. Pt was agreeable to visit and stated that she prefers palestinian translation than amharic. [employer] audio translation utilized, Richar #[id number]. Pt was able to identify minimal leisure interests such as watching television, playing games on tablet, and sometimes listening to music. Pt reported that she has a homemaker and daughter assists with ADL's when homemaker is not present. Pt reported that her daughter lives in [place] although is staying with pt to assist with pt at home. Pt unable to recall name of hospital as pt verbalized "[facility]" and looked at the board in her room when asked about the date. Pt c/o 01/23 pain in R hip area, RN notified. Pt reported that the pain started a few months ago and comes and goes. Pt remain in room at end of visit, call islas within reach. Physical Therapy - Transfers Sit to Stand: Verbal Cues, Contact Guard, Minimal Assistance - Ambulation Level of Assistance: Not Tested - Stair Negotiation Stairs: Level of Assistance: Not Tested - Standing Balance Static Stand: Supervision Dynamic Stand: Unable to assess/perform - Pain Management Techniques: Medication, Distraction, Inactivity - Assessment/Plan Assessment: Pt admitted to Acute Rehab unit on 01/24/18, orders received for PT IE, chart reviewed. Pt agreeable to participate in PT IE. Ms. Lr presents with impaired BLE strength, sitting/standing balance, and endurance as well as pain in BUEs, BLEs, and low back resulting in decreased (I) with functional mobility skills. Pt currently requires max A for bed mobility, fluctuates from min to max A for transfers. Pt limited due to reported pain in B hands and low back as well as noted fear. Pt previously S for ambulating short distance with Rollator. Pt will benefit from skilled PT interventions 5-6xs/week to address deficits, reduce fall risk, and maximize functional independence. Due to pts limited PLOF, recommend likely d/c home with home PT and continued assist from PROFESSOR OF GRAPHIC DESIGN and daughter following complete rehab stay. - Provider Therapist: Deisy Miguel PT, DPT License Number: [id number] Occupational Therapy - Arousal/Attention/Orientation Patient Orientation: Person, Place - ADL/IADL Self Feeding: Supervision, Verbal Cues, Set-up Help Grooming: Verbal Cues, Set-up Help, Minimal Assistance Bathing-Upper Extremity: Verbal Cues, Set-up Help, Moderate Assistance Bathing-Lower Extremity: Verbal Cues, Set-up Help, Maximum Assistance, Dependent Dressing-Upper Extremity: Verbal Cues, Set-up Help, Contact Guard, Minimal Assistance Dressing-Lower Extremity: Verbal Cues, Set-up Help, Maximum Assistance - Sitting Balance Static Sitting: Independent without upper extremity support Dynamic Sitting: Minimal Assistance Comment: unsupported @ edge of bed - Transfers Wheelchair to Bed Transfers: Verbal Cues, Set-up Help, Minimal Assistance, Mode rate Assistance Toilet Transfers: Verbal Cues, Set-up Help, Minimal Assistance - Upper Extremity Status Right Upper Extremity Comment: PROM IN RUE IS WFLS with PAIN, however R shoulder AROm severe limited, AROM IN R elbow/wrsit & digits WFLS Left Upper Extremity Comment: PROM IN LUE IS WFLS with PAIN @ end range, however R shoulder AROm severe limited, AROM IN R elbow/wrist & digits WFLS - Pain Alleviating Techniques: Medication, Distraction, Inactivity - Assessment/Plan Assessment: Pt admitted to Acute Rehab unit on 01/24/18, orders received for PT IE, chart reviewed. Pt agreeable to participate in PT IE. Ms. Lr presents with impaired BLE strength, sitting/standing balance, and endurance as well as pain in BUEs, BLEs, and low back resulting in decreased (I) with functional mobility skills. Pt currently requires max A for bed mobility, fluctuates from min to max A for transfers. Pt limited due to reported pain in B hands and low back as well as noted fear. Pt previously S for ambulating short distance with Rollator. Pt will benefit from skilled PT interventions 5-6xs/week to address deficits, reduce fall risk, and maximize functional independence. Due to pts limited PLOF, recommend likely d/c home with home PT and continued assist from PROFESSOR OF GRAPHIC DESIGN and daughter following complete rehab stay. - Provider Therapist: Isadora Isbell OTR/[facility] - Plan Assessment: Pt admitted to Acute Rehab unit on 01/24/18, orders received for PT IE, chart reviewed. Pt agreeable to participate in PT IE. Ms. Lr presents with impaired BLE strength, sitting/standing balance, and endurance as well as pain in BUEs, BLEs, and low back resulting in decreased (I) with functional mobility skills. Pt currently requires max A for bed mobility, fluctuates from min to max A for transfers. Pt limited due to reported pain in B hands and low back as well as noted fear. Pt previously S for ambulating short distance with Rollator. Pt will benefit from skilled PT interventions 5-6xs/week to address deficits, reduce fall risk, and maximize functional independence. Due to pts limited PLOF, recommend likely d/c home with home PT and continued assist from PROFESSOR OF GRAPHIC DESIGN and daughter following complete rehab stay. Recreational Therapy - Socialization Level of Socialization: Initiates/interacts freely with care givers and peer - Assessment Assessment/Plan: Pt admitted to Acute Rehab unit on 01/24/18, orders received for PT IE, chart reviewed. Pt agreeable to participate in PT IE. Ms. Lr presents with impaired BLE strength, sitting/standing balance, and endurance as well as pain in BUEs, BLEs, and low back resulting in decreased (I) with functional mobility skills. Pt currently requires max A for bed mobility, fluctuates from min to max A for transfers. Pt limited due to reported pain in B hands and low back as well as noted fear. Pt previously S for ambulating short distance with Rollator. Pt will benefit from skilled PT interventions 5-6xs/week to address deficits, reduce fall risk, and maximize functional independence. Due to pts limited PLOF, recommend likely d/c home with home PT and continued assist from PROFESSOR OF GRAPHIC DES[employer] and daughter following complete rehab stay. Problems Currently Limiting Participation: anxiety, decrease activity tolerance level, decrease leisure awareness level, pain, R side weakness, decrease arousal level - Provider Therapist: Xin Ortiz, CORPORATE OFFICER #[id number] Nutrition - Appetite Percent Meal Consumed: 50-74% Case Management - Discharge Plan Discharge Plan: Home with significant other/family Rehabilitation Plan - Treatment Plan Treatment Plan: Physical Therapy, Occupational Therapy, Dietary, Patient/Family Education - Discharge Plan Estimated Date of Discharge: 02/06/18 Discharge to: Home
--- NOTE | 2018-02-05 13:41 | CP.PCM.PN ---
Subjective - Date & Time of Evaluation Date of Evaluation: 02/05/18 Time of Evaluation: 13:38 - Subjective Subjective: Patient seen in PT still not doing much more in therapy set for d/c home tomorrow discussed with the daughter Objective - Vital Signs/Intake and Output Vital Signs (last 24 hours): Temp Pulse Resp BP Pulse Ox 97.2 F L 74 20 144/75 95 02/05/18 09:12 02/05/18 09:12 02/05/18 09:12 02/05/18 09:12 02/05/18 09:12 - Medications Medications: Current Medications Acetaminophen (Tylenol 325mg Tab) 650 mg PO Q4 PRN PRN Reason: pain 4-10. Last Admin: 01/31/18 14:00 Dose: 650 mg Albuterol (Ventolin Hfa 90 Mcg/Actuation (8 G)) 2 puff IH Q4 PRN PRN Reason: Shortness of Breath Albuterol/Ipratropium (Duoneb 3 Mg/0.5 Mg (3 Ml) Ud) 3 ml IH Q6 PRN PRN Reason: Shortness of Breath Alprazolam (Xanax) 1 mg PO Q12 PRN PRN Reason: Anxiety Last Admin: 02/04/18 21:55 Dose: 1 mg Amlodipine Besylate (Norvasc) 10 mg PO DAILY [facility] Last Admin: 02/05/18 08:26 Dose: 10 mg Aspirin (Aspirin Chewable) 81 mg PO DAILY [facility] Last Admin: 02/05/18 08:25 Dose: 81 mg Atorvastatin Calcium (Lipitor) 40 mg PO DAILY [facility] Last Admin: 02/05/18 08:26 Dose: 40 mg Carvedilol (Coreg) 12.5 mg PO Q12 [facility] Last Admin: 02/05/18 08:25 Dose: 12.5 mg Docusate Sodium (Colace) 100 mg PO TID [facility] Last Admin: 02/05/18 13:16 Dose: Not Given Ezetimibe (Zetia) 10 mg PO DAILY [facility] Last Admin: 02/05/18 08:25 Dose: 10 mg Fluoxetine HCl (Prozac) 10 mg PO DAILY [facility] Last Admin: 02/05/18 08:28 Dose: 10 mg Home Med (Patient's Own Medication) 1 unit INH DAILY [facility] Last Admin: 02/05/18 08:26 Dose: 1 unit Home Med (Patient's Own Medication) 1 unit PO DAILY [facility] Last Admin: 02/05/18 08:27 Dose: 1 unit Levothyroxine Sodium (Synthroid) 200 mcg PO DAILY@0630 [facility] Last Admin: 02/05/18 06:32 Dose: 200 mcg Losartan Potassium (Cozaar) 50 mg PO DAILY [facility] Last Admin: 02/05/18 08:27 Dose: 50 mg Tramadol HCl (Ultram) 50 mg PO Q12 [facility] Last Admin: 02/05/18 08:36 Dose: 50 mg - Labs Labs: 01/29/18 05:15 01/30/18 05:20
--- NOTE | 2018-02-05 13:51 | PN ---
DATE: 02/05/2018 SUBJECTIVE: The patient seen and examined. Interim events noted. Consults noted and appreciated. Physiatry intervention noted and appreciated. The patient remains in acute rehab unit. The patient feels okay. Denies any chest pain or shortness of breath. The patient has chronic arthritis pain, which is controlled with current medication. PHYSICAL EXAMINATION: GENERAL: The patient is in no acute distress. VITAL SIGNS: Stable. HEART: S1 and S2, normal and regular. LUNGS: Good bilateral air exchange. ABDOMEN: Soft and nontender. EXTREMITIES: The patient has chronic arthritis. No edema. No calf swelling. No tenderness. No acute ischemia. CENTRAL NERVOUS SYSTEM: Essentially unchanged. DIAGNOSTIC DATA: Available diagnostic data reviewed. ASSESSMENT AND PLAN: Overall, the patient's general medical condition is stable. The patient is for possible discharge home today. The patient is here at the subacute rehab. Plan as ordered. Ronald Angeles MD
[2018-02-06] MEDS: Levothyroxine 200 MCG TAB PO SCH (07:10)
[2018-02-06] MEDS: DEXILANT 30 MG PO SCH (08:32)
[2018-02-06] MEDS: BREO ELLIPTA INH SCH (08:34)
[2018-02-06 11:15] VITALS: BP 130/70; PULSE 77; RESP 22; TEMP 97.3; O2SAT 96
--- NOTE | 2018-02-06 12:53 | CP.PCM.PN ---
Subjective - Date & Time of Evaluation Date of Evaluation: 02/06/18 Time of Evaluation: 09:00 - Subjective Subjective: no acute complaints at present Objective - Vital Signs/Intake and Output Vital Signs (last 24 hours): Temp Pulse Resp BP Pulse Ox 97.3 F L 77 22 130/70 96 02/06/18 08:18 02/06/18 08:32 02/06/18 08:18 02/06/18 08:32 02/06/18 08:18 - Medications Medications: Current Medications Acetaminophen (Tylenol 325mg Tab) 650 mg PO Q4 PRN PRN Reason: pain 4-10. Last Admin: 01/31/18 14:00 Dose: 650 mg Albuterol (Ventolin Hfa 90 Mcg/Actuation (8 G)) 2 puff IH Q4 PRN PRN Reason: Shortness of Breath Albuterol/Ipratropium (Duoneb 3 Mg/0.5 Mg (3 Ml) Ud) 3 ml IH Q6 PRN PRN Reason: Shortness of Breath Alprazolam (Xanax) 1 mg PO Q12 PRN PRN Reason: Anxiety Last Admin: 02/05/18 21:35 Dose: 1 mg Amlodipine Besylate (Norvasc) 10 mg PO DAILY [facility] Last Admin: 02/06/18 08:32 Dose: 10 mg Aspirin (Aspirin Chewable) 81 mg PO DAILY [facility] Last Admin: 02/06/18 08:33 Dose: 81 mg Atorvastatin Calcium (Lipitor) 40 mg PO DAILY [facility] Last Admin: 02/06/18 08:33 Dose: 40 mg Carvedilol (Coreg) 12.5 mg PO Q12 [facility] Last Admin: 02/06/18 08:32 Dose: 12.5 mg Docusate Sodium (Colace) 100 mg PO TID [facility] Last Admin: 02/06/18 08:33 Dose: Not Given Ezetimibe (Zetia) 10 mg PO DAILY [facility] Last Admin: 02/06/18 08:32 Dose: 10 mg Fluoxetine HCl (Prozac) 10 mg PO DAILY [facility] Last Admin: 02/06/18 08:33 Dose: 10 mg Home Med (Patient's Own Medication) 1 unit INH DAILY [facility] Last Admin: 02/06/18 08:34 Dose: 1 unit Home Med (Patient's Own Medication) 1 unit PO DAILY [facility] Last Admin: 02/06/18 08:32 Dose: 1 unit Levothyroxine Sodium (Synthroid) 200 mcg PO DAILY@0630 [facility] Last Admin: 02/06/18 07:10 Dose: 200 mcg Losartan Potassium (Cozaar) 50 mg PO DAILY [facility] Last Admin: 02/06/18 08:32 Dose: 50 mg Tramadol HCl (Ultram) 50 mg PO Q12 [facility] Last Admin: 02/06/18 08:28 Dose: 50 mg - Labs Labs: 01/29/18 05:15 01/30/18 05:20 - Head Exam Head Exam: ATRAUMATIC, NORMAL INSPECTION, NORMOCEPHALIC - Eye Exam Eye Exam: EOMI, Normal appearance, PERRL Pupil Exam: NORMAL ACCOMODATION - ENT Exam ENT Exam: Mucous Membranes Moist, Normal Exam - Neck Exam Neck Exam: Full ROM, Normal Inspection - Respiratory Exam Respiratory Exam: Clear to Ausculation Bilateral, NORMAL BREATHING PATTERN - Cardiovascular Exam Cardiovascular Exam: REGULAR RHYTHM - GI/Abdominal Exam GI & Abdominal Exam: Soft - Exam External exam: NORMAL EXTERNAL EXAM - Extremities Exam Extremities Exam: Full ROM - Back Exam Back Exam: NORMAL INSPECTION - Neurological Exam Neurological Exam: Alert, Awake - Psychiatric Exam Psychiatric exam: Normal Affect, Normal Mood Assessment and Plan (1) Arthralgia of left acromioclavicular joint Status: Acute (2) Chest pain Status: Acute (3) Degenerative joint disease, shoulder, left Status: Acute (4) Dyspnea Status: Acute (5) Need for prophylactic measure Status: Acute (6) Pneumonia Status: Acute (7) Shoulder pain, left Status: Acute (8) UTI (urinary tract infection) Status: Acute - Assessment and Plan (Free Text) Assessment: plan for physical, occupational, rec therapy covering for Dr Joya
--- NOTE | 2018-02-06 13:21 | PN ---
DATE: 02/06/2018 SUBJECTIVE: The patient seen and examined. Interim events noted. Consults noted and appreciated. Physiatry interventions and rehab team conference and interventions noted and appreciated. The patient remains in acute rehab unit. Awake, responsive, feels okay. Denies any specific complaint of chest pain. No shortness of breath. The patient has chronic pain, which is controlled with current pain medication. PHYSICAL EXAMINATION: GENERAL: The patient is in no acute distress. VITAL SIGNS: Stable. Physical exam is essentially unchanged. DIAGNOSTIC DATA: Available diagnostic data reviewed. ASSESSMENT AND PLAN: Overall, the patient is medically stable. The patient is for possible discharge home today. The patient will be followed up by . Plan as ordered. Case and plan discussed with the patient. Ronald Angeles MD
== END 2018-02-06 15:55 | disposition home health service (06) | DRG 57 ==
PROVIDERS: ADMIT Internal Medicine; ATTEND Internal Medicine
PROC: F07Z9FZ Gait Training/Functional Ambulation Treatment using Assistive, Adaptive, Supportive or Protective Equipment (ICD-10-PCS; principal; 2018-01-24)
PROC: F08Z4FZ Home Management Treatment using Assistive, Adaptive, Supportive or Protective Equipment (ICD-10-PCS; 2018-01-24)
PROC: F07M6FZ Therapeutic Exercise Treatment of Musculoskeletal System - Whole Body using Assistive, Adaptive, Supportive or Protective Equipment (ICD-10-PCS; 2018-01-25)
DX: I69.354 Hemiplegia and hemiparesis following cerebral infarction affecting left non-dominant side (principal); N17.9 Acute kidney failure, unspecified; I13.0 Hypertensive heart and chronic kidney disease with heart failure and stage 1 through stage 4 chronic kidney disease, or unspecified chronic kidney disease; Z68.43 Body mass index [BMI] 50.0-59.9, adult; N18.3 Chronic kidney disease, stage 3 (moderate); I50.9 Heart failure, unspecified; G89.29 Other chronic pain; E66.01 Morbid (severe) obesity due to excess calories; E03.9 Hypothyroidism, unspecified; M19.012 Primary osteoarthritis, left shoulder; J44.9 Chronic obstructive pulmonary disease, unspecified; F32.9 Major depressive disorder, single episode, unspecified; F41.9 Anxiety disorder, unspecified; E78.00 Pure hypercholesterolemia, unspecified; Z96.653 Presence of artificial knee joint, bilateral; Z88.6 Allergy status to analgesic agent

== ENCOUNTER 2018-05-03 13:18 | Inpatient (IN) | payer MEDICARE, MEDICAID ==
[2018-05-03 13:19] VITALS: BMI 47.6
--- NOTE | 2018-05-03 14:12 | ED PDOC ---
HPI: Chest Pain Time Seen by Provider: 05/03/18 13:56 Chief Complaint (Nursing): Chest Pain Chief Complaint (Provider): chest pain, dizzy History Per: Patient, Family (mother) History/Exam Limitations: no limitations Current Symptoms Are (Timing): Still Present Additional Complaint(s): 72yo female c/o chest pain central/ stabbing started around 130am, radiating to jaw associated with dizziness, dyspnea and mild pallor per family. Under workup via Dr Montanez for low HR, due to have holter monitor placed. Had stroke 2018 now mostly bedbound w R sided weakness. No recent fever, cough, melena, hematemesis or urinary symptoms. Past Medical History Vital Signs: Last Vital Signs Temp 97.6 F 05/03/18 13:28 Pulse 52 L 05/03/18 13:28 Resp 18 05/03/18 13:28 BP 111/49 L 05/03/18 13:28 Pulse Ox 95 05/03/18 13:28 - Medical History PMH: Anxiety, Arthritis, Asthma, CAD, CHF, COPD, HTN, Hypercholesterolemia, Hyperlipidemia, Hypothyroidism, Chronic Kidney Disease Denies: Emphysema, HIV, Kidney Stones - Surgical History Surgical History: Cholecystectomy - Family History Family History: States: Hypertension - Home Medications Home Medications: Ambulatory Orders Medication Instructions Recorded Alprazolam [Xanax] 1 mg PO Q12 12/13/13 Levothyroxine [Synthroid] 200 mcg PO DAILY #30 11/01/16 Albuterol Sulfate [Ventolin Hfa] 2 puff IH Q4 PRN 01/14/18 Atorvastatin [Lipitor] 40 mg PO HS 01/14/18 Carvedilol [Coreg] 12.5 mg PO Q12 01/14/18 Ezetimibe [Zetia] 10 mg PO HS 01/14/18 FLUoxetine [Prozac] 10 mg PO DAILY 01/14/18 Losartan [Cozaar] 50 mg PO DAILY 01/14/18 amLODIPine [Norvasc] 10 mg PO DAILY 01/14/18 Aspirin [Ecotrin] 81 mg PO DAILY 05/03/18 Cetirizine HCl [All Day Allergy 10 mg PO DAILY PRN 05/03/18 Relief] Cyanocobalamin [Vitamin B12 1000 1,000 mcg PO DAILY 05/03/18 mcg Tab] Dexlansoprazole [Dexilant] 30 mg PO DAILY 05/03/18 Ferrous Gluconate [Fergon] 324 mg PO DAILY 05/03/18 Fluticasone/Vilanterol [Breo 1 puff IH DAILY 05/03/18 Ellipta 200-25 Mcg INH] Furosemide [Lasix] 40 mg PO Q48H 05/03/18 Gabapentin [Neurontin] 600 mg PO HS PRN 05/03/18 Hydrocodone/Acetaminophen 1 tab PO Q12 PRN 05/03/18 [Hydrocodone-Acetamin 10-325 mg] - Allergies Allergies/Adverse Reactions: Allergies Allergy/AdvReac Type Severity Reaction Status Date / Time codeine Allergy RASH Verified 01/14/18 13:20 oxycodone [From Percocet] Allergy RASH Verified 01/15/18 01:49 - Laboratory Results Result Diagrams: 05/03/18 14:15 05/03/18 14:15 - ECG ECG: Positive for: Interpreted By Me ECG Rhythm: Positive for: Sinus Bradycardia, ST/T Changes, Nonspecific Changes Interpretation Of Abn EKG: likely P waves present O2 Sat by Pulse Oximetry: 95 Pulse Ox Interpretation: Normal Medical Decision Making Medical Decision Making: labs reviewed revealing elev BNP trop neg Mild elev renal function home meds reviewed reveal norvasc 10mg and coreg 25mg, recently restarted plavix, took ASA this morning CXR Accession No. : [id number] Patient Name / ID : ARIANA COE / [id number] Exam Date : 05/03/2018 14:17:18 ( Approved ) Study Comment : Sex / Age : F / 72Y Creator : Chirag Lopez MD Dictator : Chirag Lopez MD Co Teacher : Mortar Carrier : Chirag Lopez MD Approver2 : Report Date : 05/03/2018 15:43:33 My Comment : This report is currently processing and HAS NOT BEEN OFFICIALLY SIGNED BY THE PHYSICIAN - ESTIMATED TIME OF APPROVAL IS 05/03/2018 15:48. Date of service: 05/03/2018 HISTORY: SOB COMPARISON: 01/17/2018 FINDINGS: Technically limited examination. Poor inspiratory effort. LUNGS: No active pulmonary disease. PLEURA: Probable small left pleural effusion. No evidence of right pleural effusion. No pneumothorax. CARDIOVASCULAR: No aortic atherosclerotic calcification present. Normal cardiac size. No pulmonary vascular congestion. OSSEOUS STRUCTURES: No significant abnormalities. VISUALIZED UPPER ABDOMEN: Normal. OTHER FINDINGS: None. IMPRESSION: Probable small left pleural effusion. No definite infiltrate. Technically limited examination. Admit contour sander medicine Dr Barahona Cardiology consult Dr Montanez requested mild dyspnea on Home O2, vapotherm ordered. Hold coreg/norvasc as possible causes of bradycardia On re-eval prior to admission pt remains mildly dyspneic BP 100/60 HR 52 sinus, daughter states color improved. (note pelvis US entered in error, cancelled) Disposition - Clinical Impression Clinical Impression: Bradycardia, Dyspnea, Chest pain - Patient ED Disposition Is Patient to be Admitted: Yes Counseled Patient/Family Regarding: Studies Performed, Diagnosis (d/w daughter) - Disposition Disposition Time: 15:35 Condition: FAIR - Pt Status Changed To: Hospital Disposition Of: Inpatient - Admit Certification Admit to Inpatient:: After my assessment, the patient will require hosp italization for at least two midnights. This is because of the severity of symptoms shown, intensity of services needed, and/or the medical risk in this patient being treated as an outpatient. - POA Present On Arrival: None
[2018-05-03 14:41] LABS: BASO # 0.1 K/uL (0.0-0.2); BASO % 0.9 % (0.0-2.0); EOS # 0.2 K/uL (0.0-0.7); HEMOGLOBIN 11.6 g/dL (12.0-16.0); LYMPH # 1.3 K/uL (1.0-4.3); LYMPH % 17.7 % (20.0-40.0); MEAN CELL VOLUME 90.5 fl (81.0-99.0); MEAN CORPUSCULAR HEMOGLOBIN 27.9 pg (27.0-31.0); MEAN CORPUSCULAR HGB CONC 30.9 g/dL (33.0-37.0); MEAN PLATELET VOLUME 8.7 fl (7.2-11.7); MONO # 0.6 K/uL (0.0-0.8); NEUT % 70.4 % (50.0-75.0); NRBC % 0.1 % (0.0-0.0); RBC 4.17 Mil/uL (3.80-5.20); RED CELL DISTRIBUTION WIDTH 17.6 % (11.5-14.5); WHITE BLOOD COUNT 7.2 K/uL (4.8-10.8)
[2018-05-03 14:44] LABS: ALB/GLOB RATIO 1.2 (1.0-2.1); CALCIUM 9.4 mg/dL (8.4-10.2)
[2018-05-03 14:55] LABS: TROPONIN I 0.014 ng/mL (0.00-0.120)
[2018-05-03 14:58] LABS: INR 1.1; PROTHROMBIN TIME 12.1 Seconds (9.8-13.1)
[2018-05-03 15:01] LABS: PARTIAL THROMBOPLASTIN TIME 30.7 Seconds (25.6-37.1)
--- NOTE | 2018-05-03 15:47 | RAD ---
Date of service: 05/03/2018 HISTORY: SOB COMPARISON: 01/17/2018 FINDINGS: Technically limited examination. Poor inspiratory effort. LUNGS: No active pulmonary disease. PLEURA: Probable small left pleural effusion. No evidence of right pleural effusion. No pneumothorax. CARDIOVASCULAR: No aortic atherosclerotic calcification present. Normal cardiac size. No pulmonary vascular congestion. OSSEOUS STRUCTURES: No significant abnormalities. VISUALIZED UPPER ABDOMEN: Normal. OTHER FINDINGS: None. IMPRESSION: Probable small left pleural effusion. No definite infiltrate. Technically limited examination.
[2018-05-03] MEDS ORDERED: Albuterol-Ipratrop 3 mg / 0.5 (3 ml) UD INH STA (18:21)
--- NOTE | 2018-05-03 20:11 | CARD ---
APPROVED REPORT Date of service: 05/03/2018 EKG Measurement Heart [id number] <Conclusion> Normal sinus rhythm Normal Electrocardiogram
[2018-05-03] MEDS ORDERED: HYDROCODONE PO PRN (21:50)
[2018-05-03] MEDS ORDERED: ACETAMINOPHEN PO PRN (21:50)
[2018-05-03] MEDS ORDERED: Albuterol HFA 90 mcg/actuation (8 g) IH PRN (21:50)
[2018-05-03] MEDS: Sodium Chloride 0.9% 1,000 ML IV SCH (22:55)
[2018-05-04] MEDS: Levothyroxine 200 MCG TAB PO SCH (06:27)
[2018-05-04 07:33] LABS: HEMOGLOBIN 10.1 g/dL (12.0-16.0); MEAN CELL VOLUME 89.7 fl (81.0-99.0); MEAN CORPUSCULAR HEMOGLOBIN 27.7 pg (27.0-31.0); MEAN CORPUSCULAR HGB CONC 30.8 g/dL (33.0-37.0); RBC 3.64 Mil/uL (3.80-5.20); RED CELL DISTRIBUTION WIDTH 16.9 % (11.5-14.5); WHITE BLOOD COUNT 7.6 K/uL (4.8-10.8)
[2018-05-04 07:48] LABS: SQUAMOUS EPITHIAL 1 /hpf (0-5); URINE BACTERIA RARE (<OCC); URINE BILIRUBIN NEGATIVE (NEGATIVE); URINE BLOOD NEGATIVE (NEGATIVE); URINE CLARITY SLIGHTY-CLOUDY (Clear); URINE COLOR YELLOW (YELLOW); URINE GLUCOSE (UA) NEG (NEGATIVE); URINE PROTEIN NEGATIVE (NEGATIVE); URINE UROBILINOGEN 0.2-1.0 mg/dL (0.2-1.0)
[2018-05-04 07:56] LABS: URINE LEUKOCYTE ESTERASE SMALL Leu/uL (Negative)
[2018-05-04 08:06] LABS: ALBUMIN 3.2 g/dL (3.5-5.0); CALCIUM 8.8 mg/dL (8.4-10.2)
[2018-05-04] MEDS: Sodium Chloride 0.9% 1,000 ML IV SCH ×2 (08:56→18:23)
--- NOTE | 2018-05-04 09:01 | CP.PCM.CON ---
History of Present Illness - History of Present Illness History of Present Illness: I was asked to evaluate patient by Dr Barahona patient seen 05/04/17 0810 full consult to follow patient is a 72 year old female with previous CVA, cardiomyopathy ( followed by Dr Montanez) nonobstuctive CAD who present with chest pain. She currently is chest pain free. recommend cardiac enzymes x 3. if negative then follow up wi th Dr Moran as outpatient. patient was told she may need AICD. Past Patient History - Infectious Disease Hx of Infectious Diseases: None - Tetanus Immunizations Tetanus Immunization: Unknown - Past Medical History & Family History Past Medical History?: Yes - Past Social History Smoking Status: Never Smoked - CARDIAC Hx Congestive Heart Failure: Yes Hx Hypercholesterolemia: Yes Hx Hypertension: Yes - PULMONARY Hx Asthma: Yes Hx Chronic Obstructive Pulmonary Disease (COPD): Yes Hx Emphysema: No - NEUROLOGICAL Hx Neurological Disorder: Yes HX Cerebrovascular Accident: Yes - HEENT Hx HEENT Problems: No - RENAL Hx Chronic Kidney Disease: Yes Hx Kidney Stones: No - ENDOCRINE/METABOLIC Hx Hypothyroidism: Yes - HEMATOLOGICAL/ONCOLOGICAL Hx AIDS: No Hx Anemia: Yes Hx Blood Transfusions: No Hx Human Immunodeficiency Virus (HIV): No - INTEGUMENTARY Hx Dermatological Problems: No - MUSCULOSKELETAL/RHEUMATOLOGICAL Hx Arthritis: Yes Hx Back Pain: Yes (Chronic) Hx Falls: Yes Hx Fractures: Yes (right arm, hip) Hx Herniated Disk: Yes - GASTROINTESTINAL Hx Gastrointestinal Disorders: No - GENITOURINARY/GYNECOLOGICAL Hx Genitourinary Disorders: No - PSYCHIATRIC Hx Anxiety: Yes Hx Substance Use: No - SURGICAL HISTORY Hx Cholecystectomy: Yes Hx Orthopedic Surgery: Yes (Bilateral Knee Replacement) Other/Comment: Head Sx due to a hole - ANESTHESIA Hx Anesthesia: Yes Hx Anesthesia Reactions: No Meds Allergies/Adverse Reactions: Allergies Allergy/AdvReac Type Severity Reaction Status Date / Time codeine Allergy RASH Verified 01/14/18 13:20 oxycodone [From Percocet] Allergy RASH Verified 01/15/18 01:49 - Medications Medications: Current Medications Albuterol (Ventolin Hfa 90 Mcg/Actuation (8 G)) 2 puff IH Q4 PRN PRN Reason: Shortness of Breath Alprazolam (Xanax) 1 mg PO Q12 [facility] Last Admin: 05/04/18 08:52 Dose: 1 mg Aspirin (Ecotrin) 81 mg PO DAILY [facility] Last Admin: 05/04/18 08:54 Dose: 81 mg Atorvastatin Calcium (Lipitor) 40 mg PO HS [facility] Last Admin: 05/03/18 22:55 Dose: 40 mg Cyanocobalamin (Vitamin B12 1000 Mcg Tab) 1,000 mcg PO DAILY [facility] Last Admin: 05/04/18 08:55 Dose: 1,000 mcg Ezetimibe (Zetia) 10 mg PO HS [facility] Last Admin: 05/03/18 22:55 Dose: 10 mg Ferrous Gluconate (Fergon) 324 mg PO DAILY [facility] Last Admin: 05/04/18 08:54 Dose: 324 mg Fluoxetine HCl (Prozac) 10 mg PO DAILY [facility] Last Admin: 05/04/18 08:54 Dose: 10 mg Gabapentin (Neurontin) 600 mg PO HS PRN PRN Reason: neuropathic pain Home Med (Dexlansoprazole [Dexilant]) 30 mg PO DAILY [facility] Home Med (Fluticasone/Vilanterol [Breo Ellipta 200-25 Mcg Inh]) 1 puff IH DAILY [facility] Home Med (Hydrocodone/Acetaminophen [Hydrocodone-Acetamin 10-325 Mg]) 1 tab PO Q12 PRN PRN Reason: Pain, severe (8-10) Sodium Chloride (Sodium Chloride 0.9%) 1,000 mls @ 100 mls/hr IV .Q10H [facility] Stop: 05/04/18 21:57 Last Admin: 05/03/18 22:55 Dose: 100 mls/hr Levothyroxine Sodium (Synthroid) 200 mcg PO DAILY@0630 [facility] Last Admin: 05/04/18 06:27 Dose: 200 mcg Loratadine (Claritin) 10 mg PO DAILY [facility] Last Admin: 05/04/18 08:55 Dose: 10 mg Results - Vital Signs Recent Vital Signs: Last Vital Signs Temp 98.4 F 05/04/18 07:37 Pulse 64 05/04/18 07:37 Resp 18 05/04/18 07:37 BP 121/70 05/04/18 07:37 Pulse Ox 95 05/04/18 07:37 - Labs Result Diagrams: 05/04/18 06:15 05/04/18 06:15 Labs: Laboratory Results - last 24 hr 05/03/18 05/03/18 05/03/18 14:15 14:15 14:15 WBC 7.2 RBC 4.17 Hgb 11.6 L Hct 37.7 MCV 90.5 D MCH 27.9 MCHC 30.9 L RDW 17.6 H Plt Count 288 MPV 8.7 Neut % (Auto) 70.4 Lymph % (Auto) 17.7 L [place] % (Auto) 8.0 Eos % (Auto) 3.0 Baso % (Auto) 0.9 Neut # (Auto) 5.0 Lymph # (Auto) 1.3 [place] # (Auto) 0.6 Eos # (Auto) 0.2 Baso # (Auto) 0.1 PT 12.1 INR 1.1 APTT 30.7 Sodium 140 Potassium 5.2 H Chloride 103 Carbon Dioxide 27 Anion Gap 15 BUN 23 H Creatinine 1.7 H Est GFR ( Amer) 36 Est GFR (Non-Af Amer) 30 POC Glucose (mg/dL) Random Glucose 103 Calcium 9.4 Total Bilirubin 0.6 AST 26 ALT 14 Alkaline Phosphatase 85 Troponin I 0.0140 NT-Pro-B Natriuret Pep 1260 H Total Protein 7.3 Albumin 4.0 Globulin 3.4 Albumin/Globulin Ratio 1.2 Triglycerides Cholesterol LDL Cholesterol Direct HDL Cholesterol TSH 3rd Generation Urine Color Urine Clarity Urine pH Ur Specific [place] Urine Protein Urine Glucose (UA) Urine Ketones Urine Blood Urine Nitrate Urine Bilirubin Urine Urobilinogen Ur Leukocyte Esterase Urine RBC (Auto) Urine Microscopic WBC Ur Squamous Epith Cells Urine Bacteria 05/03/18 05/04/18 05/04/18 14:57 05:54 06:15 WBC 7.6 RBC 3.64 L Hgb 10.1 L Hct 32.6 L MCV 89.7 MCH 27.7 MCHC 30.8 L RDW 16.9 H Plt Count 273 MPV Neut % (Auto) Lymph % (Auto) [place] % (Auto) Eos % (Auto) Baso % (Auto) Neut # (Auto) Lymph # (Auto) [place] # (Auto) Eos # (Auto) Baso # (Auto) PT INR APTT Sodium Potassium Chloride Carbon Dioxide Anion Gap BUN Creatinine Est GFR ( Amer) Est GFR (Non-Af Amer) POC Glucose (mg/dL) 118 H 89 Random Glucose Calcium Total Bilirubin AST ALT Alkaline Phosphatase Troponin I NT-Pro-B Natriuret Pep Total Protein Albumin Globulin Albumin/Globulin Ratio Triglycerides Cholesterol LDL Cholesterol Direct HDL Cholesterol TSH 3rd Generation Urine Color Urine Clarity Urine pH Ur Specific [place] Urine Protein Urine Glucose (UA) Urine Ketones Urine Blood Urine Nitrate Urine Bilirubin Urine Urobilinogen Ur Leukocyte Esterase Urine RBC (Auto) Urine Microscopic WBC Ur Squamous Epith Cells Urine Bacteria 05/04/18 05/04/18 06:15 07:00 WBC RBC Hgb Hct MCV MCH MCHC RDW Plt Count MPV Neut % (Auto) Lymph % (Auto) [place] % (Auto) Eos % (Auto) Baso % (Auto) Neut # (Auto) Lymph # (Auto) [place] # (Auto) Eos # (Auto) Baso # (Auto) PT INR APTT Sodium 140 Potassium 5.0 Chloride 104 Carbon Dioxide 32 H Anion Gap 9 L BUN 27 H Creatinine 1.8 H Est GFR ( Amer) 33 Est GFR (Non-Af Amer) 28 POC Glucose (mg/dL) Random Glucose 92 Calcium 8.8 Total Bilirubin 0.4 AST 29 ALT 18 Alkaline Phosphatase 89 Troponin I NT-Pro-B Natriuret Pep Total Protein 6.2 L Albumin 3.2 L Globulin 3.1 Albumin/Globulin Ratio 1.0 Triglycerides 96 D Cholesterol 155 LDL Cholesterol Direct 89 HDL Cholesterol 40 TSH 3rd Generation 0.77 Urine Color Yellow Urine Clarity Slighty-cloudy Urine pH 5.0 Ur Specific [place] 1.016 Urine Protein Negative Urine Glucose (UA) Neg Urine Ketones Negative Urine Blood Negative Urine Nitrate Negative Urine Bilirubin Negative Urine Urobilinogen 0.2-1.0 Ur Leukocyte Esterase Small Urine RBC (Auto) 2 Urine Microscopic WBC 15 H Ur Squamous Epith Cells 1 Urine Bacteria Rare
--- NOTE | 2018-05-04 09:12 | CP.PCM.CON ---
History of Present Illness - History of Present Illness History of Present Illness: I was asked to evaluate patient by Dr Barahona patient seen 05/04/17 0810 Patient is a 72 year old female with HTN hyperchoelsterolemia nonobstrutive CAD, cardiomyopathy who presents with chest pain and bradycardia. The patient is steph sandra bedridden and has been followed by Dr Montanez. by her report she last saw him in February and was told she would need AICD. The patient reports chest pain at rest. She was brought to [facility] for further evaluation. Review of Systems - Constitutional Constitutional: absent: As Per HPI, Anorexia, Chills, Daytime Sleepiness, Excessive Sweating, Fatigue, Fever, Frequent Falls, Headache, Increased Appetite, Lethargy, Malaise, Night Sweats, Snoring, Sleep Apnea, Weight Gain, Weight Loss, Weakness, Other - EENT Eyes: absent: As Per HPI, Blind Spots, Blurred Vision, Change in Vision, Decreased Night Vision, Diplopia, Discharge, Dry Eye, Exophthalmos, Floaters, Irritation, Itchy Eyes, Loss of Peripheral Vision, Pain, Photophobia, Requires Corrective Lenses, Sees Flashes, Spots in Vision, Tunnel Vision, Other Visual Disturbances, Loss of Vision, Other Ears: absent: As Per HPI, Decreased Hearing, Ear Discharge, Ear Pain, Tinnitus, Abnormal Hearing, Disequilibrium, Dizziness, Other Nose/Mouth/Throat: absent: As Per HPI, Epistaxis, Nasal Congestion, Nasal Discharge, Nasal Obstruction, Nasal Trauma, Nose Pain, Post Nasal Drip, Sinus Pain, Sinus Pressure, Bleeding Gums, Change in Voice, Dental Pain, Dry Mouth, Dysphagia, Halitosis, Hoarsness, Lip Swelling, Mouth Lesions, Mouth Pain, Odynophagia, Sore Throat, Throat Swelling, Tongue Swelling, Facial Pain, Neck Pain, Neck Mass, Other - Breasts Breasts: absent: As Per HPI, Change in Shape, Mass, Pain, Nipple Discharge, Nipple Inversion, Skin Changes, Swelling, Other - Cardiovascular Cardiovascular: Chest Pain - Respiratory Respiratory: absent: As Per HPI, Cough, Dyspnea, Hemoptysis, Dyspnea on Exertion, Wheezing, Snoring, Stridor, Pain on Inspiration, Chest Congestion, Excessive Mucous Production, Change in Mucous Color, Pain with Coughing, Other - Gastrointestinal Gastrointestinal: absent: As Per HPI, Abdominal Pain, Belching, Bloating, Change in Bowel Habits, Change in Stool Character, Coffee Ground Emesis, Constipation, Cramping, Diarrhea, Dyspepsia, Dysphagia, Early Satiety, Excessive Flatus, Fecal Incontinence, Heartburn, Hematemesis, Hematochezia, Loose Stools, Melena, Nausea, Odynophagia, Temesmus, Vomiting, Other - Genitourinary Genitourinary: absent: As Per HPI, Change in Urinary Stream, Difficulty Urinating, Dysuria, Flank Pain, Hematuria, Pyuria, Nocturia, Urinary Incontinence, Urinary Frequency, Urinary Hesitance, Urinary Urgency, Voiding Freq/Small Amts, Freq UTI, Hx Renal/Bladder Calculi, Hx /Renal Surgery, Bladder Distension, Other - Reproductive: Female Reproductive:Female: absent: As Per HPI, Amenorrhea, Amenorrhea/ Control, Currently Menstual, Cycle <21 Days, Cycle >35 Days, Cycle Variable, Menses 1-7 Days, Menses >/= 8 Days, Menses Variable, Cycle > 4 Weeks Between, No Menses for 6 Months, Heavy Menses, Light Menses, Normal Menses, Spotting Between Cycles, S/P Hysterectomy, Menopausal, Post Menopausal, Premenarche, Abnormal Vaginal Bleeding, Dysmenorrhea, Dyspareunia, Genital Lesions, Genital Pruritis, Pelvic Pain, Prolapse Symptoms, Sexual Dysfunction, Vaginal Discharge, Vaginal Dryness, Vaginal Odor, Vaginal Pruritis, Other - Musculoskeletal Musculoskeletal: absent: As Per HPI, Abnormal Gait, Arthralgias, Atrophy, Back Pain, Deformity, Joint Swelling, Limited Range of Motion, Loss of Height, Muscle Cramps, Muscle Weakness, Myalgias, Neck Pain, Numbness, Radiating Pain into Limb, Stiffness, Tingling, Other - Integumentary Integumentary: absent: As Per HPI, Acne, Alopecia, Bleeding Lesions, Change in Hair, Change in Nails, Change in Pigmentation, Changing Lesions, Dry Skin, Erythema, Furuncle, Hirsutism, Lesions, New Lesions, Non-Healing Lesions, Photosensitivity, Pruritus, Rash, Skin Pain, Skin Ulcer, Sores, Striae, Swelling, Unusual Bruising, Wounds, Jaundice, Other - Neurological Neurological: absent: As Per HPI, Abnormal Gait, Abnormal Hearing, Abnormal Movements, Abnormal Speech, Behavioral Changes, Burning Sensations, Confusion, Convulsions, Disequilibrium, Dizziness, Numbness, Focal Weakness, Frequent Falls, Headaches, Lack of Coordination, Loss of Vision, Memory Loss, Paresthesias, Radicular Pain, Restless Legs, Sensory Deficit, Syncope, Tingling, Tremor, Vertigo, Weakness, Other Visual Disturbances, Other - Psychiatric Psychiatric: absent: As Per HPI, Abnormal Sleep Pattern, Anhedonia, Anxiety, Auditory Hallucinations, Behavioral Changes, Change in Appetite, Change in Libido, Confusion, Depression, Difficulty Concentrating, Hallucinations, Homicidal Ideation, Hopelessness, Irritability, Memory Loss, Mood Swings, Panic Attacks, Paranoia, Suicidal Ideation, Visual Hallucinations, Tactile Hallucinations, Other - Endocrine Endocrine: absent: As Per HPI, Change in Body Appearance, Change in Libido, Cold Intolorance, Deepening of Voice, Excessive Sweating, Fatigue, Flushing, Heat Intolorance, Increase in Ring/Shoe/Hat Size, Palpitations, Polydipsia, Polyphagia, Polyuria, Other - Hematologic/Lymphatic Hematologic: absent: As Per HPI, Easy Bleeding, Easy Bruising, Lymphadenopathy, Other Past Patient History - Infectious Disease Hx of Infectious Diseases: None - Tetanus Immunizations Tetanus Immunization: Unknown - Past Medical History & Family History Past Medical History?: Yes - Past Social History Smoking Status: Never Smoked - CARDIAC Hx Congestive Heart Failure: Yes Hx Hypercholesterolemia: Yes Hx Hypertension: Yes - PULMONARY Hx Asthma: Yes Hx Chronic Obstructive Pulmonary Disease (COPD): Yes Hx Emphysema: No - NEUROLOGICAL Hx Neurological Disorder: Yes HX Cerebrovascular Accident: Yes - HEENT Hx HEENT Problems: No - RENAL Hx Chronic Kidney Disease: Yes Hx Kidney Stones: No - ENDOCRINE/METABOLIC Hx Hypothyroidism: Yes - HEMATOLOGICAL/ONCOLOGICAL Hx AIDS: No Hx Anemia: Yes Hx Blood Transfusions: No Hx Human Immunodeficiency Virus (HIV): No - INTEGUMENTARY Hx Dermatological Problems: No - MUSCULOSKELETAL/RHEUMATOLOGICAL Hx Arthritis: Yes Hx Back Pain: Yes (Chronic) Hx Falls: Yes Hx Fractures: Yes (right arm, hip) Hx Herniated Disk: Yes - GASTROINTESTINAL Hx Gastrointestinal Disorders: No - GENITOURINARY/GYNECOLOGICAL Hx Genitourinary Disorders: No - PSYCHIATRIC Hx Anxiety: Yes Hx Substance Use: No - SURGICAL HISTORY Hx Cholecystectomy: Yes Hx Orthopedic Surgery: Yes (Bilateral Knee Replacement) Other/Comment: Head Sx due to a hole - ANESTHESIA Hx Anesthesia: Yes Hx Anesthesia Reactions: No Meds Allergies/Adverse Reactions: Allergies Allergy/AdvReac Type Severity Reaction Status Date / Time codeine Allergy RASH Verified 01/14/18 13:20 oxycodone [From Percocet] Allergy RASH Verified 01/15/18 01:49 - Medications Medications: Current Medications Albuterol (Ventolin Hfa 90 Mcg/Actuation (8 G)) 2 puff IH Q4 PRN PRN Reason: Shortness of Breath Alprazolam (Xanax) 1 mg PO Q12 [facility] Last Admin: 05/04/18 08:52 Dose: 1 mg Aspirin (Ecotrin) 81 mg PO DAILY [facility] Last Admin: 05/04/18 08:54 Dose: 81 mg Atorvastatin Calcium (Lipitor) 40 mg PO HS [facility] Last Admin: 05/03/18 22:55 Dose: 40 mg Cyanocobalamin (Vitamin B12 1000 Mcg Tab) 1,000 mcg PO DAILY [facility] Last Admin: 05/04/18 08:55 Dose: 1,000 mcg Ezetimibe (Zetia) 10 mg PO HS [facility] Last Admin: 05/03/18 22:55 Dose: 10 mg Ferrous Gluconate (Fergon) 324 mg PO DAILY [facility] Last Admin: 05/04/18 08:54 Dose: 324 mg Fluoxetine HCl (Prozac) 10 mg PO DAILY [facility] Last Admin: 05/04/18 08:54 Dose: 10 mg Gabapentin (Neurontin) 600 mg PO HS PRN PRN Reason: neuropathic pain Home Med (Dexlansoprazole [Dexilant]) 30 mg PO DAILY [facility] Home Med (Fluticasone/Vilanterol [Breo Ellipta 200-25 Mcg Inh]) 1 puff IH DAILY [facility] Home Med (Hydrocodone/Acetaminophen [Hydrocodone-Acetamin 10-325 Mg]) 1 tab PO Q12 PRN PRN Reason: Pain, severe (8-10) Sodium Chloride (Sodium Chloride 0.9%) 1,000 mls @ 100 mls/hr IV .Q10H [facility] Stop: 05/04/18 21:57 Last Admin: 05/03/18 22:55 Dose: 100 mls/hr Levothyroxine Sodium (Synthroid) 200 mcg PO DAILY@0630 [facility] Last Admin: 05/04/18 06:27 Dose: 200 mcg Loratadine (Claritin) 10 mg PO DAILY [facility] Last Admin: 01/19/19 08:55 Dose: 10 mg Physical Exam - Constitutional Appears: Non-toxic - Head Exam Head Exam: NORMAL INSPECTION - Eye Exam Eye Exam: Normal appearance - ENT Exam ENT Exam: Mucous Membranes Moist - Neck Exam Neck exam: Positive for: Full Rom - Respiratory Exam Respiratory Exam: Decreased Breath Sounds - Cardiovascular Exam Cardiovascular Exam: REGULAR RHYTHM - GI/Abdominal Exam GI & Abdominal Exam: Normal Bowel Sounds - Rectal Exam Rectal Exam: Deferred - Extremities Exam Extremities exam: Negative for: pedal edema - Back Exam Back exam: NORMAL INSPECTION - Neurological Exam Neurological exam: Alert, Oriented x3 - Psychiatric Exam Psychiatric exam: Normal Affect - Skin Skin Exam: Normal Color Results - Vital Signs Recent Vital Signs: Last Vital Signs Temp 98.4 F 05/04/18 07:37 Pulse 64 05/04/18 07:37 Resp 18 05/04/18 07:37 BP 121/70 05/04/18 07:37 Pulse Ox 95 05/04/18 07:37 - Labs Result Diagrams: 05/05/18 06:45 05/05/18 02:42 Labs: Laboratory Results - last 24 hr 05/03/18 05/03/18 05/03/18 14:15 14:15 14:15 WBC 7.2 RBC 4.17 Hgb 11.6 L Hct 37.7 MCV 90.5 D MCH 27.9 MCHC 30.9 L RDW 17.6 H Plt Count 288 MPV 8.7 Neut % (Auto) 70.4 Lymph % (Auto) 17.7 L [place] % (Auto) 8.0 Eos % (Auto) 3.0 Baso % (Auto) 0.9 Neut # (Auto) 5.0 Lymph # (Auto) 1.3 [place] # (Auto) 0.6 Eos # (Auto) 0.2 Baso # (Auto) 0.1 PT 12.1 INR 1.1 APTT 30.7 Sodium 140 Potassium 5.2 H Chloride 103 Carbon Dioxide 27 Anion Gap 15 BUN 23 H Creatinine 1.7 H Est GFR ( Amer) 36 Est GFR (Non-Af Amer) 30 POC Glucose (mg/dL) Random Glucose 103 Calcium 9.4 Total Bilirubin 0.6 AST 26 ALT 14 Alkaline Phosphatase 85 Troponin I 0.0140 NT-Pro-B Natriuret Pep 1260 H Total Protein 7.3 Albumin 4.0 Globulin 3.4 Albumin/Globulin Ratio 1.2 Triglycerides Cholesterol LDL Cholesterol Direct HDL Cholesterol TSH 3rd Generation Urine Color Urine Clarity Urine pH Ur Specific [place] Urine Protein Urine Glucose (UA) Urine Ketones Urine Blood Urine Nitrate Urine Bilirubin Urine Urobilinogen Ur Leukocyte Esterase Urine RBC (Auto) Urine Microscopic WBC Ur Squamous Epith Cells Urine Bacteria 05/03/18 05/04/18 05/04/18 14:57 05:54 06:15 WBC 7.6 RBC 3.64 L Hgb 10.1 L Hct 32.6 L MCV 89.7 MCH 27.7 MCHC 30.8 L RDW 16.9 H Plt Count 273 MPV Neut % (Auto) Lymph % (Auto) [place] % (Auto) Eos % (Auto) Baso % (Auto) Neut # (Auto) Lymph # (Auto) [place] # (Auto) Eos # (Auto) Baso # (Auto) PT INR APTT Sodium Potassium Chloride Carbon Dioxide Anion Gap BUN Creatinine Est GFR ( Amer) Est GFR (Non-Af Amer) POC Glucose (mg/dL) 118 H 89 Random Glucose Calcium Total Bilirubin AST ALT Alkaline Phosphatase Troponin I NT-Pro-B Natriuret Pep Total Protein Albumin Globulin Albumin/Globulin Ratio Triglycerides Cholesterol LDL Cholesterol Direct HDL Cholesterol TSH 3rd Generation Urine Color Urine Clarity Urine pH Ur Specific [place] Urine Protein Urine Glucose (UA) Urine Ketones Urine Blood Urine Nitrate Urine Bilirubin Urine Urobilinogen Ur Leukocyte Esterase Urine RBC (Auto) Urine Microscopic WBC Ur Squamous Epith Cells Urine Bacteria 05/04/18 05/04/18 06:15 07:00 WBC RBC Hgb Hct MCV MCH MCHC RDW Plt Count MPV Neut % (Auto) Lymph % (Auto) [place] % (Auto) Eos % (Auto) Baso % (Auto) Neut # (Auto) Lymph # (Auto) [place] # (Auto) Eos # (Auto) Baso # (Auto) PT INR APTT Sodium 140 Potassium 5.0 Chloride 104 Carbon Dioxide 32 H Anion Gap 9 L BUN 27 H Creatinine 1.8 H Est GFR ( Amer) 33 Est GFR (Non-Af Amer) 28 POC Glucose (mg/dL) Random Glucose 92 Calcium 8.8 Total Bilirubin 0.4 AST 29 ALT 18 Alkaline Phosphatase 89 Troponin I NT-Pro-B Natriuret Pep Total Protein 6.2 L Albumin 3.2 L Globulin 3.1 Albumin/Globulin Ratio 1.0 Triglycerides 96 D Cholesterol 155 LDL Cholesterol Direct 89 HDL Cholesterol 40 TSH 3rd Generation 0.77 Urine Color Yellow Urine Clarity Slighty-cloudy Urine pH 5.0 Ur Specific [place] 1.016 Urine Protein Negative Urine Glucose (UA) Neg Urine Ketones Negative Urine Blood Negative Urine Nitrate Negative Urine Bilirubin Negative Urine Urobilinogen 0.2-1.0 Ur Leukocyte Esterase Small Urine RBC (Auto) 2 Urine Microscopic WBC 15 H Ur Squamous Epith Cells 1 Urine Bacteria Rare - EKG Data EKG Interpreted by: Myself Assessment & Plan (1) Chest pain Assessment and Plan: unclear etiology. by report coronary angiogram previously was negative for CAD. check troponin q 8hrs. If negative consider dischsrge with outpatient follow up. Status: Acute Priority: Medium (2) CHF (congestive heart failure) Assessment and Plan: previous cardiomyopathy. consider echo Status: Chronic Priority: Medium (3) Hypertension Assessment and Plan: blood pressure control Status: Chronic Priority: Medium
--- NOTE | 2018-05-04 13:00 | CP.PCM.HP ---
History of Present Illness - History of Present Illness History of Present Illness: 72 year old female w/ PMHx of HTN, HLD, CVA (2018 with R sided weakness and now bedridden), CAD, cardiomyopathy (followed by Dr. 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 Patient was admitted for bradycardia, dyspnea, and chest pain. Patient seen and examined at bedside. states chest pain improved but continues to feel weak. no other complaints offered at this time Allergies: per charrt Meds: per chart Fam hx: non contributory Present on Admission - Present on Admission Any Indicators Present on Admission: No Review of Systems - Review of Systems All systems: reviewed and no additional remarkable complaints except (mentioned above) Past Patient History - Infectious Disease Hx of Infectious Diseases: None - Tetanus Immunizations Tetanus Immunization: Unknown - Past Medical History & Family History Past Medical History?: Yes - Past Social History Smoking Status: Never Smoked - CARDIAC Hx Congestive Heart Failure: Yes Hx Hypercholesterolemia: Yes Hx Hypertension: Yes - PULMONARY Hx Asthma: Yes Hx Chronic Obstructive Pulmonary Disease (COPD): Yes Hx Emphysema: No - NEUROLOGICAL Hx Neurological Disorder: Yes HX Cerebrovascular Accident: Yes - HEENT Hx HEENT Problems: No - RENAL Hx Chronic Kidney Disease: Yes Hx Kidney Stones: No - ENDOCRINE/METABOLIC Hx Hypothyroidism: Yes - HEMATOLOGICAL/ONCOLOGICAL Hx AIDS: No Hx Anemia: Yes Hx Blood Transfusions: No Hx Human Immunodeficiency Virus (HIV): No - INTEGUMENTARY Hx Dermatological Problems: No - MUSCULOSKELETAL/RHEUMATOLOGICAL Hx Arthritis: Yes Hx Back Pain: Yes (Chronic) Hx Falls: Yes Hx Fractures: Yes (right arm, hip) Hx Herniated Disk: Yes - GASTROINTESTINAL Hx Gastrointestinal Disorders: No - GENITOURINARY/GYNECOLOGICAL Hx Genitourinary Disorders: No - PSYCHIATRIC Hx Anxiety: Yes Hx Substance Use: No - SURGICAL HISTORY Hx Cholecystectomy: Yes Hx Orthopedic Surgery: Yes (Bilateral Knee Replacement) Other/Comment: Head Sx due to a hole - ANESTHESIA Hx Anesthesia: Yes Hx Anesthesia Reactions: No Meds Allergies/Adverse Reactions: Allergies Allergy/AdvReac Type Severity Reaction Status Date / Time codeine Allergy RASH Verified 01/14/18 13:20 oxycodone [From Percocet] Allergy RASH Verified 01/15/18 01:49 Physical Exam - Constitutional Appears: Non-toxic, No Acute Distress - Head Exam Head Exam: NORMAL INSPECTION - Eye Exam Eye Exam: Normal appearance - Respiratory Exam Respiratory Exam: NORMAL BREATHING PATTERN - Cardiovascular Exam Cardiovascular Exam: +S1, +S2 - GI/Abdominal Exam GI & Abdominal Exam: Soft - Extremities Exam Extremities exam: Positive for: normal inspection - Neurological Exam Neurological exam: Alert - Psychiatric Exam Psychiatric exam: Normal Affect, Normal Mood - Skin Skin Exam: Normal Color, Warm Results - Vital Signs Recent Vital Signs: Last Vital Signs Temp 98.0 F 05/04/18 11:46 Pulse 67 05/04/18 11:46 Resp 18 05/04/18 11:46 BP 119/67 05/04/18 11:46 Pulse Ox 93 L 05/04/18 11:46 - Labs Result Diagrams: 05/05/18 06:45 05/05/18 02:42 Labs: Laboratory Results - last 24 hr 05/03/18 05/03/18 05/03/18 14:15 14:15 14:15 WBC 7.2 RBC 4.17 Hgb 11.6 L Hct 37.7 MCV 90.5 D MCH 27.9 MCHC 30.9 L RDW 17.6 H Plt Count 288 MPV 8.7 Neut % (Auto) 70.4 Lymph % (Auto) 17.7 L [place] % (Auto) 8.0 Eos % (Auto) 3.0 Baso % (Auto) 0.9 Neut # (Auto) 5.0 Lymph # (Auto) 1.3 [place] # (Auto) 0.6 Eos # (Auto) 0.2 Baso # (Auto) 0.1 PT 12.1 INR 1.1 APTT 30.7 Sodium 140 Potassium 5.2 H Chloride 103 Carbon Dioxide 27 Anion Gap 15 BUN 23 H Creatinine 1.7 H Est GFR ( Amer) 36 Est GFR (Non-Af Amer) 30 POC Glucose (mg/dL) Random Glucose 103 Calcium 9.4 Total Bilirubin 0.6 AST 26 ALT 14 Alkaline Phosphatase 85 Troponin I 0.0140 NT-Pro-B Natriuret Pep 1260 H Total Protein 7.3 Albumin 4.0 Globulin 3.4 Albumin/Globulin Ratio 1.2 Triglycerides Cholesterol LDL Cholesterol Direct HDL Cholesterol TSH 3rd Generation Urine Color Urine Clarity Urine pH Ur Specific [place] Urine Protein Urine Glucose (UA) Urine Ketones Urine Blood Urine Nitrate Urine Bilirubin Urine Urobilinogen Ur Leukocyte Esterase Urine RBC (Auto) Urine Microscopic WBC Ur Squamous Epith Cells Urine Bacteria 05/03/18 05/04/18 05/04/18 14:57 05:54 06:15 WBC 7.6 RBC 3.64 L Hgb 10.1 L Hct 32.6 L MCV 89.7 MCH 27.7 MCHC 30.8 L RDW 16.9 H Plt Count 273 MPV Neut % (Auto) Lymph % (Auto) [place] % (Auto) Eos % (Auto) Baso % (Auto) Neut # (Auto) Lymph # (Auto) [place] # (Auto) Eos # (Auto) Baso # (Auto) PT INR APTT Sodium Potassium Chloride Carbon Dioxide Anion Gap BUN Creatinine Est GFR ( Amer) Est GFR (Non-Af Amer) POC Glucose (mg/dL) 118 H 89 Random Glucose Calcium Total Bilirubin AST ALT Alkaline Phosphatase Troponin I NT-Pro-B Natriuret Pep Total Protein Albumin Globulin Albumin/Globulin Ratio Triglycerides Cholesterol LDL Cholesterol Direct HDL Cholesterol TSH 3rd Generation Urine Color Urine Clarity Urine pH Ur Specific [place] Urine Protein Urine Glucose (UA) Urine Ketones Urine Blood Urine Nitrate Urine Bilirubin Urine Urobilinogen Ur Leukocyte Esterase Urine RBC (Auto) Urine Microscopic WBC Ur Squamous Epith Cells Urine Bacteria 05/04/18 05/04/18 06:15 07:00 WBC RBC Hgb Hct MCV MCH MCHC RDW Plt Count MPV Neut % (Auto) Lymph % (Auto) [place] % (Auto) Eos % (Auto) Baso % (Auto) Neut # (Auto) Lymph # (Auto) [place] # (Auto) Eos # (Auto) Baso # (Auto) PT INR APTT Sodium 140 Potassium 5.0 Chloride 104 Carbon Dioxide 32 H Anion Gap 9 L BUN 27 H Creatinine 1.8 H Est GFR ( Amer) 33 Est GFR (Non-Af Amer) 28 POC Glucose (mg/dL) Random Glucose 92 Calcium 8.8 Total Bilirubin 0.4 AST 29 ALT 18 Alkaline Phosphatase 89 Troponin I NT-Pro-B Natriuret Pep Total Protein 6.2 L Albumin 3.2 L Globulin 3.1 Albumin/Globulin Ratio 1.0 Triglycerides 96 D Cholesterol 155 LDL Cholesterol Direct 89 HDL Cholesterol 40 TSH 3rd Generation 0.77 Urine Color Yellow Urine Clarity Slighty-cloudy Urine pH 5.0 Ur Specific [place] 1.016 Urine Protein Negative Urine Glucose (UA) Neg Urine Ketones Negative Urine Blood Negative Urine Nitrate Negative Urine Bilirubin Negative Urine Urobilinogen 0.2-1.0 Ur Leukocyte Esterase Small Urine RBC (Auto) 2 Urine Microscopic WBC 15 H Ur Squamous Epith Cells 1 Urine Bacteria Rare Assessment & Plan (1) Chest pain Status: Acute (2) Bradycardia Status: Acute - Assessment and Plan (Free Text) Plan: available diagnostic data reviewed cardiology consulted, appreciate recommendations trop x 3 , follow up quality assurance monitor final labs monitor vitals adjust meds due to bradycardia rest of plan as ordered
[2018-05-04] MEDS: Pantoprazole 40 mg EC Tab PO SCH (17:10)
[2018-05-04] MEDS: Fluticasone-Salmeterol 250-50mcg Diskus IH SCH (21:01)
--- NOTE | 2018-05-05 03:09 | CP.PCM.PCO ---
Assessment/Plan - Assessment Assessment: Pt reported chest pain at 2:30am as per RN. I saw and evaluated pt. She was no terrence to be lying in bed mildly distressed, reporting substernal pressure like chest pain w/o radiation. She denied any sob. Vitals were stable. EKG was repeated, no ischemic changes were noted. Pt was given Nitroglycerine SL and pain and repeat troponin was sent sent to lab. Pt was re-evaluated after 10 minutes and reported pain had resolved. Will follow up repeat troponin. Discussed Case with Dr. Cordoba
[2018-05-05 03:49] LABS: ALBUMIN 3.2 g/dL (3.5-5.0); ALT/SGPT < 6 U/L (9-52); AST/SGOT 36 U/L (14-36); B-TYPE NATRIURETIC PEPTIDE 1150 pg/ml (0-900); BLOOD UREA NITROGEN 25 mg/dl (7-17); CALCIUM 8.5 mg/dL (8.4-10.2); GFR NON-AFRICAN AMERICAN 37
[2018-05-05] MEDS: Levothyroxine 200 MCG TAB PO SCH (05:43)
[2018-05-05 07:16] LABS: HEMOGLOBIN 9.8 g/dL (12.0-16.0); MEAN CELL VOLUME 87.7 fl (81.0-99.0); MEAN CORPUSCULAR HEMOGLOBIN 28.2 pg (27.0-31.0); MEAN CORPUSCULAR HGB CONC 32.1 g/dL (33.0-37.0); RBC 3.46 Mil/uL (3.80-5.20); RED CELL DISTRIBUTION WIDTH 16.6 % (11.5-14.5); WHITE BLOOD COUNT 7.2 K/uL (4.8-10.8)
[2018-05-05] MEDS: Fluticasone-Salmeterol 250-50mcg Diskus IH SCH ×2 (08:16→22:31)
[2018-05-05] MEDS: Pantoprazole 40 mg EC Tab PO SCH (08:17)
--- NOTE | 2018-05-05 15:22 | CP.PCM.PN ---
Subjective - Date & Time of Evaluation Date of Evaluation: 05/05/18 Time of Evaluation: 12:00 - Subjective Subjective: patient seen and examined at bedside. Interim events noted No complaints offered at this time denies cp/sob/fever/chills. available diagnostic data reviewed Objective Vital Signs Stable - Constitutional Appears: Non-toxic, No Acute Distress - Head Exam Head Exam: NORMAL INSPECTION - Eye Exam Eye Exam: Normal appearance - Respiratory Exam Respiratory Exam: NORMAL BREATHING PATTERN - Cardiovascular Exam Cardiovascular Exam: +S1, +S2 - GI/Abdominal Exam GI & Abdominal Exam: Soft - Neurological Exam Neurological Exam: Alert, Awake - Psychiatric Exam Psychiatric exam: Normal Affect, Normal Mood - Skin Skin Exam: Normal Color, Warm Assessment and Plan monitor vitals monitor labs Cont meds Cont tx consultants appreciated input pt eval/dispo planning rest of plan as ordered Assessment and Plan (1) Chest pain Status: Acute (2) Bradycardia Status: Acute
[2018-05-06 05:52] LABS: HEMOGLOBIN 10.2 g/dL (12.0-16.0); MEAN CORPUSCULAR HEMOGLOBIN 28.4 pg (27.0-31.0); MEAN CORPUSCULAR HGB CONC 31.9 g/dL (33.0-37.0); RBC 3.59 Mil/uL (3.80-5.20); RED CELL DISTRIBUTION WIDTH 16.9 % (11.5-14.5); WHITE BLOOD COUNT 7.7 K/uL (4.8-10.8)
[2018-05-06 06:30] LABS: ALBUMIN 3.3 g/dL (3.5-5.0); CALCIUM 8.9 mg/dL (8.4-10.2)
[2018-05-06] MEDS: Levothyroxine 200 MCG TAB PO SCH (08:06)
[2018-05-06] MEDS: Fluticasone-Salmeterol 250-50mcg Diskus IH SCH (08:06)
[2018-05-06] MEDS: Pantoprazole 40 mg EC Tab PO SCH (08:07)
[2018-05-06 08:23] VITALS: RESP 20; TEMP 97.6
--- NOTE | 2018-05-06 09:31 | CARD ---
APPROVED REPORT Date of service: 05/05/2018 EKG Measurement Heart [id number] <Conclusion> Normal sinus rhythm Rightward axis Borderline ECG
--- NOTE | 2018-05-06 09:31 | CARD ---
APPROVED REPORT Date of service: 05/05/2018 EKG Measurement Heart [id number] <Conclusion> Sinus rhythm with 1st degree AV block Rightward axis Borderline ECG
[2018-05-06 12:34] VITALS: BP 122/68; PULSE 79; O2SAT 97
--- NOTE | 2018-05-06 13:36 | CP.PCM.PCO ---
Assessment/Plan - Assessment and Plan (Free Text) Assessment: Patient with pmhx of CVA, CAD, HTN seen today at bedside Denies chest pain, shortness of breath nausea or vomiting. Troponins negative x 3 Echo on 01/2018 with 55-[address] Wilder and Dr Barahona. Patient would like to return home and cont physical therapy at home, does not wish to go to rehab. 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 Discussed with Dr Barahona who agrees with dc plan.
--- NOTE | 2018-05-08 15:24 | CP.PCM.DIS ---
Provider - Provider Date of Admission: 05/03/18 15:55 Attending physician: Ranjit Barahona MD Consults: 05/03/18 21:59 Cardiology Consult Routine Comment: Consulting Provider: Suis Wilder Consulting Physician: Susi Wilder Reason for Consult: Symptomatic Bradycardia 05/04/18 00:01 Case Management Referral Routine Comment: Physician Instructions: Reason For Exam: Reason for Referral: Discharge Planning Social Work Referral Routine Comment: Homemaker Physician Instructions: Reason For Exam: Homemaker Time Spent in preparation of Discharge (in minutes): 30 Diagnosis - Discharge Diagnosis (1) Chest pain Status: Resolved (2) Bradycardia Status: Resolved Hospital Course - Lab Results Lab Results: Most Recent Lab Values WBC 7.7 K/uL (4.8-10.8) 05/06/18 05:10 RBC 3.59 Mil/uL (3.80-5.20) L 05/06/18 05:10 Hgb 10.2 g/dL (12.0-16.0) L 05/06/18 05:10 Hct 31.9 % (34.0-47.0) L 05/06/18 05:10 MCV 89.0 fl (81.0-99.0) 05/06/18 05:10 MCH 28.4 pg (27.0-31.0) 05/06/18 05:10 MCHC 31.9 g/dL (33.0-37.0) L 05/06/18 05:10 RDW 16.9 % (11.5-14.5) H 05/06/18 05:10 Plt Count 249 K/uL (130-400) 05/06/18 05:10 MPV 8.7 fl (7.2-11.7) 05/03/18 14:15 Neut % (Auto) 70.4 % (50.0-75.0) 05/03/18 14:15 Lymph % (Auto) 17.7 % (20.0-40.0) L 05/03/18 14:15 [place] % (Auto) 8.0 % (0.0-10.0) 05/03/18 14:15 Eos % (Auto) 3.0 % (0.0-4.0) 05/03/18 14:15 Baso % (Auto) 0.9 % (0.0-2.0) 05/03/18 14:15 Neut # (Auto) 5.0 K/uL (1.8-7.0) 05/03/18 14:15 Lymph # (Auto) 1.3 K/uL (1.0-4.3) 05/03/18 14:15 [place] # (Auto) 0.6 K/uL (0.0-0.8) 05/03/18 14:15 Eos # (Auto) 0.2 K/uL (0.0-0.7) 05/03/18 14:15 Baso # (Auto) 0.1 K/uL (0.0-0.2) 05/03/18 14:15 PT 12.1 Seconds (9.8-13.1) 05/03/18 14:15 INR 1.1 05/03/18 14:15 APTT 30.7 Seconds (25.6-37.1) 05/03/18 14:15 Sodium 141 mmol/l (132-148) 05/06/18 05:10 Potassium 4.4 MMOL/L (3.6-5.0) 05/06/18 05:10 Chloride 104 mmol/L (98-107) 05/06/18 05:10 Carbon Dioxide 24 mmol/L (22-30) 05/06/18 05:10 Anion Gap 17 (10-20) 05/06/18 05:10 BUN 23 mg/dl (7-17) H 05/06/18 05:10 Creatinine 1.4 mg/dl (0.7-1.2) H 05/06/18 05:10 Est GFR ( Amer) 45 05/06/18 05:10 Est GFR (Non-Af Amer) 37 05/06/18 05:10 POC Glucose (mg/dL) 89 mg/dL (65-110) 05/04/18 05:54 Random Glucose 102 mg/dL (65-105) 05/06/18 05:10 Calcium 8.9 mg/dL (8.4-10.2) 05/06/18 05:10 Total Bilirubin 0.4 mg/dl (0.2-1.3) 05/06/18 05:10 AST 22 U/L (14-36) 05/06/18 05:10 ALT 18 U/L (9-52) 05/06/18 05:10 Alkaline Phosphatase 93 U/L (38-126) 05/06/18 05:10 Troponin I < 0.0120 ng/mL (0.00-0.120) 05/05/18 06:45 NT-Pro-B Natriuret Pep 1150 pg/ml (0-900) H 05/05/18 02:42 Total Protein 6.4 G/DL (6.3-8.2) 05/06/18 05:10 Albumin 3.3 g/dL (3.5-5.0) L 05/06/18 05:10 Globulin 3.1 gm/dL (2.2-3.9) 05/06/18 05:10 Albumin/Globulin Ratio 1.0 (1.0-2.1) 05/06/18 05:10 Triglycerides 96 mg/DL (0-149) D 05/04/18 06:15 Cholesterol 155 mg/dL (0-199) 05/04/18 06:15 LDL Cholesterol Direct 89 mg/dL (0-129) 05/04/18 06:15 HDL Cholesterol 40 MG/DL (30-70) 05/04/18 06:15 TSH 3rd Generation 0.77 mIU/ML (0.46-4.68) 05/04/18 06:15 Urine Color Yellow (YELLOW) 05/04/18 07:00 Urine Clarity Slighty-cloudy (Clear) 05/04/18 07:00 Urine pH 5.0 (5.0-8.0) 05/04/18 07:00 Ur Specific [place] 1.016 (1.003-1.030) 05/04/18 07:00 Urine Protein Negative mg/dL (NEGATIVE) 05/04/18 07:00 Urine Glucose (UA) Neg mg/dL (NEGATIVE) 05/04/18 07:00 Urine Ketones Negative mg/dL (NEGATIVE) 05/04/18 07:00 Urine Blood Negative (NEGATIVE) 05/04/18 07:00 Urine Nitrate Negative (NEGATIVE) 05/04/18 07:00 Urine Bilirubin Negative (NEGATIVE) 05/04/18 07:00 Urine Urobilinogen 0.2-1.0 mg/dL (0.2-1.0) 05/04/18 07:00 Ur Leukocyte Esterase [place]/uL (Negative) 05/04/18 07:00 Urine RBC (Auto) 2 /hpf (0-3) 05/04/18 07:00 Urine Microscopic WBC 15 /hpf (0-5) H 05/04/18 07:00 Ur Squamous Epith Cells 1 /hpf (0-5) 05/04/18 07:00 Urine Bacteria Rare (<OCC) 05/04/18 07:00 - Hospital Course Hospital Course: 72 year old female w/ PMHx of HTN, HLD, CVA (2018 with R sided weakness and now bedridden), CAD, cardiomyopathy (followed by Dr. Montanez Wetland Scientist) presented to ED with chest pain central/ stabbing radiating to jaw associated with dizziness, dyspnea. Patient was admitted for bradycardia, dyspnea, and chest pain. Cardiology was consulted. Troponins negative x 3 Echo on 01/2018 with 55-60 EF. Patient would like to return home and cont physical therapy at home, does not wish to go to rehab. 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 Discharge Exam - Head Exam Head Exam: NORMAL INSPECTION - Eye Exam Eye Exam: Normal appearance - Respiratory Exam Respiratory Exam: NORMAL BREATHING PATTERN - Cardiovascular Exam Cardiovascular Exam: +S1, +S2 - GI/Abdominal Exam GI & Abdominal Exam: Soft - Neurological Exam Neurological exam: Alert, Oriented x3 - Psychiatric Exam Psychiatric exam: Normal Affect, Normal Mood - Skin Skin Exam: Normal Color, Warm Discharge Plan - Follow Up Plan Condition: STABLE Disposition: HOME/ ROUTINE Instructions: Chest Pain (DC)
--- NOTE | 2018-05-08 15:30 | PQF ---
PROVIDER RESPONSE TEXT: CKD 3 REVIEWER QUERY TEXT: Kidney Disease, Chronic CKD Stage Chronic Kidney Disease (CKD) is documented in the Medical Record. Please specify the disease stage ( includes probable or suspected) Such as: -- Chronic kidney disease Stage 1 -- Chronic kidney disease Stage 2 -- Chronic kidney disease Stage 3 -- Chronic kidney disease Stage 4 -- Chronic kidney disease Stage 5 -- Chronic kidney disease Stage 5, requiring dialysis -- End Stage Renal Disease -- Other, please specify Stages are defined by the [employer] as follows: CKD Stage I GFR >= 90 ml / min per 1.73 m2 and persistent albuminuria CKD Stage 2 GFR between 60 and 89 with persistent albuminuria CKD Stage 3 GFR between 30 and 59 CKD Stage 4 GFR between 15 and 29 CKD Stage 5 GFR between <15 or End Stage Renal Disease The patient's Clinical Indicators include: BUN 23, 27, 25, 23 Creatinine 1.7, 1.8, 1.4 GFR 30, 28, 37 Given IVF . Query created by: Emily Wise on 05/07/2018 8:28 AM Electronically signed by: Ranjit Barahona 05/08/2018 3:28 PM
--- NOTE | 2018-05-08 15:31 | PQF ---
PROVIDER RESPONSE TEXT: hyperkalemia REVIEWER QUERY TEXT: Medication Correlation for Diagnosis Your help is needed in capturing diagnoses for the corresponding medications ordered which was Kayexa late. Please clarify in the documentation diagnoses for the following medication(s). Medications: Kayexalate The patient's Clinical Indicators include: K 5.3 Query created by: Emily Wise on 05/07/2018 8:29 AM Electronically signed by: Ranjit Barahona 05/08/2018 3:28 PM
--- NOTE | 2018-05-08 15:31 | PQF ---
PROVIDER RESPONSE TEXT: Provider was unable to determine a response for this query. REVIEWER QUERY TEXT: Heart Failure Acuity and Type Congestive Heart Failure is documented in the Medical Record. Please document the type and acuity (in cludes probable or suspected) Such as: Type: -- Combined systolic and diastolic (heart failure with reduced ejection fraction and diastolic) dysfu nction -- Diastolic (HFpEF) -- Systolic (HFrEF) -- Left heart failure -- Right heart failure -- Right heart failure due to left heart failure -- High output failure -- End stage heart failure -- Other, please specify Acuity: -- Acute -- Chronic -- Acute on chronic -- Other, please specify Also please document the underlying cause of the CHF (includes probable or suspected) The patient's Clinical Indicators include: ECHO from 01/2018: EF 55-60%, Grade I abnormal relaxation pattern, AR, TR. Medication: Coreg and Norvasc held due to bradycardia. Lasix at home. Pro BNP 1260 Query created by: Emily Wise on 05/07/2018 8:26 AM Electronically signed by: Ranjit Barahona 05/08/2018 3:28 PM
--- NOTE | 2018-05-08 15:31 | PQF ---
PROVIDER RESPONSE TEXT: Morbid obesity with BMI 46.9 REVIEWER QUERY TEXT: Documentation Clarification Your help is requested in clarifying the following clinical documentation, if you can please further specify in the medical record and discharge summary. EMR has the patient listed as 5', weight of 240 pounds with a BMI of 46.9. Please clarify if there i s an associated diagnosis or not to go along with this finding. If yes please document the diagnosis AND the BMI results. The patient's Clinical Indicators include: Dietary consult BMI 46.8, Obesity III. See recommendations. Query created by: Emily Wise on 05/07/2018 8:32 AM Electronically signed by: Ranjit Barahona 05/08/2018 3:28 PM
== END 2018-05-06 15:45 | disposition home or self-care (01) | DRG 309 ==
LOC: H.ER 13:18 → H.ERHOLD 15:55 → H.TEL 19:05
PROVIDERS: ADMIT Family Medicine; ATTEND Family Medicine
DX: R00.1 Bradycardia, unspecified (principal); I69.351 Hemiplegia and hemiparesis following cerebral infarction affecting right dominant side; I13.0 Hypertensive heart and chronic kidney disease with heart failure and stage 1 through stage 4 chronic kidney disease, or unspecified chronic kidney disease; Z68.42 Body mass index [BMI] 45.0-49.9, adult; I42.9 Cardiomyopathy, unspecified; I50.9 Heart failure, unspecified; E78.00 Pure hypercholesterolemia, unspecified; E03.9 Hypothyroidism, unspecified; E78.5 Hyperlipidemia, unspecified; I25.10 Atherosclerotic heart disease of native coronary artery without angina pectoris; J44.9 Chronic obstructive pulmonary disease, unspecified; Z74.01 Bed confinement status; Z96.653 Presence of artificial knee joint, bilateral; R07.9 Chest pain, unspecified; Z88.6 Allergy status to analgesic agent; Z88.5 Allergy status to narcotic agent; F41.9 Anxiety disorder, unspecified; Z79.82 Long term (current) use of aspirin; Z79.890 Hormone replacement therapy; Z99.81 Dependence on supplemental oxygen; N18.3 Chronic kidney disease, stage 3 (moderate); E87.5 Hyperkalemia; E66.01 Morbid (severe) obesity due to excess calories